=== PATIENT | male | born 1955 | race Caucasian/White ===

== ENCOUNTER 2020-01-08 20:16 | Emergency (ER) | payer MEDICARE, SELFPAY ==
[2020-01-08 20:19] VITALS: BP 122/61; PULSE 74; RESP 14; TEMP 36.4; O2SAT 98; BMI 22.4
--- NOTE | 2020-01-08 20:29 | XR_ITS ---
WS: [id number] RIGHT FOOT: 3 VIEW(S) TECHNIQUE: PA, oblique and lateral. HISTORY: necrosis COMPARISON: None available. Soft tissue and bone abnormality centered near the fifth metatarsal head. There is air in the soft ti ssues over the plantar surface of the foot. On the lateral projection air extends from the anterior c alcaneal process to the level of the metatarsal heads. On the AP projection foci of air between the f ourth and fifth metatarsals and surrounding the fifth metatarsal head and proximal fifth toe. Small a mount of air along the dorsal surface of the foot. Osseous destruction involving the medial fifth metatarsal head measures 10 x 8 mm. There is also inco mplete visualization of the cortex of the proximal phalanx fifth toe. No definite additional bone amor truction. There is some mild lucency throughout nearly the entire fourth and fifth metatarsals. Could be from prior osteomyelitis or edema. XR/XR foot RT min 3V* [id number] IMPRESSION: 1. Bone destruction consistent with osteomyelitis involving the medial fifth m etatarsal head with extension across the metatarsophalangeal joint to the proxi mal phalanx. 2. Extensive foci of air along the plantar surface of the foot. Smaller amount of air along the dorsal surface of the foot at the level of the mid metatarsal s.
--- NOTE | 2020-01-08 20:32 | W.ED.NEUROSD ---
HPI - Neuro Symptoms/Deficit General: Chief Complaint: Neuro Symptoms/Deficit Stated Complaint: POSSIBLE STROKE Time Seen by Provider: 01/08/20 20:27 Source: patient and EMS Mode of arrival: EMS Limitations: no limitations History of Present Illness: HPI Narrative: 64-year-old male who states that he was having some slurred speech and did have hypoglycemia. Patient was given glucose and his symptoms have completely resolved. Patient states he was not too concerned about that but noticed today as well that his toes were turning blue he is having a lot of pain in his foot. He states he had peripheral vascular disease in the past but it got much worse today. He denies any fevers. Denies any worsening improving factors. Patient's initial blood glucose was in the 40s. They gave him D50 states he feels completely normal and was ambulatory at the scene and had no focal deficits. Associated symptoms: Deny chest pain, headache(s), nausea or vomiting Review of Systems Const: Denies: fever, chills, body aches or change in appetite Eyes: Denies: blurry vision or eye discomfort ENMT: Denies: throat pain or dental pain Card: Denies: chest pain Resp: Denies: shortness of breath GI: Denies: abdominal pain, nausea, vomiting or diarrhea : Denies: painful urination Musc: Denies: neck pain or back pain Skin/Breast: Reports: sores; Denies: rash Neuro: Denies: headache Psych: Denies: depression Marcial/Lymph: Denies: easy bruising All/Imm: Denies: hives PFSH ED PFSH: Social History Smoking and tobacco status: current every day smoker Physical Exam Const: COMMON NORMALS: no apparent distress, oriented x3 and healthy appearing HENMT: COMMON NORMALS: normocephalic and head/scalp atraumatic HEAD & SCALP: normocephalic and atraumatic Eye: COMMON NORMALS: PERRL and EOMs intact bilaterally PUPIL: Yes PERRL Neck/C-Spine: COMMON NORMALS: full ROM and supple Chest: COMMONS NORMALS: inspection of chest normal and palpation of chest normal Resp: COMMON NORMALS: normal respiratory effort, no retractions, no use of accessory muscles and clear to auscultation bilaterally AUSCULTATION: clear to auscultation bilaterally Cardio: COMMON NORMALS: regular rate, regular rhythm and no murmurs RATE: regular rate RHYTHM: regular rhythm GI: COMMON NORMALS: normal to inspection, nondistended, normoactive bowel sounds, soft to palpation, non-tender and no masses PALPATION: Yes soft Extremity: COMMON NORMALS: normal to inspection and full ROM NARRATIVE EXTREMITY EXAM: Necrosis to third fourth and fifth toes of the right foot patient's foot is cold and unable to get any pulses of his dorsalis pedis or posterior tib at this time. Neuro: COMMON NORMALS: oriented x3, moves all extremities and no focal motor deficits Psych: COMMON NORMALS: mental status grossly normal, thought process normal and cooperative THOUGHT PROCESS: normal thought process Skin: COMMON NORMALS: no rashes or lesions noted and no wounds GENERAL SKIN EXAM: no rashes or lesions noted Course Vital Signs: Vital signs: Vital Signs Temperature 97.5 F L 01/08/20 20:19 Pulse Rate 74 01/08/20 20:19 Respiratory Rate 14 01/08/20 20:19 Blood Pressure 122/61 01/08/20 20:19 Pulse Oximetry 98 01/08/20 20:19 MDM - Neuro Symptoms/Deficit MDM Narrative: Medical decision making narrative: Patient presents here with hypoglycemia initially improved with D50 by EMS. Patient here is been awake alert and able answer all my questions appropriately. Patient second glucose here was 39 so give another amp of D50 and D10 drip. Patient also has ischemic limb with necrotic toes up to his midfoot. I spoke to Dr. Burris of cardiovascular surgery was not transfer straight to the OR but he wanted to transfer the ER first due to his hyperglycemia. I spoke to Dr. Perdomo at the ER and will transfer there. Patient started on heparin here and IV antibiotics. Will transfer due to higher level of care as regional have cardiovascular surgery at this time. Lab Data: Labs: Lab Results 01/08/20 01/08/20 01/08/20 Range/Units 20:33 20:33 20:33 WBC 31.8 H* (4.0-10.0) 10^3/ uL RBC 3.83 L (4.1-5.3) 10^6/u L Hgb 11.3 L (11.7-16.6) g/dL Hct 35.1 L (42.0-52.0) % MCV 91.6 (80-94) fL MCH 29.5 (28.0-34.0) pg MCHC 32.2 (30.0-36.0) g/dL RDW 13.4 (12.1-15.1) % Plt Count 451 H (130-400) 10^3/c mm MPV 10.0 (7.4-10.4) fL Neut % (Auto) 85.9 % Lymph % (Auto) 4.3 % [place] % (Auto) 8.2 % Eos % (Auto) 0.1 % Baso % (Auto) 0.3 % Neut # (Auto) 27.3 H (1.8-7.7) 10^3/u L Lymph # (Auto) 1.4 (0.8-4.8) 10^3/u L [place] # (Auto) 2.6 H (0.2-0.9) 10^3/u L Eos # (Auto) 0.0 (0.0-0.8) 10^3/u L Baso # (Auto) 0.1 (0.0-0.1) 10^3/u L Nucleated RBC % (a uto) 0 % Nucleated RBCs # 0.0 /100WBC PT 15.30 H (10.5-13.3) SECO NDS INR 1.17 (0.8-1.2) Sodium 137 (136-145) mmol/L Potassium 3.6 (3.5-5.1) mmol/L Chloride 96 L (98-107) mmol/L Carbon Dioxide 23 (22-29) mmol/L Anion Gap 21.6 H (5-19) BUN 54 H (8-23) mg/dL Creatinine 1.8 H (0.7-1.2) mg/dL GFR Calculation 37.9 L (90-130) mL/min Glucose 39 L* (65-115) mg/dL Calculated Osmolal ity 279 L (285-295) mOsm/k g Calcium 9.8 (8.5-10.5) mg/dL Total Bilirubin 0.4 (0.15-1.2) mg/dL AST 59 H (0-40) U/L ALT 52 H (0-41) U/L Alkaline Phosphata se 108 (40-130) IU/L Total Protein 8.0 (6.6-8.7) g/dL Albumin 3.7 (3.5-5.2) g/dL Globulin 4.3 (1.3-4.6) g/dL Critical Care Time Critical Care Time: Critical Care Time: Yes Total Critical Care Time: 35 Attestation: This case had a high probability of a clinically significant, sudden, or life threatening deterioration of this patient's condition which required my full and direct attention, intervention and personal management. Discharge Plan Discharge Patient Disposition: Xfer Other Clinical Impression: Ischemic leg, Hypoglycemia Condition: Stable Referrals: Kunal Mcdowell MD [Primary Care Provider] - Coding Level of Care Code ED Senior Oracle Database Developer for Chg Fwd Exam Comprehensive
--- NOTE | 2020-01-08 20:42 | CTR_ITS ---
PROCEDURE INFORMATION: Exam: CT Head Without Contrast Exam date and time: 01/08/2020 8:49 PM Age: 64 years old Clinical indication: Altered mental status/memory loss and other: Low bs; Additional info: AMS TECHNIQUE: Imaging protocol: Computed tomography of the head without contrast. Total DLP: 844.34 mGy-cm Radiation optimization: All CT scans at this facility use at least one of these dose optimization techniques: automated exposure control; mA and/or kV adjustment per patient size (includes targeted exams where dose is matched to clinical indication); or iterative reconstruction. COMPARISON: No relevant prior studies available. FINDINGS: Brain: There is mild cortical atrophy. There are mild low-density changes in the white matter regions in keeping nonspecific chronic ischemic change. There is no intracranial mass, hemorrhage or edema. Ventricles: Normal. No ventriculomegaly. Bones/joints: Unremarkable. No acute fracture. Sinuses: Visualized sinuses are unremarkable. No fluid levels. Mastoid air cells: Visualized mastoid air cells are well aerated. Soft tissues: Unremarkable. CT/CT head wo con* [id number] IMPRESSION: No acute finding Radiation Dose CTDIVOL = (mGy): DLP = 844.34 (mGy-cm)
[2020-01-08 20:44] LABS: Basophils # 0.1 10^3/uL (0.0-0.1); Basophils % 0.3 %; Eosinophils % 0.1 %; Hematocrit 35.1 % (42.0-52.0); Hemoglobin 11.3 g/dL (11.7-16.6); Lymphocytes # 1.4 10^3/uL (0.8-4.8); Lymphocytes % 4.3 %; Mean Corpuscular HGB Conc 32.2 g/dL (30.0-36.0); Mean Corpuscular Hemoglobin 29.5 pg (28.0-34.0); Mean Corpuscular Volume 91.6 fL (80-94); Monocytes # 2.6 10^3/uL (0.2-0.9); Monocytes % 8.2 %; Neutrophils # 27.3 10^3/uL (1.8-7.7); Neutrophils % 85.9 %; Nucleated Red Blood Cells % 0 %; Platelet Count 451 10^3/cmm (130-400); Red Blood Count 3.83 10^6/uL (4.1-5.3); Red Cell Distribution Width 13.4 % (12.1-15.1)
[2020-01-08] MEDS: heparin 5,000 unit/mL INJ 1 mL 4000 UNIT IVP (20:46)
[2020-01-08 20:48] LABS: White Blood Count 31.8 10^3/uL (4.0-10.0)
--- NOTE | 2020-01-08 20:48 | PC.NURSE ---
WBC [id number]
[2020-01-08 20:49] LABS: INR 1.17 (0.8-1.2)
[2020-01-08 20:53] LABS: Alanine Aminotransferase 52 U/L (0-41); Albumin Level 3.7 g/dL (3.5-5.2); Alkaline Phosphatase 108 IU/L (40-130); Anion Gap 21.6 (5-19); Aspartate Amino Transferase 59 U/L (0-40); Blood Urea Nitrogen 54 mg/dL (8-23); Calcium 9.8 mg/dL (8.5-10.5); Carbon Dioxide 23 mmol/L (22-29); Chloride 96 mmol/L (98-107); Globulin 4.3 g/dL (1.3-4.6); Glomerular Filtration Rate 37.9 mL/min (90-130); Osmolality Calculated 279 mOsm/kg (285-295); Potassium 3.6 mmol/L (3.5-5.1); Sodium 137 mmol/L (136-145); Total Bilirubin 0.4 mg/dL (0.15-1.2)
[2020-01-08] MEDS: heparin drip 25,000 UNIT/500 ML PREMIX 21 UNIT IV (20:56)
[2020-01-08 20:58] LABS: Glucose 39 mg/dL (65-115)
[2020-01-08] MEDS: dextrose 50% syringe 50 mL IVP (21:02)
[2020-01-08] MEDS: vancomycin 1,000 MG in sodium chloride 0.9% 250 ML 250 MG IV (21:24)
[2020-01-08] MEDS: LORazepam 2 mg/mL INJ 1 mL 1 MG IVP (21:25)
[2020-01-08 21:31] VITALS: BP 98/51; PULSE 78; RESP 18; O2SAT 97
== END 2020-01-08 21:49 | disposition other institution (70) ==
PROVIDERS: Emergency Provider Emergency Medicine; Family Provider Internal Medicine; PCP Internal Medicine
DX: I99.8 Other disorder of circulatory system (principal); E16.2 Hypoglycemia, unspecified; F17.210 Nicotine dependence, cigarettes, uncomplicated; M86.8X8 Other osteomyelitis, other site; R41.82 Altered mental status, unspecified
CPT/HCPCS: 12345; 36415; 70450; 73630; 80053; 83605; 85025; 85610; 96365; 96367; 96368; 96375; 99281; 99285; J1644; J2060; J3370; J7050

== ENCOUNTER 2020-02-03 04:01 | Emergency (ER) | payer MEDICARE, SELFPAY ==
[2020-02-03 04:03] VITALS: PULSE 83; RESP 18; TEMP 36.5; O2SAT 99; BMI 21.7
--- NOTE | 2020-02-03 04:17 | ED_ITS ---
HPI - Fall General: Chief Complaint: Fall Stated Complaint: ams/ low blood sugar Time Seen by Provider: 02/03/20 04:16 History of Present Illness: HPI Narrative: 64-year-old male diabetic. 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 He states the pain had made him nauseated, and he did not eat supper last night. He fell out of bed early this morning, and sustained skin avulsions to his right upper extremity. He denies any fever. He denies purulent drainage from his stump. On EMS arrival, his blood sugar was 37. complaint: fall Onset (ago): minute(s) Fall from: out of bed Fall witnessed: yes, by family Place fall occurred: home Loss of consciousness: None Prolonged down time: no Symptoms prior to fall: dizziness Context: tripped/slipped Location of injury - extremities: Right: forearm Severity: mild Associated symptoms-after fall: Reports confusion; Denies abdominal pain, chest pain, hematuria or neck pain Review of Systems Const: Denies: fever(s) or chills Eyes: Reports: blurry vision; Denies: change in vision ENMT: Denies: odynophagia or epistaxis Card: Denies: chest pain, palpitations, irregular heart rhythm or edema Resp: Denies: dyspnea, productive cough, non-productive cough or wheezing GI: Reports: nausea; Denies: abdominal pain or vomiting : Denies: difficulty urinating or hematuria Musc: Reports: back pain; Denies: neck pain Skin/Breast: Denies: rash, pruritus or erythema Neuro: Reports: confusion Psych: Denies: anxiety PFSH ED PFSH: Medical History (Updated 02/13/20 @ 13:02 by Junior Ricketts MD) Diastolic CHF, chronic Essential (primary) hypertension Hereditary and idiopathic neuropathy, unspecified Mixed hyperlipidemia Non-ST elevation (NSTEMI) myocardial infarction Occlusion and stenosis of left carotid artery Presence of prosthetic heart valve January 2020- Bioprosthetic valve in the aortic position appears to be well- seated, leaflet could not be well visualized. VTI across the aortic valve is 2.4 m/s Surgical History History of [facility] 12/2019- [facility] History of aortic valve replacement History of coronary artery bypass graft Hx of right BKA Family History Other CAD (coronary artery disease) CHF (congestive heart failure) Cancer Social History Smoking and tobacco status: current every day smoker Alcohol intake: never Physical Exam Const: GENERAL APPEARANCE: well developed ORIENTATION/CONSCIOUSNESS: Yes oriented to person, Yes oriented to place and Yes oriented to time HENMT: COMMON NORMALS: normocephalic, external ears normal and Normal external nose present HEAD & SCALP: normocephalic NOSE: Normal external nose present and No nasal discharge present EXTERNAL EAR: Yes external ears normal MOUTH: tongue normal Eye: COMMON NORMALS: Equal, round and reactive pupils present, EOMs intact bilaterally and conjunctivae normal EYELID: eyelids normal CONJUNCTIVA: Yes conjunctivae normal PUPIL: Yes Equal, round and reactive pupils present Neck/C-Spine: GENERAL: No tracheal deviation CERVICAL SPINE: No Cervical spine tenderness Chest: COMMONS NORMALS: normal inspection of the chest CHEST: No tenderness Resp: COMMON NORMALS: clear to auscultation bilaterally EFFORT & INSPECTION: No tachypneic, No respiratory distress, No retractions, No uses accessory muscles and No tracheal deviation AUSCULTATION: clear to auscultation bilaterally, no rhonchi, no wheezes and lung sounds not diminished Cardio: COMMON NORMALS: regular rate and regular rhythm RATE: regular rate RHYTHM: regular rhythm HEART SOUNDS: no murmurs PERIPHERAL PULSES: radial pulses present GI: INSPECTION: No abdominal distension AUSCULTATION: No Hyperactive bowel sounds present and No Hypoactive bowel sounds present PALPATION: No Guarding due to palpation present (GI) and No Rigid due to palpation PERCUSSION: no dullness to percussion and no tympanic to percussion Neuro: SENSORIUM/ORIENTATION: Yes oriented to person, Yes oriented to place and Yes oriented to time Psych: COMMON NORMALS: mental status grossly normal Skin: NARRATIVE SKIN EXAM: Medium size skin avulsion to his right forearm. His right below the knee stump has some dried blood. There is no purulent drainage. Course Vital Signs: Vital signs: Vital Signs Temperature 97.7 F 02/03/20 04:03 Pulse Rate 67 02/03/20 10:14 Respiratory Rate 17 02/03/20 10:14 Blood Pressure 146/56 02/03/20 10:14 Pulse Oximetry 96 02/03/20 10:14 MDM - Fall MDM Narrative: Medical decision making narrative: 64-year-old man who fell out of bed at home. His blood sugar was 37 on arrival. His serum was drawn in the field, and actually read 14. He is on oral hypoglycemics, glimepiride. He did not eat supper last night. He does not have any other signs of infection or sepsis. He is given an amp of D50 here, as after the D10 he was given in the field, his sugar fell back to 41. He is on D10 now currently. When his sugar stays up appropriately he will be allowed discharge. He was given a tetanus for the skin avulsions. They are bandaged and Tegaderm. Lab Data: Labs: Lab Results 02/03/20 02/03/20 02/03/20 Range/Units 04:13 04:13 04:55 WBC 14.3 H (4.0-10.0) 10^3/ uL RBC 3.93 L (4.1-5.3) 10^6/u L Hgb 11.7 (11.7-16.6) g/dL Hct 38.1 L (42.0-52.0) % MCV 96.9 H (80-94) fL MCH 29.8 (28.0-34.0) pg MCHC 30.7 (30.0-36.0) g/dL RDW 16.4 H (12.1-15.1) % Plt Count 490 H (130-400) 10^3/c mm MPV 9.8 (7.4-10.4) fL Neut % (Auto) 67.5 % Lymph % (Auto) 19.7 % [place] % (Auto) 9.6 % Eos % (Auto) 2.3 % Baso % (Auto) 0.6 % Neut # (Auto) 9.7 H (1.8-7.7) 10^3/u L Lymph # (Auto) 2.8 (0.8-4.8) 10^3/u L [place] # (Auto) 1.4 H (0.2-0.9) 10^3/u L Eos # (Auto) 0.3 (0.0-0.8) 10^3/u L Baso # (Auto) 0.1 (0.0-0.1) 10^3/u L Nucleated RBC % (a uto) 0 % Nucleated RBCs # 0.0 /100WBC Sodium 148 H (136-145) mmol/L Potassium 4.1 (3.5-5.1) mmol/L Chloride 103 (98-107) mmol/L Carbon Dioxide 30 H (22-29) mmol/L Anion Gap 19.1 H (5-19) BUN 14 (8-23) mg/dL Creatinine 1.3 H (0.7-1.2) mg/dL GFR Calculation 55.2 L (90-130) mL/min Glucose 14 L* (65-115) mg/dL POC Glucose 41 (70-110) mg/dL Calculated Osmolal ity 298 H (285-295) mOsm/k g Calcium 9.8 (8.5-10.5) mg/dL Total Bilirubin 0.3 (0.15-1.2) mg/dL AST 33 (0-40) U/L ALT 26 (0-41) U/L Alkaline Phosphata se 116 (40-130) IU/L Total Protein 7.9 (6.6-8.7) g/dL Albumin 4.1 (3.5-5.2) g/dL Globulin 3.8 (1.3-4.6) g/dL 02/03/20 02/03/20 02/03/20 Range/Units 06:15 07:03 08:34 WBC (4.0-10.0) 10^3/ uL RBC (4.1-5.3) 10^6/u L Hgb (11.7-16.6) g/dL Hct (42.0-52.0) % MCV (80-94) fL MCH (28.0-34.0) pg MCHC (30.0-36.0) g/dL RDW (12.1-15.1) % Plt Count (130-400) 10^3/c mm MPV (7.4-10.4) fL Neut % (Auto) % Lymph % (Auto) % [place] % (Auto) % Eos % (Auto) % Baso % (Auto) % Neut # (Auto) (1.8-7.7) 10^3/u L Lymph # (Auto) (0.8-4.8) 10^3/u L [place] # (Auto) (0.2-0.9) 10^3/u L Eos # (Auto) (0.0-0.8) 10^3/u L Baso # (Auto) (0.0-0.1) 10^3/u L Nucleated RBC % (a uto) % Nucleated RBCs # /100WBC Sodium (136-145) mmol/L Potassium (3.5-5.1) mmol/L Chloride (98-107) mmol/L Carbon Dioxide (22-29) mmol/L Anion Gap (5-19) BUN (8-23) mg/dL Creatinine (0.7-1.2) mg/dL GFR Calculation (90-130) mL/min Glucose (65-115) mg/dL POC Glucose 78 84 88 (70-110) mg/dL Calculated Osmolal ity (285-295) mOsm/k g Calcium (8.5-10.5) mg/dL Total Bilirubin (0.15-1.2) mg/dL AST (0-40) U/L ALT (0-41) U/L Alkaline Phosphata se (40-130) IU/L Total Protein (6.6-8.7) g/dL Albumin (3.5-5.2) g/dL Globulin (1.3-4.6) g/dL 02/03/20 02/03/20 Range/Units 09:20 10:01 WBC (4.0-10.0) 10^3/ uL RBC (4.1-5.3) 10^6/u L Hgb (11.7-16.6) g/dL Hct (42.0-52.0) % MCV (80-94) fL MCH (28.0-34.0) pg MCHC (30.0-36.0) g/dL RDW (12.1-15.1) % Plt Count (130-400) 10^3/c mm MPV (7.4-10.4) fL Neut % (Auto) % Lymph % (Auto) % [place] % (Auto) % Eos % (Auto) % Baso % (Auto) % Neut # (Auto) (1.8-7.7) 10^3/u L Lymph # (Auto) (0.8-4.8) 10^3/u L [place] # (Auto) (0.2-0.9) 10^3/u L Eos # (Auto) (0.0-0.8) 10^3/u L Baso # (Auto) (0.0-0.1) 10^3/u L Nucleated RBC % (a uto) % Nucleated RBCs # /100WBC Sodium (136-145) mmol/L Potassium (3.5-5.1) mmol/L Chloride (98-107) mmol/L Carbon Dioxide (22-29) mmol/L Anion Gap (5-19) BUN (8-23) mg/dL Creatinine (0.7-1.2) mg/dL GFR Calculation (90-130) mL/min Glucose (65-115) mg/dL POC Glucose 80 104 (70-110) mg/dL Calculated Osmolal ity (285-295) mOsm/k g Calcium (8.5-10.5) mg/dL Total Bilirubin (0.15-1.2) mg/dL AST (0-40) U/L ALT (0-41) U/L Alkaline Phosphata se (40-130) IU/L Total Protein (6.6-8.7) g/dL Albumin (3.5-5.2) g/dL Globulin (1.3-4.6) g/dL Discharge Plan Discharge Patient Disposition: Home, Self-Care Clinical Impression: Hypoglycemia, Avulsion of skin Condition: Stable Prescriptions: No Action gabapentin 300 mg capsule 300 mg PO BID RF: 0 lisinopril 2.5 mg tablet 10 mg PO DAILY RF: 0 carvedilol 6.25 mg tablet 6.25 mg PO BID Qty: 60 RF: 5 amlodipine 10 mg tablet 10 mg PO DAILY RF: 0 metformin 1,000 mg tablet 1,000 mg PO BID RF: 0 Urinozinc Prostate Formula 100 mg Tablet 100 mg PO DAILY RF: 0 Januvia 100 mg Tablet 100 mg PO DAILY Qty: 30 RF: 0 tramadol 50 mg Tablet 50 mg PO Q6H PRN (Reason: Pain) RF: 0 sulfamethoxazole-trimethoprim 800-160 mg Tablet 1 tab PO BID 13 Days Qty: 26 RF: 0 amoxicillin-pot clavulanate 875-125 mg Tablet 1 tab PO BID 13 Days Qty: 26 RF: 0 atorvastatin 80 mg tablet 80 mg PO DAILY 30 Days Qty: 30 RF: 0 aspirin [Adult Low Dose Aspirin] 81 mg tablet,delayed release (DR/EC) 81 mg PO DAILY 30 Days Qty: 30 RF: 0 Discharge Orders: Discharge Order (Routine); Ordered 02/03/20 Ordered By: Leandro Mon Referrals: Kunal Mcdowell MD [Primary Care Provider] - 1-3 days Discharge Diet: Advance as tolerated Discharge Activity: Increase activity as tolerated Patient Instructions: Diabetic Hypoglycemia (ED), Skin Avulsion (ED) Activity Restrictions/Additional Instructions: Check your sugar often today, every couple of hours. Try to prevent hypoglycemia. Return for worsening mental status, inability to keep your sugar up, other concerning symptoms. Discharge Date/Time: 02/03/20 10:15 Coding Level of Care Code ED Tobacco Baler for Lalithag Fwd Exam Comprehensive
[2020-02-03 04:29] LABS: Basophils # 0.1 10^3/uL (0.0-0.1); Basophils % 0.6 %; Eosinophils # 0.3 10^3/uL (0.0-0.8); Eosinophils % 2.3 %; Hematocrit 38.1 % (42.0-52.0); Hemoglobin 11.7 g/dL (11.7-16.6); Lymphocytes # 2.8 10^3/uL (0.8-4.8); Lymphocytes % 19.7 %; Mean Corpuscular HGB Conc 30.7 g/dL (30.0-36.0); Mean Corpuscular Hemoglobin 29.8 pg (28.0-34.0); Mean Corpuscular Volume 96.9 fL (80-94); Mean Platelet Volume 9.8 fL (7.4-10.4); Monocytes # 1.4 10^3/uL (0.2-0.9); Monocytes % 9.6 %; Neutrophils # 9.7 10^3/uL (1.8-7.7); Neutrophils % 67.5 %; Nucleated Red Blood Cells % 0 %; Platelet Count 490 10^3/cmm (130-400); Red Blood Count 3.93 10^6/uL (4.1-5.3); Red Cell Distribution Width 16.4 % (12.1-15.1); White Blood Count 14.3 10^3/uL (4.0-10.0)
[2020-02-03 04:38] LABS: Alanine Aminotransferase 26 U/L (0-41); Albumin Level 4.1 g/dL (3.5-5.2); Alkaline Phosphatase 116 IU/L (40-130); Anion Gap 19.1 (5-19); Blood Urea Nitrogen 14 mg/dL (8-23); Calcium 9.8 mg/dL (8.5-10.5); Carbon Dioxide 30 mmol/L (22-29); Chloride 103 mmol/L (98-107); Creatinine Clr Calc Pharmacy 59.7613; Globulin 3.8 g/dL (1.3-4.6); Glomerular Filtration Rate 55.2 mL/min (90-130); Potassium 4.1 mmol/L (3.5-5.1); Sodium 148 mmol/L (136-145); Total Bilirubin 0.3 mg/dL (0.15-1.2); Total Protein 7.9 g/dL (6.6-8.7)
[2020-02-03] MEDS: dextrose 10% 1,000 ML 75 ML IV (04:42)
[2020-02-03 04:49] LABS: Aspartate Amino Transferase 33 U/L (0-40); Glucose 14 mg/dL (65-115); Osmolality Calculated 298 mOsm/kg (285-295)
[2020-02-03] MEDS: dextrose 50% syringe 50 mL IVP (04:58)
[2020-02-03 05:00] LABS: Glucose Point of Care 41 mg/dL (70-110)
[2020-02-03] MEDS: tetanus-dipt-pertussis 0.5 mL SDV IM (05:07)
[2020-02-03] MEDS: morphine 4 mg/mL SDV 1 mL IVP (05:35)
[2020-02-03 06:18] LABS: Glucose Point of Care 78 mg/dL (70-110)
[2020-02-03 07:07] LABS: Glucose Point of Care 84 mg/dL (70-110)
[2020-02-03 07:22] VITALS: BP 119/58; PULSE 76; RESP 16; O2SAT 95
[2020-02-03 08:02] VITALS: BP 133/49; RESP 15; O2SAT 95
--- NOTE | 2020-02-03 08:26 | PC.NURSE ---
Breakfast tray delivered to pt. No other needs at this time.
[2020-02-03 08:46] LABS: Glucose Point of Care 88 mg/dL (70-110)
--- NOTE | 2020-02-03 08:59 | PC.NURSE ---
Pt didn't like the food. informed. Gave chocolate milk and pudding to pt. Milk drank 240ml, are about 10% of food. Nurse cleansed and dressed pt's wounds.
[2020-02-03 09:00] VITALS: BP 155/51; PULSE 73; RESP 16; O2SAT 95
[2020-02-03 09:24] LABS: Glucose Point of Care 80 mg/dL (70-110)
[2020-02-03 10:07] LABS: Glucose Point of Care 104 mg/dL (70-110)
[2020-02-03 10:14] VITALS: BP 146/56; PULSE 67; RESP 17; O2SAT 96
== END 2020-02-03 10:15 | disposition home or self-care (01) ==
PROVIDERS: Emergency Provider Emergency Medicine; PCP Internal Medicine
DX: E16.2 Hypoglycemia, unspecified (principal); S51.801A Unspecified open wound of right forearm, initial encounter; W06.XXXA Fall from bed, initial encounter; I50.32 Chronic diastolic (congestive) heart failure; I11.0 Hypertensive heart disease with heart failure; E78.5 Hyperlipidemia, unspecified; I25.2 Old myocardial infarction; Z89.439 Acquired absence of unspecified foot; Z95.1 Presence of aortocoronary bypass graft; Z89.511 Acquired absence of right leg below knee; F17.210 Nicotine dependence, cigarettes, uncomplicated; Z23 Encounter for immunization
CPT/HCPCS: 12345; 36416; 80053; 82962; 85025; 90471; 90715; 96361; 96374; 99283; J2270

== ENCOUNTER 2020-02-03 17:41 | Observation (INO) | payer MEDICARE, SELFPAY ==
[2020-02-03] VITALS (40 sets, daily range): BP systolic 129–189; BP diastolic 52–97; PULSE 64–91; RESP 13–27; TEMP 36.4; O2SAT 95–100; BMI 20.3
--- NOTE | 2020-02-03 18:06 | XR_ITS ---
WS: [id number] PORTABLE CHEST HISTORY: ams COMPARISON: 08/19/2015 Prior median sternotomy and aortic valve replacement. Benign calcified granuloma LEFT lower lobe. Otherwise lungs are clear. No pleural effusion or pneumot horax. Cardiac size: Normal. Mediastinum/Aorta: Mild atherosclerosis aorta. No osseous abnormality seen. XR/XR chest 1V portable [id number] IMPRESSION: Chronic emphysema and prior granulomatous disease. No pneumonia.
--- NOTE | 2020-02-03 18:08 | ECG_ITS ---
Measurements Intervals [place] Rate: 82 P: 52 [place]: 166 QRS: -13 QRSD: 103 T: 93 QT: 393 QTc: 461 SINUS RHYTHM WITH OCCASIONAL SUPRAVENTRICULAR PREMATURE COMPLEXES SEPTAL MYOCARDIAL INFARCTION , OF INDETERMINATE AGE [40+ ms Q WAVE IN V1/V2] Compared to ECG 08/19/2015 07:04:25 ST (T wave) deviation no longer present Myocardial infarct finding still present Electronically Signed On 02-04-2020 19:44:40 CDT by Ericka Odom M.D. [email or web address]
--- NOTE | 2020-02-03 18:08 | ED_ITS ---
HPI - Altered Mental Status General: Chief Complaint: Altered Mental Status Stated Complaint: AMS Time Seen by Provider: 02/03/20 18:04 Source: patient and EMS Mode of arrival: EMS Limitations: altered mental status History of Present Illness: HPI narrative: 64-year-old male who was seen earlier in the ER for hypoglycemia. Once patient had his glucose replaced his hypoglycemia improved. Per EMS patient has had confusion over the last hour or 2 and his glucose is now normal. Patient is alert to self confused otherwise. Patient has no focal deficits. He has had no fever. 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- [facility] History of aortic valve replacement History of coronary artery bypass graft Hx of right BKA Family History Other CAD (coronary artery disease) CHF (congestive heart failure) Cancer Social History Smoking and tobacco status: unknown if ever smoked Alcohol intake: never Physical Exam Const: COMMON NORMALS: no apparent distress, healthy appearing and alert; negative for oriented x3 EXAM LIMITATIONS: altered mental status ORIENTATION/CONSCIOUSNESS: Yes oriented to person; not oriented to place and not oriented to time HENMT: COMMON NORMALS: normocephalic and head/scalp atraumatic HEAD & SCALP: normocephalic and atraumatic Eye: COMMON NORMALS: PERRL and EOMs intact bilaterally PUPIL: Yes PERRL Neck/C-Spine: COMMON NORMALS: full ROM and supple Chest: COMMONS NORMALS: inspection of chest normal and palpation of chest normal Resp: COMMON NORMALS: normal respiratory effort, no retractions, no use of accessory muscles and clear to auscultation bilaterally AUSCULTATION: clear to auscultation bilaterally Cardio: COMMON NORMALS: regular rate, regular rhythm and no murmurs RATE: regular rate RHYTHM: regular rhythm GI: COMMON NORMALS: normal to inspection, nondistended, normoactive bowel sounds, soft to palpation, non-tender and no masses PALPATION: Yes soft Extremity: COMMON NORMALS: normal to inspection and full ROM Neuro: COMMON NORMALS: moves all extremities and no focal motor deficits; negative for oriented x3 SENSORIUM/ORIENTATION: Yes alert, Yes oriented to person, No oriented to place and No oriented to time Psych: COMMON NORMALS: mental status grossly normal, thought process normal and cooperative THOUGHT PROCESS: normal thought process Skin: COMMON NORMALS: no rashes or lesions noted and no wounds GENERAL SKIN EXAM: no rashes or lesions noted Course Vital Signs: Vital signs: Vital Signs Temperature 97.5 F L 02/03/20 17:48 Pulse Rate 77 02/03/20 23:30 Respiratory Rate 21 H 02/03/20 23:30 Blood Pressure 134/52 02/03/20 23:30 Pulse Oximetry 96 02/03/20 23:30 MDM - Altered Mental Status MDM Narrative: Medical decision making narrative: 2032 informed patient that we do not have any ICU beds as he needs regular glucose checks he needs to be admitted ICU. Informed him when he does transfer him to [facility]. Patient refuses transfer and states that he would rather sign out AMA. Informed him that he could become hypoglycemic again and even cause . He understands this. We will keep him in the ER to make sure that he is more stable and discussed with him again in a few hours. 2344 patient's blood sugar has stabilized I feel he is stable for the floor at this point. Will admit for observation as he is on glimepiride which is long half-life. I spoke to Dr. Chatman who is admitting. Lab Data: Labs: Lab Results 02/03/20 02/03/20 02/03/20 Range/Units 19:25 19:46 19:46 WBC 13.1 H (4.0-10.0) 10^3/ uL RBC 3.85 L (4.1-5.3) 10^6/u L Hgb 11.3 L (11.7-16.6) g/dL Hct 37.4 L (42.0-52.0) % MCV 97.1 H (80-94) fL MCH 29.4 (28.0-34.0) pg MCHC 30.2 (30.0-36.0) g/dL RDW 16.2 H (12.1-15.1) % Plt Count 442 H (130-400) 10^3/c mm MPV 9.1 (7.4-10.4) fL Neut % (Auto) 69.2 % Lymph % (Auto) 16.9 % [place] % (Auto) 11.4 % Eos % (Auto) 1.4 % Baso % (Auto) 0.7 % Neut # (Auto) 9.1 H (1.8-7.7) 10^3/u L Lymph # (Auto) 2.2 (0.8-4.8) 10^3/u L [place] # (Auto) 1.5 H (0.2-0.9) 10^3/u L Eos # (Auto) 0.2 (0.0-0.8) 10^3/u L Baso # (Auto) 0.1 (0.0-0.1) 10^3/u L Nucleated RBC % (a uto) 0 % Nucleated RBCs # 0.0 /100WBC PT 13.40 H (10.5-13.3) SECO NDS INR 0.99 (0.8-1.2) Sodium (136-145) mmol/L Potassium (3.5-5.1) mmol/L Chloride (98-107) mmol/L Carbon Dioxide (22-29) mmol/L Anion Gap (5-19) BUN (8-23) mg/dL Creatinine (0.7-1.2) mg/dL GFR Calculation (90-130) mL/min Glucose (65-115) mg/dL POC Glucose 32 (70-110) mg/dL Calculated Osmolal ity (285-295) mOsm/k g Calcium (8.5-10.5) mg/dL Total Bilirubin (0.15-1.2) mg/dL AST (0-40) U/L ALT (0-41) U/L Alkaline Phosphata se (40-130) IU/L Troponin T Baselin e (0-15) ng/mL Troponin T 120 Min seminole (0-15) ng/mL Delta Troponin T (0-10) ABS# Total Protein (6.6-8.7) g/dL Albumin (3.5-5.2) g/dL Globulin (1.3-4.6) g/dL TSH (0.27-4.20) uIU/ mL Urine Color (Yellow) Urine Appearance (CLEAR) Urine pH (5-7) Ur Specific Gravit y (1.005-1.030) Urine Protein (Negative) Urine Glucose (UA) (Normal) Urine Ketones (Negative) Urine Blood (Negative) Urine Nitrate (Negative) Urine Bilirubin (NEGATIVE) Urine Urobilinogen (Negative) mg/dL Ur Leukocyte Oksana ase (Negative) Urine Opiates Scre en (Negative) ng/mL Ur Barbiturates Sc reen (Negative) ng/mL Ur Phencyclidine S crn (Negative) ng/mL Ur Amphetamines Sc reen (Negative) ng/mL U Benzodiazepines Scrn (Negative) ng/mL Urine Cocaine Scre en (Negative) ng/mL U Marijuana (THC) Screen (Negative) ng/mL Ethyl Alcohol (0-10) mg/dL 02/03/20 02/03/20 02/03/20 Range/Units 19:46 19:46 20:01 WBC (4.0-10.0) 10^3/ uL RBC (4.1-5.3) 10^6/u L Hgb (11.7-16.6) g/dL Hct (42.0-52.0) % MCV (80-94) fL MCH (28.0-34.0) pg MCHC (30.0-36.0) g/dL RDW (12.1-15.1) % Plt Count (130-400) 10^3/c mm MPV (7.4-10.4) fL Neut % (Auto) % Lymph % (Auto) % [place] % (Auto) % Eos % (Auto) % Baso % (Auto) % Neut # (Auto) (1.8-7.7) 10^3/u L Lymph # (Auto) (0.8-4.8) 10^3/u L [place] # (Auto) (0.2-0.9) 10^3/u L Eos # (Auto) (0.0-0.8) 10^3/u L Baso # (Auto) (0.0-0.1) 10^3/u L Nucleated RBC % (a uto) % Nucleated RBCs # /100WBC PT (10.5-13.3) SECO NDS INR (0.8-1.2) Sodium 139 (136-145) mmol/L Potassium 3.8 (3.5-5.1) mmol/L Chloride 100 (98-107) mmol/L Carbon Dioxide 26 (22-29) mmol/L Anion Gap 16.8 (5-19) BUN 10 (8-23) mg/dL Creatinine 0.8 (0.7-1.2) mg/dL GFR Calculation 96.7 (90-130) mL/min Glucose 29 L* (65-115) mg/dL POC Glucose 152 (70-110) mg/dL Calculated Osmolal ity 280 L (285-295) mOsm/k g Calcium 9.8 (8.5-10.5) mg/dL Total Bilirubin 0.3 (0.15-1.2) mg/dL AST 26 (0-40) U/L ALT 19 (0-41) U/L Alkaline Phosphata se 114 (40-130) IU/L Troponin T Baselin e 60 H (0-15) ng/mL Troponin T 120 Min seminole (0-15) ng/mL Delta Troponin T (0-10) ABS# Total Protein 7.5 (6.6-8.7) g/dL Albumin 4.1 (3.5-5.2) g/dL Globulin 3.4 (1.3-4.6) g/dL TSH 1.11 (0.27-4.20) uIU/ mL Urine Color (Yellow) Urine Appearance (CLEAR) Urine pH (5-7) Ur Specific Gravit y (1.005-1.030) Urine Protein (Negative) Urine Glucose (UA) (Normal) Urine Ketones (Negative) Urine Blood (Negative) Urine Nitrate (Negative) Urine Bilirubin (NEGATIVE) Urine Urobilinogen (Negative) mg/dL Ur Leukocyte Oksana ase (Negative) Urine Opiates Scre en (Negative) ng/mL Ur Barbiturates Sc reen (Negative) ng/mL Ur Phencyclidine S crn (Negative) ng/mL Ur Amphetamines Sc reen (Negative) ng/mL U Benzodiazepines Scrn (Negative) ng/mL Urine Cocaine Scre en (Negative) ng/mL U Marijuana (THC) Screen (Negative) ng/mL Ethyl Alcohol < 10 (0-10) mg/dL 02/03/20 02/03/20 02/03/20 Range/Units 20:20 20:20 20:45 WBC (4.0-10.0) 10^3/ uL RBC (4.1-5.3) 10^6/u L Hgb (11.7-16.6) g/dL Hct (42.0-52.0) % MCV (80-94) fL MCH (28.0-34.0) pg MCHC (30.0-36.0) g/dL RDW (12.1-15.1) % Plt Count (130-400) 10^3/c mm MPV (7.4-10.4) fL Neut % (Auto) % Lymph % (Auto) % [place] % (Auto) % Eos % (Auto) % Baso % (Auto) % Neut # (Auto) (1.8-7.7) 10^3/u L Lymph # (Auto) (0.8-4.8) 10^3/u L [place] # (Auto) (0.2-0.9) 10^3/u L Eos # (Auto) (0.0-0.8) 10^3/u L Baso # (Auto) (0.0-0.1) 10^3/u L Nucleated RBC % (a uto) % Nucleated RBCs # /100WBC PT (10.5-13.3) SECO NDS INR (0.8-1.2) Sodium (136-145) mmol/L Potassium (3.5-5.1) mmol/L Chloride (98-107) mmol/L Carbon Dioxide (22-29) mmol/L Anion Gap (5-19) BUN (8-23) mg/dL Creatinine (0.7-1.2) mg/dL GFR Calculation (90-130) mL/min Glucose (65-115) mg/dL POC Glucose 125 (70-110) mg/dL Calculated Osmolal ity (285-295) mOsm/k g Calcium (8.5-10.5) mg/dL Total Bilirubin (0.15-1.2) mg/dL AST (0-40) U/L ALT (0-41) U/L Alkaline Phosphata se (40-130) IU/L Troponin T Baselin e (0-15) ng/mL Troponin T 120 Min seminole (0-15) ng/mL Delta Troponin T (0-10) ABS# Total Protein (6.6-8.7) g/dL Albumin (3.5-5.2) g/dL Globulin (1.3-4.6) g/dL TSH (0.27-4.20) uIU/ mL Urine Color Yellow (Yellow) Urine Appearance Clear (CLEAR) Urine pH 6.5 (5-7) Ur Specific Gravit y 1.010 (1.005-1.030) Urine Protein Neg (Negative) Urine Glucose (UA) Norm (Normal) Urine Ketones Negative (Negative) Urine Blood Neg (Negative) Urine Nitrate Negative (Negative) Urine Bilirubin Neg (NEGATIVE) Urine Urobilinogen Norm (Negative) mg/dL Ur Leukocyte Oksana ase Negative (Negative) Urine Opiates Scre en Positive H (Negative) ng/mL Ur Barbiturates Sc reen Negative (Negative) ng/mL Ur Phencyclidine S crn Negative (Negative) ng/mL Ur Amphetamines Sc reen Negative (Negative) ng/mL U Benzodiazepines Scrn Negative (Negative) ng/mL Urine Cocaine Scre en Negative (Negative) ng/mL U Marijuana (THC) Screen Positive H (Negative) ng/mL Ethyl Alcohol (0-10) mg/dL 02/03/20 02/03/20 02/03/20 Range/Units 21:47 21:56 23:25 WBC (4.0-10.0) 10^3/ uL RBC (4.1-5.3) 10^6/u L Hgb (11.7-16.6) g/dL Hct (42.0-52.0) % MCV (80-94) fL MCH (28.0-34.0) pg MCHC (30.0-36.0) g/dL RDW (12.1-15.1) % Plt Count (130-400) 10^3/c mm MPV (7.4-10.4) fL Neut % (Auto) % Lymph % (Auto) % [place] % (Auto) % Eos % (Auto) % Baso % (Auto) % Neut # (Auto) (1.8-7.7) 10^3/u L Lymph # (Auto) (0.8-4.8) 10^3/u L [place] # (Auto) (0.2-0.9) 10^3/u L Eos # (Auto) (0.0-0.8) 10^3/u L Baso # (Auto) (0.0-0.1) 10^3/u L Nucleated RBC % (a uto) % Nucleated RBCs # /100WBC PT (10.5-13.3) SECO NDS INR (0.8-1.2) Sodium (136-145) mmol/L Potassium (3.5-5.1) mmol/L Chloride (98-107) mmol/L Carbon Dioxide (22-29) mmol/L Anion Gap (5-19) BUN (8-23) mg/dL Creatinine (0.7-1.2) mg/dL GFR Calculation (90-130) mL/min Glucose (65-115) mg/dL POC Glucose 155 188 (70-110) mg/dL Calculated Osmolal ity (285-295) mOsm/k g Calcium (8.5-10.5) mg/dL Total Bilirubin (0.15-1.2) mg/dL AST (0-40) U/L ALT (0-41) U/L Alkaline Phosphata se (40-130) IU/L Troponin T Baselin e (0-15) ng/mL Troponin T 120 Min seminole 52.82 H (0-15) ng/mL Delta Troponin T -7.18 L (0-10) ABS# Total Protein (6.6-8.7) g/dL Albumin (3.5-5.2) g/dL Globulin (1.3-4.6) g/dL TSH (0.27-4.20) uIU/ mL Urine Color (Yellow) Urine Appearance (CLEAR) Urine pH (5-7) Ur Specific Gravit y (1.005-1.030) Urine Protein (Negative) Urine Glucose (UA) (Normal) Urine Ketones (Negative) Urine Blood (Negative) Urine Nitrate (Negative) Urine Bilirubin (NEGATIVE) Urine Urobilinogen (Negative) mg/dL Ur Leukocyte Oksana ase (Negative) Urine Opiates Scre en (Negative) ng/mL Ur Barbiturates Sc reen (Negative) ng/mL Ur Phencyclidine S crn (Negative) ng/mL Ur Amphetamines Sc reen (Negative) ng/mL U Benzodiazepines Scrn (Negative) ng/mL Urine Cocaine Scre en (Negative) ng/mL U Marijuana (THC) Screen (Negative) ng/mL Ethyl Alcohol (0-10) mg/dL Imaging Data^: CXR: Attestation: I personally reviewed and interpreted this imaging study as follows: My impression: no acute abnormalities noted CT Head: Radiologist's impression: [facility] [address] [place] [address] CT Scan Report Signed Patient: Moises Galvez Unit #: [id number] : 1955 Age/Sex: 64 / M ADM Date: 02/03/20 Loc: ER Room/Bed: Attending Dr: Ordering Provider/Ordering MD: Cain Marcial MD Date of Service: 02/03/20 Procedure(s): CT head wo con* [id number] Accession Number(s): [id number] Report Number: [id number] PROCEDURE INFORMATION: Exam: CT Head Without Contrast Exam date and time: 02/03/2020 6:18 PM Age: 64 years old Clinical indication: Altered mental status/memory loss; Patient HX: AMS. Patient awake but unresponsive to questions. Best exam obtained. TECHNIQUE: Imaging protocol: Computed tomography of the head without contrast. Radiation optimization: All CT scans at this facility use at least one of these dose optimization techniques: automated exposure control; mA and/or kV adjustment per patient size (includes targeted exams where dose is matched to clinical indication); or iterative reconstruction. COMPARISON: CT head wo con* [id number] 01/08/2020 9:03 PM RADIATION DOSE METRICS: Total DLP: 1366.56 mGy-cm FINDINGS: Brain: No visible evidence of active or acute intracranial pathologic process. No visible intracranial hemorrhage. Ventricles: Normal. No ventriculomegaly. Bones/joints: Unremarkable. No acute fracture. Sinuses: Visualized sinuses are unremarkable. No fluid levels. Mastoid air cells: Visualized mastoid air cells are well aerated. Soft tissues: Unremarkable. Other findings: Motion artifact. CT/CT head wo con* [id number] IMPRESSION: Nonacute. EKG Data^: EKG 1: Attestation: I personally reviewed and interpreted this EKG as follows: EKG interpretation date: 02/03/20 EKG interpretation time: 19:54 Interpretation: afib hr [address] or t wave abnormalities qrs 104 [id number] Critical Care Time Critical Care Time: Critical Care Time: Yes Total Critical Care Time: 36 Attestation: This case had a high probability of a clinically significant, sudden, or life threatening deterioration of this patient's condition which required my full and direct attention, intervention and personal management. Discharge Plan Discharge Patient Disposition: Admitted As Inpatient Clinical Impression: Hypoglycemia Condition: Stable Coding Level of Care Code ED Powder Blender for Chg Fwd Exam Comprehensive
--- NOTE | 2020-02-03 18:51 | PC.NURSE ---
Patient returned from CT via stretcher
--- NOTE | 2020-02-03 19:26 | PC.NURSE ---
BLOOD SUGAR BEDSIDE 32 CHECKED BY NURSE, HCP INFORMED
[2020-02-03 19:29] LABS: Glucose Point of Care 32 mg/dL (70-110)
[2020-02-03] MEDS: dextrose 50% syringe 50 mL IVP (19:43)
--- NOTE | 2020-02-03 19:51 | PC.NURSE ---
PATIENT WAS SEEN IN THE ED ON 02/02 FOR LOW BLOOD GLUCOSE. PATIENT RETURNED TO ED FOR AMS. PATIENT IS UNABLE TO TELL NURSE WHERE HE IS . PATIENT IS ORIENTED TO HIS NAME AND BIRTHDAY. PATIENT IS CONFUSED ABOUT WHY HIS IS IN THE HOSPITAL.
--- NOTE | 2020-02-03 20:02 | PC.NURSE ---
BG 152 BEDSIDE
--- NOTE | 2020-02-03 20:03 | PC.NURSE ---
REPORT RECEIVED FROM IVONNE, FLOORPERSON, AND CARE TRANSFERRED TO [facility]
--- NOTE | 2020-02-03 20:08 | ECG_ITS ---
Measurements Intervals [place] Rate: 87 P: GA: 0 QRS: 0 QRSD: 104 T: 113 QT: 387 QTc: [address] & T-WAVE ABNORMALITY Compared to ECG 08/19/2015 07:04:25 T-wave abnormality now present Sinus rhythm no longer present Myocardial infarct finding no longer present ST (T wave) deviation no longer present Electronically Signed On 02-04-2020 19:46:58 CDT by Ericka Odom M.D. [id number] f
[2020-02-03 20:13] LABS: Basophils # 0.1 10^3/uL (0.0-0.1); Basophils % 0.7 %; Eosinophils # 0.2 10^3/uL (0.0-0.8); Eosinophils % 1.4 %; Hematocrit 37.4 % (42.0-52.0); Hemoglobin 11.3 g/dL (11.7-16.6); Lymphocytes # 2.2 10^3/uL (0.8-4.8); Lymphocytes % 16.9 %; Mean Corpuscular HGB Conc 30.2 g/dL (30.0-36.0); Mean Corpuscular Hemoglobin 29.4 pg (28.0-34.0); Mean Corpuscular Volume 97.1 fL (80-94); Mean Platelet Volume 9.1 fL (7.4-10.4); Monocytes # 1.5 10^3/uL (0.2-0.9); Monocytes % 11.4 %; Neutrophils # 9.1 10^3/uL (1.8-7.7); Neutrophils % 69.2 %; Nucleated Red Blood Cells % 0 %; Platelet Count 442 10^3/cmm (130-400); Red Blood Count 3.85 10^6/uL (4.1-5.3); Red Cell Distribution Width 16.2 % (12.1-15.1); White Blood Count 13.1 10^3/uL (4.0-10.0)
[2020-02-03 20:24] LABS: Glucose Point of Care 152 mg/dL (70-110)
[2020-02-03 20:28] LABS: Add Urine Microscopic? NO
[2020-02-03] MEDS: dextrose 10% 1,000 ML 100 ML IV (20:34)
[2020-02-03 20:36] LABS: Troponin(5th) Baseline 60 ng/mL (0-15)
--- NOTE | 2020-02-03 20:36 | PC.NURSE ---
PATIENT OFFERED FOOD BY NURSE PER HCP VERBAL REQUEST BUT PATIENT REFUSED ALL FOOD/DRINK AT THIS TIME.
--- NOTE | 2020-02-03 20:45 | PC.NURSE ---
BG 125 AT BEDSIDE
[2020-02-03 20:46] LABS: Alanine Aminotransferase 19 U/L (0-41); Albumin Level 4.1 g/dL (3.5-5.2); Alkaline Phosphatase 114 IU/L (40-130); Anion Gap 16.8 (5-19); Aspartate Amino Transferase 26 U/L (0-40); Blood Urea Nitrogen 10 mg/dL (8-23); Calcium 9.8 mg/dL (8.5-10.5); Carbon Dioxide 26 mmol/L (22-29); Chloride 100 mmol/L (98-107); Globulin 3.4 g/dL (1.3-4.6); Glomerular Filtration Rate 96.7 mL/min (90-130); Osmolality Calculated 280 mOsm/kg (285-295); Potassium 3.8 mmol/L (3.5-5.1); Sodium 139 mmol/L (136-145); Thyroid Stimulating Hormone 1.11 uIU/mL (0.27-4.20); Total Bilirubin 0.3 mg/dL (0.15-1.2); Total Protein 7.5 g/dL (6.6-8.7)
[2020-02-03 20:49] LABS: INR 0.99 (0.8-1.2)
[2020-02-03 20:51] LABS: Glucose Point of Care 125 mg/dL (70-110)
[2020-02-03 20:57] LABS: Alcohol Level < 10 mg/dL (0-10); Glucose 29 mg/dL (65-115)
[2020-02-03 20:58] LABS: Urine Color Yellow (Yellow)
[2020-02-03 20:59] LABS: Bilirubin Urine Neg (NEGATIVE); Blood Urine Neg (Negative); Glucose Urine UA Norm (Normal); Ketones Urine Negative (Negative); Leukocyte Esterase Urine Negative (Negative); Nitrate Urine Negative (Negative); Protein Urine Neg (Negative); Urine Appearance Clear (CLEAR); Urobilinogen Urine Norm (Negative); pH Urine 6.5 (5-7)
[2020-02-03 21:04] LABS: Amphetamines Screen Urine Negative (Negative); Barbiturates Screen Urine Negative (Negative); Benzodiazepines Screen Urine Negative (Negative); Cocaine Screen Urine Negative (Negative); Opiate Screen Urine Positive (Negative); PCP Screen Urine Negative (Negative); THC Screen Urine Positive (Negative)
--- NOTE | 2020-02-03 21:57 | PC.NURSE ---
BG 155 at 2154
[2020-02-03 22:00] LABS: Glucose Point of Care 155 mg/dL (70-110)
[2020-02-03 22:38] LABS: Troponin 5 2HR 52.82 ng/mL (0-15)
[2020-02-03 22:50] LABS: Troponin 5 2HR Delta -7.18 ABS# (0-10)
--- NOTE | 2020-02-03 23:23 | PC.NURSE ---
TRIED TO CALL REPORT ON PATIENT BUT RECEIVING NURSE NOT AVAILABLE, NURSE FROM FLOOR WILL CALL ED NURSE BACK.
--- NOTE | 2020-02-03 23:26 | PC.NURSE ---
BLOOD GLUCOSE BEDSIDE 188
[2020-02-03 23:28] LABS: Glucose Point of Care 188 mg/dL (70-110)
[2020-02-04] VITALS (19 sets, daily range): BP systolic 109–179; BP diastolic 50–82; PULSE 68–92; RESP 11–28; TEMP 36.4–37; O2SAT 94–99
[2020-02-04 01:06] LABS: Glucose Point of Care 193 mg/dL (70-110)
--- NOTE | 2020-02-04 01:07 | P.HP_ITS ---
Providers/Chief Complaint Primary Care Provider: Kunal Mcdowell MD Chief Complaint: AMS History of Present Illness Moises Galvez is a 64 year old male with past medical history of diabetes and peripheral neuropathy who underwent right lower extremity BKA couple of weeks ago who presented to emergency room confused. The patient was found to have severe hypoglycemia. Was given bolus of D50 and started on D10 infusion. Blood sugar levels normalized. Mental status improved. However he is still mildly confused. No acute distress. He is oriented. However he cannot remember his home medications yet. He states that after the surgery his diabetes medication was changed. Current medication list includes glimepiride. It is unclear whether this is an old or new medication. He does not know why his diabetes medication was changed recently. He denies any hypoglycemic episodes in the past. He states that he still eats normal regular diet. He denies any vomiting or decreased intake for any other reasons. No seizures or loss of consciousness. He also denies any chest pain, palpitations, shortness of breath, fevers or chills. The pain is well controlled in the right lower extremity. He denies any bleeding or excessive discharge. He denies dysuria. Review of Systems General: Reports: 10 or more systems reviewed and unremarkable except in HPI and below Medications/Allergies Home Medications Medication Instructions Recorded Confirmed Last Taken Type carvedilol 6.25 mg tablet 6.25 mg PO BID #60 tab 10/17/19 02/03/20 02/02/20 Rx gabapentin 300 mg capsule 300 mg PO BID 01/22/20 02/03/20 02/02/20 History glimepiride 4 mg tablet 4 mg PO QAM 01/22/20 02/03/20 02/02/20 History lisinopril 2.5 mg tablet 10 mg PO DAILY 01/22/20 02/03/20 02/02/20 History tramadol 50 mg PO Q6H PRN 02/03/20 02/03/20 Unknown History Allergies Allergy/AdvReac Type Severity Reaction Status Date / Time codeine Allergy ADR-Nausea Verified 01/22/20 11:12 PFSH Acute PFSH: Medical History Essential (primary) hypertension Ischemic cardiomyopathy Mixed hyperlipidemia Non-ST elevation (NSTEMI) myocardial infarction Presence of prosthetic heart valve Surgical History History of [facility] 12/2019- [facility] History of aortic valve replacement History of coronary artery bypass graft Hx of right BKA Family History Other CAD (coronary artery disease) CHF (congestive heart failure) Cancer Social History Smoking and tobacco status: unknown if ever smoked Alcohol intake: never Vitals/I&O/Wt Last Vital Signs Temp 97.5 F L 02/03/20 17:48 Pulse 87 02/04/20 01:00 Resp 23 H 02/04/20 01:00 BP 124/62 02/04/20 01:00 Pulse Ox 96 02/04/20 01:00 Weight last 48 hrs Weight 58.967 kg Physical Exam Narrative: EXAM NARRATIVE: The patient is awake and alert. He is oriented but slightly confused. Responses are adequate. Skin is warm and dry. Dry mucous membranes. Eyes PERRLA, extraocular muscles intact. Normal speech. Neck supple. No JVD Lungs clear to auscultation bilaterally. No respiratory distress Heart S1, S2, irregular Abdomen soft, nontender, bowel sounds are present Extremities trace pedal edema on the left side. Right BKA with wound covered with dry dressing. No peripheral cyanosis. No focal deficits Urinary Catheter Management^: Cohn: Cath Placed During This Visit: yes Reason for Continuing Indwelling Catheter: Other Urinary Catheter Date of Insertion: 02/03/20 Urinary Catheter Time of Insertion: 20:15 Data : 02/03/20 19:46 02/03/20 19:46 Other Labs: Laboratory Results WBC 13.1 10^3/uL (4.0-10.0) H 02/03/20 19:46 RBC 3.85 10^6/uL (4.1-5.3) L 02/03/20 19:46 Hgb 11.3 g/dL (11.7-16.6) L 02/03/20 19:46 Hct 37.4 % (42.0-52.0) L 02/03/20 19:46 MCV 97.1 fL (80-94) H 02/03/20 19:46 MCH 29.4 pg (28.0-34.0) 02/03/20 19:46 MCHC 30.2 g/dL (30.0-36.0) 02/03/20 19:46 RDW 16.2 % (12.1-15.1) H 02/03/20 19:46 Plt Count 442 10^3/cmm (130-400) H 02/03/20 19:46 MPV 9.1 fL (7.4-10.4) 02/03/20 19:46 Neut % (Auto) 69.2 % 02/03/20 19:46 Lymph % (Auto) 16.9 % 02/03/20 19:46 [place] % (Auto) 11.4 % 02/03/20 19:46 Eos % (Auto) 1.4 % 02/03/20 19:46 Baso % (Auto) 0.7 % 02/03/20 19:46 Neut # (Auto) 9.1 10^3/uL (1.8-7.7) H 02/03/20 19:46 Lymph # (Auto) 2.2 10^3/uL (0.8-4.8) 02/03/20 19:46 [place] # (Auto) 1.5 10^3/uL (0.2-0.9) H 02/03/20 19:46 Eos # (Auto) 0.2 10^3/uL (0.0-0.8) 02/03/20 19:46 Baso # (Auto) 0.1 10^3/uL (0.0-0.1) 02/03/20 19:46 Nucleated RBC % (auto) 0 % 02/03/20 19:46 Nucleated RBCs # 0.0 /100WBC 02/03/20 19:46 PT 13.40 SECONDS (10.5-13.3) H 02/03/20 19:46 INR 0.99 (0.8-1.2) 02/03/20 19:46 Sodium 139 mmol/L (136-145) 02/03/20 19:46 Potassium 3.8 mmol/L (3.5-5.1) 02/03/20 19:46 Chloride 100 mmol/L (98-107) 02/03/20 19:46 Carbon Dioxide 26 mmol/L (22-29) 02/03/20 19:46 Anion Gap 16.8 (5-19) 02/03/20 19:46 BUN 10 mg/dL (8-23) 02/03/20 19:46 Creatinine 0.8 mg/dL (0.7-1.2) 02/03/20 19:46 GFR Calculation 96.7 mL/min (90-130) 02/03/20 19:46 Glucose 29 mg/dL (65-115) L* 02/03/20 19:46 POC Glucose 193 mg/dL (70-110) 02/04/20 01:01 Calculated Osmolality 280 mOsm/kg (285-295) L 02/03/20 19:46 Calcium 9.8 mg/dL (8.5-10.5) 02/03/20 19:46 Total Bilirubin 0.3 mg/dL (0.15-1.2) 02/03/20 19:46 AST 26 U/L (0-40) 02/03/20 19:46 ALT 19 U/L (0-41) 02/03/20 19:46 Alkaline Phosphatase 114 IU/L (40-130) 02/03/20 19:46 Troponin T Baseline 60 ng/mL (0-15) H 02/03/20 19:46 Troponin T 120 Minute 52.82 ng/mL (0-15) H 02/03/20 21:47 Delta Troponin T -7.18 ABS# (0-10) L 02/03/20 21:47 Total Protein 7.5 g/dL (6.6-8.7) 02/03/20 19:46 Albumin 4.1 g/dL (3.5-5.2) 02/03/20 19:46 Globulin 3.4 g/dL (1.3-4.6) 02/03/20 19:46 TSH 1.11 uIU/mL (0.27-4.20) 02/03/20 19:46 Urine Color Yellow (Yellow) 02/03/20 20:20 Urine Appearance Clear (CLEAR) 02/03/20 20:20 Urine pH 6.5 (5-7) 02/03/20 20:20 Ur Specific [place] 1.010 (1.005-1.030) 02/03/20 20:20 Urine Protein Neg (Negative) 05/11/20 20:20 Urine Glucose (UA) Norm (Normal) 02/03/20 20:20 Urine Ketones Negative (Negative) 02/03/20 20:20 Urine Blood Neg (Negative) 02/03/20 20:20 Urine Nitrate Negative (Negative) 02/03/20 20:20 Urine Bilirubin Neg (NEGATIVE) 02/03/20 20:20 Urine Urobilinogen Norm mg/dL (Negative) 02/03/20 20:20 Ur Leukocyte Esterase Negative (Negative) 02/03/20 20:20 Urine Opiates Screen Positive ng/mL (Negative) H 02/03/20 20:20 Ur Barbiturates Screen Negative ng/mL (Negative) 02/03/20 20:20 Ur Phencyclidine Scrn Negative ng/mL (Negative) 02/03/20 20:20 Ur Amphetamines Screen Negative ng/mL (Negative) 02/03/20 20:20 U Benzodiazepines Scrn Negative ng/mL (Negative) 02/03/20 20:20 Urine Cocaine Screen Negative ng/mL (Negative) 02/03/20 20:20 U Marijuana (THC) Screen Positive ng/mL (Negative) H 02/03/20 20:20 Ethyl Alcohol < 10 mg/dL (0-10) 02/03/20 19:[address] 02/03/20 18:06 IMPRESSION: Nonacute. Radiation Dose CTDIVOL = (mGy): DLP = 1366.56 (mGy-cm) Chest x-ray without evidence of acute cardiopulmonary abnormalities. Please review official radiology report when it is available. EKG. The first 1 showed normal sinus without acute ischemic changes. Second 1 is atrial fibrillation. A&P Additional A&P Information 64-year-old gentleman with past medical history of diabetes, peripheral neuropathy, hypertension who underwent right lower extremity BKA couple of weeks ago in [place]. At that time some adjustments were done to his diabetes medications. Today he presents with altered mental status suspected to be secondary to severe hypoglycemia. Acute metabolic encephalopathy secondary to acute hypoglycemia probably secondary to glimepiride. We will continue IV fluids containing sugar. We will put him on regular diet. We will continue monitoring blood sugar levels every 2 hours. Will use additional boluses of D50 if needed. We will check his A1c level. His primary care physician is Dr. Mcdowell. Please contact him in the morning to obtain accurate medication list and may be some details regarding blood sugar management. Atrial fibrillation. The patient is not aware about prior history of irregular heartbeats. He does have history of coronary artery disease and ischemic cardiomyopathy. No cardiac complaints today. We will continue rate control with beta-en. Will consider anticoagulation in the morning after reviewing medical records. Checking TSH. Status post right lower extremity BKA. He has mild leukocytosis. However there is no significant discharge or excessive redness in the area. We will request wound care consult. Anemia. Probably secondary to chronic disease. Closely monitor. Hypertension. Currently well controlled. Continue home medications including lisinopril and labetalol. DVT prophylaxis. Lovenox. The plan of care was discussed with the patient. He verbalized understanding and agreement. Attestations Medical Necessity Statement*: Observation Coding Level of Care Code Acute Cut Off Saw Operator Pipe Blanks for Bill Recinos
[2020-02-04 01:53] LABS: Glucose Point of Care 198 mg/dL (70-110)
[2020-02-04] MEDS: dextrose 5%-sod chloride 0.9% 1,000 ML 50 ML IV (01:56)
[2020-02-04] MEDS: enoxaparin 40 mg/0.4 mL Syringe SUBCUT (01:58)
[2020-02-04] MEDS: TRAMadol 50 mg Tablet PO (03:04)
[2020-02-04] MEDS: morphine 4 mg/mL SDV 1 mL 2 MG IVP (04:47)
[2020-02-04] MEDS: hyDRALAzine 20 mg/mL INJ 1 mL 10 MG IVP (04:47)
[2020-02-04 05:07] LABS: Magnesium 2.1 mg/dL (1.7-2.3)
[2020-02-04 05:08] LABS: Troponin 5 6HR 49.16 ng/mL (0-15)
[2020-02-04 05:11] LABS: Glucose Point of Care 144 mg/dL (70-110)
[2020-02-04 05:17] LABS: Thyroid Stimulating Hormone 0.88 uIU/mL (0.27-4.20)
[2020-02-04 06:32] LABS: Glucose Point of Care 139 mg/dL (70-110)
--- NOTE | 2020-02-04 07:33 | PC.NURSE ---
Morphine Patient was given 2mg Morphine IVP. Patient was not available in the pyxis to remove meds so the pharmacist brought the morphine up. The vial of morphine had 4 mg. RN that gave med wasted 2mg with two nurse witnesses including the charge nurse.
[2020-02-04 08:39] LABS: Estmated Average Glucose 151; Hemoglobin A1C 6.9 % (4.0-6.0)
[2020-02-04 09:07] LABS: Glucose Point of Care 179 mg/dL (70-110)
[2020-02-04] MEDS: lisinopril 10 mg Tablet PO (09:37)
[2020-02-04] MEDS: gabapentin 300 mg Capsule PO ×2 (09:37→17:33)
[2020-02-04] MEDS: carvedilol 6.25 mg Tablet PO ×2 (09:37→17:33)
--- NOTE | 2020-02-04 10:30 | USCV_ITS ---
Lenny Moises Age: 64 Gender: M : 1955 Exam Date: 02/04/2020 15:42 Ordering Phys: Kemal Langford MD Technologist: Rigoberto [place] Exam Location: [facility] – [place] Indication: NEW AFIB BP: 143 / 78 HR: 67 Rhythm: Sinus Technical Quality: Adequate MEASUREMENTS (Male / Female) Normal Values 2D ECHO LV Diastolic Diameter PLAX 4.4 cm 4.2 - 5.9 / 3.9 - 5.3 cm LV Systolic Diameter PLAX 2.3 cm IVS Diastolic Thickness 1.3 cm 0.6 - 1.0 / 0.6 - 0.9 cm IVS Systolic Thickness 1.7 cm LVPW Diastolic Thickness 1.4 cm 0.6 - 1.0 / 0.6 - 0.9 cm LVPW Systolic Thickness 1.3 cm LVOT Diameter 2.2 cm LV Ejection Fraction 2D Teich 79.0 % LV Ejection Fraction MOD 2C 54.5 % LV Ejection Fraction 2C AL 54.9 % LA Diameter 3.7 cm LA Width 4.0 cm LA Height 4.3 cm RA Width 3.9 cm RA Height 4.2 cm M-MODE LV Diastolic Diameter MM 4.6 cm 4.2 - 5.9 / 3.9 - 5.3 cm LV Systolic Diameter MM 3.1 cm LV Ejection Fraction MM Teich 60.5 % IVS Diastolic Thickness MM 1.1 cm 0.6 - 1.0 / 0.6 - 0.9 cm IVS Systolic Thickness MM 1.5 cm LVPW Diastolic Thickness MM 1.4 cm 0.6 - 1.0 / 0.6 - 0.9 cm LVPW Systolic Thickness MM 1.8 cm RV Diastolic Diameter MM 1.8 cm Aortic Annulus Diameter 2.3 cm LA Ao Ratio MM 1.6 MV E Point Septal Separation 1.7 cm DOPPLER AV Peak Velocity 285.0 cm/s LVOT Peak Velocity 92.0 cm/s AV Area Cont Eq vti 1.2 cm squared AV Area Cont Eq pk 1.2 cm squared MV Area PHT 5.0 cm squared Mitral E to A Ratio 1.0 MV E' Velocity 10.0 cm/s Mitral E to MV E' Ratio 8.7 Mitral E to LV E' Lateral Ratio 7.8 Mitral E to LV E' Septal Ratio 9.8 TR Peak Velocity 199.0 cm/s TR Peak Gradient 15.8 mmHg TV Peak E Velocity 107.0 cm/s Right Atrial Pressure 3.0 mmHg Pulmonary Artery Systolic Pressu 18.8 mmHg FINDINGS Left Ventricle Normal left ventricular cavity size. Normal left ventricular systolic function. No regional wall motion abnormalities. Left ventricular ejection fraction is estimated at 55 %. Grade II/IV diastolic dysfunction, moderately elevated filling pressures. Right Ventricle The right ventricle is normal in size and function. Right Atrium The right atrium is normal in size. Left Atrium The left atrium is normal in size. Mitral Valve Structurally normal mitral valve without significant stenosis or prolapse. There is no mitral regurgitation. Aortic Valve Bioprosthetic valve in the aortic position appears to be well- seated, leaflet could not be well visualized. VTI across the aortic valve is 2.4 m/s Tricuspid Valve Structurally normal tricuspid valve without significant stenosis or regurgitation. Pulmonary artery systolic pressure is normal. Pulmonic Valve Structurally normal pulmonic valve without significant stenosis. There is no pulmonic regurgitation. Pericardium Normal pericardium without effusion. Aorta Normal ascending aorta dimension. CONCLUSIONS 1-Normal left ventricular cavity size. Normal left ventricular systolic function. No regional wall motion abnormalities. Left ventricular ejection fraction is estimated at 55 %. Grade II/IV diastolic dysfunction, moderately elevated filling pressures. 2-Bioprosthetic valve in the aortic position appears to be well- seated, leaflet could not be well visualized. VTI across the aortic valve is 2.4 m/s 3-There is no pericardial effusion. 4-When compared to the prior echocardiogram dated 09/07/2017 there is slight increase in velocity across the aortic valve from 1.9 to 2.4 m/s now. Bioprosthetic valve continues to be working fine and sitting in the normal position. Ericka Odom MD (Electronically Signed) Final Date: 07 Feb 2020 19:17 S
[2020-02-04 10:44] LABS: Glucose Point of Care 186 mg/dL (70-110)
--- NOTE | 2020-02-04 11:21 | PC.CHAP ---
Pastoral Care Encounter/Spiritual Assessment Type of Contact [] Declined open hearth door liner visit [] Patient/Family/Request visit [] Outpatient visit [] Follow-up visit [] Physician referral [] Code/Alert [] Routine visit [] Staff referral [] Actively dying [] Patient sleeping [] Family support [] [] Out of room [] Palliative care [] [] Receiving care in room [] Pre-surgical visit [] Trauma [] Long length of stay [] ICU visit [X] Other: Asleep Relational/Emotional Strength [] Patient feels connected with others/family/visitors/staff [] Distress [] Loneliness/isolation [] Abandonment Spirituality of Patient [] Person of Radha [] Attends Amish of their Radha [] Believes in Prayer [] Reads Bible or Pentecostalism materials [] There are Spiritual issues to be addressed Bilingual Administrative Assistant Interventions [] Prayer [] Active listening [] Non-anxious presence [] Spiritual/emotional support [] Crisis/trauma care [] Spiritual counseling [] Bereavement support [] Provided bereavement packet [] Provided Bible/devotional materials [] Provided toy/stuffed animal, coloring book to patient or family member [] Provided Communion [] Anointing/[place] [] Salvation [] Completed spiritual assessment [] Other: Impact on Illness or Injury [] Angry [] Fearful [] Anxious [] Often cries [] Exhaustion [] Unable to work [] Unable to attend christian [] Unable to walk/stand [] Unable to read [] Unable to drive [] Unable to eat/drink [] Unable to sleep [] Unable to be with family [] Patient intubated [] Other: Summary Asleep, needs a fellow up Time spent with patient 5 mins
[2020-02-04 12:59] LABS: Glucose Point of Care 246 mg/dL (70-110)
--- NOTE | 2020-02-04 13:35 | P.PN_ITS ---
Subjective Subjective: Interval history: This morning patient states that he feels better, his blood sugars are greater than 100, he does remember the last time he took glimepiride Patient states that he is to follow-up with [facility], orthopedics, for his left BKA site Patient denies a history of A. fib, denies chest pain, denies palpitations Vitals/I&O/Wt Last Vital Signs Temp 98.0 F 02/04/20 11:02 Pulse 83 02/04/20 11:02 Resp 18 02/04/20 11:02 BP 125/77 02/04/20 11:02 Pulse Ox 96 02/04/20 11:02 02/03/20 02/04/20 02/04/20 22:59 06:59 14:59 Intake Total 360 / 360 Balance 360 / 360 Weight last 48 hrs Weight 58.967 kg Physical Exam Const: COMMON NORMALS: no apparent distress and oriented x3 HENMT: COMMON NORMALS: normocephalic HEAD & SCALP: normocephalic Neck/C-Spine: COMMON NORMALS: no JVD Resp: COMMON NORMALS: normal respiratory effort, no retractions, no use of accessory muscles and clear to auscultation bilaterally AUSCULTATION: clear to auscultation bilaterally Cardio: COMMON NORMALS: no JVD, regular rate, regular rhythm, S1 normal heart sound and S2 normal heart sound RATE: regular rate RHYTHM: regular rhythm HEART SOUNDS: S1 normal and S2 normal GI: COMMON NORMALS: normal to inspection, nondistended, normoactive bowel sounds, soft to palpation, non-tender, no hepatosplenomegaly, no masses and no bruits PALPATION: Yes soft and Yes no hepatosplenomegaly Extremity: OTHER: Right BKA stump site has slight breakdown, hematoma Neuro: COMMON NORMALS: oriented x3 Psych: COMMON NORMALS: mental status grossly normal Urinary Catheter Management^: Cohn: Cath Placed During This Visit: yes Reason for Continuing Indwelling Catheter: Acute Urinary Retention or Obstruction Urinary Catheter Date of Insertion: 02/03/20 Urinary Catheter Time of Insertion: 20:15 Data : 02/03/20 19:46 02/03/20 19:46 A&P Assessment and plan (1) Type 2 diabetes mellitus: -hgba1c was 6.9 -dischrge on metformin -stop glimepride Status: Acute (2) Arrhythmia: -EKG shows sinus sinus arrhythmia, there is mention of atrial fibril lation, but I cannot see atrial fibrillation on EKG, telemetry monitoring does not show EKG -We will order echocardiogram -Discharged on event monitor Status: Acute (3) Hypoglycemia: -resolved Status: Acute (4) Right BKA infection: -Patient has some skin breakdown, and hematoma right BKA site, will place patient on Bactrim and Augmentin, follow with physician at [facility] Status: Acute Attestations Medical Necessity Statement*: Requires continued hospitalization for hyperglycemia, arrhythmia, right BKA stump breakdown cellulitis Coding Level of Care Code Acute Customer Expert for [facility] Fwd Diagnoses Type 2 diabetes mellitus E11.9 Arrhythmia I49.9 Hypoglycemia E16.2 Right BKA infection T87.43
[2020-02-04 14:49] LABS: Glucose Point of Care 275 mg/dL (70-110)
[2020-02-04 16:29] LABS: Glucose Point of Care 243 mg/dL (70-110)
[2020-02-04] MEDS: amoxicillin-clav 875-125 mg Tablet 1 TAB PO (17:32)
[2020-02-04] MEDS: sulfamethoxazole-trimeth DS 160-800 mg Tablet 1 TAB PO (17:33)
[2020-02-04 19:09] LABS: Glucose Point of Care 230 mg/dL (70-110)
[2020-02-04 21:12] LABS: Glucose Point of Care 188 mg/dL (70-110)
[2020-02-05] VITALS: BP 129/58; PULSE 68; RESP 16; TEMP 37.1; O2SAT 91
[2020-02-05 00:59] LABS: Glucose Point of Care 125 mg/dL (70-110)
[2020-02-05 01:06] LABS: Glucose Point of Care 160 mg/dL (70-110)
[2020-02-05 04:00] VITALS: BP 138/67; PULSE 70; RESP 16; TEMP 37.1; O2SAT 93
[2020-02-05] MEDS: enoxaparin 40 mg/0.4 mL Syringe SUBCUT (05:37)
[2020-02-05 05:48] LABS: Basophils # 0.1 10^3/uL (0.0-0.1); Basophils % 0.8 %; Eosinophils # 0.3 10^3/uL (0.0-0.8); Eosinophils % 2.7 %; Hematocrit 35.8 % (42.0-52.0); Hemoglobin 10.8 g/dL (11.7-16.6); Lymphocytes # 2.7 10^3/uL (0.8-4.8); Lymphocytes % 26.3 %; Mean Corpuscular HGB Conc 30.2 g/dL (30.0-36.0); Mean Corpuscular Hemoglobin 29.5 pg (28.0-34.0); Mean Corpuscular Volume 97.8 fL (80-94); Mean Platelet Volume 9.2 fL (7.4-10.4); Monocytes # 1.2 10^3/uL (0.2-0.9); Neutrophils % 57.8 %; Nucleated Red Blood Cells % 0 %; Platelet Count 387 10^3/cmm (130-400); Red Blood Count 3.66 10^6/uL (4.1-5.3); White Blood Count 10.3 10^3/uL (4.0-10.0)
[2020-02-05 06:39] LABS: Alanine Aminotransferase 17 U/L (0-41); Albumin Level 3.4 g/dL (3.5-5.2); Alkaline Phosphatase 111 IU/L (40-130); Anion Gap 14.8 (5-19); Aspartate Amino Transferase 19 U/L (0-40); Blood Urea Nitrogen 12 mg/dL (8-23); Calcium 9.8 mg/dL (8.5-10.5); Carbon Dioxide 22 mmol/L (22-29); Chloride 105 mmol/L (98-107); Globulin 3.8 g/dL (1.3-4.6); Glomerular Filtration Rate 84.4 mL/min (90-130); Glucose 172 mg/dL (65-115); Magnesium 2.3 mg/dL (1.7-2.3); Osmolality Calculated 286 mOsm/kg (285-295); Phosphorus 3.1 mg/dL (2.5-4.5); Potassium 3.8 mmol/L (3.5-5.1); Sodium 138 mmol/L (136-145); Total Bilirubin 0.4 mg/dL (0.15-1.2); Total Protein 7.2 g/dL (6.6-8.7)
[2020-02-05 06:51] LABS: Glucose Point of Care 199 mg/dL (70-110)
[2020-02-05 07:49] VITALS: BP 147/70; PULSE 76; RESP 18; TEMP 36.9; O2SAT 95
[2020-02-05 08:02] LABS: Glucose Point of Care 195 mg/dL (70-110)
[2020-02-05 09:04] LABS: Glucose Point of Care 250 mg/dL (70-110)
[2020-02-05] MEDS: sulfamethoxazole-trimeth DS 160-800 mg Tablet 1 TAB PO (09:07)
[2020-02-05] MEDS: amoxicillin-clav 875-125 mg Tablet 1 TAB PO (09:07)
[2020-02-05] MEDS: lisinopril 10 mg Tablet PO (09:07)
[2020-02-05] MEDS: gabapentin 300 mg Capsule PO (09:08)
[2020-02-05] MEDS: carvedilol 6.25 mg Tablet PO (09:08)
--- NOTE | 2020-02-05 10:05 | PC.CHAP ---
Pastoral Care Encounter/Spiritual Assessment Type of Contact [] Declined paving supervisor visit [] Patient/Family/Request visit [] Outpatient visit [] Follow-up visit [] Physician referral [] Code/Alert [x] Routine visit [] Staff referral [] Actively dying [x] Patient sleeping [] Family support [] [] Out of room [] Palliative care [] [] Receiving care in room [] Pre-surgical visit [] Trauma [] Long length of stay [] ICU visit [] Other: Relational/Emotional Strength [] Patient feels connected with others/family/visitors/staff [] Distress [] Loneliness/isolation [] Abandonment Spirituality of Patient [x] Person of Radha [] Attends Roman Catholic of their Radha [] Believes in Prayer [] Reads Bible or Shinto materials [] There are Spiritual issues to be addressed Box Maker Interventions [x] Prayer [] Active listening [] Non-anxious presence [] Spiritual/emotional support [] Crisis/trauma care [] Spiritual counseling [] Bereavement support [] Provided bereavement packet [] Provided Bible/devotional materials [] Provided toy/stuffed animal, coloring book to patient or family member [] Provided Communion [] Anointing/Panther [] Salvation [x] Completed spiritual assessment [] Other: Impact on Illness or Injury [] Angry [] Fearful [] Anxious [] Often cries [] Exhaustion [] Unable to work [] Unable to attend latter day [] Unable to walk/stand [] Unable to read [] Unable to drive [] Unable to eat/drink [] Unable to sleep [] Unable to be with family [] Patient intubated [] Other: Summary Time spent with patient
--- NOTE | 2020-02-05 10:46 | P.DS_ITS ---
Discharge Providers Date of Admission: 02/03/20 23:40 Date of Discharge: February 05, 2020 Attending Provider at Admission: Messi Delcid Attending Provider at Discharge: Kemal Langford MD Primary Care Provider: Kunal Mcdowell MD Diagnoses at Discharge Discharge Diagnosis (1) Type 2 diabetes mellitus: Status: Acute (2) Arrhythmia: Status: Acute (3) Hypoglycemia: Status: Acute (4) Right BKA infection: Status: Acute Reason for Visit Reason for Visit: Reason For Visit: AMS Hospital Course Discharge Summary: This is a 64-year-old male with a past medical history of CAD, [id number] type 2 diabetes mellitus, history of recent BKA, hypertension, hyperlipidemia who presents to the emergency room for evaluation of hypoglycemia. This is patient's second ER visit for hypoglycemia, second to glimepiride, hospitalist team was called for admission given recurrent ER visit. Patient's glimepiride was stopped, patient is unsure when the last time he took it, he is unsure who prescribed it but feels that it was prescribed in [place], patient was started on D5 fluids, his blood sugars improved. During his hospitalization, patient's blood sugars were between 150 to low 200s, hemoglobin A1c was 6.9. On discharge patient was discharged on metformin thousand twice daily, with repeat blood work in 1 week, patient was advised to check blood sugars 3 times daily, record them in a blood sugar log, if blood sugar greater than 500 call primary care if blood sugar less than 60 drink or juice and come back to the emergency room. Patient is to follow-up with Dr. Mcdowell as outpatient. For patient's right BKA site, there was slight area of stump breakdown, and drainage, and a slight hematoma at that site. Patient was advised of daily dressings, states that he has home health care to help with his dressing changes already through his orthopedic physician in [place]. Patient was discharged on 13 remaining days of antibiotics for cellulitis, with a close follow-up with his orthopedic physician in [place]. During his hospitalization, there was concerns for atrial fibrillation, however I reviewed his telemetry strips, reviewed his EKGs, I could not discern any atrial fibrillation events patient's heart rates were 80s to 100, normal sinus rhythm throughout his hospital admission e. Patient remained asymptomatic, no chest pain, no palpitations, no strokelike symptoms. Patient was discharged on a 30-day event monitor. Patient's echocardiogram on discharge is pending. Physical Exam Const: COMMON NORMALS: no acute distress and patient oriented x3 HENMT: COMMON NORMALS: normocephalic HEAD & SCALP: normocephalic Neck/C-Spine: COMMON NORMALS: no JVD Resp: COMMON NORMALS: normal respiratory effort, No retractions, No use of accessory muscles and clear to auscultation bilaterally AUSCULTATION: clear to auscultation bilaterally Cardio: COMMON NORMALS: no JVD, regular rate, regular rhythm, S1 normal heart sound present and S2 normal heart sound present RATE: regular rate RHYTHM: regular rhythm HEART SOUNDS: S1 normal heart sound present and S2 normal heart sound present GI: COMMON NORMALS: Normal to inspection, nondistended, normoactive bowel sounds present, Soft to palpation, non-tender, No hepatosplenomegaly present, no masses and no bruits PALPATION: Yes Soft to palpation and Yes No hepatosplenomegaly present Neuro: COMMON NORMALS: patient oriented x3 Psych: COMMON NORMALS: mental status grossly normal Urinary Catheter Management^: Cohn: Cath Placed During This Visit: yes, but has since been removed by the nurse Reason for Continuing Indwelling Catheter: Acute Urinary Retention or Obstruction Urinary Catheter Date of Insertion: 02/03/20 Urinary Catheter Time of Insertion: 20:15 Date Urinary Catheter Removed: 02/04/20 Time Urinary Catheter Discontinued: 09:00 Discharge Data Data Completed and Pending: Completed Studies During Hospitalization Category Date Time Status CT head wo con* 7 0450 Urgent Cat Scan 02/03/20 18:06 Completed XR chest 1V [place] [id number] Urgent Exams 02/03/20 18:06 Completed Pending at discharge Category Date Time Status Complete Blood Co unt w/Auto AM LABS Lab 02/06/20 04:00 Ordered Complete Blood Co unt w/Auto AM LABS Lab 02/07/20 04:00 Ordered Comprehensive Met abolic Panel AM LA BS Lab 02/06/20 04:00 Ordered Comprehensive Met abolic Panel AM LA BS Lab 02/07/20 04:00 Ordered Magnesium AM LABS Lab 02/06/20 04:00 Ordered Magnesium AM LABS Lab 02/07/20 04:00 Ordered Phosphorus AM LAB S Lab 02/06/20 04:00 Ordered Phosphorus AM LAB S Lab 02/07/20 04:00 Ordered CV echo complete* [id number] Routine Ultrasound 02/04/20 10:30 Taken Labs from last 24 hours 02/05/20 02/05/20 02/05/20 08:50 06:33 05:16 WBC RBC Hgb Hct MCV MCH MCHC RDW Plt Count MPV Neut % (Auto) Lymph % (Auto) [place] % (Auto) Eos % (Auto) Baso % (Auto) Neut # (Auto) Lymph # (Auto) [place] # (Auto) Eos # (Auto) Baso # (Auto) Nucleated RBC % (a uto) Nucleated RBCs # Sodium Potassium Chloride Carbon Dioxide Anion Gap BUN Creatinine GFR Calculation Glucose POC Glucose 250 199 195 Calculated Osmolal ity Calcium Phosphorus Magnesium Total Bilirubin AST ALT Alkaline Phosphata se Total Protein Albumin Globulin 02/05/20 02/05/20 02/05/20 05:00 05:00 01:00 WBC 10.3 H RBC 3.66 L Hgb 10.8 L Hct 35.8 L MCV 97.8 H MCH 29.5 MCHC 30.2 RDW 16.0 H Plt Count 387 MPV 9.2 Neut % (Auto) 57.8 Lymph % (Auto) 26.3 [place] % (Auto) 12.0 Eos % (Auto) 2.7 Baso % (Auto) 0.8 Neut # (Auto) 6.0 Lymph # (Auto) 2.7 [place] # (Auto) 1.2 H Eos # (Auto) 0.3 Baso # (Auto) 0.1 Nucleated RBC % (a uto) 0 Nucleated RBCs # 0.0 Sodium 138 Potassium 3.8 Chloride 105 Carbon Dioxide 22 Anion Gap 14.8 BUN 12 Creatinine 0.9 GFR Calculation 84.4 L Glucose 172 H POC Glucose 160 Calculated Osmolal ity 286 Calcium 9.8 Phosphorus 3.1 Magnesium 2.3 Total Bilirubin 0.4 AST 19 ALT 17 Alkaline Phosphata se 111 Total Protein 7.2 Albumin 3.4 L Globulin 3.8 02/04/20 02/04/20 02/04/20 23:50 21:05 19:08 WBC RBC Hgb Hct MCV MCH MCHC RDW Plt Count MPV Neut % (Auto) Lymph % (Auto) [place] % (Auto) Eos % (Auto) Baso % (Auto) Neut # (Auto) Lymph # (Auto) [place] # (Auto) Eos # (Auto) Baso # (Auto) Nucleated RBC % (a uto) Nucleated RBCs # Sodium Potassium Chloride Carbon Dioxide Anion Gap BUN Creatinine GFR Calculation Glucose POC Glucose 125 188 230 Calculated Osmolal ity Calcium Phosphorus Magnesium Total Bilirubin AST ALT Alkaline Phosphata se Total Protein Albumin Globulin 02/04/20 02/04/20 02/04/20 16:26 14:46 12:55 WBC RBC Hgb Hct MCV MCH MCHC RDW Plt Count MPV Neut % (Auto) Lymph % (Auto) [place] % (Auto) Eos % (Auto) Baso % (Auto) Neut # (Auto) Lymph # (Auto) [place] # (Auto) Eos # (Auto) Baso # (Auto) Nucleated RBC % (a uto) Nucleated RBCs # Sodium Potassium Chloride Carbon Dioxide Anion Gap BUN Creatinine GFR Calculation Glucose POC Glucose 243 275 246 Calculated Osmolal ity Calcium Phosphorus Magnesium Total Bilirubin AST ALT Alkaline Phosphata se Total Protein Albumin Globulin Vitals: Last Vital Signs Temp 98.4 F 02/05/20 07:49 Pulse 76 02/05/20 07:49 Resp 18 02/05/20 07:49 BP 147/70 02/05/20 07:49 Pulse Ox 95 02/05/20 07:49 Discharge Plan Discharge Patient Disposition: Home, Self-Care Condition: Stable Prescriptions: New sulfamethoxazole-trimethoprim 800-160 mg Tablet 1 tab PO BID 13 Days Qty: 26 RF: 0 amoxicillin-pot clavulanate 875-125 mg Tablet 1 tab PO BID 13 Days Qty: 26 RF: 0 metformin 1,000 mg tablet 1,000 mg PO BID 30 Days Qty: 60 RF: 0 atorvastatin 80 mg tablet 80 mg PO DAILY 30 Days Qty: 30 RF: 0 Adult Low Dose Aspirin 81 mg tablet,delayed release (DR/EC) 81 mg PO DAILY 30 Days Qty: 30 RF: 0 Continued gabapentin 300 mg capsule 300 mg PO BID RF: 0 lisinopril 2.5 mg tablet 10 mg PO DAILY RF: 0 carvedilol 6.25 mg tablet 6.25 mg PO BID Qty: 60 RF: 5 tramadol 50 mg Tablet 50 mg PO Q6H PRN (Reason: Pain) RF: 0 Discontinued glimepiride 4 mg tablet 4 mg PO QAM RF: 0 Discharge Orders: Discharge Order (Routine); Ordered 02/05/20 Ordered By: Kemal Langford Other Ambulatory Orders: [place] 30 day event monitor (Routine) Timeframe: 1 Day Facility: [facility] - Location: Cardiac Diagnostic Laboratory Ordered By: Kemal Langford Referrals: [facility] Home [facility] ([facility]) [Outside] Kunal Mcdowell MD [Primary Care Provider] - 02/10/20 1:15 pm Discharge Diet: Cardiac Discharge Activity: As per PT/OT instructions Patient Instructions: Type 2 Diabetes, Sulfamethoxazole/Trimethoprim (By mouth), Aspirin (By mouth), Amoxicillin/Clavulanate Potassium (By mouth), Metformin (By mouth), Atorvastatin (By mouth) Activity Restrictions/Additional Instructions: -Please follow-up with orthopedic physician in [place] next week -Please follow-up with Dr. Mcdowell next week -Please check blood sugars 3 times daily, if blood sugar greater than 500 call primary care, if blood sugar less than 60 drink or juice call primary care -I have discharged on metformin thousand milligrams twice daily -Please bring blood sugar logs to primary care physician's office next week -For right lower extremity stump cellulitis, take antibiotics prescribed, daily dressing changes, if any changes please call orthopedic physician in [place] to be seen sooner -Your echocardiogram is pending on discharge, please follow-up with primary care provider for results -I will discharge you on a Holter monitor for 30 days for atrial fibrillation Discharge Attestations Time Spent in Discharge Care*: less than 30 min Quality Metrics Clinical Quality Measures During this hospital stay, did patient experience: None Coding Level of Care Code Acute Topper Press Operator Automatic for Lalithag Fwd Diagnoses Type 2 diabetes mellitus E11.9 Arrhythmia I49.9 Hypoglycemia E16.2 Right BKA infection T87.43
[2020-02-05 10:53] VITALS: BP 147/70; PULSE 76; RESP 18; TEMP 36.9; O2SAT 95
[2020-02-05 11:01] LABS: Glucose Point of Care 187 mg/dL (70-110)
== END 2020-02-05 11:38 | disposition home or self-care (01) ==
LOC: ER 22:01 → MEDSURG 02-04 01:41
PROVIDERS: Admitting Provider Internal Medicine; Emergency Provider Emergency Medicine; PCP Internal Medicine; Visit Provider Family Medicine
DX: E11.42 Type 2 diabetes mellitus with diabetic polyneuropathy (principal); I48.91 Unspecified atrial fibrillation; I49.9 Cardiac arrhythmia, unspecified; E11.649 Type 2 diabetes mellitus with hypoglycemia without coma; T87.43 Infection of amputation stump, right lower extremity; I25.10 Atherosclerotic heart disease of native coronary artery without angina pectoris; I10 Essential (primary) hypertension; Z89.511 Acquired absence of right leg below knee; E78.2 Mixed hyperlipidemia; I25.2 Old myocardial infarction; Z82.49 Family history of ischemic heart disease and other diseases of the circulatory system; E16.2 Hypoglycemia, unspecified; S51.801A Unspecified open wound of right forearm, initial encounter; W06.XXXA Fall from bed, initial encounter; I50.32 Chronic diastolic (congestive) heart failure; I11.0 Hypertensive heart disease with heart failure; E78.5 Hyperlipidemia, unspecified; Z89.439 Acquired absence of unspecified foot; Z95.1 Presence of aortocoronary bypass graft; F17.210 Nicotine dependence, cigarettes, uncomplicated; Z23 Encounter for immunization
CPT/HCPCS: 12345; 36415; 36416; 51702; 70450; 71045; 80053; 80306; 80307; 81003; 82962; 83036; 83735; 84100; 84443; 84484; 85025; 85610; 90471; 90715; 93005; 93306; 96361; 96372; 96374; 96375; 99283; 99284; 99291; A6446; G0378; J0360; J1650; J1815; J2270

== ENCOUNTER 2020-02-12 19:52 | Inpatient (IN) | payer MEDICARE, SELFPAY ==
[2020-02-12] VITALS (9 sets, daily range): BP systolic 92–178; BP diastolic 44–86; PULSE 74–90; RESP 16–26; TEMP 36.7–36.8; O2SAT 95–98; BMI 21.7
--- NOTE | 2020-02-12 19:59 | ECG_ITS ---
Measurements Intervals [place] Rate: 82 P: 45 TX: 164 QRS: 12 QRSD: 98 T: 113 QT: 381 QTc: [address] & T-WAVE ABNORMALITY Compared to ECG 02/03/2020 23:03:33 T-wave abnormality now present Myocardial infarct finding no longer present Electronically Signed On 02-14-2020 18:18:21 CDT by Nanda Sanchez M.D. [email or web address]
--- NOTE | 2020-02-12 20:00 | W.ED.AMS ---
HPI - Altered Mental Status General: Chief Complaint: General Medical Stated Complaint: AMS Time Seen by Provider: 02/12/20 19:53 Source: patient Mode of arrival: EMS Limitations: no limitations History of Present Illness: HPI narrative: Next he 4-year-old male who was found to be altered when EMS arrived patient was clammy and blood sugar was in the 20s. I saw patient 2 weeks ago for hypoglycemia from glimepiride and had to be admitted. Patient was supposed to be off his glimepiride but he states he has been taking it. Patient now blood sugar is 70s after D10 and is able answer my questions. He has no complaints at this time. complaint: altered mental status Associated symptoms: Deny depression Review of Systems Const: Denies: fever(s), chills, body aches or change in appetite Eyes: Denies: blurry vision or eye discomfort ENMT: Denies: throat pain or dental pain Card: Denies: chest pain Resp: Denies: dyspnea GI: Denies: abdominal pain, nausea, vomiting or diarrhea : Denies: dysuria Musc: Denies: neck pain or back pain Skin/Breast: Denies: rash Neuro: Reports: confusion Psych: Denies: depression Marcial/Lymph: Denies: easy bruising All/Imm: Denies: urticaria PFSH ED PFSH: Medical History Essential (primary) hypertension Ischemic cardiomyopathy Mixed hyperlipidemia Non-ST elevation (NSTEMI) myocardial infarction Presence of prosthetic heart valve Surgical History [facility] History of aortic valve replacement History of coronary artery bypass graft Hx of right BKA Family History Other CAD (coronary artery disease) CHF (congestive heart failure) Cancer Social History Smoking and tobacco status: current every day smoker Alcohol intake: never Physical Exam Const: COMMON NORMALS: no acute distress, patient oriented x3 and healthy appearing HENMT: COMMON NORMALS: normocephalic and atraumatic HEAD & SCALP: normocephalic and atraumatic Eye: COMMON NORMALS: Equal, round and reactive pupils present and EOMs intact bilaterally PUPIL: Yes Equal, round and reactive pupils present Neck/C-Spine: COMMON NORMALS: full ROM and supple Chest: COMMONS NORMALS: normal inspection of the chest and normal palpation of entire chest wall Resp: COMMON NORMALS: normal respiratory effort, No retractions, No use of accessory muscles and clear to auscultation bilaterally AUSCULTATION: clear to auscultation bilaterally Cardio: COMMON NORMALS: regular rate, regular rhythm and No murmurs present (Cardio) RATE: regular rate RHYTHM: regular rhythm GI: COMMON NORMALS: Normal to inspection, nondistended, normoactive bowel sounds present, Soft to palpation, non-tender and no masses PALPATION: Yes Soft to palpation Extremity: COMMON NORMALS: normal to inspection and full ROM Neuro: COMMON NORMALS: patient oriented x3, moves all extremities and no focal motor deficits Psych: COMMON NORMALS: mental status grossly normal, Normal thought process present and cooperative THOUGHT PROCESS: Normal thought process present Skin: COMMON NORMALS: no rashes or lesions noted and no wounds GENERAL SKIN EXAM: no rashes or lesions noted Course Vital Signs: Vital signs: Vital Signs Temperature 98.2 F 02/12/20 19:54 Pulse Rate 77 02/12/20 20:37 Respiratory Rate 20 H 02/12/20 20:37 Blood Pressure 92/44 02/12/20 20:37 Pulse Oximetry 95 02/12/20 20:37 MDM - Altered Mental Status MDM Narrative: Medical decision making narrative: Patient presents here with hypoglycemia likely from glimepiride. He did admit that he started taking his medicine again even though from last note here he is not supposed to. I believe he is gotten confused and to start taking the meds that he had. Patient is requiring D10 drip I spoke to hospitalist will admit to the ICU. Lab Data: Labs: Lab Results 02/12/20 02/12/20 Range/Units 20:10 20:10 WBC 14.4 H (4.0-10.0) 10^3/ uL RBC 3.68 L (4.1-5.3) 10^6/u L Hgb 10.8 L (11.7-16.6) g/dL Hct 34.7 L (42.0-52.0) % MCV 94.3 H (80-94) fL MCH 29.3 (28.0-34.0) pg MCHC 31.1 (30.0-36.0) g/dL RDW 15.0 (12.1-15.1) % Plt Count 403 H (130-400) 10^3/c mm MPV 8.9 (7.4-10.4) fL Neut % (Auto) 80.2 % Lymph % (Auto) 11.9 % [place] % (Auto) 5.4 % Eos % (Auto) 1.3 % Baso % (Auto) 0.8 % Neut # (Auto) 11.5 H (1.8-7.7) 10^3/u L Lymph # (Auto) 1.7 (0.8-4.8) 10^3/u L [place] # (Auto) 0.8 (0.2-0.9) 10^3/u L Eos # (Auto) 0.2 (0.0-0.8) 10^3/u L Baso # (Auto) 0.1 (0.0-0.1) 10^3/u L Nucleated RBC % (a uto) 0 % Nucleated RBCs # 0.0 /100WBC Sodium 140 (136-145) mmol/L Potassium 4.9 (3.5-5.1) mmol/L Chloride 101 (98-107) mmol/L Carbon Dioxide 24 (22-29) mmol/L Anion Gap 19.9 H (5-19) BUN 32 H (8-23) mg/dL Creatinine 1.4 H (0.7-1.2) mg/dL GFR Calculation 50.7 L (90-130) mL/min Glucose 22 L* (65-115) mg/dL Calculated Osmolal ity 283 L (285-295) mOsm/k g Calcium 9.2 (8.5-10.5) mg/dL Total Bilirubin 0.2 (0.15-1.2) mg/dL AST 26 (0-40) U/L ALT 28 (0-41) U/L Alkaline Phosphata se 87 (40-130) IU/L Total Protein 6.8 (6.6-8.7) g/dL Albumin 4.0 (3.5-5.2) g/dL Globulin 2.8 (1.3-4.6) g/dL EKG Data^: EKG 1: Attestation: I personally reviewed and interpreted this EKG as follows: EKG interpretation date: 02/12/20 EKG interpretation time: 20:18 Interpretation: nsr hr [address] or t wave abnormalities qrs 98 qtc 419 Critical Care Time Critical Care Time: Critical Care Time: Yes Total Critical Care Time: 36 Attestation: This case had a high probability of a clinically significant, sudden, or life threatening deterioration of this patient's condition which required my full and direct attention, intervention and personal management. Discharge Plan Discharge Patient Disposition: Admitted As Inpatient Clinical Impression: Hypoglycemia Condition: Stable Referrals: Kunal Mcdowell MD [Primary Care Provider] - Coding Level of Care Code ED Freelance Writer for Chg Fwd Exam Comprehensive
[2020-02-12 20:18] LABS: Basophils # 0.1 10^3/uL (0.0-0.1); Basophils % 0.8 %; Eosinophils # 0.2 10^3/uL (0.0-0.8); Eosinophils % 1.3 %; Hematocrit 34.7 % (42.0-52.0); Hemoglobin 10.8 g/dL (11.7-16.6); Lymphocytes # 1.7 10^3/uL (0.8-4.8); Lymphocytes % 11.9 %; Mean Corpuscular HGB Conc 31.1 g/dL (30.0-36.0); Mean Corpuscular Hemoglobin 29.3 pg (28.0-34.0); Mean Corpuscular Volume 94.3 fL (80-94); Mean Platelet Volume 8.9 fL (7.4-10.4); Monocytes # 0.8 10^3/uL (0.2-0.9); Monocytes % 5.4 %; Neutrophils # 11.5 10^3/uL (1.8-7.7); Neutrophils % 80.2 %; Nucleated Red Blood Cells % 0 %; Platelet Count 403 10^3/cmm (130-400); Red Blood Count 3.68 10^6/uL (4.1-5.3); White Blood Count 14.4 10^3/uL (4.0-10.0)
[2020-02-12] MEDS: dextrose 50% syringe 50 mL IVP ×2 (20:22→21:58)
[2020-02-12 20:33] LABS: Alanine Aminotransferase 28 U/L (0-41); Alkaline Phosphatase 87 IU/L (40-130); Anion Gap 19.9 (5-19); Aspartate Amino Transferase 26 U/L (0-40); Blood Urea Nitrogen 32 mg/dL (8-23); Calcium 9.2 mg/dL (8.5-10.5); Carbon Dioxide 24 mmol/L (22-29); Chloride 101 mmol/L (98-107); Globulin 2.8 g/dL (1.3-4.6); Glomerular Filtration Rate 50.7 mL/min (90-130); Potassium 4.9 mmol/L (3.5-5.1); Sodium 140 mmol/L (136-145); Total Bilirubin 0.2 mg/dL (0.15-1.2); Total Protein 6.8 g/dL (6.6-8.7)
[2020-02-12 20:35] LABS: Glucose 22 mg/dL (65-115); Osmolality Calculated 283 mOsm/kg (285-295)
[2020-02-12] MEDS: morphine 4 mg/mL SDV 1 mL IVP (20:43)
[2020-02-12] MEDS: dextrose 10% 1,000 ML 75 ML IV (20:46)
[2020-02-12 21:22] LABS: Glucose Point of Care 35 mg/dL (70-110)
[2020-02-12 21:22] LABS: Glucose Point of Care 170 mg/dL (70-110)
[2020-02-12 21:22] LABS: Glucose Point of Care 78 mg/dL (70-110)
--- NOTE | 2020-02-12 21:54 | PM.HP ---
Providers/Chief Complaint Admitting Physician: Mary Spears MD Primary Care Provider: Kunal Mcdowell MD Chief Complaint: HYPOGLYCEMIA History of Present Illness Moises Galvez is a 64 year old male with a past medical history of CAD, [id number] type 2 diabetes mellitus, history of recent BKA, hypertension, hyperlipidemia, who presents to the emergency room for evaluation of hypoglycemia. He was recently admitted 02/03-02/04 for the same reason. Overall this appears to be his 3rd episode of hypoglycemia in one month requiring hospital stay. Additionally he has reported low blood sugar numbers on outpatient visits as well. He was previously on glimepreide and Metformin, both of which were supposed to have stopped after the last admission. He denies any insulin use. Unsure if he is still continuing to take glimeperide and metformin. TSH from 02/04/20 WNL at 0.88. Hba1c on 02/02 at 6.9. Recent history also notable for acute limb ischemia on 01/07 which initially brought him to ER along with hypoglycemia, he was transferred to [place] and has subsequently undergone BKA. He may have had C.diff at the time as f/up outpatient notes indicate him being on Po vancomycin. Glimeperide on visit from 01/21 appears to have been 4mg ONCE daily, however current records indicate a BID dosing on his home meds. Patient is unsure if Glimeperide and Metformin are new medications as his medications were changed after his stay at [facility]. Review of Systems General: Reports: 10 or more systems reviewed and unremarkable except in HPI and below Const: Denies: fever(s), chills or body aches Eyes: Denies: change in vision, blurry vision or photophobia ENMT: Reports: hoarseness; Denies: throat pain, enlarged tonsils, odynophagia or nasal congestion Card: Denies: chest pain, palpitations, irregular heart rhythm, edema, swelling of feet/ankles, lightheadedness, pre-syncope, dyspnea on exertion or orthopnea Resp: Denies: dyspnea, productive cough, non-productive cough, wheezing, stridor, pain on inspiration, change in phlegm color, hemoptysis or chest congestion GI: Denies: abdominal pain, nausea, vomiting, hematemesis, coffee ground emesis, dysphagia, heartburn, diarrhea, constipation, GI cramping, change in stool character, hematochezia or melena : Denies: flank pain, dysuria, urinary frequency, urinary urgency, urinary hesitancy or hematuria Musc: Denies: neck pain, back pain, extremity pain, joint swelling, joint warmth or deformity Neuro: Denies: headache(s), numbness in extremities, weakness in extremities, sensory changes, difficulty walking, frequent falls, dizziness, vertigo, behavioral changes, Slurred speech present or seizure-like activity Psych: Denies: anxiety, depression, suicidal ideation or homicidal ideation Endo: Denies: polyuria, polydipsia, tired all the time, cold intolerance or hot flashes Marcial/Lymph: Denies: easy bruising or easy bleeding Medications/Allergies Home Medications Medication Instructions Recorded Confirmed Last Taken Type carvedilol 6.25 mg tablet 6.25 mg PO BID #60 tab 10/17/19 02/12/20 02/12/20 Rx gabapentin 300 mg capsule 300 mg PO BID 01/22/20 02/12/20 02/12/20 History lisinopril 2.5 mg tablet 10 mg PO DAILY 01/22/20 02/12/20 02/12/20 History tramadol 50 mg PO Q6H PRN 02/03/20 02/12/20 02/12/20 History amoxicillin-pot clavulanate 1 tab PO BID 13 Days #26 tab 02/05/20 02/12/20 02/12/20 Rx aspirin [Adult Low Dose Aspirin] 81 mg PO DAILY 30 Days #30 tab 02/05/20 02/12/20 02/12/20 Rx atorvastatin 80 mg PO DAILY 30 Days #30 tab 02/05/20 02/12/20 Unknown Rx sulfamethoxazole-trimethoprim 1 tab PO BID 13 Days #26 tab 02/05/20 02/12/20 Unknown Rx amlodipine 10 mg PO DAILY 02/12/20 02/12/20 02/12/20 History glimepiride 4 mg PO BID 02/12/20 02/12/20 02/12/20 History metformin 1,000 mg PO BID 02/12/20 02/12/20 02/12/20 History lm-ll-culkdf #[id number] 100 mg PO DAILY 02/12/20 02/12/20 02/12/20 History [Urinozinc Prostate Formula] Allergies Allergy/AdvReac Type Severity Reaction Status Date / Time codeine Allergy ADR-Nausea Verified 02/10/20 13:11 PFSH Acute PFSH: Medical History Essential (primary) hypertension Ischemic cardiomyopathy Mixed hyperlipidemia Non-ST elevation (NSTEMI) myocardial infarction Presence of prosthetic heart valve Surgical History [facility] History of aortic valve replacement History of coronary artery bypass graft Hx of right BKA Family History Other CAD (coronary artery disease) CHF (congestive heart failure) Cancer Social History Smoking and tobacco status: current every day smoker Alcohol intake: never Vitals/I&O/Wt Last Vital Signs Temp 98.2 F 02/12/20 19:54 Pulse 74 02/12/20 21:31 Resp 20 H 02/12/20 21:31 BP 120/59 02/12/20 21:31 Pulse Ox 96 02/12/20 21:31 Weight last 48 hrs Weight 72.575 kg Physical Exam Narrative: EXAM NARRATIVE: GEN: Awake, alert and oriented, no acute distress CVS: S1S2 N RS: CTA B/L Abd: Soft, nt/nd , bs+ OCEAN IMPORT REPRESENTATIVE: no focal neuro deficits EXT: R BKA stump with polina in place, mild erythema along staple line and area of skin breakdown in the middle, which patient states happened after a fall. No gross signs of cellulitis or infection. Data : 02/12/20 20:10 02/12/20 20:10 A&P Additional A&P Information Admit to ICU in voew of persisting hypoglycemia: 1. Recurrent episodes of hypoglycemia ongoing since at least one month in the setting of unclear changes to DM medications recently after surgery in mid December for BKA. Patient unsure of dosing. home health apparently helps with medications per him. For now, continue D10 infusion to maintain blood sugar levels s/p receiving orange juice, 2 amp of D50 and 1mg glucagon Start regular diet, no carbohydrate restrictions for now Does not appear to be septic, no clinical signs, therefore unlikly that this is contributing I do not have a strong suspicion for factitious hypoglyecmia based on sequence of events, however given that very littl eis available in terms of history or accuracy of medications, will test for serum proinsulin and C peptide levels. less suspicious for insulinoma, however if above levels elevated, may need further evaluation. Also check random cortisol, though low suspicion for adrenal insufficiency given normal electrolytes and vital signs.No recent h/o steroid use. Recent TSH WNL Last A1c 6.9 compatible with well controlled DM. Stop glimeperide and metformin 2. Paroxysmal A Fib, not on anticoagulation, holding off on discussion now as he is at high risk of falls from recurrent hypoglycemia 3. bioprosthetic AV valve 4. HTN: continue amlodipine. Hold lisinopril given COLE 5. Recent cellulitis on previous admission: to complete 15 day course of bactrim and augmentin on 02/16 DVT prophylaxis. Lovenox. Full code Attestations Medical Necessity Statement*: Anticipate greater than 2 midnight admission for management of recurrent refractory hypoglycemia Coding Level of Care Code Acute Top Lift Compressor for Bill Recinos
[2020-02-12] MEDS: HYDROcodone-acetaminophen 5-325 mg Tablet 1 TAB PO (22:33)
[2020-02-12] MEDS: enoxaparin 40 mg/0.4 mL Syringe SUBCUT (22:34)
[2020-02-13] VITALS (24 sets, daily range): BP systolic 86–144; BP diastolic 44–77; PULSE 68–87; RESP 15–31; TEMP 37.1; O2SAT 91–98
--- NOTE | 2020-02-13 00:31 | PC.NURSE ---
2330 blood sugar of 80 0000 blood sugar of 76- gave 2 containers of peanut butter and some crackers. Will continue to monitor.
[2020-02-13] MEDS: HYDROcodone-acetaminophen 5-325 mg Tablet 1 TAB PO (01:35)
--- NOTE | 2020-02-13 01:36 | PC.NURSE ---
0100 blood sugar is 60. Dr. Spears notified and she stated she was coming to see him. 0110 Dr. Separs at bedside and ordered 1mg of Glucagon once and asked the patient to drink some milk. Evaluated and removed dressing on stump. Ordered antibiotic ointment to be applied to suture line and around the erythema present on the stump. This nurse applied ointment and redressed stump with tefla and wrapped in Kerlex. Patient complaining of pain post dressing change and Dr. Spears ordered one time dose of Hydrocodone-APAP 5/325 to be given. q1 hour Accu-checks ordered. Dr. Spears wants nursing staff to encourage patient to eat high-carb foods as frequent as tolerated.
[2020-02-13 02:25] LABS: Glucose Point of Care 80 mg/dL (70-110)
[2020-02-13 02:25] LABS: Glucose Point of Care 165 mg/dL (70-110)
[2020-02-13 02:25] LABS: Glucose Point of Care 60 mg/dL (70-110)
[2020-02-13 02:25] LABS: Glucose Point of Care 76 mg/dL (70-110)
[2020-02-13 02:25] LABS: Glucose Point of Care 50 mg/dL (70-110)
[2020-02-13 02:25] LABS: Glucose Point of Care 43 mg/dL (70-110)
[2020-02-13 03:13] LABS: Glucose Point of Care 49 mg/dL (70-110)
--- NOTE | 2020-02-13 03:21 | PC.NURSE ---
0230 Blood sugar is 50- gave patient applesauce 0300 Blood sugar is 49- Dr. Spears notified and she ordered 1 amp of D50 to be given.
[2020-02-13] MEDS: dextrose 50% syringe 50 mL IVP (03:35)
[2020-02-13 04:35] LABS: Basophils # 0.1 10^3/uL (0.0-0.1); Basophils % 0.8 %; Eosinophils # 0.2 10^3/uL (0.0-0.8); Eosinophils % 1.3 %; Hemoglobin 9.8 g/dL (11.7-16.6); Lymphocytes # 2.9 10^3/uL (0.8-4.8); Lymphocytes % 16.5 %; Mean Corpuscular HGB Conc 31.6 g/dL (30.0-36.0); Mean Corpuscular Hemoglobin 29.4 pg (28.0-34.0); Mean Corpuscular Volume 93.1 fL (80-94); Mean Platelet Volume 9.4 fL (7.4-10.4); Monocytes # 1.2 10^3/uL (0.2-0.9); Monocytes % 6.7 %; Neutrophils % 74.2 %; Nucleated Red Blood Cells % 0 %; Platelet Count 394 10^3/cmm (130-400); Red Blood Count 3.33 10^6/uL (4.1-5.3); White Blood Count 17.5 10^3/uL (4.0-10.0)
[2020-02-13 04:54] LABS: Alanine Aminotransferase 25 U/L (0-41); Albumin Level 3.5 g/dL (3.5-5.2); Alkaline Phosphatase 82 IU/L (40-130); Anion Gap 14.6 (5-19); Aspartate Amino Transferase 25 U/L (0-40); Blood Urea Nitrogen 34 mg/dL (8-23); Calcium 9.3 mg/dL (8.5-10.5); Carbon Dioxide 25 mmol/L (22-29); Chloride 98 mmol/L (98-107); Creatinine Clr Calc Pharmacy 64.7414; Globulin 3.1 g/dL (1.3-4.6); Glomerular Filtration Rate 60.6 mL/min (90-130); Glucose 91 mg/dL (65-115); Osmolality Calculated 273 mOsm/kg (285-295); Potassium 4.6 mmol/L (3.5-5.1); Sodium 133 mmol/L (136-145); Total Bilirubin 0.2 mg/dL (0.15-1.2); Total Protein 6.6 g/dL (6.6-8.7)
[2020-02-13 05:05] LABS: Cortisol Random 8.19 mcg/dL (2.47-19.5)
[2020-02-13 06:25] LABS: Glucose Point of Care 59 mg/dL (70-110)
[2020-02-13 06:25] LABS: Glucose Point of Care 51 mg/dL (70-110)
[2020-02-13 06:25] LABS: Glucose Point of Care 86 mg/dL (70-110)
[2020-02-13 06:25] LABS: Glucose Point of Care 52 mg/dL (70-110)
--- NOTE | 2020-02-13 06:30 | PC.NURSE ---
0530 Blood sugar is 59- encouraged patient to drink some juice and eat some son crackers 0600 Blood sugar is 52- Dr. Spears notified and she ordered another 1 mg of Glucagon IVP.
[2020-02-13 07:20] LABS: Glucose Point of Care 71 mg/dL (70-110)
[2020-02-13 08:23] LABS: Procalcitonin 0.16 ng/mL (0-0.5)
[2020-02-13 08:59] LABS: Glucose Point of Care 48 mg/dL (70-110)
[2020-02-13] MEDS: dextrose 50% syringe 50 mL 25 ML IVP (09:02)
[2020-02-13] MEDS: dextrose 5 % 500 ML 100 ML IV (09:03)
[2020-02-13 09:39] LABS: Glucose Point of Care 263 mg/dL (70-110)
--- NOTE | 2020-02-13 10:04 | P.PN_ITS ---
Subjective Subjective: Interval history: Admitted overnight. H&P and labs noted. On examination patient lying comfortably in bed. He states he is taking his medications and manage his medications on his own but is not really sure what oral hypoglycemics is being on. He states he takes a dosage which is written on the bottles which have not really been changed since his multiple admissions. Blood sugar noted. Currently on D10 at 75 cc/h. Labs and vitals noted. Vitals/I&O/Wt Last Vital Signs Temp 98.1 F 02/12/20 22:00 Pulse 79 02/13/20 06:00 Resp 27 H 02/13/20 06:00 BP 101/60 02/13/20 06:00 Pulse Ox 94 02/13/20 06:00 02/12/20 02/13/20 02/13/20 22:59 06:59 14:59 Intake Total 540 / 540 220 / 220 Output Total 450 / 450 600 / 600 Balance 90 / 90 -380 / -380 Weight last 48 hrs Weight 72.575 kg Physical Exam Narrative: EXAM NARRATIVE: General: No acute distress, AO x3 HEENT: PERRLA, pupils bilaterally equal and reactive Chest: Normal vesicular breath sounds, no added sounds, equal good air entry bilaterally CVS: S1-S2 regular, soft ejection systolic at the aortic area 2/6, no ta chycardia, no gallops, no rubs Abdomen: Soft, nontender, no organomegaly, bowel sounds present Neuro: No focal deficits, no facial deformity, AO x3, power 5/5 in all limbs Data : 02/13/20 03:50 02/13/20 03:50 Micro: Microbiology 02/13/20 08:43 Blood Culture - Preliminary Blood SPECIMEN COLLECTED 02/13/20 08:38 Blood Culture - Preliminary Blood SPECIMEN COLLECTED A&P Assessment and plan (1) Hypoglycemia: Status: Acute (2) Hypoglycemia secondary to sulfonylurea: Status: Acute (3) Type 2 diabetes mellitus: Status: Acute (4) Diastolic CHF, chronic: Status: Acute (5) Presence of prosthetic heart valve: Status: Acute (6) PVD (peripheral vascular disease): Status: Acute (7) COLE (acute kidney injury): Status: Acute (8) Mixed hyperlipidemia: Status: Acute (9) Essential (primary) hypertension: Status: Acute Additional A&P Information Type 2 diabetes mellitus/recurrent hypoglycemias: Most likely because of oral glimepiride being taken at home. Patient was suggested not to take the medication on the last discharge but it seems patient has been taking it as it was written on the bottle. Half-life of glimepiride is 5 to 9 hours. So perfect would stay in anywhere from 40 to 54 hours. Patient is 24 hours post last glimepiride dose. Continue monitor blood sugars hourly for now. Switch to D5 at 75 cc/h. If blood sugars remain stable for next 2 to 3 hours we will change it to every 2 hourly checks. Suspicion for factitious hypoglycemia is low but cannot rule out given multiple admissions. Proinsulin levels and C-peptide levels sent earlier today in the morning. Insulin levels and C-peptide levels are a send out and will take multiple days to come back. Given multiple admissions because of similar presentation cannot rule out insulinoma at present. Even though chances of sulfonylurea induced hypoglycemia is very high will check CT abdomen pelvis with oral and IV contrast. TSH checked on last admission was normal, random cortisol levels normal. HbA1c 6.9 checked on last admission a week ago. Suspicion of sepsis is low as a cause of hypoglycemia as patient's white count is normal and patient does not have any fever. But given history of bioprosthetic valve and recent BKA cannot rule out. We will check procalcitonin, blood cultures. Will hold off on any antibiotics for now as patient does not have any fevers and is hemodynamically stable. Paroxysmal A Fib: Rate controlled. Continue with home dose of Coreg. Pradaxa on hold for now given recurrent hypoglycemias in event if patient falls. Patient is aware it puts him at a higher risk of thromboembolic strokes at present. Bioprosthetic aortic valve: Working appropriately as per the last echocardiogram. Continue aspirin 81 mg daily. CAD: No active chest pain. Continue aspirin and statin. Echo done January 2020 shows an EF of 55% with grade 2 diastolic dysfunction, no regional wall motion abnormality, normal working bioprosthetic valve. Hypertension: Continue home dose of amlodipine. Lisinopril on hold given COLE. COLE: Resolving Baseline creatinine seems to be normal. Creatinine today 1.2. Medical reconciliation done for nephrotoxic drugs. Continue monitor BMP daily. Recent BKA: Continue home dose of Bactrim and Augmentin for now. Overall course of 15 days. DVT prophylaxis. Lovenox. Full code High carb diet. Attestations Medical Necessity Statement*: Recurrent persistent hypoglycemia Time Spent in Patient Care: Greater than 35 minutes (>than 50% of time spent in counselling and/or direct pt care on unit) . Coding Level of Care Code Acute Manager Of Loss Prevention Operations for Chg Fwd Diagnoses Hypoglycemia E16.2 Hypoglycemia secondary to sulfonylurea T38.3X1A; E16.0 Type 2 diabetes mellitus E11.9 Diastolic CHF, chronic I50.32 Presence of prosthetic heart valve Z95.2 PVD (peripheral vascular disease) I73.9 COLE (acute kidney injury) N17.9 Mixed hyperlipidemia E78.2 Essential (primary) hypertension I10
[2020-02-13] MEDS: gabapentin 300 mg Capsule PO ×2 (10:18→18:29)
[2020-02-13] MEDS: aspirin 81 mg EC Tablet PO (10:18)
[2020-02-13] MEDS: amoxicillin-clav 875-125 mg Tablet 1 TAB PO ×2 (10:19→18:29)
[2020-02-13] MEDS: atorvastatin 40 mg Tablet 80 MG DOBHOFF (10:19)
[2020-02-13] MEDS: amlodipine 10 mg Tablet PO (10:20)
[2020-02-13] MEDS: dextrose 10% 1,000 ML 75 ML IV (10:20)
[2020-02-13] MEDS: carvedilol 6.25 mg Tablet PO ×2 (10:20→18:29)
[2020-02-13] MEDS: lisinopril 10 mg Tablet PO (10:20)
[2020-02-13] MEDS: sulfamethoxazole-trimeth DS 160-800 mg Tablet 1 TAB PO ×2 (10:20→18:29)
[2020-02-13 11:32] LABS: Glucose Point of Care 72 mg/dL (70-110)
[2020-02-13 11:32] LABS: Glucose Point of Care 140 mg/dL (70-110)
[2020-02-13 11:32] LABS: Glucose Point of Care 186 mg/dL (70-110)
[2020-02-13] MEDS: dextrose 5% 1,000 ML 75 ML IV (11:35)
[2020-02-13 12:23] LABS: Glucose Point of Care 88 mg/dL (70-110)
--- NOTE | 2020-02-13 13:00 | CT_ITS ---
WS: [id number] CT ABDOMEN PELVIS TECHNIQUE: Contrast-enhanced CT of the abdomen and pelvis with coronal and sagittal reformatted image s. CLINICAL INFORMATION: r/o insulinoma COMPARISON: None. DLP: 571.[address] scans at [facility] use at least one of these dose optimization techniques: automat ed exposure control; mA and/or kV adjustment per patient size (includes targeted exams where dose is matched to clinical indication); or iterative reconstruction. FINDINGS: Mild diffuse infiltration of the liver. Normal gallbladder. Normal portal vein and splenic vein. Norm al spleen. Gastric fundal diverticulum unchanged from October 15, 2018 measuring 2.5 x 3.3 CM. Lung b ases are well aerated. Adrenal glands are normal. Normal renal parenchymal enhancement. Small bilater al renal cysts. Small splenule. Aortic calcification. Splenic artery calcification. Pancolonic constipation. Rectosigmoid constipation. Diverticulosis. No evidence of acute diverticulit is. Mild fatty atrophy of the pancreas. No evidence of pancreatic mass. Mild spondylitic changes lumb ar spine. Disc osteophyte complex at L2-3 with mild central canal stenosis. CT/CT abdomen pelvis w con* [id number] IMPRESSION: 1. No evidence of pancreatic mass or lesion. No intrahepatic biliary ductal di latation. 2. No hydronephrosis in either kidney. Small bilateral renal cysts. 3. Moderate pancolonic constipation 4. Dorsal gastric fundal diverticulum measuring 2.5 x 3.3 cm is unchanged.
[2020-02-13] MEDS: iohexol 300 mg/mL 50 mL Btl PO (13:33)
[2020-02-13 14:04] LABS: Glucose Point of Care 114 mg/dL (70-110)
--- NOTE | 2020-02-13 14:23 | PC.NURSE ---
Called [facility] to let them know that the pt finished his drink at 1410
[2020-02-13 15:21] LABS: Glucose Point of Care 119 mg/dL (70-110)
[2020-02-13] MEDS: iohexol 300 mg/mL 100 mL Btl IV (15:44)
[2020-02-13 17:14] LABS: Glucose Point of Care 107 mg/dL (70-110)
[2020-02-13 18:56] LABS: Glucose Point of Care 186 mg/dL (70-110)
[2020-02-13] MEDS: nicotine 21 mg Patch 1 PATCH TRANSDERMA (19:14)
[2020-02-13] MEDS: enoxaparin 40 mg/0.4 mL Syringe SUBCUT (21:28)
[2020-02-13 21:33] LABS: Glucose Point of Care 189 mg/dL (70-110)
[2020-02-13 23:07] LABS: Glucose Point of Care 205 mg/dL (70-110)
[2020-02-14] VITALS (9 sets, daily range): BP systolic 111–143; BP diastolic 56–71; PULSE 73–88; RESP 18–28; TEMP 36.2–36.9; O2SAT 93–98
[2020-02-14 01:13] LABS: Glucose Point of Care 211 mg/dL (70-110)
[2020-02-14] MEDS: dextrose 5% 1,000 ML 75 ML IV (01:51)
[2020-02-14 03:15] LABS: Glucose Point of Care 294 mg/dL (70-110)
[2020-02-14 04:46] LABS: Basophils # 0.2 10^3/uL (0.0-0.1); Basophils % 1.3 %; Eosinophils # 0.4 10^3/uL (0.0-0.8); Hematocrit 32.7 % (42.0-52.0); Hemoglobin 10.2 g/dL (11.7-16.6); Lymphocytes # 2.6 10^3/uL (0.8-4.8); Lymphocytes % 19.5 %; Mean Corpuscular HGB Conc 31.2 g/dL (30.0-36.0); Mean Corpuscular Volume 92.9 fL (80-94); Mean Platelet Volume 9.2 fL (7.4-10.4); Monocytes % 7.4 %; Neutrophils # 9.2 10^3/uL (1.8-7.7); Neutrophils % 68.4 %; Nucleated Red Blood Cells % 0 %; Platelet Count 393 10^3/cmm (130-400); Red Blood Count 3.52 10^6/uL (4.1-5.3); Red Cell Distribution Width 15.1 % (12.1-15.1); White Blood Count 13.4 10^3/uL (4.0-10.0)
[2020-02-14 05:00] LABS: Glucose Point of Care 270 mg/dL (70-110)
[2020-02-14 05:05] LABS: Alanine Aminotransferase 39 U/L (0-41); Albumin Level 3.6 g/dL (3.5-5.2); Alkaline Phosphatase 84 IU/L (40-130); Aspartate Amino Transferase 32 U/L (0-40); Blood Urea Nitrogen 23 mg/dL (8-23); Calcium 9.7 mg/dL (8.5-10.5); Carbon Dioxide 21 mmol/L (22-29); Chloride 100 mmol/L (98-107); Creatinine Clr Calc Pharmacy 64.7414; Globulin 3.5 g/dL (1.3-4.6); Glomerular Filtration Rate 60.6 mL/min (90-130); Glucose 290 mg/dL (65-115); Osmolality Calculated 285 mOsm/kg (285-295); Sodium 134 mmol/L (136-145); Total Bilirubin 0.2 mg/dL (0.15-1.2); Total Protein 7.1 g/dL (6.6-8.7)
[2020-02-14 05:12] LABS: Procalcitonin 0.24 ng/mL (0-0.5)
--- NOTE | 2020-02-14 06:26 | PC.NURSE ---
0300 Blood sugar is 294- stopping D5W per Dr. Ricketts's order. 0500 Blood sugar is 270- continuing to hold D5W
[2020-02-14 06:42] LABS: Glucose Point of Care 239 mg/dL (70-110)
[2020-02-14] MEDS: lisinopril 10 mg Tablet PO (08:06)
[2020-02-14] MEDS: amlodipine 10 mg Tablet PO (08:07)
[2020-02-14] MEDS: gabapentin 300 mg Capsule PO (08:07)
[2020-02-14] MEDS: carvedilol 6.25 mg Tablet PO (08:07)
[2020-02-14] MEDS: aspirin 81 mg EC Tablet PO (08:07)
[2020-02-14] MEDS: amoxicillin-clav 875-125 mg Tablet 1 TAB PO (08:07)
[2020-02-14] MEDS: sulfamethoxazole-trimeth DS 160-800 mg Tablet 1 TAB PO (08:07)
[2020-02-14] MEDS: atorvastatin 40 mg Tablet 80 MG PO (08:08)
[2020-02-14] MEDS: nicotine 21 mg Patch 1 PATCH TRANSDERMA (08:08)
--- NOTE | 2020-02-14 08:23 | PC.NURSE ---
Pt right stump has black escar and redness around stump. He states that his told him that he fell while his sugar was low and he does not remember the event.
[2020-02-14 10:54] LABS: Glucose Point of Care 405 mg/dL (70-110)
[2020-02-14] MEDS: sitagliptin 100 mg Tablet PO (10:57)
--- NOTE | 2020-02-14 11:07 | P.DS_ITS ---
Discharge Providers Date of Admission: 02/12/20 20:38 Date of Discharge: February 14, 2020 Attending Provider at Admission: Mary Spears MD Attending Provider at Discharge: Junior Ricketts MD Primary Care Provider: Kunal Mcdowell MD Diagnoses at Discharge Discharge Diagnosis (1) Hypoglycemia: Status: Acute (2) Hypoglycemia secondary to sulfonylurea: Status: Acute (3) Type 2 diabetes mellitus: Status: Acute (4) Diastolic CHF, chronic: Status: Acute (5) Presence of prosthetic heart valve: Status: Acute Problem details: January 2020- Bioprosthetic valve in the aortic position appears to be well- seated, leaflet could not be well visualized. VTI across the aortic valve is 2.4 m/s (6) PVD (peripheral vascular disease): Status: Acute (7) COLE (acute kidney injury): Status: Acute (8) Mixed hyperlipidemia: Status: Acute (9) Essential (primary) hypertension: Status: Acute Reason for Visit Reason for Visit: Reason For Visit: HYPOGLYCEMIA Hospital Course Discharge Summary: Moises Galvez is a 64 year old male with a past medical history of CAD, [id number] type 2 diabetes mellitus, history of recent BKA, hypertension, hyperlipidemia, who presents to the emergency room for evaluation of hypoglycemia. He was recently admitted 02/03-02/04 for the same reason. Overall this appears to be his 3rd episode of hypoglycemia in one month requiring hospital stay. Additionally he has reported low blood sugar numbers on outpatient visits as well. He was previously on glimepreide and Metformin, both of which were supposed to have stopped after the last admission. He denies any insulin use. Unsure if he is still continuing to take glimeperide and metformin. TSH from 02/04/20 WNL at 0.88. Hba1c on 02/02 at 6.9. Recent history also notable for acute limb ischemia on 01/07 which initially brought him to ER along with hypoglycemia, he was transferred to [place] and has subsequently undergone BKA. He may have had C.diff at the time as f/up outpatient notes indicate him being on Po vancomycin. Glimeperide on visit from 01/21 appears to have been 4mg ONCE daily, however current records indicate a BID dosing on his home meds. Patient is unsure if Glimeperide and Metformin are new medications as his medications were changed after his stay at [facility]. Patient was asked what oral hypoglycemics he was taking at home. He states he is not really sure of the name of the medication but he fixes his own medication. He states he goes by the direction written on the bottle. Given this it is possible that patient has not had a new refill since her last discharge and had continued a glimepiride twice daily. Patient was admitted to the hospital in the ICU for frequent blood sugar monitoring while started on D5. After 48 hours of treatment his blood sugar started becoming better. Because of recurrent admission for hypoglycemia patient was also checked for proinsulin levels, C-peptide levels for which results are awaited. Insulinoma was ruled out with a negative CTA abdomen pelvis. Patient's random cortisol levels were within normal limits. For possible sepsis being the reason blood cultures were sent and has remained negative till now. This is a concern as patient has had a recent BKA and has a history of bioprosthetic aortic valve. Patient is been discharged in hemodynamically stable condition with advice to stop glimepiride altogether as his A1c was 6.6 and start on Januvia as it does not have any potential of causing hypoglycemia. So patient's OHA at home would be metformin thousand milligrams twice daily and Januvia 100 mg daily. Patient has also been advised to maintain a blood sugar diary in which he supposed to take his blood sugar fasting numbers on Monday, Monday, Monday and random blood sugar which would be pre-lunch or pre-dinner on Monday and Monday. He is advised to follow-up with his primary care physician in 1 week and to take his blood sugar diary with him at that time for further adjustment of OHA if needed. Physical Exam Narrative: EXAM NARRATIVE: General: No acute distress, AO x3 HEENT: PERRLA, pupils bilaterally equal and reactive Chest: Normal vesicular breath sounds, no added sounds, equal good air entry bilaterally CVS: S1-S2 regular, soft ejection systolic at the aortic area 2/6, no tachycardia, no gallops, no rubs Abdomen: Soft, nontender, no organomegaly, bowel sounds present Neuro: No focal deficits, no facial deformity, AO x3, power 5/5 in all limbs Discharge Data Data Completed and Pending: Completed Studies During Hospitalization Category Date Time Status CT abdomen pelvis w con* [id number] [facility] Cat Scan 02/13/20 13:00 Completed Pending at discharge Category Date Time Status Blood Culture Sta t Lab 02/13/20 08:43 Results C-Peptide Stat Lab 02/13/20 03:50 Received Complete Blood Co unt w/Auto AM LABS Lab 02/15/20 04:00 Ordered Comprehensive Met abolic Panel AM LA BS Lab 02/15/20 04:00 Ordered Miscellaneous Carmela t Routine Lab 02/12/20 22:09 Received Labs from last 24 hours 02/14/20 02/14/20 02/14/20 10:52 06:39 04:56 WBC RBC Hgb Hct MCV MCH MCHC RDW Plt Count MPV Neut % (Auto) Lymph % (Auto) Anderson % (Auto) Eos % (Auto) Baso % (Auto) Neut # (Auto) Lymph # (Auto) Anderson # (Auto) Eos # (Auto) Baso # (Auto) Nucleated RBC % (a uto) Nucleated RBCs # Sodium Potassium Chloride Carbon Dioxide Anion Gap BUN Creatinine GFR Calculation Glucose POC Glucose 405 239 270 Calculated Osmolal ity Calcium Total Bilirubin AST ALT Alkaline Phosphata se Total Protein Albumin Globulin Procalcitonin 02/14/20 02/14/20 02/14/20 04:10 04:10 04:10 WBC 13.4 H RBC 3.52 L Hgb 10.2 L Hct 32.7 L MCV 92.9 MCH 29.0 MCHC 31.2 RDW 15.1 Plt Count 393 MPV 9.2 Neut % (Auto) 68.4 Lymph % (Auto) 19.5 Anderson % (Auto) 7.4 Eos % (Auto) 3.0 Baso % (Auto) 1.3 Neut # (Auto) 9.2 H Lymph # (Auto) 2.6 Anderson # (Auto) 1.0 H Eos # (Auto) 0.4 Baso # (Auto) 0.2 H Nucleated RBC % (a uto) 0 Nucleated RBCs # 0.0 Sodium 134 L Potassium 5.0 Chloride 100 Carbon Dioxide 21 L Anion Gap 18.0 BUN 23 Creatinine 1.2 GFR Calculation 60.6 L Glucose 290 H POC Glucose Calculated Osmolal ity 285 Calcium 9.7 Total Bilirubin 0.2 AST 32 ALT 39 Alkaline Phosphata se 84 Total Protein 7.1 Albumin 3.6 Globulin 3.5 Procalcitonin 0.24 02/14/20 02/14/20 02/13/20 03:12 01:04 23:02 WBC RBC Hgb Hct MCV MCH MCHC RDW Plt Count MPV Neut % (Auto) Lymph % (Auto) Anderson % (Auto) Eos % (Auto) Baso % (Auto) Neut # (Auto) Lymph # (Auto) Anderson # (Auto) Eos # (Auto) Baso # (Auto) Nucleated RBC % (a uto) Nucleated RBCs # Sodium Potassium Chloride Carbon Dioxide Anion Gap BUN Creatinine GFR Calculation Glucose POC Glucose 294 211 205 Calculated Osmolal ity Calcium Total Bilirubin AST ALT Alkaline Phosphata se Total Protein Albumin Globulin Procalcitonin 02/13/20 02/13/20 02/13/20 21:27 18:53 16:59 WBC RBC Hgb Hct MCV MCH MCHC RDW Plt Count MPV Neut % (Auto) Lymph % (Auto) Anderson % (Auto) Eos % (Auto) Baso % (Auto) Neut # (Auto) Lymph # (Auto) Anderson # (Auto) Eos # (Auto) Baso # (Auto) Nucleated RBC % (a uto) Nucleated RBCs # Sodium Potassium Chloride Carbon Dioxide Anion Gap BUN Creatinine GFR Calculation Glucose POC Glucose 189 186 107 Calculated Osmolal ity Calcium Total Bilirubin AST ALT Alkaline Phosphata se Total Protein Albumin Globulin Procalcitonin 02/13/20 02/13/20 02/13/20 15:18 14:01 12:20 WBC RBC Hgb Hct MCV MCH MCHC RDW Plt Count MPV Neut % (Auto) Lymph % (Auto) Anderson % (Auto) Eos % (Auto) Baso % (Auto) Neut # (Auto) Lymph # (Auto) Anderson # (Auto) Eos # (Auto) Baso # (Auto) Nucleated RBC % (a uto) Nucleated RBCs # Sodium Potassium Chloride Carbon Dioxide Anion Gap BUN Creatinine GFR Calculation Glucose POC Glucose 119 114 88 Calculated Osmolal ity Calcium Total Bilirubin AST ALT Alkaline Phosphata se Total Protein Albumin Globulin Procalcitonin 02/13/20 02/13/20 02/13/20 11:27 11:24 10:13 WBC RBC Hgb Hct MCV MCH MCHC RDW Plt Count MPV Neut % (Auto) Lymph % (Auto) Anderson % (Auto) Eos % (Auto) Baso % (Auto) Neut # (Auto) Lymph # (Auto) Anderson # (Auto) Eos # (Auto) Baso # (Auto) Nucleated RBC % (a uto) Nucleated RBCs # Sodium Potassium Chloride Carbon Dioxide Anion Gap BUN Creatinine GFR Calculation Glucose POC Glucose 140 72 186 Calculated Osmolal ity Calcium Total Bilirubin AST ALT Alkaline Phosphata se Total Protein Albumin Globulin Procalcitonin Vitals: Last Vital Signs Temp 98.4 F 02/14/20 11:00 Pulse 83 02/14/20 11:00 Resp 20 H 02/14/20 11:00 BP 143/67 02/14/20 11:00 Pulse Ox 96 02/14/20 11:00 Discharge Plan Discharge Patient Disposition: Home, Self-Care Condition: Stable Prescriptions: New Januvia 100 mg Tablet 100 mg PO DAILY Qty: 30 RF: 0 Continued gabapentin 300 mg capsule 300 mg PO BID RF: 0 lisinopril 2.5 mg tablet 10 mg PO DAILY RF: 0 carvedilol 6.25 mg tablet 6.25 mg PO BID Qty: 60 RF: 5 amlodipine 10 mg tablet 10 mg PO DAILY RF: 0 metformin 1,000 mg tablet 1,000 mg PO BID RF: 0 Urinozinc Prostate Formula 100 mg Tablet 100 mg PO DAILY RF: 0 tramadol 50 mg Tablet 50 mg PO Q6H PRN (Reason: Pain) RF: 0 sulfamethoxazole-trimethoprim 800-160 mg Tablet 1 tab PO BID 13 Days Qty: 26 RF: 0 amoxicillin-pot clavulanate 875-125 mg Tablet 1 tab PO BID 13 Days Qty: 26 RF: 0 atorvastatin 80 mg tablet 80 mg PO DAILY 30 Days Qty: 30 RF: 0 aspirin [Adult Low Dose Aspirin] 81 mg tablet,delayed release (DR/EC) 81 mg PO DAILY 30 Days Qty: 30 RF: 0 Discontinued glimepiride 4 mg tablet 4 mg PO BID RF: 0 Discharge Orders: Discharge Order (Routine); Ordered 02/14/20 Ordered By: Junior Ricketts Referrals: Kunal Mcdowell MD [Primary Care Provider] - 2 weeks Discharge Diet: Cardiac and Diabetic Discharge Activity: Resume usual activity Activity Restrictions/Additional Instructions: Please throw away the bottles of glimepiride at home. Glimepiride has been stopped obviously.Instead of glimepiride Januvia has been added. Please check fasting blood sugar on Monday, Monday, Monday and check random blood sugar which could be either prelunch or predinner on Monday. Please maintain a blood sugar diary for you to take with yourself when you go and visit her primary care physician in 2 weeks. Target blood sugar fasting numbers are less than 130 and target blood sugar levels for prelunch/predinner are less than 150. Whenever you have hypoglycemia that is your blood sugar less than [address] either half a glass of juice or half a glass of milk. Check your blood sugars 45 minutes after consuming the milk. If your blood sugars remain less than 70 even after consuming milk twice called EMS. Blood cultures have been taken. If they return positive I will call you with the result. Discharge Date/Time: 02/14/20 12:39 Discharge Attestations Time Spent in Discharge Care*: greater than 30 min Specific Discharge Activities: Specific discharge activities: educating patient, discussing with pcp/other providers, discussing with nurse case management/social workers/dc planners, documenting/other paperwork and evaluating patient/reviewing data Status at Discharge: Cognitive status at discharge: cognitively intact , Behavioral status at discharge: cooperative , Functional status at discharge: uses cane/walker Overall status at discharge: patient is back to baseline Quality Metrics Clinical Quality Measures During this hospital stay, did patient experience: None Coding Level of Care Code Acute Television Analyzer for Chg Fwd Diagnoses Hypoglycemia E16.2 Hypoglycemia secondary to sulfonylurea T38.3X1A; E16.0 Type 2 diabetes mellitus E11.9 Diastolic CHF, chronic I50.32 Presence of prosthetic heart valve Z95.2 PVD (peripheral vascular disease) I73.9 COLE (acute kidney injury) N17.9 Mixed hyperlipidemia E78.2 Essential (primary) hypertension I10
[2020-02-14 13:01] LABS: C-Peptide 13.51 ng/mL (0.80-3.85)
--- NOTE | 2020-02-15 11:43 | PC.NURSE ---
Script was not at [facility] pharmacy in [place]. Junuvia 100mg #30 NR. Called into [facility].
== END 2020-02-14 12:39 | disposition home or self-care (01) | DRG 638 ==
LOC: ER 20:56 → ICU 20:57
PROVIDERS: Emergency Medicine; Admitting Provider Student in an Organized Health Care Education/Training Program; PCP Internal Medicine; Visit Provider Student in an Organized Health Care Education/Training Program
DX: E11.649 Type 2 diabetes mellitus with hypoglycemia without coma (principal); I50.32 Chronic diastolic (congestive) heart failure; Z95.2 Presence of prosthetic heart valve; N17.9 Acute kidney failure, unspecified; E78.2 Mixed hyperlipidemia; I11.0 Hypertensive heart disease with heart failure; I25.10 Atherosclerotic heart disease of native coronary artery without angina pectoris; T38.3X6A Underdosing of insulin and oral hypoglycemic [antidiabetic] drugs, initial encounter; Z91.128 Patient's intentional underdosing of medication regimen for other reason; Y92.009 Unspecified place in unspecified non-institutional (private) residence as the place of occurrence of the external cause; Z79.82 Long term (current) use of aspirin; Z79.84 Long term (current) use of oral hypoglycemic drugs; I25.2 Old myocardial infarction; I25.5 Ischemic cardiomyopathy; Z89.511 Acquired absence of right leg below knee; F17.210 Nicotine dependence, cigarettes, uncomplicated; I48.0 Paroxysmal atrial fibrillation
CPT/HCPCS: 12345; 36415; 36416; 74177; 80053; 82533; 82962; 84145; 84206; 84681; 85025; 87040; 93005; 96372; 96375; 99282; J1610; J1650; J2270; Q9967

== ENCOUNTER 2020-03-07 17:09 | Emergency (ER) | payer MEDICARE, SELFPAY ==
[2020-03-07 17:18] VITALS: BP 161/78; PULSE 74; RESP 18; TEMP 36.7; O2SAT 98; BMI 20.9
--- NOTE | 2020-03-07 17:42 | W.ED.WOUNDLC ---
HPI - Wound/Laceration General: Chief Complaint: Wound/Laceration Stated Complaint: r leg wound Time Seen by Provider: 03/07/20 17:21 Source: patient Mode of arrival: ambulatory Limitations: no limitations History of Present Illness: HPI narrative: Patient comes in for evaluation of surgical wound. Patient had surgery on his right below the knee amputation for correction of previous BKA. Patient had change dressing the day but noted some bleeding and he was concerned. He had talked to his surgical team and they recommended he be evaluated in the ER. Patient appears well. Patient denies no significant pain or fever. Review of Systems General: Reports: 10 or more systems reviewed and unremarkable except in HPI and below Skin/Breast: Reports: other (Wound bleeding.) [facility] ED PFS: Medical History (Updated 03/07/20 @ 17:45 by DONNY Gonzalez) Diastolic CHF, chronic Essential (primary) hypertension Hereditary and idiopathic neuropathy, unspecified Mixed hyperlipidemia Non-ST elevation (NSTEMI) myocardial infarction Occlusion and stenosis of left carotid artery Presence of prosthetic heart valve January 2020- Bioprosthetic valve in the aortic position appears to be well- seated, leaflet could not be well visualized. VTI across the aortic valve is 2.4 m/s Surgical History [facility] History of aortic valve replacement History of coronary artery bypass graft Hx of right BKA Family History Other CAD (coronary artery disease) CHF (congestive heart failure) Cancer Social History Smoking and tobacco status: current every day smoker Alcohol intake: never Physical Exam Const: COMMON NORMALS: no acute distress and patient oriented x3 GENERAL APPEARANCE: cooperative HENMT: COMMON NORMALS: normocephalic and Normal external nose present HEAD & SCALP: normal to inspection and normocephalic NOSE: Normal external nose present MOUTH: Normal oral and palatal mucosa present Eye: GENERAL EYE: appearance normal, both eyes and all related structures Neck/C-Spine: COMMON NORMALS: full ROM Lymph: LYMPHATIC: no lymphadenopathy noted Chest: COMMONS NORMALS: normal inspection of the chest Resp: COMMON NORMALS: normal respiratory effort EFFORT & INSPECTION: Yes able to speak in complete sentences Cardio: COMMON NORMALS: regular rate and regular rhythm RATE: regular rate RHYTHM: regular rhythm GI: COMMON NORMALS: non-tender Back/Pelvis: COMMON NORMALS: thoracic and lumbar spine normal to inspection Extremity: NARRATIVE EXTREMITY EXAM: Healing surgical wound to the right below the knee amputation area. Small amount of serosanguineous drainage along the incision line. No significant redness or purulent drainage. Neuro: COMMON NORMALS: patient oriented x3 and moves all extremities Psych: COMMON NORMALS: mental status grossly normal and cooperative Skin: COMMON NORMALS: no rashes or lesions noted GENERAL SKIN EXAM: no rashes or lesions noted Course Vital Signs: Vital signs: Vital Signs Temperature 98.0 F 03/07/20 17:18 Pulse Rate 74 03/07/20 17:18 Respiratory Rate 18 03/07/20 17:18 Blood Pressure 161/78 03/07/20 17:18 Pulse Oximetry 98 03/07/20 17:18 MDM - Wound/Laceration MDM Narrative: Medical decision making narrative: Patient comes in for dressing change secondary to her surgery with concerns for bleeding. Small amount of bleeding was noted to the area but no significant swelling or erythema was noted to the wound site. Differential diagnosis includes hematoma, seroma, wound infection. No significant hematoma or fluid collection was noted to the wound. No heat or warmth and no fever was noted. Suspect just some postsurgical wound drainage that should resolve with light pressure dressing. Wound was cleaned with sterile water and Telfa pad and gauze was applied for protection of wound. Patient was recommended to monitor for fever or worsening symptoms. Patient reports understanding and agreed to plan. Discharge Plan Discharge Patient Disposition: Home, Self-Care Clinical Impression: Below-knee amputation of right lower extremity Condition: Stable Prescriptions: No Action gabapentin 300 mg capsule 300 mg PO BID RF: 0 lisinopril 2.5 mg tablet 10 mg PO DAILY RF: 0 carvedilol 6.25 mg tablet 6.25 mg PO BID Qty: 60 RF: 5 amlodipine 10 mg tablet 10 mg PO DAILY RF: 0 metformin 1,000 mg tablet 1,000 mg PO BID RF: 0 Urinozinc Prostate Formula 100 mg Tablet 100 mg PO DAILY RF: 0 Januvia 100 mg Tablet 100 mg PO DAILY Qty: 30 RF: 0 tramadol 50 mg Tablet 50 mg PO Q6H PRN (Reason: Pain) RF: 0 Discharge Orders: Discharge Order (Routine); Ordered 03/07/20 Ordered By: Michael Olivera Referrals: Kunal Mcdowell MD [Primary Care Provider] - Discharge Diet: Usual diet Discharge Activity: Increase activity as tolerated Activity Restrictions/Additional Instructions: Home and rest. Keep wound clean and dry. Change dressing in 2 to 3 days as long as it stays clean and dry. If dressing becomes soiled replace dressing with clean dry gauze. Follow-up with primary care in 1 week. Follow-up with specialist as directed. Return to the ER for high fever or new concerns. Coding Level of Care Code ED Insurance Counsel for Lalithag Fwd Exam Comprehensive
[2020-03-07 18:01] VITALS: BP 118/74; PULSE 78; RESP 18; O2SAT 95
== END 2020-03-07 18:13 | disposition home or self-care (01) ==
PROVIDERS: Emergency Provider Nurse Practitioner Family; PCP Internal Medicine
DX: Z48.01 Encounter for change or removal of surgical wound dressing (principal); Z89.511 Acquired absence of right leg below knee; I11.0 Hypertensive heart disease with heart failure; I50.32 Chronic diastolic (congestive) heart failure; E78.2 Mixed hyperlipidemia; I25.2 Old myocardial infarction; Z95.1 Presence of aortocoronary bypass graft; F17.210 Nicotine dependence, cigarettes, uncomplicated
CPT/HCPCS: 12345; 99281; 99282

== ENCOUNTER → 2021-08-30 11:25 | Outpatient (BNVA) | payer OTHER, SELFPAY | PROVIDERS: PCP Internal Medicine; Visit Provider Internal Medicine Cardiovascular Disease | DX: I50.32 Chronic diastolic (congestive) heart failure (principal); I50.33 Acute on chronic diastolic (congestive) heart failure; E78.5 Hyperlipidemia, unspecified; E78.2 Mixed hyperlipidemia; R06.02 Shortness of breath | CPT/HCPCS: 80048; 80061; 83880 ==

== ENCOUNTER → 2021-09-14 09:21 | Outpatient (BNVA) | payer OTHER, SELFPAY | PROVIDERS: PCP Internal Medicine; Visit Provider Internal Medicine Cardiovascular Disease | DX: E11.65 Type 2 diabetes mellitus with hyperglycemia (principal); Z79.4 Long term (current) use of insulin; I49.9 Cardiac arrhythmia, unspecified; M79.605 Pain in left leg; I25.10 Atherosclerotic heart disease of native coronary artery without angina pectoris; I65.21 Occlusion and stenosis of right carotid artery; I50.32 Chronic diastolic (congestive) heart failure | CPT/HCPCS: 80048; 83880 ==

== ENCOUNTER → 2021-10-07 08:40 | Outpatient (BNVA) | payer OTHER, SELFPAY | PROVIDERS: PCP Internal Medicine; Visit Provider Internal Medicine Cardiovascular Disease | DX: E11.65 Type 2 diabetes mellitus with hyperglycemia (principal); E16.2 Hypoglycemia, unspecified; E78.2 Mixed hyperlipidemia; Z79.4 Long term (current) use of insulin; I25.10 Atherosclerotic heart disease of native coronary artery without angina pectoris; I50.32 Chronic diastolic (congestive) heart failure | CPT/HCPCS: 80048; 83880 ==

== ENCOUNTER 2021-11-25 08:05 | Outpatient (CLI) | payer MEDICARE, SELFPAY ==
--- NOTE | 2021-11-25 08:16 | USCV_ITS ---
Moises Galvez Age: 66 Gender: M : 1955 Exam Date: 11/25/2021 08:44 Ordering Phys: Sanjuanita Gibson MD ([email or web address]) Technologist: Fiona Rincon Exam Location[place] [facility] [place]ication: Known Vascular dx Risk Factors: Previous Vascular Surgery: Right Brachial BP: / Left Brachial BP: / Right Left Velocity (cm/s) Spectral Plaque Velocity (cm/s) Spectral Plaque Syst/Diast Broadening Syst/Diast Broadening 84.60/ 26.90 Prox CCA 56.20 / 20.80 Wayne 44.70/ 15.50 Hetro Mid CCA 34.30 / 17.10 Hetro 49.30/ 13.80 Distal CCA 40.30 / 13.60 Hetro 106.60/39.20 Hetro Prox ICA 231.60/ 61.60 Hetro 119.20/45.50 Mid ICA 249.90/ 77.90 Hetro 116.00/39.20 Distal ICA 162.70/ 166.20 Hetro ECA 102.60 2.67 ICA/CCA 7.29 Antegrade Vertebral Antegrade 58.80/ 20.90 cm/s 69.50/ 23.60 cm/s Bi Subclavian Tri 156.8 75.70 0 FINDINGS Moderate to heavy heterogeneous plaques at the proximal segment of the right external carotid artery. Moderate heterogeneous plaques at the bifurcation and proximal segment of the right internal carotid artery. Moderate to heavy heterogeneous plaques at the left bifurcation and proximal internal carotid artery. Moderate to heavy plaques are noted also in the distal ICA Mild diffuse plaques in the common carotid arteries bilaterally. Antegrade flow in the vertebral arteries bilaterally CONCLUSIONS 1. Moderate to heavy heterogeneous plaques at the left bifurcation and proximal internal carotid artery with velocity elevation and ratios, consistent with a greater than 70% stenosis. 2. Moderate heterogeneous plaques at the bifurcation and proximal segment of the right internal carotid artery with velocity elevation suggesting 50 to 69% stenosis. 3. Elevated velocity in the right external carotid artery with a moderate to heavy heterogeneous plaques at the proximal segment, suggesting hemodynamically significant stenosis. 4. Mild diffuse plaques in the common carotid arteries bilaterally Compared to the study from 10/15/2018, there is some worsening of stenosis on both sides Consider CTA, to better evaluate the distal ICA on the left side Dr Sanjuanita Gibson MD [facility] (Electronically Signed) Final Date: 26 November 2021 08:44 S
--- NOTE | 2021-11-25 08:16 | USCV_ITS ---
Moises Galvez Age: 66 Gender: M : 1955 Exam Date: 11/25/2021 09:01 Ordering Phys: Sanjuanita Gibson MD ([email or web address]) Technologist: Fiona Rincon Exam Location: [facility] – [place] Indication: PVD Risk Factors: PVD Previous Vascular Surgery: RT LEG AMPUTEE. STENTS IN LT LEG RIGHT LEFT BP: 110.0 / BP: 120.0/ 0 0 Waveform Velocity (cm/s) Velocity (cm/s) Waveform Iliac Prox 123.2 Monophasic Iliac Mid Monophasic 92.4 Iliac Distal 109.4 Monophasic SCAFFOLD ERECTOR 91.3 Monophasic SFA Prox 32.7 Monophasic SFA Mid 34.8 Monophasic SFA Dist 40.4 Monophasic POP Monophasic 42.9 AMMUNITION SPECIALIST 24.1 Monophasic GERARDO 0.4 FINDINGS No Flow seen Lt DPA C GERARDO 0.4 on the left side CONCLUSIONS 1. Abnormal resting GERARDO on the left side, consistent with a severe peripheral arterial disease. 2. Possible total occlusion of the dorsalis pedis artery on the left side. Compared to the study from 09/07/2017, the GERARDO has decreased from 0.6 to 0.4, on the left side. Dr Sanjuanita Gibson MD [facility] (Electronically Signed) Final Date: 26 November 2021 10:21 S
== END 2021-11-25 08:06 | disposition home or self-care (01) ==
LOC: RAD 08:06
PROVIDERS: PCP Internal Medicine; Visit Provider Internal Medicine Cardiovascular Disease
DX: R09.89 Other specified symptoms and signs involving the circulatory and respiratory systems (principal); I77.9 Disorder of arteries and arterioles, unspecified; I65.23 Occlusion and stenosis of bilateral carotid arteries; I73.9 Peripheral vascular disease, unspecified
CPT/HCPCS: 93880; 93926

== ENCOUNTER → 2021-11-30 13:49 | Outpatient (BNVA) | payer MEDICARE, SELFPAY | PROVIDERS: PCP Internal Medicine; Visit Provider Internal Medicine | DX: I73.9 Peripheral vascular disease, unspecified (principal); M79.606 Pain in leg, unspecified; F17.210 Nicotine dependence, cigarettes, uncomplicated | CPT/HCPCS: 99214; 99215 ==

== ENCOUNTER → 2021-12-08 09:34 | Outpatient (BNVA) | payer MEDICARE, SELFPAY | PROVIDERS: PCP Internal Medicine; Visit Provider Internal Medicine Cardiovascular Disease | DX: R09.89 Other specified symptoms and signs involving the circulatory and respiratory systems (principal); I73.9 Peripheral vascular disease, unspecified; R06.02 Shortness of breath; I11.0 Hypertensive heart disease with heart failure; I50.33 Acute on chronic diastolic (congestive) heart failure | CPT/HCPCS: 80048; 83880; 99214 ==

== ENCOUNTER 2021-12-13 13:19 | Outpatient (CLI) | payer MEDICARE, SELFPAY ==
[2021-12-13 14:20] LABS: Anion Gap 21.6 (5-19); Blood Urea Nitrogen 53 mg/dL (8-23); Calcium 9.5 mg/dL (8.5-10.5); Carbon Dioxide 17 mmol/L (22-29); Chloride 104 mmol/L (98-107); Glomerular Filtration Rate 43.2 mL/min (90-130); Glucose 108 mg/dL (65-115); NT Pro B Type Natriuretic Pept 793 pg/mL (0-125); Osmolality Calculated 299 mOsm/kg (285-295); Potassium 5.6 mmol/L (3.5-5.1); Sodium 137 mmol/L (136-145)
== END 2021-12-13 13:20 | disposition home or self-care (01) ==
LOC: LAB 13:23
PROVIDERS: PCP Internal Medicine; Visit Provider Internal Medicine Cardiovascular Disease
DX: N17.9 Acute kidney failure, unspecified (principal); I25.10 Atherosclerotic heart disease of native coronary artery without angina pectoris
CPT/HCPCS: 80048; 83880

== ENCOUNTER 2021-12-20 10:03 | Outpatient (CLI) | payer MEDICARE, SELFPAY ==
[2021-12-20 10:54] LABS: Basophils # 0.1 10^3/uL (0.0-0.1); Eosinophils # 0.3 10^3/uL (0.0-0.8); Eosinophils % 2.5 %; Hematocrit 35.1 % (42.0-52.0); Hemoglobin 11.2 g/dL (11.7-16.6); Lymphocytes # 2.4 10^3/uL (0.8-4.8); Lymphocytes % 21.6 %; Mean Corpuscular HGB Conc 31.9 g/dL (30.0-36.0); Mean Corpuscular Hemoglobin 31.2 pg (28.0-34.0); Mean Corpuscular Volume 97.8 fl (80-94); Mean Platelet Volume 9.9 fL (7.4-10.4); Monocytes # 0.7 10^3/uL (0.2-0.9); Monocytes % 6.6 %; Neutrophils % 67.9 %; Nucleated Red Blood Cells % 0 %; Platelet Count 329 10^3/cmm (130-400); Red Blood Count 3.59 10^6/uL (4.1-5.3); White Blood Count 11.2 10^3/uL (4.0-10.0)
[2021-12-20 11:05] LABS: INR 0.93 (0.83-1.21); Prothrombin Time (Patient) 12.8 Seconds (12.0-15.1)
[2021-12-20 11:23] LABS: Anion Gap 18.4 (5-19); Blood Urea Nitrogen 33 mg/dL (8-23); Calcium 9.4 mg/dL (8.5-10.5); Carbon Dioxide 18 mmol/L (22-29); Chloride 109 mmol/L (98-107); Glomerular Filtration Rate 60.2 mL/min (90-130); Glucose 147 mg/dL (65-115); Osmolality Calculated 302 mOsm/kg (285-295); Potassium 4.4 mmol/L (3.5-5.1); Sodium 141 mmol/L (136-145)
[2021-12-20 12:47] LABS: Adenovirus Not Detected (NOT DETECT); Chlamydia Pneumoniae Not Detected (NOT DETECT); Coronavirus 229E,HKU1,NL63,OC4 Not Detected (NOT DETECT); Human Metapneumovirus Not Detected (NOT DETECT); Human Rhinovirus/Enterovirus Not Detected (NOT DETECT); Influenza A Not Detected (NOT DETECT); Influenza A H1 Not Detected (NOT DETECT); Influenza A H1-2009 Not Detected (NOT DETECT); Influenza A H3 Not Detected (NOT DETECT); Influenza B Not Detected (NOT DETECT); Mycoplasma Pneumoniae Not Detected (NOT DETECT); Parainfluenza Virus Type 1 Not Detected (NOT DETECT); Parainfluenza Virus Type 2 Not Detected (NOT DETECT); Parainfluenza Virus Type 3 Not Detected (NOT DETECT); Parainfluenza Virus Type 4 Not Detected (NOT DETECT); Respiratory Syncytial Virus A Not Detected (NOT DETECT); Respiratory Syncytial Virus B Not Detected (NOT DETECT); SARS-COV-2 Not Detected (NOT DETECT)
== END 2021-12-20 10:04 | disposition home or self-care (01) ==
PROVIDERS: PCP Internal Medicine; Visit Provider Internal Medicine
DX: Z01.812 Encounter for preprocedural laboratory examination (principal); E16.2 Hypoglycemia, unspecified; I50.32 Chronic diastolic (congestive) heart failure
CPT/HCPCS: 80048; 85025; 85610; 87635

== ENCOUNTER 2021-12-23 05:57 | Outpatient (CLI) | payer MEDICARE, SELFPAY ==
[2021-12-23] VITALS (42 sets, daily range): BP systolic 133–171; BP diastolic 57–110; PULSE 50–79; RESP 9–25; TEMP 36.7; O2SAT 92–98; BMI 18.7
--- NOTE | 2021-12-23 06:16 | XACV_ITS ---
Ht: 183 cm Wt: 63 kg BSA: 1.77 m2 Any Known Allergies: Codeine Gender: Male : 1955 Exam Type: Invasive Peripheral Vascular Procedure(s): Procedure Description: Peripheral Cath Diagnostic Procedure Procedure Description: Peripheral vascular Intervention Procedure Description: PV Balloon Procedure Description: PV Atherectomy Exam Priority: Routine Abdominal Diagnostic Findings Ditstal aorta: no significant stenosis. Lower Extremity Diagnostic Findings Left lower extremity: Left common iliac artery: Patent prior stent. Left external iliac artery: Patent. Left common femoral artery : Patent. Left profunda:Patent. Left SFA: Has serial critical stenosis in the proximal SFA. Multiple 90%stenosis. Mid SFA has severe 80 % stenosis. Popliteal artery: Patent. TP segment: Patent. Right AT and peroneal arteries: Occluded. Right PT patent but has significant proximal disease. INDICATION: Severe lifestyle limiting claudication. Lower Extremity Interventional Findings Procedure detail: We obtained access in right common femoral artery. Using a UF catheter, we obtained left abdominal aortic angiogram and lower extremity angiogram. We then used 0.014 run-through guidewire to cross the proximal SFA stenosis. We initially dilated it with a 4.0 x 100 mm balloon. This was followed by orbital arthrectomy of SFA. With then switched wire to Glidewire and performed balloon angioplasty using 5.0 x 200 mm balloon. At this time and distal edge dissection of proximal posterior tibial artery was noted. We wired it using runthrough wire and ballooned it with a 2.0 balloon. Dissection segment did not have flow. Given strong collaterals that were supplying mid to distal popliteal artery we decided to treated medically at this time. Conclusions Critical proximal to mid SFA stenosis s/p successful revascularization with orbital arthrectomy and balloon angioplasty. There is severe left lower extremity disease. Left Proximal Superficial Femoral Artery was treated with two Balloon. Left Proximal Superficial Femoral Artery was treated with two Balloon. Left Mid-longitudinal Tibioperoneal Trunk was treated with Balloon. Left Mid-longitudinal Tibioperoneal Trunk was treated with Balloon. Recommendations Transfer to CSU. Continue aspirin and Plavix. Outpatient follow up in 2 weeks. Hemodynamic Data Phase:Rest AO : 126.0 / 51.0 ( 76.0 ) @ 11:16:00 AM 103.0 / 51.0 ( 71.0 ) @ 11:30:00 AM Access Site Site: Right Femoral artery Sheath Size: 6 Fr Hemost... Method: Suture Hemost... Success: Successful Procedure Details Findings Procedure Consent Obtained. Pre-Procedure Time Out. Identified patient by full name and date of as verbalized by the patient/guarantor. Does the consent match the physician's order: Yes. Accurate & Complete Informed Consent: Yes. Inpatient/Outpatient History & Physical on Chart: Yes. If H&P is completed, is and addenduem needed: Yes; If yes, is the addendum complete: Yes. Visualize and Verify Site with Patient/Guarantor: N/A. Relevant Radiology Images available: Yes. The risks, benefits, and alternatives of sedation and/or procedure were discussed by physician. The patient agrees to continue. Procedure started. Current diagnosis: PVD. PERRLA. Strong, equal hand wastewater supervisor bilaterally. Lungs clear x 5 lobes. IV Site on Arrival: 20 gauge in the right anticubital. IV Fluids: 0.9% NaCl at KVO. 400 mL infused prior to clinical laboratory medical director. Pre Procedural Pulses: bilateral dorsalis pedis was Doppled. Pre Procedural Pulses: bilateral posterior tibial was Doppled. Oxygen started at 2liters/min via nasal canula. bilateral groins was prepped with chloroprep then draped in the usual sterile fashion. Physician notified. Baseline sample Acquired. HR: 81 BPM. Patient's family unavailable. Equipment: 6F - Femoral. Cardiac Cath Pack. ACIST Manifold Kit Model BT 2000. Heparinized Saline (2 units/mL), 1000 mL bag. Kit, Micropuncture. Physician arrived. Physician scrubbed in. Immediate Pre-Procedure Time Out. Correct Patient: Yes; Correct Procedure: Yes; Correct Site: Yes; Correct Patient Position: Yes; Correct Supplies: Yes; Dried Flammable Prep: Yes; Blood Products Available: N/A. Lidocaine 1% infiltrated to the right groin. Arterial access obtained with micropuncture set. Glidewire in. Glidewire out. Hand injection performed through the sheath. Hand injection performed through the sheath. Seeker support catheter in over the glidewire through the sheath. Seeker out. A 5 Fr UF catheter in over the glidewire. Glidewire out. Pigtail postioned above the bifurcation of the iliacs. Aortagram performed @ 10 mL/sec for a total of 30 mL. Glidewire in. UF catheter out. Sheath upsized to a 6 Fr. Seeker support catheter in over the glidewire through the sheath. Glidewire out. Hand injection performed through the seeker. 300cm 0.014 Runthrough guidewire in through the seeker. Side port of sheath attached to Normal Saline flush at KVO to maintain patency. Seeker out. Inflation number : 1 A AB ARMADA 35 OTW [id number] was prepped and advanced across the Proximal Superficial Femoral, Left , then inflated to 8 RADHA for 1:00 seconds. Inflation number: 2 The AB ARMADA 35 OTW [id number] was reinflated across the Proximal Superficial Femoral, Left, to 8 RADHA for 1:01 seconds. Balloon out. Left superficial femoral selected and arteriogram with runoff performed @ 10 mL/sec for a total of 10 mL. Seeker in. Runthrough wire out. Viper wire in. Seeker out. Diamondback atherectomy device in over the viper guidewire. Atherectomy of the left SFA performed. Diamondback atherectomy device out over the viper guidewire. Seeker in. Viper wire out. Glidewire in. Glidewire out. Hand injection performed through the seeker. Seeker out. Inflation number : 3 A AB [place] 35 FOREIGN TRADE TEACHER Catheter [id number] was prepped and advanced across the Proximal Superficial Femoral, Left , then inflated to 8 RADHA for 1:33 seconds. Balloon out. Left superficial femoral selected and arteriogram with runoff performed @ 10 mL/sec for a total of 30 mL. Seeker in. Glidewire out. Hand injection performed through the seeker. Runthrough wire in. Seeker out. Inflation number : 1 A AB ARMADA 14 OTW [id number] was prepped and advanced across the Tibial Peroneal Trunk, Left , then inflated to 8 RADHA for 0:51 seconds. Inflation number: 2 The AB ARMADA 14 OTW [id number] was reinflated across the Tibial Peroneal Trunk, Left, to 8 RADHA for 0:48 seconds. Inflation number: 3 The AB ARMADA 14 OTW [id number] was reinflated across the Tibial Peroneal Trunk, Left, to 8 RADHA for 0:44 seconds. Balloon out. Seeker in. Runthrough wire out. Hand injection performed through the seeker. Glidewire in. Seeker out. Sheath upsized to a [address] Bojorquez scrubbbed out. Sheath(s) sutured into position with 2-0 silk and sterile 4x4's and Op-site applied over the site. No oozing or signs and symptoms of hematoma noted. Arterial sheath flushed and connected to tranducer and pressure bag with heparinized saline. Post Procedure: Pulses reassessed and unchanged. PERRLA. Strong, equal hand wastewater supervisor bilaterally. No VTE prophylaxis required. Medication's Wasted: Lidocaine 1% = 18 mL. Medication's Wasted: Nitro = 49.7 mg. Total IV fluids: 200 mL. A Suture was successful obtaining hemostatsis at the Right Femoral artery insertion site. Post-op diagnosis: Severe proximal SFA disease s/p orbital atherectomy and ballooning. Complications: none. Estimated blood loss: 5mL-10mL. Responsiveness - Normal response to verbal stimuli; alert and oriented, PERRLA. Airway - Unaffected, no intervention required; spontaneous ventilation. Circulation: W/N/L, pulses unchanged. Nausea/Vomiting: No. Procedure completed. Patient transferred by bed to CPRU. Vital chart was stopped. Procedure Medications Start: 10:01 AM Stop: 10:01 AM Medication: Versed Amount: 1 mg Route: I.V. Start: 10:01 AM Stop: 10:01 AM Medication: Fentanyl Amount: 50 mcg Route: I.V. Start: 10:38 AM Stop: 10:38 AM Medication: Heparin Amount: 3000 units Route: I.V. Start: 10:55 AM Stop: 10:55 AM Medication: Nitrogylcerin Amount: 300 mcg Route: I.A. Start: 11:02 AM Stop: 11:02 AM Medication: Heparin Amount: 2000 units Route: I.V. Start: 11:04 AM Stop: 11:04 AM Medication: Versed Amount: 1 mg Route: I.V. Start: 11:04 AM Stop: 11:04 AM Medication: Versed Amount: 1 mg Route: I.V. Start: 11:20 AM Stop: 11:20 AM Medication: Plavix Amount: 300 mg Route: P.O. I, the attending physician, have reviewed and verified all procedure medications. Yes, all medications given per verbal order History/Risk Factors Hypertension: Yes Dyslipidemia: Yes Peripheral Arterial Disease (PAD): No Obesity: No Renal Disease: No Prior Interventions PCI: No CABG: No Valve Surgery: No Report Signatures Finalized by Patrice Bojorquez MD on 01/06/2022 05:42 PM
[2021-12-23] MEDS: diphenhydrAMINE 50 mg Capsule PO (07:30)
--- NOTE | 2021-12-23 09:54 | W.PM.OPSUD ---
Surgery/Procedure H&P Update DATE OF PROCEDURE: December 23, 2021 DATE H&P PERFORMED: 11/30/21 H&P UPDATE INFORMATION: I have reviewed H&P completed within last 30 days, I have examined patient prior to procedure and No changes to prior documentation PREOP DIAGNOSIS: Severe lifestyle limiting claudication PRIMARY INDICATION FOR PROCEDURE: Severe lifestyle limiting claudication PLANNED PROCEDURE: Operation Date: 12/23/21 10:00 Proposed Procedures p Peripheral Diagnostic(Bilateral) - Patrice Bojorquez M.D Possible percutaneous intervention PATIENT REASSESSED PRIOR TO SEDATION, WITH NO CHANGE NOTED: Yes PHYSICAL EXAM: alert, oriented x 3, clear to auscultation bilaterally and regular rate & rhythm AIRWAY EVAL/ANESTHESIA PLAN: ASA III, Monitored Anesthesia, Local Anesthesia, Risks, benefits & alternatives of sedation and/or procedure discussed and Patient agrees to continue as planned
--- NOTE | 2021-12-23 11:39 | PC.NURSE ---
recovery pt received from matlab developer post peripheral. right groin access connected to pressure bag. dry and intact. no bleeding or hematoma noted. dp pulse noted on left leg. pt placed on vitals machine and will be monitored per protocol. pt complains of no pain. to be admitted to the floor as soon as a bed is available.
[2021-12-23] MEDS: morphine 4 mg/mL SDV 1 mL 2 MG IVP ×2 (13:25→19:53)
[2021-12-23 14:54] LABS: Glucose Point of Care 155 mg/dL (70-110)
[2021-12-23 15:52] LABS: Partial Thromboplastin Time 73.6 SECONDS (23.9-36.7)
--- NOTE | 2021-12-23 16:40 | PC.NURSE ---
PTT drawn at 1355 resulted at [address] Bojorquez instructions to go ahead with sheath pull Sheath removed with no hematoma formations or adverse reactions Able to Doppler pulse to Left foot Dr. Bojorquez at bedside after sheath removal with instructions to continue fluids at 50ml/hr until 1999
[2021-12-23] MEDS: sodium chloride 0.9% 1,000 ML 50 ML IV (16:51)
--- NOTE | 2021-12-23 19:36 | PC.NURSE ---
patient reporting pain in left shine able to Doppler pulses to left foot notified Dr Bojorquez instructions received to give morphine 2 mg IVP x 1
[2021-12-24] VITALS: BP 132/64; PULSE 65; RESP 18; TEMP 37.3
[2021-12-24 05:17] LABS: Basophils # 0.1 10^3/uL (0.0-0.1); Basophils % 0.9 %; Eosinophils # 0.3 10^3/uL (0.0-0.8); Eosinophils % 2.2 %; Hematocrit 32.7 % (42.0-52.0); Hemoglobin 10.3 g/dL (11.7-16.6); Lymphocytes # 2.1 10^3/uL (0.8-4.8); Lymphocytes % 16.4 %; Mean Corpuscular HGB Conc 31.5 g/dL (30.0-36.0); Mean Corpuscular Hemoglobin 30.9 pg (28.0-34.0); Mean Corpuscular Volume 98.2 fl (80-94); Monocytes % 7.5 %; Neutrophils # 9.45 10^3/uL (1.8-7.7); Neutrophils % 72.6 %; Nucleated Red Blood Cells % 0 %; Platelet Count 258 10^3/cmm (130-400); Red Blood Count 3.33 10^6/uL (4.1-5.3); Red Cell Distribution Width 13.1 % (12.1-15.1)
[2021-12-24 05:28] VITALS: PULSE 65
[2021-12-24 05:30] VITALS: BP 156/69; PULSE 73; RESP 20; TEMP 37.1
[2021-12-24 05:38] LABS: Anion Gap 14.2 (5-19); Blood Urea Nitrogen 16 mg/dL (8-23); Calcium 9.1 mg/dL (8.5-10.5); Carbon Dioxide 21 mmol/L (22-29); Chloride 108 mmol/L (98-107); Glomerular Filtration Rate 83.9 mL/min (90-130); Glucose 124 mg/dL (65-115); Osmolality Calculated 291 mOsm/kg (285-295); Potassium 4.2 mmol/L (3.5-5.1); Sodium 139 mmol/L (136-145)
[2021-12-24 07:17] VITALS: BP 163/71; PULSE 69; RESP 16; TEMP 36.8; O2SAT 96
[2021-12-24] MEDS: atorvastatin 40 mg Tablet 80 MG PO (08:09)
[2021-12-24] MEDS: aspirin 81 mg EC Tablet PO (08:09)
[2021-12-24] MEDS: lisinopril 20 mg Tablet PO (08:10)
[2021-12-24] MEDS: clopidogrel 75 mg Tablet PO (08:10)
[2021-12-24] MEDS: gabapentin 300 mg Capsule PO (08:10)
--- NOTE | 2021-12-24 08:16 | PM.SDS ---
Short Stay Summary Providers Date of Admit/Discharge: 12/23/21 Attending Provider: Patrice Bojorquez M.D Primary Care Provider: Kunal Mcdowell MD Chief Complaint: 35279 i73.9Peripheral vascular disease, unspecifie HPI History of Present Illness 66-year-old man with past medical history of peripheral artery disease, status post right BKA, coronary artery disease, CKD and diabetes has been referred by Dr. Gibson for evaluation of PAD.? Patient had left SFA stenosis in the past.? Recent ABIs were quite abnormal with a value of 0.4 on the left side. Patient has lifestyle limiting claudication.Plan is to perform peripheral angiogram with possible percutaneous intervention Review of Systems Const: Reports: fatigue; Denies: fever(s), chills or night sweats Eyes: Reports: blurry vision ENMT: Reports: epistaxis; Denies: nasal congestion or post nasal drip Card: Denies: chest pain, palpitations, irregular heart rhythm, edema, swelling of feet/ankles, lightheadedness, syncope, pre-syncope or dyspnea on exertion Resp: Reports: productive cough; Denies: dyspnea GI: Denies: nausea, vomiting or heartburn : Denies: difficulty urinating Musc: Reports: extremity pain; Denies: neck pain, back pain or joint pain Skin/Breast: Denies: rash or pruritus Neuro: Denies: headache(s) or dizziness Psych: Denies: anxiety, depression, suicidal ideation or homicidal ideation Marcial/Lymph: Reports: easy bruising and easy bleeding Home Meds/Allergies Home Medications and Allergies Home Medications Medication Instructions Recorded Confirmed Type aspirin 81 mg tablet,delayed 81 mg PO DAILY 11/30/21 12/23/21 History release vit D-mvhmlyth-wqr palmetto 160 1 cap PO DAILY 12/08/21 12/23/21 History mg-pygeum africanum 12.5 mg capsule (Urinozinc Prostate Complex Classic) Allergies Allergy/AdvReac Type Severity Reaction Status Date / Time codeine AdvReac Unknown ADR-Nausea Verified 12/08/21 07:42 PFSH Acute PFSH: Medical History Atherosclerotic heart disease of [place] coronary artery without angina pectoris Diastolic CHF, chronic Essential (primary) hypertension Hereditary and idiopathic neuropathy, unspecified Mixed hyperlipidemia Non-ST elevation (NSTEMI) myocardial infarction Occlusion and stenosis of left carotid artery Presence of prosthetic heart valve January 2020- Bioprosthetic valve in the aortic position appears to be well- seated, leaflet could not be well visualized. VTI across the aortic valve is 2.4 m/s Smoking Surgical History [facility] History of aortic valve replacement History of coronary artery bypass graft Hx of right BKA Family History Father CAD (coronary artery disease), Onset Age: 60 Mother Cancer Denies family history of Diabetes Clotting disorder Dementia Chronic kidney disease (CKD) Suicide Anesthesia complication Bleeding disorder Lung disease Stroke Social History Smoking and tobacco status: current every day smoker cigarettes Packs smoked per day: 1 Years cigarettes smoked: 54 Alcohol intake: never History of recent travel: No Vitals/I&O/Wt Last Vital Signs Temp 98.2 F 12/24/21 07:17 Pulse 69 12/24/21 07:17 Resp 16 12/24/21 07:17 BP 163/71 12/24/21 07:17 Pulse Ox 96 12/24/21 07:17 12/23/21 12/24/21 12/24/21 22:59 06:59 14:59 Intake Total 240 / 240 120 / 120 Output Total 700 / 900 Balance 240 / 40 -700 / -660 120 / 120 Weight last 48 hrs Weight 138 lb Physical Exam Narrative: General: No acute distress, AO x3 HEENT: PERRLA, pupils bilaterally equal and reactive Chest: Normal vesicular breath sounds, no added sounds, equal good air entry bilaterally CVS: S1-S2 regular, soft ejection systolic at the aortic area 2/6, no tachycardia, no gallops, no rubs Abdomen: Soft, nontender, no organomegaly, bowel sounds present Neuro: No focal deficits, no facial deformity, AO x3, power 5/5 in all limbs Extremities: right leg has amputation. Diminished pulses on left Hospital Course Admission Diagnoses Severe lifestyle limiting claudication Hospital Course 66-year-old man with past medical history of peripheral artery disease, status post right BKA, coronary artery disease, CKD and diabetes has been referred by Dr. Gibson for evaluation of PAD.? Patient had left SFA stenosis in the past.? Recent ABIs were quite abnormal with a value of 0.4 on the left side. Patient has lifestyle limiting claudication. Patient's peripheral angiogram showed critical stenosis of proximal left SFA and single-vessel runoff with significant disease below the knee. He underwent successful revascularization with orbital arthrectomy and balloon angioplasty. Below the knee patient had single run off with patent but disease PT vessel. There was wire dissection of the PT vessel but it was patent distally with good collaterals. Patient stayed overnight in the hospital and stay was uneventful. Patient discharged home today in a stable condition SSS Data Data Completed and Pending: Pending at discharge Category Date Time Status EDGE GLUER request for service Routin e Exams 12/23/21 06:16 Taken Discharge Plan Discharge Patient Disposition: Home Prescriptions: Continued omeprazole 40 mg capsule,delayed release(DR/EC) 40 mg PO DAILY Qty: 90 3RF Urinozinc Prostate Complx Clsc 160-12.5 mg capsule 1 cap PO DAILY 0RF aspirin 81 mg tablet,delayed release (DR/EC) 81 mg PO DAILY 0RF lisinopril 20 mg tablet 20 mg PO DAILY Qty: 90 3RF Januvia 100 mg tablet 100 mg PO DAILY Qty: 30 5RF Rx Instructions: 340B clopidogrel 75 mg tablet 75 mg PO DAILY Qty: 90 0RF Rx Instructions: Must be seen for further refills gabapentin 300 mg capsule 300 mg PO BID Qty: 60 5RF Held metformin 1,000 mg tablet 1,000 mg PO BID Qty: 180 1RF Hold Instructions: Resume on 12/26/21. No Action atorvastatin 80 mg tablet 80 mg PO DAILY Qty: 100 3RF Discharge Orders: Discharge Order (Routine); Ordered 12/24/21 Ordered By: Patrice Bojorquez Referrals: Sanjuanita Gibson MD [Physician] - 02/03/22 1:45 pm (You have a Cardiology followup with Dr. Gibson on February 03 at 1:45p) Vickie Anderson FNP [Nurse Practitioner] - 01/03/22 10:45 am (You have a post procedure followup with DONNY Patel on December 27 at 10:45a ) Diet: Diabetic Activity: Increase activity as tolerated Patient Instructions: Peripheral Vascular Stent Placement (DC), Peripheral Vascular Angioplasty (DC), Opioid Safety Activity Restrictions/Additional Instructions: Please do not lift more than 5 pounds of weight for the next 5 days Discharge Date/Time: 12/24/21 09:31 Attestations Medical Necessity Statement*: Care not expected to cross 2 midnights. Time Spent in Patient Care*: less than 30 min Status at Discharge: Cognitive status at discharge: cognitively intact, Behavioral status at discharge: cooperative, Quality Metrics Clinical Quality Measures: [ No reported AMI, CVA or VTE this stay] Coding Level of Care Code Acute Grooving Lathe Tender for Bill Recinos
== END 2021-12-24 09:31 | disposition home or self-care (01) ==
LOC: CCL 06:01 → CSU 14:59
PROVIDERS: PCP Internal Medicine; Visit Provider Internal Medicine
DX: I73.9 Peripheral vascular disease, unspecified (principal); Z96.651 Presence of right artificial knee joint; I25.10 Atherosclerotic heart disease of native coronary artery without angina pectoris; E11.22 Type 2 diabetes mellitus with diabetic chronic kidney disease; I13.0 Hypertensive heart and chronic kidney disease with heart failure and stage 1 through stage 4 chronic kidney disease, or unspecified chronic kidney disease; N18.9 Chronic kidney disease, unspecified; I50.32 Chronic diastolic (congestive) heart failure; E78.2 Mixed hyperlipidemia; I25.2 Old myocardial infarction; F17.210 Nicotine dependence, cigarettes, uncomplicated; Z95.1 Presence of aortocoronary bypass graft; Z79.82 Long term (current) use of aspirin; Z79.84 Long term (current) use of oral hypoglycemic drugs
CPT/HCPCS: 36415; 36416; 37225; 37228; 75625; 75710; 80048; 82962; 85025; 85730; C1724; C1725; C1769; C1887; C1894; G0378; J1644; J2250; J2270; J3010; J3490; J7030; Q9967

== ENCOUNTER → 2022-01-11 09:20 | Outpatient (BNVA) | payer MEDICARE, SELFPAY | PROVIDERS: PCP Internal Medicine; Visit Provider Nurse Practitioner Family | DX: Z09 Encounter for follow-up examination after completed treatment for conditions other than malignant neoplasm (principal); I73.9 Peripheral vascular disease, unspecified; F17.210 Nicotine dependence, cigarettes, uncomplicated; Z79.82 Long term (current) use of aspirin | CPT/HCPCS: 80048; 99213; 99214 ==

== ENCOUNTER 2022-01-13 13:30 | Outpatient (CLI) | payer MEDICARE, SELFPAY ==
[2022-01-13 14:58] LABS: Anion Gap 19.8 (5-19); Blood Urea Nitrogen 24 mg/dL (8-23); Calcium 9.3 mg/dL (8.5-10.5); Carbon Dioxide 19 mmol/L (22-29); Chloride 106 mmol/L (98-107); Glomerular Filtration Rate 54.9 mL/min (90-130); Glucose 146 mg/dL (65-115); Osmolality Calculated 297 mOsm/kg (285-295); Potassium 4.8 mmol/L (3.5-5.1); Sodium 140 mmol/L (136-145)
== END 2022-01-13 13:31 | disposition home or self-care (01) ==
PROVIDERS: PCP Internal Medicine; Visit Provider Internal Medicine Cardiovascular Disease
DX: N17.9 Acute kidney failure, unspecified (principal)
CPT/HCPCS: 80048

== ENCOUNTER → 2022-03-16 11:11 | Outpatient (BNVA) | payer MEDICARE, SELFPAY | PROVIDERS: PCP Internal Medicine; Visit Provider Internal Medicine Cardiovascular Disease | DX: I25.10 Atherosclerotic heart disease of native coronary artery without angina pectoris (principal); I73.9 Peripheral vascular disease, unspecified; Z09 Encounter for follow-up examination after completed treatment for conditions other than malignant neoplasm; I65.21 Occlusion and stenosis of right carotid artery; Z95.2 Presence of prosthetic heart valve; E11.65 Type 2 diabetes mellitus with hyperglycemia; Z79.4 Long term (current) use of insulin; E78.2 Mixed hyperlipidemia; F17.210 Nicotine dependence, cigarettes, uncomplicated; I11.0 Hypertensive heart disease with heart failure; I50.33 Acute on chronic diastolic (congestive) heart failure | CPT/HCPCS: 36415; 80048; 83880; 99214 ==

== ENCOUNTER 2022-07-01 10:11 | Outpatient (CLI) | payer MEDICARE, SELFPAY ==
--- NOTE | 2022-07-01 10:00 | CT_ITS ---
WS: [id number] CTA HEAD AND NECK TECHNIQUE: Contrast enhanced CTA of the head and neck with coronal and sagittal reformatted images an d maximum intensity projection (MIP) images. NASCET criteria utilized. CLINICAL INFORMATION: Carotid artery stenosis COMPARISON: None. DLP: 538.[address] scans at [facility] use at least one of these dose optimization techniques: automated e xposure control; mA and/or kV adjustment per patient size (includes targeted exams where dose is matc hed to clinical indication); or iterative reconstruction. FINDINGS: No evidence of intracranial hemorrhage or mass effect. Ventricular system and basal cistern s are patent. Mild small vessel changes. Moderate parenchymal volume loss. Cavernous carotid calcific ation. Mastoid air cells well aerated. Paranasal sinuses are well aerated. RIGHT: RIGHT common carotid artery is patent. Calcified atheromatous plaque RIGHT carotid bulb extend ing into the ICA. RIGHT ICA stenosis measures 21%. RIGHT ICA is patent to the skull base. LEFT: LEFT common carotid artery is patent. Moderate calcified plaque LEFT carotid bulb extending int o the ICA. LEFT ICA stenosis measures 43%. LEFT ICA is patent to the skull base. INTRACRANIAL CTA: Normal parapharyngeal fat. Normal posterior nasopharynx. Sebaceous cyst LEFT dorsal neck soft tissues . Codominant and patent vertebral arteries bilaterally. Both vertebral arteries are patent to the basil ar junction. Normal vascularity to the CUSTODIAN MANAGER territory bilaterally. Both ICAs are patent to the skull base. Cavernous carotid calcification. Moderate approximately 50% R IGHT supraclinoid ICA stenosis which remains patent. LEFT cavernous carotid calcification. Hypoplastic LEFT A1 segment. Normal vascularity to the XAVIER and MCA territories bilaterally. No flow-limiting stenosis or aneurysm. Normal visualized dural venous sinuses. CABG with sternotomy. 50% stenosis RIGHT proximal subclavian artery. Moderate stenosis LEFT vertebral artery origin calcification. Mild calcification RIGHT verteb ral artery origin with mild stenosis. Focal calcification LEFT common carotid artery origin with mode rate stenosis. Straightening of the upper cervical spine. Moderate spondylitic changes cervical spine with disc oste ophyte complexes at C5-C6 and C6-C7. Moderate central canal stenosis at these levels. Slight anteroli sthesis C2 on C3. Slight retrolisthesis C3 on C4. Sternotomy and bypass grafting. CT/CT angio headneck* [id number] IMPRESSION: 1. LEFT proximal ICA stenosis measures 43% not significantly changed compared to previous. 2. RIGHT proximal ICA stenosis measures measures approximately 21% unchanged f rom previous. 3. Moderate calcified atheromatous disease both carotid bulbs with irregular u lceration. 4. Codominant patent vertebral arteries bilaterally. 5. Dense calcification both cavernous carotid arteries which remain patent. 50 % stenosis RIGHT supraclinoid ICA which remains patent. This is stable to sligh tly progressed compared to previous 6. Hypoplastic LEFT A1 segment. 7. No intracranial flow limiting stenosis. 8. Approximately 50% RIGHT proximal subclavian stenosis. 9. Moderate stenosis LEFT common carotid artery unchanged compared to previous .
[2022-07-01] MEDS: iohexol 350 mg/mL 100 mL Btl IV (11:37)
[2022-07-01 12:15] LABS: Blood Urea Nitrogen 20 mg/dL (8-23); Glomerular Filtration Rate 66.4 mL/min (90-130)
== END 2022-07-01 10:12 | disposition home or self-care (01) ==
PROVIDERS: PCP Internal Medicine; Visit Provider Internal Medicine Cardiovascular Disease
DX: I65.21 Occlusion and stenosis of right carotid artery (principal); I25.10 Atherosclerotic heart disease of native coronary artery without angina pectoris; I70.8 Atherosclerosis of other arteries
CPT/HCPCS: 70496; 70498; 82565; 84520

== ENCOUNTER 2022-08-31 18:38 | Inpatient (IN) | payer MEDICARE, SELFPAY ==
[2022-08-31] VITALS (40 sets, daily range): BP systolic 88–132; BP diastolic 47–80; PULSE 76–104; RESP 12–30; TEMP 36.4–36.6; O2SAT 88–100; BMI 16.9
--- NOTE | 2022-08-31 18:45 | ECG_ITS ---
[facility] Test Date: 2022-08-31 Pat Name: Moises Galvez Department: Room: Gender: Male Manager Home Improvement: : 1955 Requested By: Cain Marcial Order Number: [id number] Molly MD: Patrice Bojorquez M.D. 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 [id number]
--- NOTE | 2022-08-31 18:45 | XRR_ITS ---
PROCEDURE INFORMATION: Exam: XR Chest Exam date and time: 08/31/2022 7:02 PM Age: 67 years old Clinical indication: Shortness of breath; Prior surgery; Surgery date: 6+ months; Surgery type: Open heart; Additional info: Cp TECHNIQUE: Imaging protocol: Radiologic exam of the chest. Views: 1 view. COMPARISON: CR XR chest 1V portable [id number] 02/03/2020 6:28 PM FINDINGS: Lungs: There are calcified granulomas in the left lung. No acute infiltrate is identified. Pleural spaces: Unremarkable. No pleural effusion. No pneumothorax. Heart/Mediastinum: Prosthetic aortic valve is noted. Bones/joints: Sternotomy wires and mediastinal surgical clips are present, consistent with previous coronary arterial bypass grafting. XR/XR chest 1V portable [id number] IMPRESSION: No acute infiltrate. No significant change from 02/03/2020.
[2022-08-31 19:02] LABS: Basophils # 0.1 10^3/uL (0.0-0.1); Basophils % 0.6 %; Eosinophils % 0.2 %; Hematocrit 21.1 % (42.0-52.0); Lymphocytes # 1.6 10^3/uL (0.8-4.8); Lymphocytes % 15.2 %; Mean Corpuscular HGB Conc 26.5 g/dL (30.0-36.0); Mean Corpuscular Hemoglobin 18.7 pg (28.0-34.0); Mean Corpuscular Volume 70.6 fl (80-94); Mean Platelet Volume 10.8 fL (7.4-10.4); Monocytes # 0.7 10^3/uL (0.2-0.9); Monocytes % 6.7 %; Neutrophils # 7.85 10^3/uL (1.8-7.7); Neutrophils % 76.7 %; Nucleated Red Blood Cells % 0.2 %; Platelet Count 401 10^3/cmm (130-400); Red Blood Count 2.99 10^6/uL (4.1-5.3); Red Cell Distribution Width 19.8 % (12.1-15.1); White Blood Count 10.2 10^3/uL (4.0-10.0)
--- NOTE | 2022-08-31 19:04 | ED_ITS ---
HPI - Chest Pain General: Chief Complaint: Chest Pain Stated Complaint: SOB Time Seen by Provider: 08/31/22 18:45 Source: patient Mode of arrival: EMS Limitations: no limitations History of Present Illness: See nursing assessment. Patient with complaints of shortness of breath for approximately 1 month. States he has had intermittent chest pain with an episode earlier today. Denies any chest pain n ow. He states he has had occasional cough productive of clear sputum. Denies any fever. States he has been noncompliant with some of his medications including Plavix and aspirin. He has not had Plavix or aspirin today. He states he was not given any medications by EMS. Her blood sugar prior to arrival was 331 by EMS. Possible history includes type 2 diabetes mellitus, diastolic dysfunction CHF, coronary disease, peripheral artery disease, essential hypertension, hyperlipidemia. Past surgical history includes right below the knee amputation due to peripheral vascular disease, coronary bypass graft x4 vessels about 7 years ago. Patient states he has an artificial bovine heart valve placed at the same time as his CABG. Patient states he does smoke cigarettes. He states he has chronic peripheral edema in his left lower extremity. Associated symptoms: Reports dyspnea; Deny abdominal pain, fever(s), nausea, palpitations or vomiting Review of Systems Const: Reports: fatigue; Denies: fever(s) or chills Eyes: Denies: change in vision ENMT: Denies: throat pain Card: Reports: chest pain and edema; Denies: palpitations, irregular heart rhythm or lightheadedness Resp: Reports: dyspnea and productive cough (Clear sputum); Denies: wheezing or hemoptysis GI: Denies: abdominal pain, nausea or vomiting : Denies: flank pain Musc: Denies: neck pain or back pain Skin/Breast: Denies: rash or pruritus Neuro: Denies: headache(s) or numbness in extremities Psych: Denies: anxiety Marcial/Lymph: Denies: enlarged lymph nodes PFSH ED PFSH: Medical History Atherosclerotic heart disease of [place] coronary artery without angina pectoris Diastolic CHF, chronic Essential (primary) hypertension Hereditary and idiopathic neuropathy, unspecified Mixed hyperlipidemia Non-ST elevation (NSTEMI) myocardial infarction Occlusion and stenosis of left carotid artery Presence of prosthetic heart valve January 2020- Bioprosthetic valve in the aortic position appears to be well- seated, leaflet could not be well visualized. VTI across the aortic valve is 2.4 m/s Smoking Surgical History [facility] History of aortic valve replacement History of coronary artery bypass graft Hx of right BKA Family History Father CAD (coronary artery disease), Onset Age: 60 Mother Cancer Denies family history of Diabetes Clotting disorder Dementia Chronic kidney disease (CKD) Suicide Anesthesia complication Bleeding disorder Lung disease Stroke Social History Smoking and tobacco status: current every day smoker cigarettes Packs smoked per day: 1 Years cigarettes smoked: 54 Alcohol intake: never History of recent travel: No Supplemental [facility] Information: Patient states he has a bovine prosthetic heart valve. Physical Exam Const: COMMON NORMALS: no acute distress, patient oriented x3, no limitations and well nourished GENERAL APPEARANCE: cooperative HENMT: COMMON NORMALS: normocephalic and atraumatic HEAD & SCALP: normocephalic and atraumatic FACE & SINUS: normal facial exam Eye: COMMON NORMALS: EOMs intact bilaterally Neck/C-Spine: COMMON NORMALS: full ROM, no lymphadenopathy, supple and no meningeal signs GENERAL: Yes normal visual inspection Lymph: LYMPHATIC: no lymphadenopathy noted Chest: COMMONS NORMALS: normal inspection of the chest and normal palpation of entire chest wall CHEST: No Ecchymosis present and No rash OTHER: Evidence of previous remote sternotomy Resp: COMMON NORMALS: normal respiratory effort, No retractions and clear to auscultation bilaterally EFFORT & INSPECTION: No respiratory distress AUSCULTATION: clear to auscultation bilaterally Cardio: COMMON NORMALS: regular rate, regular rhythm and Peripheral pulses 2+ throughout JUGULAR VENOUS DISTENTION: no JVD RATE: regular rate RHYTHM: regular rhythm PERIPHERAL PULSES: Peripheral pulses 2+ throughout OTHER: No murmur. GI: COMMON NORMALS: Normal to inspection, nondistended, normoactive bowel sounds present and non-tender : COMMON NORMALS: Yes no CVA tenderness BLADDER/KIDNEY EXAM: Yes no CVA tenderness Back/Pelvis: COMMON NORMALS: no CVA tenderness Extremity: COMMON NORMALS: full ROM OTHER: Patient has below the knee amputation on the right. Patient has 2+ pitting chadwick ma to the left lower extremity. Peripheral pulses are otherwise normal. Neuro: COMMON NORMALS: patient oriented x3, CN's II-XII intact bilaterally, no focal motor deficits and no sensory deficits noted MENINGEAL SIGNS: Yes no meningeal signs Psych: COMMON NORMALS: mental status grossly normal and Normal thought process present THOUGHT PROCESS: Normal thought process present Skin: COMMON NORMALS: no rashes or lesions noted and no wounds GENERAL SKIN EXAM: no rashes or lesions noted Course Vital Signs: Vital signs: Vital Signs Temperature 97.8 F 08/31/22 18:49 Pulse Rate 83 08/31/22 21:45 Respiratory Rate 20 H 08/31/22 21:45 Blood Pressure 103/60 08/31/22 21:45 Pulse Oximetry 100 08/31/22 21:45 Oxygen Delivery Me thod 08/31/22 18:49 MDM - Chest Pain Medical Decision Making Patient with intermittent chest pain which may be unstable angina. Shortness of breath may be due to CHF. We will also obtain influenza and COVID swabs. Stool was guaiac negative. Stool brown in color. Troponins elevated consistent with non-STEMI. Will consult lithograph printer and hospitalist. 1951: Discussed with Dr. Bojorquez lithograph printer. He will see the patient in the morning. 1955: Discussed with hospitalist Dr. Muñoz. Will admit to stepdown unit. He will write orders. Lab Data 08/31/22 18:17 08/31/22 18:17 Radiology Impressions Chest X-Ray 08/31/22 18:45 IMPRESSION: No acute infiltrate. No significant change from 02/03/2020. Laboratory Results WBC 10.2 10^3/uL (4.0-10.0) H 08/31/22 18:17 RBC 2.99 10^6/uL (4.1-5.3) L 08/31/22 18:17 Hgb 5.6 g/dL (11.7-16.6) L* 08/31/22 18:17 Hct 21.1 % (42.0-52.0) L 08/31/22 18:17 MCV 70.6 fl (80-94) L 08/31/22 18:17 MCH 18.7 pg (28.0-34.0) L 08/31/22 18:17 MCHC 26.5 g/dL (30.0-36.0) L 08/31/22 18:17 RDW 19.8 % (12.1-15.1) H 08/31/22 18:17 Plt Count 401 10^3/cmm (130-400) H 08/31/22 18:17 MPV 10.8 fL (7.4-10.4) H 08/31/22 18:17 Neut % (Auto) 76.7 % 08/31/22 18:17 Lymph % (Auto) 15.2 % 08/31/22 18:17 [place] % (Auto) 6.7 % 08/31/22 18:17 Eos % (Auto) 0.2 % 08/31/22 18:17 Baso % (Auto) 0.6 % 08/31/22 18:17 Neut # (Auto) 7.85 10^3/uL (1.8-7.7) H 08/31/22 18:17 Lymph # (Auto) 1.6 10^3/uL (0.8-4.8) 08/31/22 18:17 [place] # (Auto) 0.7 10^3/uL (0.2-0.9) 08/31/22 18:17 Eos # (Auto) 0.0 10^3/uL (0.0-0.8) 08/31/22 18:17 Baso # (Auto) 0.1 10^3/uL (0.0-0.1) 08/31/22 18:17 Nucleated RBC % (auto) 0.2 % 08/31/22 18:17 Nucleated RBCs # 0.0 /100WBC 08/31/22 18:17 Sodium 138 mmol/L (136-145) 08/31/22 18:17 Potassium 4.4 mmol/L (3.5-5.1) 08/31/22 18:17 Chloride 105 mmol/L (98-107) 08/31/22 18:17 Carbon Dioxide 19 mmol/L (22-29) L 08/31/22 18:17 Anion Gap 18.4 (5-19) 08/31/22 18:17 BUN 25 mg/dL (8-23) H 08/31/22 18:17 Creatinine 1.0 mg/dL (0.7-1.2) 08/31/22 18:17 GFR Calculation 74.1 mL/min (90-130) L 08/31/22 18:17 Glucose 191 mg/dL (65-115) H 08/31/22 18:17 Calculated Osmolality 296 mOsm/kg (285-295) H 08/31/22 18:17 Calcium 8.8 mg/dL (8.5-10.5) 08/31/22 18:17 Total Bilirubin 0.3 mg/dL (0.15-1.2) 08/31/22 18:17 AST 15 U/L (0-40) 08/31/22 18:17 ALT 13 U/L (0-41) 08/31/22 18:17 Alkaline Phosphatase 117 U/L (40-130) 08/31/22 18:17 Troponin T Baseline 181 ng/L (0-15) H* 08/31/22 18:17 NT-Pro-B Natriuret Pep 43261 pg/mL (0-125) H 08/31/22 18:17 Total Protein 7.0 g/dL (6.6-8.7) 08/31/22 18:17 Albumin 3.2 g/dL (3.5-5.2) L 08/31/22 18:17 Globulin 3.8 g/dL (1.3-4.6) 08/31/22 18:17 Influenza Type A Ag negative (Negative) 08/31/22 19:17 Influenza Type B Ag negative (Negative) 08/31/22 19:17 SARS-CoV-2 Ag (Rapid) negative (Negative) 08/31/22 19:17 Blood Type O Positive 08/31/22 19:43 Rho(D) Type Positive 08/31/22 19:43 Antibody Screen Negative 08/31/22 19:43 Crossmatch See Detail 08/31/22 19:43 Imaging Data CXR: My impression: Cardiomegaly. No pulmonary edema. Radiologist's impression: Ordering Provider/Ordering MD: Cain Marcial MD Date of Service: 08/31/22 Procedure(s): XR chest 1V portable [id number] Accession Number(s): [id number] Report Number: [id number] PROCEDURE INFORMATION: Exam: XR Chest Exam date and time: 08/31/2022 7:02 PM Age: 67 years old Clinical indication: Shortness of breath; Prior surgery; Surgery date: 6+ months; Surgery type: Open heart; Additional info: Cp TECHNIQUE: Imaging protocol: Radiologic exam of the chest. Views: 1 view. COMPARISON: CR XR chest 1V portable [id number] 02/03/2020 6:28 PM FINDINGS: Lungs: There are calcified granulomas in the left lung. No acute infiltrate is identified. Pleural spaces: Unremarkable. No pleural effusion. No pneumothorax. Heart/Mediastinum: Prosthetic aortic valve is noted. Bones/joints: Sternotomy wires and mediastinal surgical clips are present, consistent with previous coronary arterial bypass grafting. XR/XR chest 1V portable [id number] IMPRESSION: No acute infiltrate. No significant change from 02/03/2020. ? Dictated By: Moises Medina Signed By: Moises Medina Signed Date/Time: 08/31/221915 DD/ 01 EKG Data EKG 1: I personally reviewed and interpreted this EKG as follows: EKG interpretation date: 08/31/22 EKG interpretation time: 18:58 Interpretation: EKG shows normal sinus rhythm with occasional PACs. Heart rate 82. Normal a xis. Nonspecific ST-T changes. LVH. Normal P waves, normal T waves. Normal QT interval. V3 abnormality appear to be due to tremor. EKG 2: I personally reviewed and interpreted this EKG as follows: EKG interpretation date: 08/31/22 EKG interpretation time: 19:00 Prior EKG tracings: available for review Interpretation: EKG shows normal sinus rhythm with occasional PAC. Normal OK interval, normal QT interval, normal axis nonspecific ST-T changes. Essentially no change from previous EKG. V3 abnormality has improved.. EKG 3: I personally reviewed and interpreted this EKG as follows: EKG interpretation date: 08/31/22 EKG interpretation time: 21:00 Prior EKG tracings: available for review Interpretation: Normal sinus rhythm with occasional PACs. Heart rate 83. Nonspecific ST-T changes. Unchanged from previous EKG. Normal axis. Normal OK interval, normal QT interval. Normal P waves normal T waves. Normal QRS. Critical Care Time Critical Care Time: Critical Care Time: Yes Total Critical Care Time: 45 Attestation: Severe anemia, blood transfusion. Discharge Plan Discharge Patient Disposition: Admitted As Inpatient Admit Provider: Ericka Muñoz Clinical Impression: Non-ST elevated myocardial infarction (non-STEMI), Coronary artery arteriosclerosis Chest pain Qualifiers: Chest pain type: unspecified Qualified Code(s): R07.9 - Chest pain, unspecified Profound anemia Qualifiers: Anemia type: unspecified type Qualified Code(s): D64.9 - Anemia, unspecified Condition: Stable Coding Level of Care Code ED Laboratory Engineer for Chg Fwd History Comprehensive Exam Comprehensive
[2022-08-31] MEDS: clopidogrel 75 mg Tablet PO (19:14)
[2022-08-31] MEDS: aspirin 325 mg Tablet 81 MG PO (19:14)
[2022-08-31 19:19] LABS: Hemoglobin 5.6 g/dL (11.7-16.6)
[2022-08-31 19:27] LABS: Troponin(5th) Baseline 181 ng/L (0-15)
[2022-08-31 19:32] LABS: Alanine Aminotransferase 13 U/L (0-41); Albumin Level 3.2 g/dL (3.5-5.2); Alkaline Phosphatase 117 U/L (40-130); Anion Gap 18.4 (5-19); Aspartate Amino Transferase 15 U/L (0-40); Blood Urea Nitrogen 25 mg/dL (8-23); Calcium 8.8 mg/dL (8.5-10.5); Carbon Dioxide 19 mmol/L (22-29); Chloride 105 mmol/L (98-107); Creatinine Clr Calc Pharmacy 55.9115; Globulin 3.8 g/dL (1.3-4.6); Glomerular Filtration Rate 74.1 mL/min (90-130); Glucose 191 mg/dL (65-115); NT Pro B Type Natriuretic Pept 27472 pg/mL (0-125); Osmolality Calculated 296 mOsm/kg (285-295); Potassium 4.4 mmol/L (3.5-5.1); Sodium 138 mmol/L (136-145); Total Bilirubin 0.3 mg/dL (0.15-1.2)
[2022-08-31 19:39] LABS: Influenza A by IFA negative (Negative); Influenza B by IFA negative (Negative); SARS Covid-2 Antigen negative (Negative)
--- NOTE | 2022-08-31 19:57 | P.HP_ITS ---
Providers/Chief Complaint Primary Care Provider: Kunal Mcdowell MD Chief Complaint: SOB History of Present Illness Moises Galvez is a 67 year old male with history of peripheral vascular disease, peripheral angiogram with PCI, CABG roughly 6 years ago at [facility], on dual antiplatelet therapy, peripheral vascular disease, diabetes, right diabetic foot ulcer status post amputation uses prosthesis, aortic valve replacement, hypertension, presented with worsening of shortness of breath. Patient is stating that for last 1 month he has been noticing urinary discomfort, nocturia, cola colored urine, and last 2 weeks he became extremely short of breath he has not noticed orthopnea PND but notices exertional dyspnea and chest pain on exertion as well. He is describing his chest pain as squeezing/tightness, does not radiate it last for about 15 to 20 minutes not associate with nausea, vomiting or febrile events. Patient is stating that his last colonoscopy was few years ago which was unremarkable history of ulcers, cancer or profound anemia in the past per In the ER he has been diagnosed with profound anemia hemoglobin 5.6 requested unit PRBC He has been diagnosed with NSTEMI he received dual antiplatelet therapy Not a candidate of anticoagulating agent FOBT negative MAP 65 mmHg Awake and alert I have requested CT abdomen pelvis for his complaint of hematuria No active chest pain Doing well on room air Cardiology has been consulted by the ER physician Review of Systems Const: Reports: chills, body aches and fatigue Eyes: Denies: change in vision ENMT: Denies: throat pain Card: Reports: chest pain and dyspnea on exertion Resp: Reports: dyspnea GI: Reports: abdominal pain : Reports: urinary dribbling, nocturia and hematuria; Denies: flank pain Musc: Denies: neck pain Skin/Breast: Denies: rash Neuro: Denies: headache(s) Psych: Denies: anxiety Endo: Denies: polyuria Marcial/Lymph: Denies: easy bruising All/Imm: Denies: urticaria Medications/Allergies Home Medications Medication Instructions Recorded Confirmed Last Taken Type lisinopril 20 mg tablet 20 mg PO DAILY #90 tabs 08/30/21 05/11/22 12/23/21 05:00 Rx aspirin 81 mg tablet,delayed 81 mg PO DAILY 11/30/21 05/11/22 12/23/21 05:00 History release vit R-wdatxlqe-eyb palmetto 160 1 cap PO DAILY 12/08/21 05/11/22 12/23/21 05:00 History mg-pygeum africanum 12.5 mg capsule (Urinozinc Prostate Complex Classic) clopidogrel 75 mg tablet 75 mg PO DAILY #90 tabs 02/04/22 05/11/22 Unknown Rx furosemide 20 mg tablet (Lasix) 20 mg PO DAILY #90 tabs 03/16/22 05/11/22 Unknown Rx potassium chloride 8 mEq 8 meq PO DAILY #90 tabs 03/16/22 05/11/22 Unknown Rx tablet,extended release atorvastatin 80 mg tablet 80 mg PO DAILY #100 tabs 04/18/22 05/11/22 Unknown Rx gabapentin 300 mg capsule 300 mg PO BID #60 caps 05/16/22 Unknown Rx sitagliptin 100 mg tablet (Januvia) 100 mg PO DAILY #30 tabs 05/16/22 Unknown Rx omeprazole 40 mg capsule,delayed 40 mg PO DAILY #90 caps 05/26/22 Unknown Rx release metformin 1,000 mg tablet 1,000 mg PO BID #180 tabs 06/27/22 Unknown Rx Allergies Allergy/AdvReac Type Severity Reaction Status Date / Time codeine AdvReac Unknown ADR-Nausea Verified 08/31/22 18:53 PFSH Acute PFSH: Medical History Atherosclerotic heart disease of [place] coronary artery without angina pectoris Diastolic CHF, chronic Essential (primary) hypertension Hereditary and idiopathic neuropathy, unspecified Mixed hyperlipidemia Non-ST elevation (NSTEMI) myocardial infarction Occlusion and stenosis of left carotid artery Presence of prosthetic heart valve January 2020- Bioprosthetic valve in the aortic position appears to be well- seated, leaflet could not be well visualized. VTI across the aortic valve is 2.4 m/s Smoking Surgical History History of amputation of foot 12/2019- [facility] History of aortic valve replacement History of coronary artery bypass graft Hx of right BKA Family History Father CAD (coronary artery disease), Onset Age: 60 Mother Cancer Denies family history of Diabetes Clotting disorder Dementia Chronic kidney disease (CKD) Suicide Anesthesia complication Bleeding disorder Lung disease Stroke Social History Smoking and tobacco status: current every day smoker cigarettes Packs smoked per day: 1 Years cigarettes smoked: 54 Alcohol intake: never History of recent travel: No Vitals/I&O/Wt Last Vital Signs Temp 97.8 F 08/31/22 18:49 Pulse 85 08/31/22 19:15 Resp 12 08/31/22 19:15 BP 120/72 08/31/22 19:15 Pulse Ox 100 08/31/22 19:15 O2 Del Method 08/31/22 18:49 Weight last 48 hrs Weight 56.699 kg Physical Exam Narrative: Patient looks extremely pale Cooperative and pleasant elderly male currently sitting comfortably in his bed Currently on room air Awake and alert No active chest pain S1, S2 Abdomen soft No signs of genital edema Lower extremity 2+ pitting edema Below-knee amputation No audible stridor or wheezing at the bedside Nonfocal neuro exam Pleasant and cooperative Data 08/31/22 18:17 08/31/22 18:17 A&P Assessment and plan (1) Chest pain: Qualifiers: Chest pain type: unspecified Qualified Code(s): R07.9 - Chest pain, unspecified (2) Non-ST elevated myocardial infarction (non-STEMI): (3) Profound anemia: Qualifiers: Anemia type: unspecified type Qualified Code(s): D64.9 - Anemia, unspecified (4) Edema, peripheral: (5) Carotid stenosis: Qualifiers: Laterality: right Qualified Code(s): I65.21 - Occlusion and stenosis of right carotid artery (6) S/P AVR: (7) Diastolic CHF, chronic: Plan 67-year-old male with history of CABG, peripheral vascular disease, diabetes active smoker Acute on chronic severe microcytic anemia No active signs of bleeding Patient is endorsing cola colored urine which she noticed at home Requested UA Requested 2 units PRBC, requested iron panel and B12 Symptomatic anemia NSTEMI History of CABG Continue aspirin and Plavix Not a candidate of anticoagulating agent No active signs of chest pain Significant troponin leak H Hemodynamically stable Cardiology is consulted Hematuria/cola colored urine I have requested CT abdomen pelvis with contrast Will request urine protein, electrolytes No acute exacerbation of chronic kidney disease Diabetes, active smoker, BPH Consistent carb diet: Might need nicotine patch, add tamsulosin Acute diastolic CHF exacerbation 2+ pitting edema of legs We will give him Lasix after blood transfusion Full code Consistent carb diet/n.p.o. after midnight DVT prophylaxis: SCDs currently on dual antiplatelet therapy Attestations Medical Necessity Statement*: More than 2 midnights anticipated Time Spent in Patient Care: 40 Coding Level of Care Code Acute Clock Repair Technician for Lalithag Fwd Diagnoses Chest pain R07.9 Chest pain type: unspecified Non-ST elevated myocardial infarction (non-STEMI) I21.4 Profound anemia D64.9 Anemia type: unspecified type Edema, peripheral R60.9 Carotid stenosis I65.21 Laterality: right S/P AVR Z95.2 Diastolic CHF, chronic I50.32
--- NOTE | 2022-08-31 20:45 | ECG_ITS ---
Test Date: 2022-08-31 Pat Name: Moises Galvez Department: Room: Gender: Male Stuffed Casing Tier: : 1955 Requested By: Cain Marcial Order Number: [id number] Molly MD: Patrice Bojorquez M.D. Measurements Intervals [place] Rate: 84 P: -47 NH: 100 QRS: -15 QRSD: 114 T: 123 QT: 398 QTc: 473 Interpretive Statements ATRIAL FIBRILLATION SEPTAL MYOCARDIAL INFARCTION , OF INDETERMINATE AGE [40+ ms Q WAVE IN V1/V2] Compared to ECG 08/31/2022 18:55:12 Myocardial infarct finding still present Electronically Signed On 09-01-2022 10:16:57 PRESS ASSISTANT AND FEEDER by Patrice Bojorquez M.D. [email or web address] [id number]
--- NOTE | 2022-08-31 20:48 | CTR_ITS ---
PROCEDURE INFORMATION: Exam: CT Abdomen And Pelvis With Contrast Exam date and time: 08/31/2022 10:06 PM Age: 67 years old Clinical indication: Other: Dysuria. Anemia. Prior surgery; Surgery type: Cabg. Aortic valve. Patient HX: C/O dysuria. Anemia; Additional info: Dark urine; Anemia of unknown origin; R/O tumor, results to Dr. Muñoz TECHNIQUE: Imaging protocol: Computed tomography of the abdomen and pelvis with contrast. Radiation optimization: All CT scans at this facility use at least one of these dose optimization techniques: automated exposure control; mA and/or kV adjustment per patient size (includes targeted exams where dose is matched to clinical indication); or iterative reconstruction. Contrast material: OMNI 350; Contrast volume: 100 ml; Contrast route: INTRAVENOUS (IV); COMPARISON: CT abdomen pelvis w con* [id number] 02/13/2020 3:28 PM RADIATION DOSE METRICS: Total DLP (mGy-cm): 334.35 FINDINGS: Lungs: There is linear density and ground-glass opacity in the periphery of the left lower lobe most likely related to atelectasis, however infectious not entirely excluded. Please correlate with the clinical findings. Pleural spaces: There are small bilateral pleural effusions new compared with 02/13/2020. Liver: There is no focal abnormality within the liver. Gallbladder and bile ducts: The gallbladder is normal. Pancreas: The pancreas is normal. Spleen: Spleen has somewhat irregular contours laterally not changed compared with 02/13/2020. Enhancement of the spleen is heterogeneous common due to the phase of contrast enhancement at the time of scanning. There is suggestion of a hypodense collection along the lateral aspect of the spleen which could represent some perisplenic or subcapsular fluid. If clinically indicated follow-up imaging suggested with late portal venous phase scanning to achieve proper enhancement of the spleen. Adrenal glands: The adrenal glands are normal. Kidneys and ureters: There is no evidence of hydronephrosis. There is no evidence of renal or ureteral calcifications. There are vascular calcifications associated with both kidneys. 8 mm benign-appearing cyst upper pole right kidney. The left kidney is normal. Stomach and bowel: There is severe abnormal thickening of the mid sigmoid colon but without adjacent inflammation. Findings could represent diverticulitis or nonspecific colitis. Tumor not entirely excluded. Further evaluation recommended. There is no evidence of intestinal obstruction. There is a large diverticulum from the posterior aspect of the gastric fundus not significantly changed. Appendix: Not identified Intraperitoneal space: There is no evidence of free intraperitoneal fluid. Vasculature: The aorta demonstrates moderate atherosclerotic calcification. There are bilateral aortoiliac stents extending into the external iliac artery is on both sides. There is also a more distal right external iliac stent. These appear to be patent. Lymph nodes: There is no evidence of lymphadenopathy. Urinary bladder: Unremarkable as visualized. Reproductive: Unremarkable as visualized. Bones/joints: Degenerative changes in the lumbar spine stable from previous.. Soft tissues: Unremarkable. CT/CT abdomen pelvis w con* [id number] IMPRESSION: 1. Abnormal thickening of the sigmoid colon which may represent some nonspecific colitis. Further evaluation suggested. 2. Small pleural effusions. 3. Atherosclerotic vascular disease not significantly changed in comparison with 02/13/2020. 4. Question of small perisplenic versus subcapsular fluid of the spleen. COMMENTS: Consistent with the [place] [employer]'s Incidental Findings Committee white paper (J Am Josiane Radiol 2018): Any incidental renal lesion less than 1 cm or classified as too small to characterize, or any incidental cystic renal lesion characterized as simple-appearing, is likely benign. No follow-up imaging is recommended for these lesions per consensus recommendations based on imaging criteria.
[2022-08-31 21:04] LABS: Troponin 5 2HR Delta -6.1 ABS# (0-10)
[2022-08-31 21:05] LABS: Troponin 5 2HR 174.9 ng/L (0-15)
[2022-08-31 21:43] LABS: Ferritin 27 ng/mL (30-400); Iron 9 ug/dL (59-158); Percent Saturation 3.2 % (20-50); Total Iron Binding Capacity 278 mcg/dl; Unsaturated Iron Binding 269 ug/dL (112-347)
--- NOTE | 2022-08-31 22:07 | USCV_ITS ---
Lenny Moises Age: 67 Gender: M : 1955 Exam Date: 08/31/2022 23:01 Ordering Phys: Ericka Muñoz MD Technologist: SUSHMA [place] [facility] [place]: NSTEMI, chest pain today; hx CABG and bovine AVR 2014; hx PAD s/p RT BKA, smoker, SOB BP: 103 / 60 HR: 91 Rhythm: Atrial fibrillation Technical Quality: Adequate MEASUREMENTS (Male / Female) Normal Values 2D ECHO LV Diastolic Diameter PLAX 5.8 cm 4.2 - 5.9 / 3.9 - 5.3 cm LV Systolic Diameter PLAX 5.3 cm IVS Diastolic Thickness 1.2 cm 0.6 - 1.0 / 0.6 - 0.9 cm IVS Systolic Thickness 1.5 cm LVPW Diastolic Thickness 0.7 cm 0.6 - 1.0 / 0.6 - 0.9 cm LVPW Systolic Thickness 0.8 cm LVOT Diameter 2.0 cm LV Ejection Fraction 2D Teich 20.8 % LV Ejection Fraction MOD 2C 19.7 % LV Ejection Fraction 2C AL 23.0 % LA Diameter 4.5 cm LA Width 5.1 cm LA Height 5.5 cm RA Width 4.5 cm RA Height 5.1 cm Aorta at Sinotubular Diameter 2.9 cm IVC Diameter 1.9 cm M-MODE Aortic Annulus Diameter 4.0 cm LA Ao Ratio MM 1.1 MV E Point Septal Separation 1.7 cm DOPPLER AV Peak Velocity 191.0 cm/s LVOT Peak Velocity 69.0 cm/s AV Area Cont Eq vti 1.1 cm squared AV Area Cont Eq pk 1.1 cm squared MV Peak Velocity 142.0 cm/s MV Area PHT 4.3 cm squared MV E' Velocity 76.5 cm/s Mitral E to MV E' Ratio 20.7 Mitral E to LV E' Lateral Ratio 18.6 Mitral E to LV E' Septal Ratio 23.4 TR Peak Velocity 245.3 cm/s TR Peak Gradient 24.1 mmHg TV Peak E Velocity 39.0 cm/s Right Atrial Pressure 10.0 mmHg Pulmonary Artery Systolic Pressu 34.1 mmHg PV Peak Velocity 92.0 cm/s RV Acceleration Time 0.1 s RV Ejection Time 0.3 s RV AcT/ET 0.3 FINDINGS Left Ventricle Left ventricle is normal in size. LV systolic function is mildly reduced with EF of 40-45%. Mild global hypokinesis is seen. Diastolic function cannot be assessed because of atrial fibrillation. Right Ventricle RV is moderately hypokinetic Right Atrium Normal in size Left Atrium Dilated Mitral Valve Structurally normal mitral valve. Mild to moderate mitral regurgitation. Aortic Valve Bioprosthetic aortic valve is seen. Limited visualization. No significant stenosis or regurgitation. DVI is normal and is 0.37 Tricuspid Valve Mild tricuspid regurgitation. RVSP is 30-35mmHg Pulmonic Valve Trace pulmonic regurgitation Pericardium Normal Aorta Normal in size IVC Appears to be normal CONCLUSIONS LV systolic function is mildly reduced with EF of 40 to 45%. Mild global hypokinesis is seen. Diastolic function cannot be assessed because of atrial fibrillation RV is moderately hypokinetic Left atrial dilation Mild to moderate mitral regurgitation Bioprosthetic aortic valve is seen. DVI is normal Mild tricuspid regurgitation Trace pulmonic regurgitation Compared to prior echocardiogram from 02/12/2020, LV systolic function has decreased and is 40-45% now Patrice Bojorquez MD (Electronically Signed) Final Date: 01 September 2022 09:33 S
--- NOTE | 2022-08-31 22:08 | PC.NURSE ---
Spoke with Dr Muñoz and received telephone order to give Lasix 40mg IVP between units of blood. RBVO
[2022-08-31] MEDS: iohexol 350 mg/mL 500 mL Btl (per mL) IV (22:11)
[2022-08-31] MEDS: FUROsemide 10 mg/mL SDV 4mL 40 MG IVP (22:42)
[2022-09-01] VITALS (14 sets, daily range): BP systolic 94–140; BP diastolic 64–86; PULSE 19–99; RESP 18–29; TEMP 36.6–36.9; O2SAT 92–100
--- NOTE | 2022-09-01 00:07 | PC.NURSE ---
Patient reports not being able to sleep for several days due to not feeling well. Informed Dr Muñoz and received telephone order for Restoril 15mg PO x1 now. RBVO
[2022-09-01] MEDS: temazepam 15 mg Capsule PO (00:27)
[2022-09-01 00:44] LABS: Specific Gravity, Urine 1.015 (1.005-1.030); Urine Appearance Cloudy (CLEAR); Urine Color Yellow (Yellow); pH Urine 5 (5-7)
[2022-09-01 00:45] LABS: Add Urine Culture? Yes; Bacteria Urine 4+ /hpf; Bilirubin Urine Neg (Negative); Blood Urine 3+ (Negative); Glucose Urine UA Norm (Normal); Ketones Urine 1+ (Negative); Leukocyte Esterase Urine 2+ (Negative); Nitrate Urine Negative (Negative); Protein Urine 2+ (Negative); RBC Urine TOO NUMEROUS TO CNT /hpf (0-2); Squamous Epithelial Cell Urine 0-4 /hpf (0-5); Urobilinogen Urine Norm (Negative); WBC Urine TOO NUMEROUS TO CNT /hpf (0-5)
--- NOTE | 2022-09-01 00:45 | ECG_ITS ---
[facility] Test Date: 2022-09-01 Pat Name: Moises Galvez Department: Room: 111 Gender: Male Court Deputy: : 1955 Requested By: Cain Marcial Order Number: [id number] Molly MD: Patrice Bojorquez M.D. Measurements Intervals [place] Rate: 87 P: 30 NV: 163 QRS: -10 QRSD: 97 T: 126 QT: 387 QTc: 467 Interpretive Statements SINUS RHYTHM WITH OCCASIONAL SUPRAVENTRICULAR PREMATURE COMPLEXES SEPTAL MYOCARDIAL INFARCTION , OF INDETERMINATE AGE [40+ ms Q WAVE IN V1/V2] Compared to ECG 08/31/2022 20:56:44 No significant changes Electronically Signed On 09-01-2022 10:15:57 NEWS CONTENT SPECIALIST by Patrice Bojorquez M.D. [email or web address] rehabilitation centerSmarter Remarketerregency hospital clevel[facility] east.[employer]/store/[id number]
[2022-09-01 01:24] LABS: Thyroid Stimulating Hormone 2.55 uIU/mL (0.27-4.20); Vitamin B12 1175 pg/mL (232-1245)
[2022-09-01 03:20] LABS: Basophils # 0.1 10^3/uL (0.0-0.1); Basophils % 0.7 %; Eosinophils % 0.3 %; Lymphocytes % 20.2 %; Mean Platelet Volume 10.1 fL (7.4-10.4); Monocytes # 0.9 10^3/uL (0.2-0.9); Monocytes % 8.7 %; Neutrophils # 6.77 10^3/uL (1.8-7.7); Neutrophils % 69.7 %; Nucleated Red Blood Cells % 0.3 %; Platelet Count 322 10^3/cmm (130-400); Red Blood Count 3.54 10^6/uL (4.1-5.3); Red Cell Distribution Width 23.8 % (12.1-15.1); White Blood Count 9.7 10^3/uL (4.0-10.0)
[2022-09-01 03:25] LABS: Hematocrit 26.4 % (42.0-52.0); Hemoglobin 7.8 g/dL (11.7-16.6); Mean Corpuscular Volume 74.6 fl (80-94)
[2022-09-01 03:26] LABS: Mean Corpuscular HGB Conc 29.5 g/dL (30.0-36.0)
[2022-09-01 03:43] LABS: Anion Gap 14.1 (5-19); Blood Urea Nitrogen 27 mg/dL (8-23); Calcium 8.6 mg/dL (8.5-10.5); Carbon Dioxide 24 mmol/L (22-29); Chloride 103 mmol/L (98-107); Creatinine Clr Calc Pharmacy 55.9115; Glomerular Filtration Rate 74.1 mL/min (90-130); Glucose 160 mg/dL (65-115); Osmolality Calculated 293 mOsm/kg (285-295); Potassium 4.1 mmol/L (3.5-5.1); Sodium 137 mmol/L (136-145)
[2022-09-01 04:02] LABS: Troponin 5 6HR 178.9 ng/L (0-15); Troponin 5 6HR Delta -2.1 ng/L (0-12)
[2022-09-01 06:35] LABS: Glucose Point of Care 154 mg/dL (70-110)
[2022-09-01] MEDS: iron sucrose 200 MG in sodium chloride 0.9% (100 ml) 100 ML 220 MG IV (08:24)
[2022-09-01] MEDS: atorvastatin 40 mg Tablet 80 MG PO (08:25)
[2022-09-01] MEDS: clopidogrel 75 mg Tablet PO (08:25)
[2022-09-01] MEDS: aspirin 81 mg EC Tablet PO (08:25)
[2022-09-01] MEDS: pantoprazole 40 mg SDV IVP ×2 (08:25→17:34)
[2022-09-01] MEDS: cefTRIAXone 1,000 MG in sodium chloride 0.9% (plus) 50 ML 100 MG IV (08:27)
--- NOTE | 2022-09-01 08:50 | PC.PHAR ---
pt states he takes care of his own medications-pt states lately hes been missing taking doses states he has been sick-pt states he is unsure if he takes lasix 20mg daily written on 03/16/22 and kcl er 8meq daily written on 03/16/22-anil from [facility] states rxs on hold for lasix and kcl-pt states he tries to take his plavix daily but states sometimes he misses doses states he may take every other day-
--- NOTE | 2022-09-01 09:39 | PM.PN ---
Subjective Subjective: Patient reports that shortness of breath has improved. Denies chest pain, fevers, chills, or nausea. Reports his bowel movements have been brown and not black. Medications: Reviewed: Yes Vitals/I&O/Wt Last Vital Signs Temp 98.5 F 09/01/22 07:46 Pulse 84 09/01/22 07:46 Resp 23 H 09/01/22 07:46 BP 112/71 09/01/22 07:46 Pulse Ox 95 09/01/22 07:46 O2 Del Method 09/01/22 07:46 08/31/22 09/01/22 09/01/22 22:59 06:59 14:59 Intake Total 350 / 350 620 / 970 0 / 0 Output Total 1150 / 1150 Balance 350 / 350 -530 / -180 0 / 0 Weight last 48 hrs Weight 56.699 kg Physical Exam Narrative: General: Patient is awake and alert. Head: Normocephalic. Atraumatic. EOM intact. Pale mucous membranes Neck: No JVD. Cardiovascular: RRR. No gallops. No murmurs. Mild peripheral edema. Lungs: Clear to auscultation, no use of accessory muscles, no crackles or wheezes. Skin: No jaundice. No rashes. Abdomen: Normal bowel sounds, abdomen soft and nontender. Genito Urinary: Genital exam not performed since complaints not related. Rectal: Rectal exam not performed since no symptoms indicated blood loss. Extremities: BKA. Musculoskeletal: 5/5 strength, normal range of motion, no swollen or erythematous joints. Neurological: Moves all 4 extremities. No myoclonus. Data 09/01/22 03:07 09/01/22 03:07 A&P Assessment and plan (1) Non-ST elevated myocardial infarction (non-STEMI): History of coronary artery disease Continue aspirin Continue Plavix Continue statin TTE Cardiology consulted Telemetry NPO until cardiology evaluates (2) Profound anemia: Iron deficiency Source unclear, suspect GI Start IV iron Trend hemoglobin Qualifiers: Anemia type: unspecified type Qualified Code(s): D64.9 - Anemia, unspecified (3) UTI (urinary tract infection): With hematuria Start ceftriaxone (4) Tobacco abuse: Would benefit from cessation (5) BPH (benign prostatic hyperplasia): Not on therapy (6) Type 2 diabetes mellitus: Metformin on hold SSI Qualifiers: Diabetes mellitus fpc insulin use: with fpc use Diabetes mellitus complication status: with hyperglycemia Qualified Code(s): E11.65 - Type 2 diabetes mellitus with hyperglycemia; Z79.4 - truck terminal manager (current) use of insulin (7) Mixed hyperlipidemia: Continue statin (8) Essential (primary) hypertension: Monitor BP closely Plan DVT ppx: SCD Code status: Full Code Attestations Medical Necessity Statement*: Patient requires ongoing hospitalization for treatment of NSTEMI, profound anemia, telemetry, and cardiology evaluation. Coding Level of Care Code Acute Door And Arrival Attendant for g Fwd Diagnoses Non-ST elevated myocardial infarction (non-STEMI) I21.4 Profound anemia D64.9 Anemia type: unspecified type UTI (urinary tract infection) N39.0 Tobacco abuse Z72.0 BPH (benign prostatic hyperplasia) N40.0 Type 2 diabetes mellitus E11.65; Z79.4 Diabetes mellitus fpc insulin use: with termite exterminator helper use Diabetes mellitus complication status: with hyperglycemia Mixed hyperlipidemia E78.2 Essential (primary) hypertension I10
--- NOTE | 2022-09-01 09:50 | P.CONIM_ITS ---
Providers/Reason For Consult Consulting Physician/Specialty*: Patrice Bojorquez MD/Cardiology Reason for Consult*: Troponin elevation/chest pain Requesting Physician: Dr Marin Attending Physician: Silver Benitez MD Primary Care Provider: Kunal Mcdowell MD History of Present Illness History of Present Illness Moises Galvez is a 67 year old male with past medical history of CAD s/p CABG about 6 years ago, PAD, diabetes, right BKA, aortic valve replaced, hypertension who presented to the hospital with worsening shortness of breath. Also has been having on and off chest discomfort episodes. He has been having these episodes for the last 1 months approximately. According to patient he has noticed dark- colored urine recently. His hemoglobin was found to be very low and was 5.6 on admission. He has received transfusions. His initial troponin was 181 that did not trend up significantly. Echocardiogram was performed that showed mildly reduced LV systolic function with EF of 40 to 45%. This is a reduction from bef ore.EKG not showing ischemic changes. he did have NSVT episodes this AM. Review of Systems Const: Reports: chills, body aches and fatigue Eyes: Denies: change in vision ENMT: Denies: throat pain Card: Reports: chest pain and dyspnea on exertion Resp: Reports: dyspnea GI: Reports: abdominal pain : Reports: urinary dribbling, nocturia and hematuria; Denies: flank pain Musc: Denies: neck pain Skin/Breast: Denies: rash Neuro: Denies: headache(s) Psych: Denies: anxiety Endo: Denies: polyuria Marcial/Lymph: Denies: easy bruising All/Imm: Denies: urticaria Medications/Allergies Home Medications Medication Instructions Recorded Confirmed Last Taken Type lisinopril 20 mg tablet 20 mg PO DAILY #90 tabs 08/30/21 09/01/22 12/23/21 05:00 Rx aspirin 81 mg tablet,delayed 81 mg PO DAILY 11/30/21 09/01/22 12/23/21 05:00 History release vit W-rrlaaitf-hip palmetto 160 1 cap PO DAILY 12/08/21 09/01/22 12/23/21 05:00 History mg-pygeum africanum 12.5 mg capsule (Urinozinc Prostate Complex Classic) clopidogrel 75 mg tablet 75 mg PO DAILY #90 tabs 02/04/22 09/01/22 Unknown Rx furosemide 20 mg tablet (Lasix) 20 mg PO DAILY #90 tabs 03/16/22 09/01/22 Unknown Rx potassium chloride 8 mEq 8 meq PO DAILY #90 tabs 03/16/22 09/01/22 Unknown Rx tablet,extended release atorvastatin 80 mg tablet 80 mg PO DAILY #100 tabs 04/18/22 09/01/22 Unknown Rx gabapentin 300 mg capsule 300 mg PO BID #60 caps 05/16/22 09/01/22 Unknown Rx sitagliptin 100 mg tablet (Januvia) 100 mg PO DAILY #30 tabs 05/16/22 09/01/22 Unknown Rx omeprazole 40 mg capsule,delayed 40 mg PO DAILY #90 caps 05/26/22 09/01/22 Unknown Rx release metformin 1,000 mg tablet 1,000 mg PO BID #180 tabs 06/27/22 09/01/22 Unknown Rx Allergies Allergy/AdvReac Type Severity Reaction Status Date / Time codeine AdvReac Unknown ADR-Nausea Verified 09/01/22 08:41 Current Medications Generic Name Dose Route Start Last Admin Trade Name Freq PRN Reason Stop Dose Admin Aspirin 81 mg 09/01/22 09:00 09/01/22 08:25 Aspirin 81 Mg Ec Tablet PO 81 mg DAILY PORTIA Administration Atorvastatin Calcium 80 mg 09/01/22 09:00 09/01/22 08:25 Atorvastatin 40 Mg Tablet PO 80 mg DAILY PORTIA Administration Clopidogrel Bisulfate 75 mg 09/01/22 09:00 09/01/22 08:25 Clopidogrel 75 Mg Tablet PO 75 mg DAILY PORTIA Administration Ceftriaxone Sodium 1,000 mg/ 50 mls @ 100 mls/hr 09/01/22 09:00 09/01/22 08:27 Sodium Chloride IV 100 mls/hr DAILY PORTIA Administration Protocol Pantoprazole Sodium 40 mg 09/01/22 09:00 09/01/22 08:25 Pantoprazole 40 Mg Sdv IVP 40 mg BID PORTIA Administration PFSH Acute PFSH: Medical History Atherosclerotic heart disease of [place] coronary artery without angina pectoris Diastolic CHF, chronic Essential (primary) hypertension Hereditary and idiopathic neuropathy, unspecified Mixed hyperlipidemia Non-ST elevation (NSTEMI) myocardial infarction Occlusion and stenosis of left carotid artery Presence of prosthetic heart valve January 2020- Bioprosthetic valve in the aortic position appears to be well- seated, leaflet could not be well visualized. VTI across the aortic valve is 2.4 m/s Smoking Surgical History History of amputation of foot 12/2019- [facility] History of aortic valve replacement History of coronary artery bypass graft Hx of right BKA Family History Father CAD (coronary artery disease), Onset Age: 60 Mother Cancer Denies family history of Diabetes Clotting disorder Dementia Chronic kidney disease (CKD) Suicide Anesthesia complication Bleeding disorder Lung disease Stroke Social History Smoking and tobacco status: current every day smoker cigarettes Packs smoked per day: 1 Years cigarettes smoked: 54 Alcohol intake: never History of recent travel: No Vitals/I&O/Wt Last Vital Signs Temp 98.5 F 09/01/22 07:46 Pulse 84 09/01/22 07:46 Resp 23 H 09/01/22 07:46 BP 112/71 09/01/22 07:46 Pulse Ox 95 09/01/22 07:46 O2 Del Method 09/01/22 07:46 08/31/22 09/01/22 09/01/22 22:59 06:59 14:59 Intake Total 350 / 350 620 / 970 0 / 0 Output Total 1150 / 1150 Balance 350 / 350 -530 / -180 0 / 0 Weight last 48 hrs Weight 125 lb Physical Exam Narrative: GENERAL: Patient is alert, awake and oriented x3. [] NECK: No jugular vein distension. [] HEENT: No cyanosis. No icterus. No pallor. [] HEART: Regular S1 and S2. No murmur, rub or gallop. [] LUNGS: Clear to auscultate bilaterally. [] ABDOMEN: Soft, nontender and nondistended. Positive bowel sounds. No guarding, rebound or tenderness. [] CENTRAL NERVOUS SYSTEM: Grossly nonfocal. [] EXTREMITIES: Lower extremities with 1+ edema bilaterally. Pulses palpable in the lower extremities, both dorsalis pedis and posterior tibial. 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 However troponins have not trended up significantly. This is likely secondary to demand ischemia in setting of severe anemia. Patient will need workup for anemia and bleeding source before ischemic workup is pursued. Transfuse blood as needed Continue aspirin and plavix. Hold anticoagulation. Monitor H and H. ECHO shows mildly reduced LV systolic function which is new compared to 2020. Thank you for involving us with care of this patient. We will continue to follow. Please call with questions. Consult Attestations Medical Necessity Statement: Care expected to cross 2 midnights. Coding Level of Care Code Acute Compensation And Hris Analyst for [facility] Fwd Diagnoses Chest pain R07.9 Chest pain type: unspecified Profound anemia D64.9 Anemia type: unspecified type S/P AVR Z95.2 PVD (peripheral vascular disease) I73.9 Type 2 diabetes mellitus E11.65; Z79.4 Diabetes mellitus residential insulin use: with exterminator use Diabetes mellitus complication status: with hyperglycemia Essential (primary) hypertension I10 Troponin level elevated R77.8
--- NOTE | 2022-09-01 10:12 | PC.CHAP ---
Pastoral Care Encounter/Spiritual Assessment Type of Contact [] Declined district manager postal service visit [] Patient/Family/Request visit [] Outpatient visit [] Follow-up visit [] Physician referral [] Code/Alert [x] Routine visit [] Staff referral [] Actively dying [] Patient sleeping [] Family support [] [] Out of room [] Palliative care [] [x] Receiving care in room [] Pre-surgical visit [] Trauma [x] Long length of stay [] ICU visit [] Other: Relational/Emotional Strength [x] Patient feels connected with others/family/visitors/staff [] Distress [] Loneliness/isolation [] Abandonment Spirituality of Patient [x] Person of Radha [] Attends Religious of their Radha [x] Believes in Prayer [] Reads Bible or Congregational materials [] There are Spiritual issues to be addressed Dispensing Optician Apprentice Interventions [x] Prayer [x] Active listening [x] Non-anxious presence [x] Spiritual/emotional support [] Crisis/trauma care [x] Spiritual counseling [] Bereavement support [] Provided bereavement packet [] Provided Bible/devotional materials [] Provided toy/stuffed animal, coloring book to patient or family member [] Provided Communion [] Anointing/[place] [] Salvation [x] Completed spiritual assessment [] Other: Impact on Illness or Injury [] Angry [] Fearful [x] Anxious [] Often cries [] Exhaustion [x] Unable to work [] Unable to attend episcopal [] Unable to walk/stand [] Unable to read [] Unable to drive [] Unable to eat/drink [] Unable to sleep [] Unable to be with family [] Patient intubated [] Other: Summary SOB heart negative response in some pain waiting on doctors response will be able to go home at some point Time spent with patient 10 mins
[2022-09-01 11:23] LABS: Glucose Point of Care 136 mg/dL (70-110)
--- NOTE | 2022-09-01 16:44 | PC.NURSE ---
pt's appears to have severe memory loss through events encountered today...got lost 3 times in hospital and forgot where their truck was parked several times today.she left hospital in truck this afternoon and was gone for some time.pt confided that spouse has Alzheimer's dementia,should not be driving,has their dog with her that she is very concerned about,and that they have no one to care and watch for while he is in hospital.key account manager and warehouse worker made aware of situation.security advised warehouse worker to call [facility]'s department for wellness check on .they did..she was at house by herself.she did manage to show back up at hospital...locked her keys in the truck with the lights on.security obtained keys.pt 's and dog will now stay with pt.dr con clark.
[2022-09-01 16:56] LABS: Glucose Point of Care 279 mg/dL (70-110)
[2022-09-01] MEDS: insulin lispro 100 unit/1 mL SUBCUT (17:33)
[2022-09-01] MEDS: sodium chloride 0.9% 100 mL Bag 50 ML IV (18:40)
[2022-09-01 20:28] LABS: Glucose Point of Care 127 mg/dL (70-110)
[2022-09-01] MEDS: zolpidem 5 mg Tablet 2.5 MG PO (22:30)
[2022-09-02] VITALS (54 sets, daily range): BP systolic 120–135; BP diastolic 79–88; PULSE 89–130; RESP 0–32; TEMP 36.7–37; O2SAT 81–100
[2022-09-02 05:40] LABS: Basophils # 0.1 10^3/uL (0.0-0.1); Basophils % 0.6 %; Eosinophils # 0.1 10^3/uL (0.0-0.8); Eosinophils % 0.9 %; Hemoglobin 7.9 g/dL (11.7-16.6); Lymphocytes # 1.1 10^3/uL (0.8-4.8); Lymphocytes % 10.5 %; Mean Corpuscular HGB Conc 29.3 g/dL (30.0-36.0); Mean Corpuscular Hemoglobin 21.9 pg (28.0-34.0); Mean Platelet Volume 10.3 fL (7.4-10.4); Monocytes # 0.8 10^3/uL (0.2-0.9); Monocytes % 8.2 %; Neutrophils # 8.05 10^3/uL (1.8-7.7); Nucleated Red Blood Cells % 0.4 %; Platelet Count 315 10^3/cmm (130-400); White Blood Count 10.2 10^3/uL (4.0-10.0)
[2022-09-02 05:57] LABS: Albumin Level 2.9 g/dL (3.5-5.2); Anion Gap 12.9 (5-19); Blood Urea Nitrogen 22 mg/dL (8-23); Calcium 8.5 mg/dL (8.5-10.5); Carbon Dioxide 23 mmol/L (22-29); Chloride 106 mmol/L (98-107); Creatinine Clr Calc Pharmacy 62.1239; Glomerular Filtration Rate 83.7 mL/min (90-130); Glucose 191 mg/dL (65-115); Magnesium 1.7 mg/dL (1.7-2.3); Phosphorus 2.3 mg/dL (2.5-4.5); Potassium 3.9 mmol/L (3.5-5.1); Sodium 138 mmol/L (136-145)
[2022-09-02 06:35] LABS: Glucose Point of Care 250 mg/dL (70-110)
[2022-09-02] MEDS: atorvastatin 40 mg Tablet 80 MG PO (08:14)
[2022-09-02] MEDS: clopidogrel 75 mg Tablet PO (08:14)
[2022-09-02] MEDS: insulin lispro 100 unit/1 mL SUBCUT (08:15)
[2022-09-02] MEDS: aspirin 81 mg EC Tablet PO (08:15)
[2022-09-02] MEDS: cefTRIAXone 1,000 MG in sodium chloride 0.9% (plus) 50 ML 100 MG IV (08:15)
--- NOTE | 2022-09-02 09:30 | P.DS_ITS ---
Discharge Providers Date of Admission: 08/31/22 20:00 Date of Discharge: September 02, 2022 Attending Provider at Admission: Ericka Muñoz MD Attending Provider at Discharge: Silver Benitez MD Consults: Cardiology Primary Care Provider: Kunal Mcdowell MD Diagnoses at Discharge Discharge Diagnosis (1) Chest pain: Status: Acute Qualifiers: Chest pain type: unspecified Qualified Code(s): R07.9 - Chest pain, unspecified (2) Profound anemia: Status: Acute Qualifiers: Anemia type: unspecified type Qualified Code(s): D64.9 - Anemia, unspecified (3) S/P AVR: Status: Acute (4) PVD (peripheral vascular disease): Status: Acute (5) Type 2 diabetes mellitus: Status: Acute Qualifiers: Diabetes mellitus detention insulin use: with middle or intermediate school principal use Diabetes mellitus complication status: with hyperglycemia Qualified Code(s): E11.65 - Type 2 diabetes mellitus with hyperglycemia; Z79.4 - custodial (current) use of insulin (6) Essential (primary) hypertension: Status: Acute (7) Troponin level elevated: Status: Acute Reason for Visit Reason for Visit: SOB Hospital Course Hospital Course Moises Galvez is a 67-year-old male with past medical history significant for peripheral vascular disease, coronary artery disease status post CABG on dual antiplatelet therapy, diabetes mellitus, right BKA, aortic valve replacement, hypertension, and hyperlipidemia who presented with shortness of breath, found to have acute on chronic anemia. FOBT was negative. He denied any GI blood loss. Denied melena. He was transfused 2 packed red blood cells with resolution of symptoms. Hemoglobin remained stable. He is referred to general surgery for endoscopy evaluation discharge. He was found to have acute myocardial injury/type II NSTEMI from demand. He remained chest pain-free. Cardiology consult was consulted and follow. He did not require further ischemic work-up. He was found to have hematuria and a urinary tract infection. He was treated with ceftriaxone, rotated to cefdinir at discharge. He was referred to urology for evaluation of the hematuria. Patient was educated on return precautions. He is to follow-up with his primary care provider in 1 to 2 weeks. Physical Exam Narrative: General: Patient is awake and alert. Head:? Normocephalic. Atraumatic. EOM intact. Pale mucous membranes Neck: No JVD. Cardiovascular: RRR. No gallops. No murmurs. Mild peripheral edema. Lungs: Clear to auscultation, no use of accessory muscles, no crackles or wheezes. Skin: No jaundice. No rashes. Abdomen: Normal bowel sounds, abdomen soft and nontender. Genito Urinary: Genital exam not performed since complaints not related. Rectal: Rectal exam not performed since no symptoms indicated blood loss. Extremities: Right BKA. Musculoskeletal: 5/5 strength, normal range of motion, no swollen or erythematous joints. Neurological: Moves all 4 extremities. No myoclonus. Discharge Data Studies Completed and Pending Completed Studies During Hospitalization Category Date Time Status CT abdomen pelvis w con* [id number] Urgent Cat Scan 08/31/22 20:48 Completed XR chest 1V portable [id number] Stat Exams 08/31/22 18:45 Completed CV. echo complete* [id number] Routine Ultrasound 08/31/22 22:07 Completed Pending at discharge Category Date Time Status Urine Culture Stat Lab 08/31/22 23:00 Received Radiology Impressions Chest X-Ray 08/31/22 18:45 IMPRESSION: No acute infiltrate. No significant change from 02/03/2020. Abdomen/Pelvis CT 08/31/22 20:48 IMPRESSION: 1. Abnormal thickening of the sigmoid colon which may represent some nonspecific colitis. Further evaluation suggested. 2. Small pleural effusions. 3. Atherosclerotic vascular disease not significantly changed in comparison with 02/13/2020. 4. Question of small perisplenic versus subcapsular fluid of the spleen. COMMENTS: Consistent with the [employer]'s Incidental Findings Committee white paper (J Am Josiane Radiol 2018): Any incidental renal lesion less than 1 cm or classified as too small to characterize, or any incidental cystic renal lesion characterized as simple-appearing, is likely benign. No follow-up imaging is recommended for these lesions per consensus recommendations based on imaging criteria. Laboratory Results WBC 10.2 10^3/uL (4.0-10.0) H 09/02/22 05:28 RBC 3.60 10^6/uL (4.1-5.3) L 09/02/22 05:28 Hgb 7.9 g/dL (11.7-16.6) L 09/02/22 05:28 Hct 27.0 % (42.0-52.0) L 09/02/22 05:28 MCV 75.0 fl (80-94) L 09/02/22 05:28 MCH 21.9 pg (28.0-34.0) L 09/02/22 05:28 MCHC 29.3 g/dL (30.0-36.0) L 09/02/22 05:28 RDW 23.0 % (12.1-15.1) H 09/02/22 05:28 Plt Count 315 10^3/cmm (130-400) 09/02/22 05:28 MPV 10.3 fL (7.4-10.4) 09/02/22 05:28 Neut % (Auto) 79.0 % 09/02/22 05:28 Lymph % (Auto) 10.5 % 09/02/22 05:28 [place] % (Auto) 8.2 % 09/02/22 05:28 Eos % (Auto) 0.9 % 09/02/22 05:28 Baso % (Auto) 0.6 % 09/02/22 05:28 Neut # (Auto) 8.05 10^3/uL (1.8-7.7) H 09/02/22 05:28 Lymph # (Auto) 1.1 10^3/uL (0.8-4.8) 09/02/22 05:28 [place] # (Auto) 0.8 10^3/uL (0.2-0.9) 09/02/22 05:28 Eos # (Auto) 0.1 10^3/uL (0.0-0.8) 09/02/22 05:28 Baso # (Auto) 0.1 10^3/uL (0.0-0.1) 09/02/22 05:28 Nucleated RBC % (auto) 0.4 % 09/02/22 05:28 Nucleated RBCs # 0.0 /100WBC 09/02/22 05:28 Sodium 138 mmol/L (136-145) 09/02/22 05:28 Potassium 3.9 mmol/L (3.5-5.1) 09/02/22 05:28 Chloride 106 mmol/L (98-107) 09/02/22 05:28 Carbon Dioxide 23 mmol/L (22-29) 09/02/22 05:28 Anion Gap 12.9 (5-19) 09/02/22 05:28 BUN 22 mg/dL (8-23) 09/02/22 05:28 Creatinine 0.9 mg/dL (0.7-1.2) 09/02/22 05:28 GFR Calculation 83.7 mL/min (90-130) L 09/02/22 05:28 Glucose 191 mg/dL (65-115) H 09/02/22 05:28 POC Glucose 250 mg/dL (70-110) H 09/02/22 06:16 Calculated Osmolality 293 mOsm/kg (285-295) 09/01/22 03:07 Calcium 8.5 mg/dL (8.5-10.5) 09/02/22 05:28 Phosphorus 2.3 mg/dL (2.5-4.5) L 09/02/22 05:28 Magnesium 1.7 mg/dL (1.7-2.3) 09/02/22 05:28 Iron 9 ug/dL (59-158) L 08/31/22 20:15 TIBC 278 mcg/dl 08/31/22 20:15 % Saturation 3.2 % (20-50) L 08/31/22 20:15 Unsat Iron Binding 269 ug/dL (112-347) 08/31/22 20:15 Ferritin 27 ng/mL (30-400) L 08/31/22 20:15 Total Bilirubin 0.3 mg/dL (0.15-1.2) 08/31/22 18:17 AST 15 U/L (0-40) 08/31/22 18:17 ALT 13 U/L (0-41) 08/31/22 18:17 Alkaline Phosphatase 117 U/L (40-130) 08/31/22 18:17 Troponin T Baseline 181 ng/L (0-15) H* 08/31/22 18:17 Troponin T 120 Minute 174.9 ng/L (0-15) H 08/31/22 20:15 Delta Troponin T -6.1 ABS# (0-10) L 08/31/22 20:15 Troponin T Hi Sens 6Hr 178.9 ng/L (0-15) H 09/01/22 03:07 Troponin T Hi Sens 6Hr Delta -2.1 ng/L (0-12) L 09/01/22 03:07 NT-Pro-B Natriuret Pep 39244 pg/mL (0-125) H 08/31/22 18:17 Total Protein 7.0 g/dL (6.6-8.7) 08/31/22 18:17 Albumin 2.9 g/dL (3.5-5.2) L 09/02/22 05:28 Globulin 3.8 g/dL (1.3-4.6) 08/31/22 18:17 Vitamin B12 1175 pg/mL (232-1245) 08/31/22 20:15 TSH 2.55 uIU/mL (0.27-4.20) 08/31/22 20:15 Urine Color Yellow (Yellow) 08/31/22 23:00 Urine Appearance Cloudy (CLEAR) A 08/31/22 23:00 Urine pH 5 (5-7) 08/31/22 23:00 Ur Specific [place] 1.015 (1.005-1.030) 08/31/22 23:00 Urine Protein 2+ (Negative) H 08/31/22 23:00 Urine Glucose (UA) Norm (Normal) 08/31/22 23:00 Urine Ketones 1+ (Negative) H 08/31/22 23:00 Urine Blood 3+ (Negative) H 08/31/22 23:00 Urine Nitrate Negative (Negative) 08/31/22 23:00 Urine Bilirubin Neg (Negative) 08/31/22 23:00 Urine Urobilinogen Norm mg/dL (Negative) 08/31/22 23:00 Ur Leukocyte Esterase 2+ (Negative) H 08/31/22 23:00 Urine RBC Too numerous to cnt /hpf (0-2) H 08/31/22 23:00 Urine WBC Too numerous to cnt /hpf (0-5) H 08/31/22 23:00 Ur Squamous Epith Cells 0-4 /hpf (0-5) H 08/31/22 23:00 Amorphous Sediment Not Reportable 08/31/22 23:00 Urine Bacteria 4+ /hpf (NONE) H 08/31/22 23:00 Influenza Type A Ag negative (Negative) 08/31/22 19:17 Influenza Type B Ag negative (Negative) 08/31/22 19:17 SARS-CoV-2 Ag (Rapid) negative (Negative) 08/31/22 19:17 Blood Type O Positive 08/31/22 19:43 Rho(D) Type Positive 08/31/22 19:43 Antibody Screen Negative 08/31/22 19:43 Crossmatch See Detail 08/31/22 19:43 Procedures Performed None Vitals Last Vital Signs Temp 98.3 F 09/02/22 08:30 Pulse 98 09/02/22 08:30 Resp 27 H 09/02/22 08:30 BP 123/79 09/02/22 08:30 Pulse Ox 89 L 09/02/22 08:30 O2 Del Method 09/02/22 04:00 Discharge Plan Discharge Patient Disposition: Home Condition: Stable Prescriptions: New ferrous sulfate [Feosol] 325 mg (65 mg iron) tablet 325 mg PO DAILY Qty: 30 0RF cefdinir 300 mg capsule 300 mg PO BID 5 Days Qty: 10 0RF Continued Urinozinc Prostate Complx Clsc 160-12.5 mg capsule 1 cap PO DAILY aspirin 81 mg tablet,delayed release (DR/EC) 81 mg PO DAILY lisinopril 20 mg tablet 20 mg PO DAILY Qty: 90 3RF clopidogrel 75 mg tablet 75 mg PO DAILY Qty: 90 3RF potassium chloride 8 mEq tablet extended release 8 meq PO DAILY Qty: 90 1RF furosemide [Lasix] 20 mg tablet 20 mg PO DAILY Qty: 90 1RF atorvastatin 80 mg tablet 80 mg PO DAILY Qty: 100 3RF gabapentin 300 mg capsule 300 mg PO BID Qty: 60 5RF Januvia 100 mg tablet 100 mg PO DAILY Qty: 30 5RF Rx Instructions: 340B metformin 1,000 mg tablet 1,000 mg PO BID Qty: 180 1RF Hold Instructions: Resume on 12/26/21. Changed omeprazole 40 mg capsule,delayed release(DR/EC) 40 mg PO BIDWM 30 Days Qty: 60 3RF Discharge Orders: Discharge Order (Routine); Ordered 09/02/22 Ordered By: Silver Benitez Other Ambulatory Orders: DME: Wheelchair (Order) Location: None Selected Ordered By: Silver Benitez Referrals: [facility] [Provider Group] - 4-7 days (Anemia, evaluate for endoscopy) [facility] [Provider Group] - 4-7 days (Hematuria) Kunal Mcdowell MD [Primary Care Provider] - 4-7 days Discharge Diet: Advance as tolerated and Cardiac Discharge Activity: Resume usual activity and Increase activity as tolerated Patient Instructions: Opioid Safety Activity Restrictions/Additional Instructions: Advance activity as tolerated Plan of Treatment: 1. Take medications as prescribed 2. Monitor color and consistency of bowel movements 3. Follow-up with primary care provider 4. Referral to general surgery for endoscopy evaluation 5. Referral to urology for hematuria evaluation Discharge Attestations Time Spent in Discharge Care*: greater than 30 min Status at Discharge: Cognitive status at discharge: cognitively intact , Behavioral status at discharge: cooperative , Quality Metrics Clinical Quality Measures [ No reported AMI, CVA or VTE this stay] Coding Level of Care Code Acute g FW DC note Diagnoses Chest pain R07.9 Chest pain type: unspecified Profound anemia D64.9 Anemia type: unspecified type S/P AVR Z95.2 PVD (peripheral vascular disease) I73.9 Type 2 diabetes mellitus E11.65; Z79.4 Diabetes mellitus middle or intermediate school principal insulin use: with detention use Diabetes mellitus complication status: with hyperglycemia Essential (primary) hypertension I10 Troponin level elevated R77.8
--- NOTE | 2022-09-02 10:21 | PM.PN ---
Subjective Subjective: This patient apparently has not had any recurrence of chest discomfort since the blood transfusion. Third delta for the troponin T was unremarkable. The EKG relative any new changes. Hemoglobin seems to be steady around 7.9. According to the patient, he is feeling much better. No fever or chills. No cough. No other specific complaints. Medications: Medication Review Details: Current Medications Acetaminophen (Acetaminophen 500 Mg Tablet) 500 mg PO Q4H PRN PRN Reason: fever Albuterol/Ipratropium (Ipratropium-Albuterol 3 Ml Neb) 3 ml INHALATION Q6H PRN PRN Reason: SHORTNESS OF BREATH Aspirin (Aspirin 81 Mg Ec Tablet) 81 mg PO DAILY [facility] Last Admin: 09/02/22 08:15 Dose: 81 mg Atorvastatin Calcium (Atorvastatin 40 Mg Tablet) 80 mg PO DAILY [facility] Last Admin: 09/02/22 08:14 Dose: 80 mg Clopidogrel Bisulfate (Clopidogrel 75 Mg Tablet) 75 mg PO DAILY [facility] Last Admin: 09/02/22 08:14 Dose: 75 mg Dextrose (Dextrose 50% Syringe 50 Ml) 25 ml IVP ONCE PRN; Protocol PRN Reason: hypoglycemia protocol Dextrose (Dextrose 50% Syringe 50 Ml) 50 ml IVP PRN PRN; Protocol PRN Reason: hypoglycemia protocol Glucagon (Glucagon 1 Mg/Ml Inj 1 Ml) 1 mg IM ONCE PRN; Protocol PRN Reason: Adult Acute Hypoglycemia Prot. Ceftriaxone Sodium 1,000 mg/ (Sodium Chloride) 50 mls @ 100 mls/hr IV DAILY [facility]; Protocol Last Infusion: 09/02/22 08:50 Dose: Infused Dextrose (D5w) 500 mls @ 100 mls/hr IV ONCE PRN; Protocol PRN Reason: Adult Acute Hypoglycemia Prot Insulin Human Lispro (Insulin Lispro 100 Unit/1 Ml) 0 unit SUBCUT TIDWM [facility]; Protocol Last Admin: 09/02/22 08:15 Dose: 6 unit Ondansetron HCl (Ondansetron 2 Mg/Ml Sdv 2 Ml) 4 mg IVP Q6H PRN PRN Reason: NAUSEA AND VOMITING Pantoprazole Sodium (Pantoprazole 40 Mg Sdv) 40 mg IVP BID [facility] Last Admin: 09/01/22 17:34 Dose: 40 mg Vitals/I&O/Wt Last Vital Signs Temp 98.3 F 09/02/22 08:30 Pulse 96 09/02/22 09:38 Resp 27 H 09/02/22 08:30 BP 123/79 09/02/22 08:30 Pulse Ox 99 09/02/22 09:38 O2 Del Method 09/02/22 09:38 09/01/22 09/02/22 09/02/22 22:59 06:59 14:59 Intake Total 300 / 940 50 / 50 Output Total 500 / 1000 725 / 1725 Balance -500 / -360 -425 / -785 50 / 50 Weight last 48 hrs Weight 125 lb Physical Exam Narrative: GENERAL: The patient is alert and oriented times three. Not in any acute distress. HEENT: Mild pallor, no icterus or lymphadenopathy.Oral cavity: There are no mucous membrane lesions. NECK: Trachea appears to be central. No masses noted. No JVD or thyromegaly appreciated. RESPIRATORY: Chest is symmetrical. No intercostals muscle retraction or any accessory muscle activation. There is no chest wall tenderness. Breath sounds are heard bilaterally. No rales or rhonchi heard. No evidence of any consolidation. BREASTS: Deferred. HEART: The heart sounds are normal. No S3 or S4. Short ejection systolic murmur grade 3/6 in the aortic area. No diastolic murmurs.. No pericardial rub ABDOMEN: No vessel pulsations or distention. No tenderness. No organomegaly appreciated. Bowel sounds are normally heard. : Deferred. RECTAL: Deferred. LYMPHATIC: No lymphadenopathy noted in the neck. EXTREMITIES: No edema or cyanosis of the right lower extremity. MUSCULOSKELETAL: No acute joint deformities or swelling SKIN: There are no significant rashes or ecchymosis NEUROPSYCHIATRIC: The patient is alert and oriented x3. Appears to be in a good mood. No tremors or rigidity noted. Data 09/02/22 05:28 09/02/22 05:28 Micro: Microbiology 09/01/22 23:30 Occult Blood (FIT) - Final Stool Routine Collection EKG 1: My Interpretation: Sinus rhythm with aegis of possible old septal myocardial infarction. Nonspecific T changes in the anterolateral and high lateral leads. Compared to the previous EKG, there may not be significant change EKG computer-generated impression: Chest X-Ray 08/31/22 18:45 IMPRESSION: No acute infiltrate. No significant change from 02/03/2020. Abdomen/Pelvis CT 08/31/22 20:48 IMPRESSION: 1. Abnormal thickening of the sigmoid colon which may represent some nonspecific colitis. Further evaluation suggested. 2. Small pleural effusions. 3. Atherosclerotic vascular disease not significantly changed in comparison with 02/13/2020. 4. Question of small perisplenic versus subcapsular fluid of the spleen. COMMENTS: Consistent with the [employer]'s Incidental Findings Committee white paper (J Am Josiane Radiol 2018): Any incidental renal lesion less than 1 cm or classified as too small to characterize, or any incidental cystic renal lesion characterized as simple-appearing, is likely benign. No follow-up imaging is recommended for these lesions per consensus recommendations based on imaging criteria. A&P Assessment and plan (1) Troponin level elevated: Related to type II MO from the severe anemia. In view of the history of coronary disease and coronary bypass surgery, possibility of him having underlying coronary ischemia cannot be excluded. We may do a Myocardial perfusion imaging as an outpatient to evaluate this. Since the patient remaining stable at this point, he may not require any other specific intervention at this point (2) Atherosclerotic heart disease of [place] coronary artery with other forms of angina pectoris: As mentioned above. We will continue on the current medications. (3) Carotid stenosis: Since he has no specific symptoms, may continue on the current treatment measures. Qualifiers: Laterality: right Qualified Code(s): I65.21 - Occlusion and stenosis of right carotid artery (4) Presence of prosthetic heart valve: The patient has no specific symptoms, may continue on the current medications. 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 (7) Mixed hyperlipidemia: May continue the current medications. (8) PVD (peripheral vascular disease): Currently stable. Continue on the current measures. (9) Iron deficiency anemia: Further work-up and management as per the primary attending. Plan We will go ahead and schedule for a Myocardial perfusion imaging as an outpatient. 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
--- NOTE | 2022-09-02 12:39 | PC.NURSE ---
Discharge Note Patient discharged to home via w/c accompanied by spouse. Discharge instructions reviewed with patient and/or fundraising sale representative. Mobile pharmacy medications and/or prescriptions provided. Belongings/home medications returned.
== END 2022-09-02 12:40 | disposition home or self-care (01) | DRG 811 ==
LOC: ER 20:02 → CSU 20:18
PROVIDERS: Emergency Medicine; Admitting Provider Internal Medicine; Emergency Provider Family Medicine; PCP Internal Medicine; Visit Provider Internal Medicine
DX: D50.9 Iron deficiency anemia, unspecified (principal); I21.A1 Myocardial infarction type 2; I50.32 Chronic diastolic (congestive) heart failure; N39.0 Urinary tract infection, site not specified; E11.40 Type 2 diabetes mellitus with diabetic neuropathy, unspecified; E11.51 Type 2 diabetes mellitus with diabetic peripheral angiopathy without gangrene; E11.65 Type 2 diabetes mellitus with hyperglycemia; I11.0 Hypertensive heart disease with heart failure; I25.10 Atherosclerotic heart disease of native coronary artery without angina pectoris; Z95.1 Presence of aortocoronary bypass graft; Z89.511 Acquired absence of right leg below knee; Z95.2 Presence of prosthetic heart valve; E78.2 Mixed hyperlipidemia; R31.9 Hematuria, unspecified; Z79.82 Long term (current) use of aspirin; Z79.02 Long term (current) use of antithrombotics/antiplatelets; Z79.84 Long term (current) use of oral hypoglycemic drugs; F17.200 Nicotine dependence, unspecified, uncomplicated
CPT/HCPCS: 36415; 36416; 36430; 71045; 74177; 80048; 80053; 80069; 81001; 82274; 82607; 82728; 82962; 83540; 83550; 83735; 83880; 84443; 84484; 85025; 86850; 86900; 86920; 87077; 87086; 87186; 87426; 87804; 93005; 93306; 96372; 99285; C9113; J0696; J1756; J1815; J1940; P9016; Q9967

== ENCOUNTER → 2022-09-14 15:40 | Outpatient (BNVA) | payer MEDICARE, SELFPAY | PROVIDERS: Visit Provider Urology | DX: N39.0 Urinary tract infection, site not specified (principal); N32.1 Vesicointestinal fistula; R31.9 Hematuria, unspecified; Z75.8 Other problems related to medical facilities and other health care; N40.0 Benign prostatic hyperplasia without lower urinary tract symptoms | CPT/HCPCS: 51741; 51798; 52000; 81003; 87077; 87086; 87186; 99204 ==

== ENCOUNTER 2022-09-27 18:04 | Emergency (ER) | payer MEDICARE, SELFPAY ==
[2022-09-27 18:23] VITALS: BP 130/82; PULSE 95; RESP 16; TEMP 36.6; O2SAT 97
--- NOTE | 2022-09-27 19:45 | W.ED.ABDPA2 ---
HPI - Abdominal Pain General: Chief Complaint: Abdominal Pain Stated Complaint: Bladder Rubture\Cough\N\V Time Seen by Provider: 09/27/22 19:45 History of Present Illness: Mr. 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 He reports essentially feeling ill for the past few months but is worse over the past few days. Endorses foul dark urine as well as generalized lower abdominal discomfort and generalized malaise. Also has a cough which is mildly productive. Intensity symptoms moderate to severe. Course has worsened. No other specific changes in health, exacerbating, or alleviating factors identified. Pertinent past history: other Onset (ago): week(s) Pain Consistency: intermittent Location: Suprapubic Severity: moderate Migration to: no migration Exacerbating factors: eating and movement Relieving factors: nothing Associated Symptoms: Reports dysuria and nausea Review of Systems General: Reports: 10 or more systems reviewed and unremarkable except in HPI and below GI: Reports: nausea : Reports: dysuria PFSH ED PFSH: Medical History Atherosclerotic heart disease of [place] coronary artery without angina pectoris Colovesical fistula Diastolic CHF, chronic Essential (primary) hypertension Hereditary and idiopathic neuropathy, unspecified Mixed hyperlipidemia Non-ST elevated myocardial infarction (non-STEMI) Non-ST elevation (NSTEMI) myocardial infarction Occlusion and stenosis of left carotid artery Presence of prosthetic heart valve 08/31/2022 LV systolic function is mildly reduced with EF of 40 to 45%. Mild global hypokinesis is seen. Diastolic function cannot be assessed because of atrial fibrillation RV is moderately hypokinetic Left atrial dilation Mild to moderate mitral regurgitation Bioprosthetic aortic valve is seen. DVI is normal Mild tricuspid regurgitation Trace pulmonic regurgitation Compared to prior echocardiogram from 02/12/2020, LV systolic function has decreased and is 40-45% now Profound anemia Smoking Surgical History History [facility] 12/2019[facility] History of aortic valve replacement History of coronary artery bypass graft Hx of right BKA Family History Father CAD (coronary artery disease), Onset Age: 60 Mother , at age 54 Cancer breast Denies family history of Diabetes Clotting disorder Dementia Chronic kidney disease (CKD) Suicide Anesthesia complication Bleeding disorder Lung disease Stroke Social History Smoking and tobacco status: current every day smoker cigarettes Packs smoked per day: 1 Years cigarettes smoked: 54 Alcohol intake: never Marital status: Current occupational status: retired History of recent travel: No Physical Exam Const: COMMON NORMALS: alert GENERAL APPEARANCE: cooperative, well developed and ill appearing (Mildly) HENMT: COMMON NORMALS: normocephalic and atraumatic HEAD & SCALP: normocephalic and atraumatic THROAT: posterior oropharynx normal Eye: COMMON NORMALS: conjunctivae normal CONJUNCTIVA: Yes conjunctivae normal SCLERA: sclerae normal Neck/C-Spine: COMMON NORMALS: supple GENERAL: Yes trachea midline Resp: COMMON NORMALS: clear to auscultation bilaterally EFFORT & INSPECTION: Yes able to speak in complete sentences AUSCULTATION: clear to auscultation bilaterally Cardio: COMMON NORMALS: regular rate and regular rhythm RATE: regular rate RHYTHM: regular rhythm GI: COMMON NORMALS: Soft to palpation PALPATION: Yes Soft to palpation, Yes Tenderness to palpation present (GI), No Guarding due to palpation present (GI) and No Rigid due to palpation : COMMON NORMALS: Yes normal external exam, Yes Testes normal and Yes scrotum normal Extremity: NARRATIVE EXTREMITY EXAM: Prior BKA GENERAL: Yes normal exam except as noted and No edema Neuro: COMMON NORMALS: moves all extremities SENSORIUM/ORIENTATION: Yes alert and No Orientation impaired Psych: COMMON NORMALS: mental status grossly normal and Normal thought process present THOUGHT PROCESS: Normal thought process present Course Vital Signs: Vital signs: Vital Signs Temperature 97.9 F 09/27/22 18:23 Pulse Rate 85 09/28/22 00:33 Respiratory Rate 16 09/28/22 00:33 Blood Pressure 120/76 09/28/22 00:33 Pulse Oximetry 95 09/28/22 00:33 Oxygen Delivery Me thod 09/27/22 18:23 MDM - Abdominal Pain Medical Decision Making 67-year-old gentleman with complex history presenting with worsening of chronic symptoms as well as concern over changes in urinary function with a history of vesicocolonic fistula. Mildly ill on clinical exam however nontoxic. Labs notable for leukocytosis, normocytic anemia, mild thrombocytopenia. No significant metabolic derangement requiring intervention. Urinalysis concerning for infection. Chest x-ray with no lobar consolidation or pneumothorax. CT with diverticulitis and gastroenteritis. Incidental findings discussed with patient. Patient does not have thyroid upper quadrant tenderness to palpation and clinical history is not consistent with cholecystitis. Patient treated with antibiotics and prior urine cultures reviewed. Patient feels improved with analgesia. The most likely etiology of patient's symptoms is urinary tract infection and diverticulitis/gastroenteritis. The results of ED evaluation were discussed with the patient including possible disposition options. He prefers outpatient management which actually is reasonable. I discussed prescriptions and/or symptomatic cares (if applicable) including appropriate and responsible use, followup plan, and return precautions. The patient verbalized understanding and felt safe for discharge. Medical Records I reviewed the patient's medical records. Lab Data I reviewed the patient's lab results. 09/27/22 20:30 09/27/22 20:30 Labs/Radiology: Radiology Impressions Chest X-Ray 09/27/22 19:49 IMPRESSION: No acute findings. Abdomen/Pelvis CT 09/27/22 20:12 IMPRESSION: 1. Mid sigmoid colon localized wall thickening in the area of several diverticula suggestive of a diverticulitis, a localized colitis may also be a consideration depending on the clinical setting. 2. Prominent fluid in the stomach and small bowel with mucosal enhancement suggestive of a gastroenteritis. 3. Small bilateral left greater than right pleural effusions. 4. Emphysematous changes. 5. Bibasilar atelectasis versus infiltrate. 6. Gallbladder is somewhat prominent, ultrasound could further evaluate this as clinically indicated. 7. Right kidney cyst, negative for follow up advised. COMMENTS: Consistent with the [employer]'s Incidental Findings Committee white paper (J Am Josiane Radiol 2018): Any incidental renal lesion less than 1 cm or classified as too small to characterize, or any incidental cystic renal lesion characterized as simple-appearing, is likely benign. No follow-up imaging is recommended for these lesions per consensus recommendations based on imaging criteria. Laboratory Results WBC 11.5 10^3/uL (4.0-10.0) H 09/27/22 20:30 WBC Cancelled 09/27/22 20:30 Corrected WBC Cancelled 09/27/22 20:30 RBC 4.17 10^6/uL (4.1-5.3) 09/27/22 20:30 RBC Cancelled 09/27/22 20:30 Hgb 10.0 g/dL (11.7-16.6) L 09/27/22 20:30 Hgb Cancelled 09/27/22 20:30 Hct 35.1 % (42.0-52.0) L 09/27/22 20:30 Hct Cancelled 09/27/22 20:30 MCV 84.2 fl (80-94) 09/27/22 20:30 MCV Cancelled 09/27/22 20:30 MCH 24.0 pg (28.0-34.0) L 09/27/22 20:30 MCH Cancelled 09/27/22 20:30 MCHC 28.5 g/dL (30.0-36.0) L 09/27/22 20:30 MCHC Cancelled 09/27/22 20:30 RDW Cancelled 09/27/22 20:30 RDW Not Reportable 09/27/22 20:30 Plt Count 499 10^3/cmm (130-400) H 09/27/22 20:30 Plt Count Cancelled 09/27/22 20:30 MPV 9.3 fL (7.4-10.4) 09/27/22 20:30 MPV Cancelled 09/27/22 20:30 Gran % Cancelled 09/27/22 20:30 Neut % (Auto) 78.1 % 09/27/22 20:30 Neut % (Auto) Cancelled 09/27/22 20:30 Lymph % (Auto) 14.2 % 09/27/22 20:30 Lymph % (Auto) Cancelled 09/27/22 20:30 [place] % (Auto) 6.6 % 09/27/22 20:30 [place] % (Auto) Cancelled 09/27/22 20:30 Eos % (Auto) 0.1 % 09/27/22 20:30 Eos % (Auto) Cancelled 09/27/22 20:30 Baso % (Auto) 0.7 % 09/27/22 20:30 Baso % (Auto) Cancelled 09/27/22 20:30 Neut # (Auto) 8.94 10^3/uL (1.8-7.7) H 09/27/22 20:30 Neut # (Auto) Cancelled 09/27/22 20:30 Lymph # (Auto) 1.6 10^3/uL (0.8-4.8) 09/27/22 20:30 Lymph # (Auto) Cancelled 09/27/22 20:30 [place] # (Auto) 0.8 10^3/uL (0.2-0.9) 09/27/22 20:30 [place] # (Auto) Cancelled 09/27/22 20:30 Eos # (Auto) 0.0 10^3/uL (0.0-0.8) 09/27/22 20:30 Eos # (Auto) Cancelled 09/27/22 20:30 Baso # (Auto) 0.1 10^3/uL (0.0-0.1) 09/27/22 20:30 Baso # (Auto) Cancelled 09/27/22 20:30 Absolute Gran (auto) Cancelled 09/27/22 20:30 Nucleated RBC % (auto) 0 % 09/27/22 20:30 Nucleated RBC % (auto) Cancelled 09/27/22 20:30 Nucleated RBCs # 0.0 /100WBC 09/27/22 20:30 Nucleated RBCs # Cancelled 09/27/22 20:30 Dimorphic RBCs 2+ H 09/27/22 20:30 Hypochromasia 1+ H 09/27/22 20:30 Poikilocytosis 2+ H 09/27/22 20:30 Anisocytosis 3+ H 09/27/22 20:30 Microcytosis 1+ H 09/27/22 20:30 Target Cells 1+ H 09/27/22 20:30 Tear Drop Cells 1+ 09/27/22 20:30 Ovalocytes 1+ H 09/27/22 20:30 Kris Cells 1+ H 09/27/22 20:30 Sodium 141 mmol/L (136-145) 09/27/22 20:30 Potassium 4.4 mmol/L (3.5-5.1) 09/27/22 20:30 Chloride 104 mmol/L (98-107) 09/27/22 20:30 Carbon Dioxide 24 mmol/L (22-29) 09/27/22 20:30 Anion Gap 17.4 (5-19) 09/27/22 20:30 BUN 31 mg/dL (8-23) H 09/27/22 20:30 Creatinine 0.9 mg/dL (0.7-1.2) 09/27/22 20:30 GFR Calculation 83.7 mL/min (90-130) L 09/27/22 20:30 Glucose 167 mg/dL (65-115) H 09/27/22 20:30 Calculated Osmolality 302 mOsm/kg (285-295) H 09/27/22 20:30 Calcium 9.3 mg/dL (8.5-10.5) 09/27/22 20:30 Total Bilirubin 0.3 mg/dL (0.15-1.2) 09/27/22 20:30 AST 23 U/L (0-40) 09/27/22 20: ALT 16 U/L (0-41) 09/27/22 20: Alkaline Phosphatase 136 U/L (40-130) H 09/27/22 20:30 Total Protein 7.2 g/dL (6.6-8.7) 09/27/22 20: Albumin 3.4 g/dL (3.5-5.2) L 09/27/22 20:30 Globulin 3.8 g/dL (1.3-4.6) 09/27/22 20:30 Urine Color Brown (Yellow) 09/27/22 22:25 Urine Appearance Turbid (CLEAR) A 09/27/22 22:25 Urine pH 6 (5-7) 09/27/22 22:25 Ur Specific Leslie 1.015 (1.005-1.030) 09/27/22 22:25 Urine Protein 3+ (Negative) H 09/27/22 22:25 Urine Glucose (UA) Norm (Normal) 09/27/22 22:25 Urine Ketones 1+ (Negative) H 09/27/22 22:25 Urine Blood 3+ (Negative) H 09/27/22 22:25 Urine Nitrate Negative (Negative) 09/27/22 22: Urine Bilirubin Neg (Negative) 09/27/22 22:25 Urine Urobilinogen Norm mg/dL (Negative) 09/27/22 22:25 Ur Leukocyte Esterase 2+ (Negative) H 09/27/22 22:25 Urine RBC Too numerous to cnt /hpf (0-2) H 09/27/22 22:25 Urine WBC Too numerous to cnt /hpf (0-5) H 09/27/22 22:25 Ur Squamous Epith Cells None /hpf (0-5) 09/27/22 22:25 Amorphous Sediment Not Reportable 09/27/22 22:25 Urine Bacteria 4+ /hpf (NONE) H 09/27/22 22:25 Discharge Plan Discharge Patient Disposition: Home Clinical Impression: Diverticulitis, Gastroenteritis Condition: Stable Prescriptions: New ondansetron 4 mg tablet,disintegrating 4 mg PO Q8H PRN (Reason: nausea and vomiting) Qty: 15 0RF oxycodone 5 mg tablet 5 mg PO Q4H PRN (Reason: pain) Qty: 10 0RF ciprofloxacin HCl 500 mg tablet 500 mg PO Q12H Qty: 20 0RF No Action Urinozinc Prostate Complx Clsc 160-12.5 mg capsule 1 cap PO DAILY aspirin 81 mg tablet,delayed release (DR/EC) 81 mg PO DAILY lisinopril 20 mg tablet 20 mg PO DAILY Qty: 90 3RF pantoprazole [Protonix] 40 mg tablet,delayed release (DR/EC) 40 mg PO BID 14 Days Qty: 28 0RF amoxicillin 500 mg tablet 1,000 mg PO BID 14 Days Qty: 56 0RF clarithromycin 500 mg tablet 500 mg PO BID 14 Days Qty: 28 0RF clopidogrel 75 mg tablet 75 mg PO DAILY Qty: 90 3RF potassium chloride 8 mEq tablet extended release 8 meq PO DAILY Qty: 90 1RF furosemide [Lasix] 20 mg tablet 20 mg PO DAILY Qty: 90 1RF atorvastatin 80 mg tablet 80 mg PO DAILY Qty: 100 3RF gabapentin 300 mg capsule 300 mg PO BID Qty: 60 5RF Januvia 100 mg tablet 100 mg PO DAILY Qty: 30 5RF Rx Instructions: 340B metformin 1,000 mg tablet 1,000 mg PO BID Qty: 180 1RF Hold Instructions: Resume on 12/26/21. cefdinir 300 mg capsule See Rx Instructions .ROUTE .COMPLEX Qty: 30 0RF Dose Instruction: take 1 capsule BY MOUTH TWICE DAILY Rx Instructions: take 1 capsule BY MOUTH TWICE DAILY Feosol 325 mg (65 mg iron) tablet 325 mg PO DAILY Qty: 30 0RF omeprazole 40 mg capsule,delayed release(DR/EC) 40 mg PO BIDWM 30 Days Qty: 60 3RF Discharge Orders: Discharge ED (Routine); Ordered 09/27/22 Ordered By: Jones Sherman Discharge Diet: Advance as tolerated and Clear Liquid Discharge Activity: Increase activity as tolerated Activity Restrictions/Additional Instructions: Thank you for visiting the emergency department. You were seen and evaluated for abdominal symptoms. Most likely cause of your symptoms is diverticulitis which will be treated with antibiotics. Given clinical exam as well as imaging and laboratory findings I believe that it is reasonable to attempt treatment at home. Please follow-up with your primary care provider. Return to the emergency department for worsening symptoms or anything else that you are concerned about and feel needs emergency department evaluation. Coding Level of Care Code ED Ship Surveyor for Bill Recinos
--- NOTE | 2022-09-27 19:49 | XRR_ITS ---
PROCEDURE INFORMATION: Exam: XR Chest Exam date and time: 09/27/2022 8:15 PM Age: 67 years old Clinical indication: Cough; Additional info: Cough, SOB TECHNIQUE: Imaging protocol: Radiologic exam of the chest. Views: 1 view. COMPARISON: CR (CHEST, ) 08/31/2022 7:02 PM FINDINGS: Lungs: Unremarkable. No consolidation. Pleural spaces: Unremarkable. No pleural effusion. No pneumothorax. Heart/Mediastinum: Unremarkable. No cardiomegaly. Bones/joints: Sternotomy wires. XR/XR chest 1V portable [id number] IMPRESSION: No acute findings.
[2022-09-27 20:02] VITALS: RESP 16
[2022-09-27] MEDS: morphine 4 mg/mL SDV 1 mL IVP (20:02)
--- NOTE | 2022-09-27 20:12 | CTR_ITS ---
PROCEDURE INFORMATION: Exam: CT Abdomen And Pelvis With Contrast Exam date and time: 09/27/2022 9:30 PM Age: 67 years old Clinical indication: Pain; Other: Pelvic, scrotal; Additional info: Lower abd pain TECHNIQUE: Imaging protocol: Computed tomography of the abdomen and pelvis with contrast. Radiation optimization: All CT scans at this facility use at least one of these dose optimization techniques: automated exposure control; mA and/or kV adjustment per patient size (includes targeted exams where dose is matched to clinical indication); or iterative reconstruction. Contrast material: OMNIPAQUE 350; Contrast volume: 95 ml; Contrast route: INTRAVENOUS (IV); COMPARISON: CT abdomen pelvis w con* [id number] 08/31/2022 10:06 PM RADIATION DOSE METRICS: Total DLP (mGy-cm): 401.85 FINDINGS: Lungs: Emphysematous changes. Bibasilar atelectasis versus infiltrate. Pleural spaces: Small bilateral left greater than right pleural effusions. Liver: Normal. No mass. Gallbladder and bile ducts: Gallbladder is somewhat prominent, ultrasound could further evaluate this as clinically indicated. Pancreas: Normal. No ductal dilation. Spleen: Normal. No splenomegaly. Adrenal glands: Normal. No mass. Kidneys and ureters: Right kidney cyst, negative for follow up advised. Stomach and bowel: Mid sigmoid colon localized wall thickening in the area of several diverticula suggestive of a diverticulitis, a localized colitis may also be a consideration depending on the clinical setting. Prominent fluid in the stomach and small bowel with mucosal enhancement suggestive of a gastroenteritis. Appendix: No evidence of appendicitis. Intraperitoneal space: Unremarkable. No free air. No significant fluid collection. Vasculature: Bilateral common iliac artery stents. Lymph nodes: Unremarkable. No enlarged lymph nodes. Urinary bladder: Unremarkable as visualized. Reproductive: Unremarkable as visualized. Bones/joints: Unremarkable. No acute fracture. Soft tissues: Unremarkable. CT/CT abdomen pelvis w con* [id number] IMPRESSION: 1. Mid sigmoid colon localized wall thickening in the area of several diverticula suggestive of a diverticulitis, a localized colitis may also be a consideration depending on the clinical setting. 2. Prominent fluid in the stomach and small bowel with mucosal enhancement suggestive of a gastroenteritis. 3. Small bilateral left greater than right pleural effusions. 4. Emphysematous changes. 5. Bibasilar atelectasis versus infiltrate. 6. Gallbladder is somewhat prominent, ultrasound could further evaluate this as clinically indicated. 7. Right kidney cyst, negative for follow up advised. COMMENTS: Consistent with the [employer]'s Incidental Findings Committee white paper (J Am Josiane Radiol 2018): Any incidental renal lesion less than 1 cm or classified as too small to characterize, or any incidental cystic renal lesion characterized as simple-appearing, is likely benign. No follow-up imaging is recommended for these lesions per consensus recommendations based on imaging criteria.
[2022-09-27 20:50] LABS: Basophils # 0.1 10^3/uL (0.0-0.1); Basophils % 0.7 %; Eosinophils % 0.1 %; Hematocrit 35.1 % (42.0-52.0); Lymphocytes # 1.6 10^3/uL (0.8-4.8); Lymphocytes % 14.2 %; Mean Corpuscular HGB Conc 28.5 g/dL (30.0-36.0); Mean Corpuscular Volume 84.2 fl (80-94); Mean Platelet Volume 9.3 fL (7.4-10.4); Monocytes # 0.8 10^3/uL (0.2-0.9); Monocytes % 6.6 %; Neutrophils # 8.94 10^3/uL (1.8-7.7); Neutrophils % 78.1 %; Nucleated Red Blood Cells % 0 %; Platelet Count 499 10^3/cmm (130-400); Red Blood Count 4.17 10^6/uL (4.1-5.3); White Blood Count 11.5 10^3/uL (4.0-10.0)
[2022-09-27 21:03] LABS: Alanine Aminotransferase 16 U/L (0-41); Albumin Level 3.4 g/dL (3.5-5.2); Alkaline Phosphatase 136 U/L (40-130); Anion Gap 17.4 (5-19); Aspartate Amino Transferase 23 U/L (0-40); Blood Urea Nitrogen 31 mg/dL (8-23); Calcium 9.3 mg/dL (8.5-10.5); Carbon Dioxide 24 mmol/L (22-29); Chloride 104 mmol/L (98-107); Globulin 3.8 g/dL (1.3-4.6); Glomerular Filtration Rate 83.7 mL/min (90-130); Glucose 167 mg/dL (65-115); Osmolality Calculated 302 mOsm/kg (285-295); Potassium 4.4 mmol/L (3.5-5.1); Sodium 141 mmol/L (136-145); Total Bilirubin 0.3 mg/dL (0.15-1.2); Total Protein 7.2 g/dL (6.6-8.7)
[2022-09-27 21:50] LABS: Add RBC Morph Yes; RBC Morph Comp No
[2022-09-27] MEDS: ciprofloxacin 400 MG/200 ML PREMIX 200 MG IV (23:24)
[2022-09-27] MEDS: metroNIDAZOLE IV 500 MG/100 ML PREMIX 100 MG IV (23:24)
[2022-09-27 23:33] LABS: Bilirubin Urine Neg (Negative); Blood Urine 3+ (Negative); Glucose Urine UA Norm (Normal); Ketones Urine 1+ (Negative); Nitrate Urine Negative (Negative); Protein Urine 3+ (Negative); Specific Gravity, Urine 1.015 (1.005-1.030); Urine Appearance Turbid (CLEAR); Urine Color Brown (Yellow); pH Urine 6 (5-7)
[2022-09-27 23:34] LABS: Add Urine Microscopic? YES; Leukocyte Esterase Urine 2+ (Negative); Urobilinogen Urine Norm (Negative)
[2022-09-27 23:35] LABS: Add Urine Culture? No; Bacteria Urine 4+ /hpf; RBC Urine TOO NUMEROUS TO CNT /hpf (0-2); WBC Urine TOO NUMEROUS TO CNT /hpf (0-5)
[2022-09-28 00:33] VITALS: BP 120/76; PULSE 85; RESP 16; O2SAT 95
[2022-09-28 05:43] LABS: Dimorphic RBC 2+; Hypochromasia 1+
[2022-09-28 05:44] LABS: Anisocytosis 3+; Burr Cells 1+; Microcytosis 1+; Ovalocytes 1+; Poikilocytosis 2+; Target Cells 1+; Tear Drop Cells 1+
== END 2022-09-28 00:35 | disposition home or self-care (01) ==
PROVIDERS: Emergency Provider Emergency Medicine
DX: K57.92 Diverticulitis of intestine, part unspecified, without perforation or abscess without bleeding (principal); K52.9 Noninfective gastroenteritis and colitis, unspecified; Z79.82 Long term (current) use of aspirin; Z79.02 Long term (current) use of antithrombotics/antiplatelets; Z79.84 Long term (current) use of oral hypoglycemic drugs; F17.210 Nicotine dependence, cigarettes, uncomplicated; Z95.1 Presence of aortocoronary bypass graft; I11.0 Hypertensive heart disease with heart failure; I50.32 Chronic diastolic (congestive) heart failure; E78.2 Mixed hyperlipidemia; I25.2 Old myocardial infarction; Z89.511 Acquired absence of right leg below knee
CPT/HCPCS: 71045; 74177; 80053; 81001; 85025; 87040; 87077; 87086; 87186; 96365; 96367; 96375; 99285; J0744; J2270; J3490; Q9967

== ENCOUNTER 2022-10-09 04:15 | Inpatient (IN) | payer MEDICARE, SELFPAY ==
[2022-10-09] VITALS (21 sets, daily range): BP systolic 75–132; BP diastolic 52–87; PULSE 66–135; RESP 0–28; TEMP 35.9–36.7; O2SAT 92–99; BMI 16.2; BMI 17.2
--- NOTE | 2022-10-09 04:23 | XRR_ITS ---
PROCEDURE INFORMATION: Exam: XR Chest Exam date and time: 10/09/2022 4:38 AM Age: 67 years old Clinical indication: Other: Weakness TECHNIQUE: Imaging protocol: Radiologic exam of the chest. Views: 1 view. COMPARISON: CR (CHEST, ) 09/27/2022 8:15 PM FINDINGS: Lungs: No pulmonary consolidation. Emphysematous lung changes. Pleural spaces: Unremarkable. No pleural effusion. No pneumothorax. Heart/Mediastinum: Aortic valve replacement. Cardiomegaly. Bones/joints: Unremarkable. XR/XR chest 1V portable [id number] IMPRESSION: 1. Cardiomegaly. 2. No focal acute pulmonary disease identified.
--- NOTE | 2022-10-09 04:25 | ED_ITS ---
HPI - Weakness General: Chief complaint: Weakness Stated complaint: hyperglycemia Time Seen by Provider: 10/09/22 04:20 Source: patient and EMS Mode of arrival: EMS Limitations: no limitations History of Present Illness: 67-year-old male states that over the last month he has been having worsening generalized weakness patient called EMS this morning states that he is having hard time getting around due to his weakness he has not been taking his meds he does have a history of diabetes he is hyperglyc emic with EMS of a blood sugar of 509 he denies any fever or pain anywhere he states he just feels very weak. 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 Mild global hypokinesis is seen. Diastolic function cannot be assessed because of atrial fibrillation RV is moderately hypokinetic Left atrial dilation Mild to moderate mitral regurgitation Bioprosthetic aortic valve is seen. DVI is normal Mild tricuspid regurgitation Trace pulmonic regurgitation Compared to prior echocardiogram from 02/12/2020, LV systolic function has decreased and is 40-45% now Profound anemia Smoking Surgical History History [facility] 12/2019[facility] History of aortic valve replacement History of coronary artery bypass graft Hx of right BKA Family History Father CAD (coronary artery disease), Onset Age: 60 Mother , at age 54 Cancer breast Denies family history of Diabetes Clotting disorder Dementia Chronic kidney disease (CKD) Suicide Anesthesia complication Bleeding disorder Lung disease Stroke Social History Smoking and tobacco status: current every day smoker cigarettes Packs smoked per day: 1 Years cigarettes smoked: 54 Alcohol intake: never Marital status: Current occupational status: retired History of recent travel: No Physical Exam Const: COMMON NORMALS: patient oriented x3 GENERAL APPEARANCE: frail appearing HENMT: COMMON NORMALS: normocephalic and atraumatic HEAD & SCALP: normocephalic and atraumatic Eye: COMMON NORMALS: Equal, round and reactive pupils present and EOMs intact bilaterally PUPIL: Yes Equal, round and reactive pupils present Neck/C-Spine: COMMON NORMALS: full ROM and supple Chest: COMMONS NORMALS: normal inspection of the chest and normal palpation of entire chest wall Resp: COMMON NORMALS: normal respiratory effort, No retractions, No use of accessory muscles and clear to auscultation bilaterally AUSCULTATION: clear to auscultation bilaterally Cardio: COMMON NORMALS: regular rate, regular rhythm and No murmurs present (Cardio) RATE: regular rate RHYTHM: regular rhythm GI: COMMON NORMALS: Normal to inspection, nondistended, normoactive bowel sounds present, Soft to palpation, non-tender and no masses PALPATION: Yes Soft to palpation Extremity: COMMON NORMALS: normal to inspection and full ROM Neuro: COMMON NORMALS: patient oriented x3, moves all extremities and no focal motor deficits Psych: COMMON NORMALS: mental status grossly normal, Normal thought process present and cooperative THOUGHT PROCESS: Normal thought process present Skin: COMMON NORMALS: no rashes or lesions noted and no wounds GENERAL SKIN EXAM: no rashes or lesions noted Course Vital Signs: Vital signs: Vital Signs Temperature 98.0 F 10/09/22 07:36 Pulse Rate 87 10/09/22 11:08 Respiratory Rate 18 10/09/22 11:01 Blood Pressure 100/77 10/09/22 07:36 Pulse Oximetry 92 10/09/22 11:01 Oxygen Delivery Me thod 10/09/22 11:01 Oxygen Flow Rate 2 10/09/22 11:01 MDM - Weakness Medical Decision Making Patient presents with generalized weakness he was hyperglycemic his blood sugar has improved he is in atrial flutter with RVR patient started on Cardizem drip he also has elevated liver enzymes spoke to hospitalist will admit at this time. Lab Data 10/09/22 04:30 10/09/22 04:30 Radiology Impressions Chest X-Ray 10/09/22 04:23 IMPRESSION: 1. Cardiomegaly. 2. No focal acute pulmonary disease identified. Chest/Abdomen/Pelvis CT 10/09/22 06:36 IMPRESSION: 1. Cardiomegaly with moderate bilateral pleural effusions. There is loculated fissural fluid on the left. 2. Mediastinal and bilateral hilar lymphadenopathy. 3. Coronary artery disease. 4. At least mild centrilobular emphysema. 5. Dependent atelectasis at the lung bases. 6. Diffuse subcutaneous edema may reflect anasarca. IMPRESSION: 1. Subcapsular splenic collection that is the density of blood. This is suspicious for a subcapsular splenic hematoma. There are linear foci in the spleen suspicious for grade 1 splenic lacerations. No definite active extravasation is seen. 2. Colonic diverticulosis is noted. There is marked wall thickening of the distal descending and proximal/mid sigmoid colon. This could reflect marked colitis. Diverticulitis is considered less likely given long segment involvement; however, this is not excluded. Recommend colonoscopy upon resolution of acute symptoms to exclude underlying mass. 3. There is prominence of the wall of multiple small bowel loops which may reflect background enteritis. Correlate clinically. 4. Indeterminate right hepatic lesion. Recommend nonemergent MR abdomen hepatic protocol with and without contrast to better characterize. 5. Globular eccentric atheromatous plaque within the proximal abdominal aorta. No dissection is seen. 6. Probable severe narrowing of the proximal renal arteries. 7. Severe narrowing of the superior mesenteric artery 8. The right femoral artery is occluded. 9. A gastric diverticulum is noted. 10. Mild ascites. 11. Diffuse subcutaneous edema may reflect anasarca. COMMENTS: Consistent with the [employer]'s Incidental Findings Committee white paper (J Am Josiane Radiol 2018): Any incidental renal lesion less than 1 cm or classified as too small to characterize, or any incidental cystic renal lesion characterized as simple-appearing, is likely benign. No follow-up imaging is recommended for these lesions per consensus recommendations based on imaging criteria. ADDENDUM: 10/09/[address] 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 Laboratory Results WBC 12.5 10^3/uL (4.0-10.0) H 10/09/22 04:30 RBC 4.11 10^6/uL (4.1-5.3) 10/09/22 04:30 Hgb 9.8 g/dL (11.7-16.6) L 10/09/22 04:30 Hct 33.2 % (42.0-52.0) L 10/09/22 04:30 MCV 80.8 fl (80-94) 10/09/22 04:30 MCH 23.8 pg (28.0-34.0) L 10/09/22 04:30 MCHC 29.5 g/dL (30.0-36.0) L 10/09/22 04:30 RDW 27.5 % (12.1-15.1) H 10/09/22 04:30 Plt Count 307 10^3/cmm (130-400) 10/09/22 04:30 MPV 10.3 fL (7.4-10.4) 10/09/22 04:30 Neut % (Auto) 82.4 % 10/09/22 04:30 Lymph % (Auto) 8.2 % 10/09/22 04:30 Barry % (Auto) 8.6 % 10/09/22 04:30 Eos % (Auto) 0.2 % 10/09/22 04:30 Baso % (Auto) 0.2 % 10/09/22 04:30 Neut # (Auto) 10.32 10^3/uL (1.8-7.7) H 10/09/22 04:30 Lymph # (Auto) 1.0 10^3/uL (0.8-4.8) 10/09/22 04:30 Barry # (Auto) 1.1 10^3/uL (0.2-0.9) H 10/09/22 04:30 Eos # (Auto) 0.0 10^3/uL (0.0-0.8) 10/09/22 04:30 Baso # (Auto) 0.0 10^3/uL (0.0-0.1) 10/09/22 04:30 Nucleated RBC % (auto) 0 % 10/09/22 04:30 Nucleated RBCs # 0.0 /100WBC 10/09/22 04:30 Sodium 134 mmol/L (136-145) L 10/09/22 04:30 Potassium 3.9 mmol/L (3.5-5.1) 10/09/22 04:30 Chloride 98 mmol/L (98-107) 10/09/22 04:30 Carbon Dioxide 24 mmol/L (22-29) 10/09/22 04:30 Anion Gap 15.9 (5-19) 10/09/22 04:30 BUN 55 mg/dL (8-23) H 10/09/22 04:30 Creatinine 1.1 mg/dL (0.7-1.2) 10/09/22 04:30 GFR Calculation 66.4 mL/min (90-130) L 10/09/22 04:30 Glucose 337 mg/dL (65-115) H 10/09/22 04:30 POC Glucose 310 mg/dL (70-110) H 10/09/22 06:09 Calculated Osmolality 306 mOsm/kg (285-295) H 10/09/22 04:30 Calcium 7.9 mg/dL (8.5-10.5) L 10/09/22 04:30 Magnesium 2.5 mg/dL (1.7-2.3) H 10/09/22 04:30 Total Bilirubin 0.7 mg/dL (0.15-1.2) 10/09/22 04:30 AST 326 U/L (0-40) H 10/09/22 04:30 ALT 1096 U/L (0-41) H 10/09/22 04:30 Alkaline Phosphatase 225 U/L (40-130) H 10/09/22 04:30 Total Protein 6.7 g/dL (6.6-8.7) 10/09/22 04:30 Albumin 3.4 g/dL (3.5-5.2) L 10/09/22 04:30 Globulin 3.3 g/dL (1.3-4.6) 10/09/22 04:30 Lipase 34 U/L (13-60) 10/09/22 04:30 Urine Color Yellow (Yellow) 10/09/22 05:28 Urine Appearance Hazy (CLEAR) A 10/09/22 05:28 Urine pH 5 (5-7) 10/09/22 05:28 Ur Specific [place] 1.015 (1.005-1.030) 10/09/22 05:28 Urine Protein Neg (Negative) 10/09/22 05:28 Urine Glucose (UA) 4+ (Normal) H 10/09/22 05:28 Urine Ketones Negative (Negative) 10/09/22 05:28 Urine Blood 3+ (Negative) H 10/09/22 05:28 Urine Nitrate Negative (Negative) 10/09/22 05:28 Urine Bilirubin Neg (Negative) 10/09/22 05:28 Urine Urobilinogen Neg mg/dL (Negative) 10/09/22 05:28 Ur Leukocyte Esterase 2+ (Negative) H 10/09/22 05:28 Urine RBC 0-4 /hpf (0-2) H 10/09/22 05:28 Urine WBC Too numerous to cnt /hpf (0-5) H 10/09/22 05:28 Ur Squamous Epith Cells 0-4 /hpf (0-5) H 10/09/22 05:28 Amorphous Sediment Not Reportable 10/09/22 05:28 Urine Bacteria 4+ /hpf (NONE) H 10/09/22 05:28 Hepatitis A IgM Ab Non-reactive (Nonreactive) 10/09/22 04:30 Hep Bs Antigen Non-reactive (Nonreactive) 10/09/22 04:30 Hep Bs Antibody 3.5 (11.5-1000) L 10/09/22 04:30 Hep B Core Total Ab Non-reactive (Nonreactive) 10/09/22 04:30 Hepatitis C Antibody Non-reactive (Nonreactive) 10/09/22 04:30 Influenza Type A Ag negative (Negative) 10/09/22 05:02 Influenza Type B Ag negative (Negative) 10/09/22 05:02 SARS-CoV-2 Ag (Rapid) negative (Negative) 10/09/22 05:02 EKG Data EKG 1: I personally reviewed and interpreted this EKG as follows: EKG interpretation date: 10/09/22 EKG interpretation time: 05:35 Interpretation: atrial flutter hr [address] or t wave abnormalities qrs 110 qtc 396 Discharge Plan Discharge Patient Disposition: Admitted As Inpatient Admit Provider: Kemal Langford Clinical Impression: Atrial flutter with rapid ventricular response, Weakness, Elevated liver enzymes, Hyperglycemia Condition: Stable Coding Level of Care Code ED Marketing Underwriter for Chg Fwd Exam Comprehensive
[2022-10-09 04:34] LABS: Basophils % 0.2 %; Eosinophils % 0.2 %; Hematocrit 33.2 % (42.0-52.0); Hemoglobin 9.8 g/dL (11.7-16.6); Lymphocytes % 8.2 %; Mean Corpuscular HGB Conc 29.5 g/dL (30.0-36.0); Mean Corpuscular Hemoglobin 23.8 pg (28.0-34.0); Mean Corpuscular Volume 80.8 fl (80-94); Mean Platelet Volume 10.3 fL (7.4-10.4); Monocytes # 1.1 10^3/uL (0.2-0.9); Monocytes % 8.6 %; Neutrophils # 10.32 10^3/uL (1.8-7.7); Neutrophils % 82.4 %; Nucleated Red Blood Cells % 0 %; Platelet Count 307 10^3/cmm (130-400); Red Blood Count 4.11 10^6/uL (4.1-5.3); Red Cell Distribution Width 27.5 % (12.1-15.1); White Blood Count 12.5 10^3/uL (4.0-10.0)
[2022-10-09 04:59] LABS: Albumin Level 3.4 g/dL (3.5-5.2); Alkaline Phosphatase 225 U/L (40-130); Anion Gap 15.9 (5-19); Aspartate Amino Transferase 326 U/L (0-40); Blood Urea Nitrogen 55 mg/dL (8-23); Calcium 7.9 mg/dL (8.5-10.5); Carbon Dioxide 24 mmol/L (22-29); Chloride 98 mmol/L (98-107); Creatinine Clr Calc Pharmacy 48.7955; Globulin 3.3 g/dL (1.3-4.6); Glomerular Filtration Rate 66.4 mL/min (90-130); Glucose 337 mg/dL (65-115); Magnesium 2.5 mg/dL (1.7-2.3); Osmolality Calculated 306 mOsm/kg (285-295); Potassium 3.9 mmol/L (3.5-5.1); Sodium 134 mmol/L (136-145); Total Bilirubin 0.7 mg/dL (0.15-1.2); Total Protein 6.7 g/dL (6.6-8.7)
--- NOTE | 2022-10-09 05:04 | PC.NURSE ---
FSBS is 343. MD notified. Insulin not given. Fluid bolus continued.
[2022-10-09 05:05] LABS: Glucose Point of Care 343 mg/dL (70-110)
--- NOTE | 2022-10-09 05:05 | ECG_ITS ---
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 Measurements Intervals [place] Rate: 134 P: 0 TN: 0 QRS: -52 QRSD: 110 T: 184 QT: 317 QTc: 474 Interpretive Statements ATRIAL FLUTTER/TACHYCARDIA WITH RAPID VENTRICULAR RESPONSE LEFT AXIS DEVIATION [QRS AXIS < -30] SEPTAL MYOCARDIAL INFARCTION , OF INDETERMINATE AGE [40+ ms Q WAVE IN V1/V2] Compared to ECG 09/01/2022 01:31:21 Left-axis deviation now present Sinus rhythm no longer present Myocardial infarct finding still present Electronically Signed On 10-09-2022 10:08:34 CUT PRESS OPERATOR by Naeem Charles M.D. [id number]
[2022-10-09] MEDS: sodium chloride 0.9% 1,000 ML 999 ML IV (05:07)
[2022-10-09 05:10] LABS: Alanine Aminotransferase 1096 U/L (0-41)
[2022-10-09 05:32] LABS: Influenza A by IFA negative (Negative); Influenza B by IFA negative (Negative)
[2022-10-09 05:33] LABS: SARS Covid-2 Antigen negative (Negative)
[2022-10-09] MEDS: dilTIAZem 5 mg/mL SDV 5 mL 10 MG IVP (05:45)
[2022-10-09 05:53] LABS: Hepatitis A Antibody IgM Non-Reactive (Nonreactive); Hepatitis B Core AB, Total Non-Reactive (Nonreactive); Hepatitis B Surface AB 3.5 (11.5-1000); Hepatitis B Surface Antigen Non-Reactive (Nonreactive); Hepatitis C Virus Antibody Non-Reactive (Nonreactive)
[2022-10-09] MEDS: dilTIAZem 100 MG in sodium chloride 0.9% (add-van) 100 ML IV (05:57)
[2022-10-09 06:03] LABS: Add Urine Microscopic? YES; Bilirubin Urine Neg (Negative); Blood Urine 3+ (Negative); Glucose Urine UA 4+ (Normal); Ketones Urine Negative (Negative); Leukocyte Esterase Urine 2+ (Negative); Nitrate Urine Negative (Negative); Protein Urine Neg (Negative); Specific Gravity, Urine 1.015 (1.005-1.030); Urine Appearance Hazy (CLEAR); Urine Color Yellow (Yellow); Urobilinogen Urine Neg (Negative); pH Urine 5 (5-7)
[2022-10-09 06:08] LABS: Add Urine Culture? Yes; Bacteria Urine 4+ /hpf; RBC Urine 0-4 /hpf (0-2); Squamous Epithelial Cell Urine 0-4 /hpf (0-5); WBC Urine TOO NUMEROUS TO CNT /hpf (0-5)
[2022-10-09 06:10] LABS: Lipase 34 U/L (13-60)
--- NOTE | 2022-10-09 06:16 | PC.NURSE ---
FSBS 304. Dr. Langford at bedside. Reported blood sugar to him. No new orders.
[2022-10-09 06:19] LABS: Glucose Point of Care 310 mg/dL (70-110)
--- NOTE | 2022-10-09 06:25 | PM.HP ---
Providers/Chief Complaint Admitting Physician: Kemal Langford MD Chief Complaint: hyperglycemia History of Present Illness Moises Galvez is a 67 year old male with a medical history of peripheral vascular disease, right below-knee amputation for diabetic foot disease, history of CABG on dual antiplatelet therapy, noninsulin-dependent type 2 diabetes mellitus, aortic valve replacement, hyperlipidemia recent hospitalization for acute on chronic anemia, requiring 2 units PRBC, has not followed up with general surgery for EGD or colonoscopy. Who presents [facility] due to generalized weakness, fatigue, malaise, no bowel movement in 3 days, difficult to urinate, shortness of breath, poor appetite. Patient tells me that recently he was here in the emergency room he was diagnosed with diverticulitis, given antibiotics and sent home. He tells me that for the last 3 days he has not had any bowel movement, is difficult for him to urinate, he feels fatigue, malaise, he has not eaten anything in the last 3 days due to poor appetite., No nausea, no vomiting. Denies any bloody or black stools. He tells me that now he also feels short of breath, shortness of breath with exertion, no lightheadedness, dizziness Review of Systems Const: Reports: fatigue and change in sleep pattern; Denies: fever(s) or chills Eyes: Denies: change in vision Card: Denies: chest pain Resp: Reports: dyspnea GI: Denies: abdominal pain : Denies: flank pain or difficulty urinating Musc: Denies: back pain Skin/Breast: Denies: rash Neuro: Denies: headache(s) Medications/Allergies Home Medications Medication Instructions Recorded Confirmed Last Taken Type lisinopril 20 mg tablet 20 mg PO DAILY #90 tabs 08/30/21 09/14/22 12/23/21 05:00 Rx aspirin 81 mg tablet,delayed 81 mg PO DAILY 11/30/21 09/14/22 12/23/21 05:00 History release vit C-gktilird-htb palmetto 160 1 cap PO DAILY 12/08/21 09/14/22 12/23/21 05:00 History mg-pygeum africanum 12.5 mg capsule (Urinozinc Prostate Complex Classic) clopidogrel 75 mg tablet 75 mg PO DAILY #90 tabs 02/04/22 09/14/22 Unknown Rx furosemide 20 mg tablet (Lasix) 20 mg PO DAILY #90 tabs 03/16/22 09/14/22 Unknown Rx potassium chloride 8 mEq 8 meq PO DAILY #90 tabs 03/16/22 09/14/22 Unknown Rx tablet,extended release atorvastatin 80 mg tablet 80 mg PO DAILY #100 tabs 04/18/22 09/14/22 Unknown Rx gabapentin 300 mg capsule 300 mg PO BID #60 caps 05/16/22 09/14/22 Unknown Rx sitagliptin 100 mg tablet (Januvia) 100 mg PO DAILY #30 tabs 05/16/22 09/14/22 Unknown Rx metformin 1,000 mg tablet 1,000 mg PO BID #180 tabs 06/27/22 09/14/22 Unknown Rx ferrous sulfate 325 mg (65 mg 325 mg PO DAILY #30 tabs 09/02/22 09/14/22 Unknown Rx iron) tablet (Feosol) omeprazole 40 mg capsule,delayed 40 mg PO BIDWM 30 days #60 caps 09/02/22 09/14/22 Unknown Rx release ciprofloxacin HCl 500 mg tablet 500 mg PO Q12H #20 tabs 09/27/22 Unknown Rx ondansetron 4 mg disintegrating 4 mg PO Q8H PRN nausea and 09/27/22 Unknown Rx tablet vomiting #15 tabs oxycodone 5 mg tablet 5 mg PO Q4H PRN pain #10 tabs 09/27/22 Unknown Rx amoxicillin 500 mg tablet 1,000 mg PO BID 14 days #56 tabs 10/05/22 10/05/22 Unknown Rx clarithromycin 500 mg tablet 500 mg PO BID 14 days #28 tabs 10/05/22 10/05/22 Unknown Rx pantoprazole 40 mg tablet,delayed 40 mg PO BID 14 days #28 tabs 10/05/22 10/05/22 Unknown Rx release (Protonix) cefdinir 300 mg capsule See Rx Instructions .Route 10/06/22 Unknown Rx .COMPLEX #30 caps Allergies Allergy/AdvReac Type Severity Reaction Status Date / Time codeine AdvReac Unknown ADR-Nausea Verified 09/21/22 07:41 PFSH Acute PFSH: Medical History 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 Mild global hypokinesis is seen. Diastolic function cannot be assessed because of atrial fibrillation RV is moderately hypokinetic Left atrial dilation Mild to moderate mitral regurgitation Bioprosthetic aortic valve is seen. DVI is normal Mild tricuspid regurgitation Trace pulmonic regurgitation Compared to prior echocardiogram from 02/12/2020, LV systolic function has decreased and is 40-45% now Profound anemia Smoking Surgical History History of [facility] 12/2019[facility] History of aortic valve replacement History of coronary artery bypass graft Hx of right BKA Family History Father CAD (coronary artery disease), Onset Age: 60 Mother , at age 54 Cancer breast Denies family history of Diabetes Clotting disorder Dementia Chronic kidney disease (CKD) Suicide Anesthesia complication Bleeding disorder Lung disease Stroke Social History Smoking and tobacco status: current every day smoker cigarettes Packs smoked per day: 1 Years cigarettes smoked: 54 Alcohol intake: never Marital status: Current occupational status: retired History of recent travel: No Vitals/I&O/Wt Last Vital Signs Temp 97.6 F 10/09/22 04:26 Pulse 135 H 10/09/22 06:04 Resp 16 10/09/22 06:04 BP 121/84 10/09/22 06:04 Pulse Ox 96 10/09/22 06:04 O2 Del Method 10/09/22 06:04 10/08/22 10/08/22 10/09/22 14:59 22:59 06:59 Intake Total 1001.333 / 1001.333 Balance 1001.333 / 1001.333 Weight last 48 hrs Weight 54.431 kg Physical Exam Const: COMMON NORMALS: no acute distress and patient oriented x3 HENMT: COMMON NORMALS: normocephalic HEAD & SCALP: normocephalic Eye: COMMON NORMALS: Equal, round and reactive pupils present and EOMs intact bilaterally Neck/C-Spine: COMMON NORMALS: full ROM and no lymphadenopathy Resp: COMMON NORMALS: normal respiratory effort, No retractions, No use of accessory muscles and clear to auscultation bilaterally AUSCULTATION: clear to auscultation bilaterally Cardio: COMMON NORMALS: regular rate, regular rhythm, S1 normal heart sound present and S2 normal heart sound present RATE: tachycardic RHYTHM: abnormal rhythm HEART SOUNDS: S1 normal heart sound present and S2 normal heart sound present GI: COMMON NORMALS: Normal to inspection, nondistended, normoactive bowel sounds present and Soft to palpation OTHER: Tenderness in the left lower quadrant, left lower quadrant density : COMMON NORMALS: Yes no CVA tenderness Extremity: COMMON NORMALS: no pedal edema NARRATIVE EXTREMITY EXAM: Right below-knee amputation Neuro: COMMON NORMALS: patient oriented x3, CN's II-XII intact bilaterally, moves all extremities and no focal motor deficits Psych: COMMON NORMALS: mental status grossly normal Data 10/09/22 04:30 10/09/22 04:30 A&P Assessment and plan (1) Atrial flutter with rapid ventricular response: (2) Transaminitis: (3) Mixed hyperlipidemia: (4) Presence of prosthetic heart valve: (5) Type 2 diabetes mellitus: Qualifiers: Diabetes mellitus long-term insulin use: with long filler cigar roller machine use Diabetes mellitus complication status: with hyperglycemia Qualified Code(s): E11.65 - Type 2 diabetes mellitus with hyperglycemia; Z79.4 - tacker off (current) use of insulin (6) PVD (peripheral vascular disease): (7) Diastolic CHF, chronic: (8) CHF exacerbation: (9) Diverticulitis: (10) Recurrent urinary tract infection: (11) Colovesical fistula: (12) Weakness: (13) Elevated liver enzymes: (14) Hyperglycemia: Plan Atrial flutter -New onset -Continue Cardizem drip -Cardiac echo -Check TSh -Patient was recently admitted for anemia, required 2 units PRBC, I will hold off on anticoagulation for now, I have ordered iron studies, Hemoccult stool, then will need to decide if we should discharge him with anticoagulation -Full code -SCDs for DVT prophylaxis, anticoagulant relatively contraindicated given anemia Acute on chronic anemia -Iron studies, B12, Hemoccult stool Generalized weakness, fatigue, malaise, poor appetite -Etiology unclear -Possible UTI, await UA -He is recent was discharged with diverticulitis, possibly this plate is playing a role does have a lot of left lower quadrant tenderness, will order CT scan abdomen pelvis Shortness of breath -Likely secondary to fluid overload, atrial flutter -1 dose of Lasix -BMP, troponin series -Cardiac echo as above -We will order CT of the chest Patient has significant transaminitis -ALT greater than AST -Await hepatitis panel -CT scan abdomen pelvis -Denies drinking alcohol -Tylenol level Hyperglycemia -Low-dose sliding scale History of recurrent UTIs, get a UA Hypertension resume home medications Severe diabetic peripheral neuropathy continue gabapentin Attestations Medical Necessity Statement*: Patient requires hospitalization inpatient, greater than 2 midnights, due to generalized weakness, atrial fibrillation, transaminitis Coding Level of Care Code Acute Code for Chg Fwd Diagnoses Atrial flutter with rapid ventricular response I48.92 Transaminitis R74.01 Mixed hyperlipidemia E78.2 Presence of prosthetic heart valve Z95.2 Type 2 diabetes mellitus E11.65; Z79.4 Diabetes mellitus long filler cigar roller machine insulin use: with long-term use Diabetes mellitus complication status: with hyperglycemia PVD (peripheral vascular disease) I73.9 Diastolic CHF, chronic I50.32 CHF exacerbation I50.9 Diverticulitis K57.92 Recurrent urinary tract infection N39.0 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
--- NOTE | 2022-10-09 06:36 | CTR_ITS ---
PROCEDURE INFORMATION: Exam: CT Chest With Contrast; Diagnostic Exam date and time: 10/09/2022 6:59 AM Age: 67 years old Clinical indication: Shortness of breath. TECHNIQUE: Imaging protocol: Diagnostic computed tomography of the chest with contrast. Radiation optimization: All CT scans at this facility use at least one of these dose optimization techniques: automated exposure control; mA and/or kV adjustment per patient size (includes targeted exams where dose is matched to clinical indication); or iterative reconstruction. Contrast material: OMNI 350; Contrast volume: 100 ml; Contrast route: INTRAVENOUS (IV); COMPARISON: CR (CHEST, ) 10/09/2022 4:38 AM RADIATION DOSE METRICS: Total DLP (mGy-cm): 710.74 FINDINGS: Lungs: At least mild centrilobular emphysema. There is dependent atelectasis at the lung bases. No pulmonary mass. Pleural spaces: Moderate bilateral pleural effusions with loculated fissural fluid on the left. No pneumothorax. Heart: The heart is enlarged. No pericardial effusion. Coronary arteries: Coronary arterial calcifications are noted. Lymph nodes: A right hilar lymph node measures 1.4 x 2.6 cm. An AP window lymph node measures 1.0 x 1.4 cm. A left hilar lymph node measures 1.1 x 1.7 cm. Vasculature: No thoracic aortic aneurysm. No thoracic aortic dissection. No main or central pulmonary embolus. Diaphragm: No hiatal hernia. Bones/joints: Median sternotomy wires are noted. No acute fracture is seen. Soft tissues: There is diffuse subcutaneous edema. COMMENTS: In the absence of a history or active diagnosis of lung cancer, it is recommended that this patient with emphysema be evaluated for enrollment in a low dose CT lung cancer screening program. PROCEDURE INFORMATION: Exam: CT Abdomen And Pelvis With Contrast Exam date and time: 10/09/2022 6:59 AM Age: 67 years old Clinical indication: Shortness of breath. TECHNIQUE: Imaging protocol: Computed tomography of the abdomen and pelvis with contrast. Radiation optimization: All CT scans at this facility use at least one of these dose optimization techniques: automated exposure control; mA and/or kV adjustment per patient size (includes targeted exams where dose is matched to clinical indication); or iterative reconstruction. Contrast material: OMNI 350; Contrast volume: 100 ml; Contrast route: INTRAVENOUS (IV); COMPARISON: CT abdomen pelvis w con* [id number] 09/27/2022 9:30 PM RADIATION DOSE METRICS: Total DLP (mGy-cm): 710.74 FINDINGS: Tubes, catheters and devices: A Cohn catheter is in place. Liver: An indeterminate right hepatic lesion measures 1.0 x 1.3 cm. Gallbladder and bile ducts: The gallbladder is unremarkable. Pancreas: The pancreas is unremarkable. Spleen: A subcapsular splenic collection measures 7.4 x 3.5 x 2.8 cm. This is the density of blood. This is suspicious for a subcapsular splenic hematoma. There are linear foci in the spleen suspicious for grade 1 splenic lacerations. No definite active extravasation is seen. Adrenal glands: The adrenal glands are unremarkable. Kidneys and ureters: A simple right renal cyst measures 1 cm. No hydronephrosis. Stomach and bowel: A gastric diverticulum is noted. Colonic diverticulosis is noted. There is marked wall thickening of the distal descending and proximal/mid sigmoid colon. This could reflect marked colitis. Diverticulitis is considered less likely given long segment involvement; however, this is not excluded. Recommend colonoscopy upon resolution of acute symptoms to exclude underlying mass. There is prominence of the wall of multiple small bowel loops which may reflect background enteritis. Correlate clinically. Appendix: The appendix is unremarkable. Intraperitoneal space: No free intraperitoneal air is identified. No free intraperitoneal air. Mild ascites. Vasculature: There is probable severe narrowing of the proximal renal arteries. There is severe narrowing of the superior mesenteric artery (series 5, image 23). No abdominal aortic aneurysm. There is globular eccentric atheromatous plaque within the proximal abdominal aorta. No dissection is seen. Aortoiliac endografts are noted. The right femoral artery is occluded. Lymph nodes: No retroperitoneal lymphadenopathy. Urinary bladder: The bladder is largely decompressed. Reproductive: The prostate measures 3.5 x 4.9 cm. Bones/joints: Chronic fracture involving the right transverse process of L1. No acute fracture is seen. Soft tissues: Tiny fat containing umbilical hernia. Diffuse subcutaneous edema. CT/CT chest abd pel w con* IMPRESSION: 1. Cardiomegaly with moderate bilateral pleural effusions. There is loculated fissural fluid on the left. 2. Mediastinal and bilateral hilar lymphadenopathy. 3. Coronary artery disease. 4. At least mild centrilobular emphysema. 5. Dependent atelectasis at the lung bases. 6. Diffuse subcutaneous edema may reflect anasarca. IMPRESSION: 1. Subcapsular splenic collection that is the density of blood. This is suspicious for a subcapsular splenic hematoma. There are linear foci in the spleen suspicious for grade 1 splenic lacerations. No definite active extravasation is seen. 2. Colonic diverticulosis is noted. There is marked wall thickening of the distal descending and proximal/mid sigmoid colon. This could reflect marked colitis. Diverticulitis is considered less likely given long segment involvement; however, this is not excluded. Recommend colonoscopy upon resolution of acute symptoms to exclude underlying mass. 3. There is prominence of the wall of multiple small bowel loops which may reflect background enteritis. Correlate clinically. 4. Indeterminate right hepatic lesion. Recommend nonemergent MR abdomen hepatic protocol with and without contrast to better characterize. 5. Globular eccentric atheromatous plaque within the proximal abdominal aorta. No dissection is seen. 6. Probable severe narrowing of the proximal renal arteries. 7. Severe narrowing of the superior mesenteric artery 8. The right femoral artery is occluded. 9. A gastric diverticulum is noted. 10. Mild ascites. 11. Diffuse subcutaneous edema may reflect anasarca. COMMENTS: Consistent with the [employer]'s Incidental Findings Committee white paper (J Am Josiane Radiol 2018): Any incidental renal lesion less than 1 cm or classified as too small to characterize, or any incidental cystic renal lesion characterized as simple-appearing, is likely benign. No follow-up imaging is recommended for these lesions per consensus recommendations based on imaging criteria.
[2022-10-09] MEDS: iohexol 350 mg/mL 500 mL Btl (per mL) IV (07:11)
--- NOTE | 2022-10-09 07:26 | PC.NURSE ---
Dr. Langford at bedside. Verbal order for indwelling catheter.
--- NOTE | 2022-10-09 07:33 | ECG_ITS ---
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 Measurements Intervals [place] Rate: 100 P: 0 VT: 0 QRS: -40 QRSD: 115 T: 146 QT: 358 QTc: 464 Interpretive Statements ATRIAL FLUTTER/TACHYCARDIA WITH RAPID VENTRICULAR RESPONSE WITH ABERRANT CONDUCTION OR VENTRICULAR PREMATURE COMPLEXES LEFT AXIS DEVIATION [QRS AXIS < -30] LOW QRS VOLTAGE IN EXTREMITY LEADS [QRS DEFLECTION < 0.5 mV IN LIMB LEADS] SEPTAL MYOCARDIAL INFARCTION , PROBABLY OLD [40+ ms Q WAVE IN V1/V2] Compared to ECG 10/09/2022 05:35:47 Ventricular premature complex(es) now present Aberrant conduction of supraventricular beat(s) now present Low QRS voltage now present Myocardial infarct finding still present Electronically Signed On 10-09-2022 10:08:43 SECURITY AGENT by Naeem Charles M.D. [id number]
[2022-10-09 07:42] LABS: Glucose Point of Care 298 mg/dL (70-110)
--- NOTE | 2022-10-09 08:22 | ECG_ITS ---
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 Measurements Intervals [place] Rate: 102 P: 0 NE: 0 QRS: -54 QRSD: 124 T: 255 QT: 368 QTc: 481 Interpretive Statements ATRIAL FLUTTER/TACHYCARDIA WITH RAPID VENTRICULAR RESPONSE LEFT AXIS DEVIATION [QRS AXIS < -30] SEPTAL MYOCARDIAL INFARCTION , PROBABLY OLD [40+ ms Q WAVE IN V1/V2] MODERATE T-WAVE ABNORMALITY, CONSIDER INFERIOR ISCHEMIA [-0.1+ mV T-WAVE IN II/aVF] Compared to ECG 10/09/2022 07:33:38 T-wave abnormality now present Possible ischemia now present Ventricular premature complex(es) no longer present Aberrant conduction of supraventricular beat(s) no longer present Myocardial infarct finding still present Electronically Signed On 10-09-2022 10:10:49 CHEMICAL LABORATORY ASSISTANT by Naeem Charles M.D. [id number]
[2022-10-09] MEDS: pantoprazole 40 mg SDV IVP ×2 (08:35→20:40)
[2022-10-09] MEDS: FUROsemide 10 mg/mL SDV 4mL 40 MG IVP (08:35)
[2022-10-09] MEDS: insulin lispro 100 unit/1 mL SUBCUT ×3 (08:40→17:05)
[2022-10-09] MEDS: aspirin 81 mg EC Tablet PO (08:40)
[2022-10-09] MEDS: atorvastatin 40 mg Tablet 80 MG PO (08:41)
[2022-10-09] MEDS: gabapentin 300 mg Capsule PO ×2 (08:41→17:55)
[2022-10-09 09:27] LABS: Troponin(5th) Baseline 69 ng/L (0-15)
[2022-10-09 09:30] LABS: NT Pro B Type Natriuretic Pept 13142 pg/mL (0-125); Procalcitonin 0.23 ng/mL (0-0.5); Thyroid Stimulating Hormone 8.97 uIU/mL (0.27-4.20)
[2022-10-09 09:31] LABS: Lactic Sepsis W/Reflex 2.2 mmol/L (0.5-2.2)
[2022-10-09 09:32] LABS: Iron 9 ug/dL (59-158)
[2022-10-09 09:40] LABS: Estmated Average Glucose 174; Hemoglobin A1C 7.7 % (4.0-6.0)
[2022-10-09 09:41] LABS: C Reactive Protein 53.1 mg/L (0.0-4.9); Cholesterol 125 mg/dL (0-200); HDL Cholesterol 25 mg/dL (60-100); LDL Cholesterol Calculated 68 mg/dL (50-129); LDL HDL Ratio 2.72 RATIO (0.00-3.22); Triglycerides 160 mg/dL (0-150)
[2022-10-09 09:42] LABS: Acetaminophen < 5.0 ug/mL (10-30); Alcohol Level < 10 mg/dL (0-10); Salicylate < 0.3 mg/dL (3-10)
[2022-10-09 09:43] LABS: Iron 9 ug/dL (59-158)
[2022-10-09 09:46] LABS: Reflex Lactate Order REFLEX LACTIC ORDERD
[2022-10-09 09:56] LABS: Ferritin 68 ng/mL (30-400); Total Iron Binding Capacity 174 mcg/dl; Unsaturated Iron Binding 166 ug/dL (112-347)
[2022-10-09 09:57] LABS: Percent Saturation 5.1 % (20-50)
[2022-10-09 10:02] LABS: Vitamin B12 > 2000 pg/mL (232-1245)
[2022-10-09] MEDS: acetaminophen 325 mg Tablet 650 MG PO ×2 (10:22→16:37)
[2022-10-09] MEDS: albuterol 2.5 mg/3 mL Neb INHALATION (11:00)
[2022-10-09 11:19] LABS: Glucose Point of Care 299 mg/dL (70-110)
--- NOTE | 2022-10-09 11:20 | PC.OT ---
RN states patient is NPO and very fatigued . Requests to try assessment tomorrow.
[2022-10-09 11:31] LABS: Troponin 5 2HR 67.52 ng/L (0-15)
[2022-10-09 11:32] LABS: Lactic Acid level (Lactate) 1.5 mmol/L (0.5-2.2)
[2022-10-09 11:33] LABS: Troponin 5 2HR Delta -1.48 ABS# (0-10)
[2022-10-09 12:50] LABS: Hematocrit 29.4 % (42.0-52.0); Hemoglobin 8.6 g/dL (11.7-16.6)
--- NOTE | 2022-10-09 12:56 | ECG_ITS ---
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 Measurements Intervals [place] Rate: 90 P: 0 IA: 0 QRS: -3 QRSD: 121 T: 254 QT: 405 QTc: 496 Interpretive Statements ATRIAL FLUTTER/TACHYCARDIA SEPTAL MYOCARDIAL INFARCTION , OF INDETERMINATE AGE [40+ ms Q WAVE IN V1/V2] MODERATE T-WAVE ABNORMALITY, CONSIDER ANTEROLATERAL ISCHEMIA [-0.1+ mV T-WAVE IN V3-V6] MODERATE T-WAVE ABNORMALITY, CONSIDER INFERIOR ISCHEMIA [-0.1+ mV T-WAVE IN II/aVF] Compared to ECG 10/09/2022 09:01:46 Left-axis deviation no longer present Myocardial infarct finding still present T-wave abnormality still present Possible ischemia still present Electronically Signed On 10-09-2022 16:04:36 CURING OVEN ATTENDANT by Naeem Charles M.D. [id number]
--- NOTE | 2022-10-09 15:37 | PM.PN ---
Subjective Subjective: Reports feeling very weak at this time. He says that he is not able to walk or get out of bed. Says that he has been feeling poorly for the last few weeks, and last night he was unable to get around at all. Denies pain at this time. He was set up for several outpatient appointments after his last hospitalization and he did not attend due to feeling so poorly. Reports that he has been passing gas through his urine and believes that he has stool in his urine as well. Has a history of colovesicular fistula that was being addressed in his last hospital visit. Vitals/I&O/Wt Last Vital Signs Temp 98.0 F 10/09/22 07:36 Pulse 87 10/09/22 11:08 Resp 18 10/09/22 11:01 BP 100/77 10/09/22 07:36 Pulse Ox 92 10/09/22 11:01 O2 Del Method 10/09/22 11:01 O2 Flow Rate 2 10/09/22 11:01 10/09/22 10/09/22 10/09/22 06:59 14:59 22:59 Intake Total 1005.958 / 1005.958 93.125 / 93.125 Output Total 1000 / 1000 Balance 1005.958 / 1005.958 -906.875 / -906.875 Weight last 48 hrs Weight 127 lb Weight 120 lb Physical Exam Narrative: General: Cooperative patient in no apparent distress. He is mildly ill appearing and weak. HEENT: Normocephalic, Atraumatic. External ears normal. Nasal passages patent without drainage. MMM. Heart: Irregular rate and rhythm. Rate is currently controlled. Resp: Lungs with fine Rales throughout the lung bases bilaterally. There are rhonchi throughout the remainder of the lungs. No respiratory distress, no use of accessory muscles. Abd: Soft, mildly tender, non-distended. Normal bowel sounds. Extremities: Right BKA. No lower extremity edema. Skin: No rash or lesions on exposed areas. Urinary Catheter Management: Cohn: Cath Placed During This Visit: yes Urinary Catheter Date of Insertion: 10/09/22 Urinary Catheter Time of Insertion: 06:45 Data 10/09/22 12:13 10/09/22 04:30 Micro: Microbiology 10/09/22 08:00 Blood Culture - Preliminary Blood SPECIMEN COLLECTED 10/09/22 07:59 Blood Culture - Preliminary Blood SPECIMEN COLLECTED A&P Assessment and plan (1) Atrial flutter with rapid ventricular response: (2) Transaminitis: (3) Mixed hyperlipidemia: (4) Presence of prosthetic heart valve: (5) Type 2 diabetes mellitus: Qualifiers: Diabetes mellitus complication status: with hyperglycemia Diabetes mellitus chcf insulin use: with chcf use Qualified Code(s): E11.65 - Type 2 diabetes mellitus with hyperglycemia; 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 Continue close inpatient monitoring. Currently on cardiac stepdown unit. He is currently rate controlled. Cardizem drip was restarted due to his unstable heart rate. Plan to titrate off of this today given his frequent episodes of hypotension. Will start on metoprolol tartrate to help with rate control. We can escalate this therapy as needed. His BNP was over 13,000 on admission. He was started on Lasix in the ED. Have been unable to give further doses due to his hypotension. He did receive a 500 ml bolus as his pressures were into the 70s and daily since systolic. He did have a recent echo in August which showed his EF at 40 to 45%, and mild global hypokinesis with diastolic dysfunction. This may need to be repeated given his acute worsening. Hypotension may be related to multiple factors including his chronic anemia, acute heart failure, possibly infection, and medications. He did have a UA that was concerning for infection. His urine was sent for culture. Today we will start on Zosyn given his history of fistula, and CT appearance consistent with a colitis versus diverticulitis. Patient had CT scan of the chest, abdomen, pelvis. Radiologist contacted me to report several critical findings. Of note there were several grade 1 splenic lacerations with concern for subcapsular hematoma. General surgery was consulted today and they will evaluate the patient tomorrow and review his CT findings. CT also significant for widespread inflammation throughout the small and large bowel. Radiology report could not determine if malignancy was present, but is suggestive given his widespread inflammation. There were also findings consistent with a colitis versus a diverticulitis versus an enteritis. Zosyn was chosen to cover this. There was significant vascular disease found on CT. Severe stenosis of the SMA, as well as bilateral severe renal artery stenosis was noted. Radiology reported complete occlusion of the right femoral artery. This will need to be evaluated via vascular surgery once the patient is stable. Currently he is not a candidate for any intervention. I am unable to start DVT prophylaxis or anticoagulation for treatment of his femoral artery given his significant risk of bleeding and his splenic lacerations. I did discuss with the patient that he has an elevated risk of CVA due to his history of atrial fibrillation and now flutter, and the inability to anticoagulate. Patient did verbalize understanding. There was significant elevation in his LFTs. Hepatitis panel was negative. This is likely a result of congestive hepatopathy. Can consider further imaging to evaluate. His CT also showed a liver lesion. It was not further described, however DDx could include a cyst versus a metastatic lesion. CEA was ordered. -Iron studies, B12, Hemoccult stool orderd but not collected at this time. Case was discussed briefly with cardiology. They will plan to evaluate him tomorrow. We will repeat labs in the morning. Surgery had recommended every 6 hour H&H draws. He does not currently have a PCP. He would like to switch to see me in clinic at discharge. Continue SSI for TIIDM. Home meds for BP. Hold if pressures <90/60. Recheck labs in A.M. RAAT and O2 protocol. Consider adding levothyroxine. May check Thyroid panel. Urine,Blood Cx Pending. Diet: CC IVF: none DVT PPx: SCD's GI PPx: Protonix. Discharge: Recommend SS to evaluate for SNF vs. HH. Attestations Medical Necessity Statement*: Patient requires hospitalization inpatient, greater than 2 midnights, due to generalized weakness, atrial fibrillation, transaminitis Time Spent in Patient Care: Greater than 35 minutes (>than 50% of time spent in counselling and/or direct pt care on unit). 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
[2022-10-09] MEDS: sodium chloride 0.9% 500 ML 999 ML IV (15:40)
[2022-10-09] MEDS: piperacillin-tazobactam 3.375 GM in sodium chloride 0.9% (plus) 50 ML IV ×2 (15:58→23:35)
--- NOTE | 2022-10-09 16:20 | PC.NURSE ---
have been slowly titrating cardizem drip down as ordered.hr in 70-80's aflutter.has diuresed 1000 cc urine since 40 mg lasix given this morning.bp has become soft...dr gross notified.he ordered 500 cc ns bolus.given as ordered.bp has come up.piperacillin ordered and started
[2022-10-09 16:24] LABS: Glucose Point of Care 227 mg/dL (70-110)
[2022-10-09] MEDS: metoprolol tartrate 25 mg Tablet PO (16:37)
[2022-10-09 18:06] LABS: Hematocrit 29.5 % (42.0-52.0); Hemoglobin 8.6 g/dL (11.7-16.6)
[2022-10-09] MEDS: hyDROXYzine 25 mg Capsule PO (20:40)
[2022-10-09 20:58] LABS: Glucose Point of Care 222 mg/dL (70-110)
[2022-10-10] VITALS (53 sets, daily range): BP systolic 78–121; BP diastolic 46–84; PULSE 66–135; RESP 0–33; TEMP 36.3–37; O2SAT 77–100
[2022-10-10 01:30] LABS: Hematocrit 29.9 % (42.0-52.0); Hemoglobin 8.7 g/dL (11.7-16.6)
[2022-10-10 01:58] LABS: Carcinoembryonic Antigen 11.9 ng/mL (0.0-4.7)
[2022-10-10 05:45] LABS: Blood Urea Nitrogen 50 mg/dL (8-23); Calcium 7.9 mg/dL (8.5-10.5); Carbon Dioxide 17 mmol/L (22-29); Chloride 102 mmol/L (98-107); Glomerular Filtration Rate 66.4 mL/min (90-130); Glucose 172 mg/dL (65-115); Osmolality Calculated 291 mOsm/kg (285-295); Sodium 132 mmol/L (136-145)
[2022-10-10 05:48] LABS: Anion Gap 17.1 (5-19); Potassium 4.1 mmol/L (3.5-5.1)
[2022-10-10 06:25] LABS: Glucose Point of Care 224 mg/dL (70-110)
[2022-10-10 06:36] LABS: Basophils % 0.2 %; Eosinophils % 0.2 %; Hematocrit 30.1 % (42.0-52.0); Hemoglobin 8.6 g/dL (11.7-16.6); Mean Corpuscular HGB Conc 28.6 g/dL (30.0-36.0); Mean Corpuscular Hemoglobin 24.2 pg (28.0-34.0); Mean Corpuscular Volume 84.6 fl (80-94); Mean Platelet Volume 9.9 fL (7.4-10.4); Monocytes % 4.9 %; Neutrophils # 17.64 10^3/uL (1.8-7.7); Neutrophils % 89.1 %; Nucleated Red Blood Cells % 0 %; Platelet Count 187 10^3/cmm (130-400); Red Blood Count 3.56 10^6/uL (4.1-5.3); Red Cell Distribution Width 27.2 % (12.1-15.1); White Blood Count 19.8 10^3/uL (4.0-10.0)
[2022-10-10] MEDS: aspirin 81 mg EC Tablet PO (08:32)
[2022-10-10] MEDS: clopidogrel 75 mg Tablet PO (08:33)
[2022-10-10] MEDS: gabapentin 300 mg Capsule PO (08:33)
[2022-10-10] MEDS: metoprolol tartrate 25 mg Tablet PO (08:33)
[2022-10-10] MEDS: pantoprazole 40 mg SDV IVP ×2 (08:33→20:50)
[2022-10-10] MEDS: insulin lispro 100 unit/1 mL SUBCUT (08:34)
[2022-10-10] MEDS: piperacillin-tazobactam 3.375 GM in sodium chloride 0.9% (plus) 50 ML IV ×3 (08:35→17:20)
[2022-10-10] MEDS: albuterol 2.5 mg/3 mL Neb INHALATION (09:08)
--- NOTE | 2022-10-10 09:45 | PC.NURSE ---
notified surgeon talked to Dr bello regarding the results read by doctor in radiologist of the xray in abdomen. Received telephone order read back from to get a STAT CT of abdomen and pelvis with iv and oral contrast.
--- NOTE | 2022-10-10 09:52 | XR_ITS ---
WS: [id number] Acute abdomen series, portable, 10/10/2022 Clinical Data: Abdominal pain and colitis. r/o gross perforation Comparison: CT chest abdomen pelvis, 10/09/2022 Findings: In the chest there is bilateral basilar pulmonary opacification which may represent pneumon ia, atelectasis and/or effusion. The heart is enlarged. Midline sternotomy sutures are present. There is calcification of the aortic arch.. The heart is normal. The pulmonary vascularity is not increase d. On the upright image there is free air present. There is air in the stomach, small bowel and colon. T here is a large amount of fecal material throughout the colon. Bilateral iliac artery stents are pres ent. There are monitor leads on the chest wall and abdominal wall. XR/XR acute abdomen series [id number] Impression: 1. Intra-abdominal free air which was not present yesterday which may represent perforated intra-abdominal viscus. 2. Bilateral basilar pulmonary opacity. 3. Cardiomegaly. 4. Large amount of fecal material in the colon. 5. The nurse in the CSU was notified at 1040 hours.
--- NOTE | 2022-10-10 10:36 | PC.CHAP ---
Pastoral Care Encounter/Spiritual Assessment Type of Contact [] Declined industrial psychologist visit [] Patient/Family/Request visit [] Outpatient visit [] Follow-up visit [] Physician referral [] Code/Alert [x] Routine visit [] Staff referral [] Actively dying [] Patient sleeping [] Family support [] [] Out of room [] Palliative care [] [x] Receiving care in room [] Pre-surgical visit [] Trauma [] Long length of stay [] ICU visit [] Other: Relational/Emotional Strength [] Patient feels connected with others/family/visitors/staff [] Distress [] Loneliness/isolation [] Abandonment Spirituality of Patient [] Person of Radha [] Attends Yazidism of their Radha [] Believes in Prayer [] Reads Bible or Gnosticism materials [] There are Spiritual issues to be addressed Shingle Inspector Interventions [] Prayer [] Active listening [] Non-anxious presence [] Spiritual/emotional support [] Crisis/trauma care [] Spiritual counseling [] Bereavement support [] Provided bereavement packet [] Provided Bible/devotional materials [] Provided toy/stuffed animal, coloring book to patient or family member [] Provided Communion [] Anointing/[place] [] Salvation [] Completed spiritual assessment [] Other: Impact on Illness or Injury [] Angry [] Fearful [] Anxious [] Often cries [] Exhaustion [] Unable to work [] Unable to attend amish [] Unable to walk/stand [] Unable to read [] Unable to drive [] Unable to eat/drink [] Unable to sleep [] Unable to be with family [] Patient intubated [] Other: Summary Time spent with patient
--- NOTE | 2022-10-10 10:48 | CT_ITS ---
WS: [id number] CT ABDOMEN AND PELVIS WITH CONTRAST HISTORY: possible perforation TECHNIQUE: Imaging performed of the abdomen and pelvis with IV contrast. Single phase imaging of the abdomen. Coronal and sagittal reformats are submitted. All CT scans at [facility] use at [address] one of these dose optimization techniques: automated exposure control; mA and/or kV adjustment per patient size (includes targeted exams where dose is matched to clinical indication); or iterative re construction. IV CONTRAST: Omnipaque 350; 95 mL IV. Oral contrast: Yes. DLP: 541.65 mGy.cm COMPARISON: 10/09/2022 Lower thorax: Small bilateral pleural effusions as seen on the prior study with compressive atelectas is. Mild cardiomegaly. Prior CABG. No hiatal hernia. Liver/biliary system: Normal size liver. No bile duct dilatation. There are cystic foci of air near t he quincy hepatis. This is probably free intraperitoneal air or a tiny amount of air in the biliary sy stem. Gallbladder: Moderately distended gallbladder. Similar to the prior study. Mild wall enhancement. Pancreas: Normal size pancreas and pancreatic duct. No adjacent inflammation. Spleen: Normal size spleen with a lobulated contour. Fluid is noted adjacent to the spleen. Adrenal glands: Normal. Right kidney: No obstruction. Normal enhancement. Left kidney: No obstruction. Normal enhancement. Aorta: Atherosclerotic plaque. There is a more focal plaque along the RIGHT lateral aorta which is in creased in size since 09/27/2022 but similar to 10/09/2022. Bilateral calcifications in renal arteries. Aortic iliac grafts are reidentified. Endovascular graft cannot be evaluated on this exam which is no t a CT angiogram. Lymphadenopathy: None. Free fluid: There is a small amount of fluid throughout the abdomen extending along the paracolic gut ters into the pelvis. Extensive soft tissue anasarca and mesenteric edema. New moderate amount of free air throughout the abdomen and pelvis. GI tract: Stomach is well distended with oral contrast and air. No small bowel obstruction. There is extensive diverticular disease throughout the colon. There is marked soft tissue thickening and enhan cement involving the ascending colon and the sigmoid extending over a long length. Increased air with in the lumen of the distal colon. In several locations the air may extend through the sigmoid colon. The site of the perforation is not definitely confirmed but favor sigmoid colon. Abdominal wall: Soft tissue anasarca. Pelvis: Cohn catheter in a nondistended bladder. There is diffuse soft tissue anasarca. Bilateral hy droceles. Bones: Osteopenia. 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 No collapse. CT/CT abdomen pelvis w con* [id number] IMPRESSION: 1. Interval development of a moderate amount of free air throughout the perito arcenio cavity since 10/09/2022. 2. Markedly abnormal descending colon and sigmoid. There is marked wall thicke juan and edema with diverticular disease. Ischemic changes with perforation lik elyse in the sigmoid colon. Underlying mass is not excluded. 3. Diffuse mild ascites and soft tissue anasarca. 4. Small bilateral pleural effusions and compressive atelectasis. 5. Tiny focus of air near the quincy hepatis. May be free air within the quincy hepatis or very small amount of biliary air which can be seen with ischemic bow el disease. 6. Increasing thrombus abdominal aorta. Similar to 10/09/2022. Notified Stephen Retana DO at 10/10/2022 1:59 PM.
[2022-10-10 11:57] LABS: Glucose Point of Care 367 mg/dL (70-110)
[2022-10-10] MEDS: iohexol 350 mg/mL 500 mL Btl (per mL) PO (11:57)
[2022-10-10 12:29] LABS: Hematocrit 31.5 % (42.0-52.0); Hemoglobin 9.2 g/dL (11.7-16.6)
--- NOTE | 2022-10-10 13:21 | PC.NURSE ---
to ct scan via bed and addresser.
[2022-10-10] MEDS: iohexol 350 mg/mL 500 mL Btl (per mL) IV (13:22)
--- NOTE | 2022-10-10 14:09 | PC.OT ---
OT EVALUATION HELD PATIENT IS AT CT SCAN
--- NOTE | 2022-10-10 14:16 | P.MISC_ITS ---
Miscellaneous Note Note: Transfer recommended by surgery due to finding of intraperitoneal free air, concern for possible perforated viscus. No beds available at [facility] bed, but per discussion with surgery there they state he likely needs higher level of care than they are able to provide. [facility] without beds at any other facilities. Currently awaiting callback from [facility].
[2022-10-10] MEDS: sodium chloride 0.9% 1,000 ML 30 ML IV (17:11)
--- NOTE | 2022-10-10 17:23 | PC.NURSE ---
pt went to surgery and neighbor at bedside. Informed about the surgery and transfer to ICU-7.
--- NOTE | 2022-10-10 17:31 | ANES.PREANE2 ---
Pre-Anesthetic Assessment Height/Weight: Height 1.83 m Weight 57.606 kg Temp Pulse Resp BP Pulse Ox O2 Del Method O2 Flow Rate 98.6 F 119 H 17 110/75 95 3 10/10/22 17:08 10/10/22 17:08 10/10/22 17:08 10/10/22 17:08 10/10/22 17:08 10/10/22 17:08 10/10/22 14:42 Preop Diagnosis: Severe lifestyle limiting claudication Operation Date: 10/10/22 13:00 Proposed Procedures p Exploratory Laparotomy(Not Applicable) - Stephen Retana DO Operation Date: 10/10/22 16:30 Proposed Procedures p Exploratory Laparotomy(Not Applicable) - Stephen Retana DO Familial anesthetic complications: none Was Beta Raj taken within 24 hours: Yes Was Clonidine taken within 24 hours: N/A Social Tobacco and No alcohol Exam alert, oriented x 3 and clear to auscultation bilaterally a.fib/RVR Airway Submandibular: within normal limits Cervical ROM: within normal limits Mallampati: Class II Dentition: false Pulmonary Chronic Obstructive Pulmonary Disease CV/HEM Atrial Fibrillation, Anemia, Coronary Artery Disease (CABG), Congestive Heart Failure, Hypertension, Myocardial Infarction and Peripheral Vascular Disease GI Gastroesophageal Reflux Disease free air abdomen Metabolic Diabetes Mellitus Anesthetic Plan ASA status: 4E Anesthesia: General (Mod RSI) Other: a.line, transfusion as needed Medications/Allergies Home Medications Medication Instructions Recorded Confirmed Last Taken Type lisinopril 20 mg tablet 20 mg PO DAILY #90 tabs 08/30/21 10/09/22 12/23/21 05:00 Rx aspirin 81 mg tablet,delayed 81 mg PO DAILY 11/30/21 10/09/22 12/23/21 05:00 History release vit K-yrptrfwn-hcg palmetto 160 1 cap PO DAILY 12/08/21 10/09/22 12/23/21 05:00 History mg-pygeum africanum 12.5 mg capsule (Urinozinc Prostate Complex Classic) clopidogrel 75 mg tablet 75 mg PO DAILY #90 tabs 02/04/22 10/09/22 Unknown Rx atorvastatin 80 mg tablet 80 mg PO DAILY #100 tabs 04/18/22 10/09/22 Unknown Rx gabapentin 300 mg capsule 300 mg PO BID #60 caps 05/16/22 10/09/22 Unknown Rx sitagliptin 100 mg tablet (Januvia) 100 mg PO DAILY #30 tabs 05/16/22 10/09/22 Unknown Rx metformin 1,000 mg tablet 1,000 mg PO BID #180 tabs 06/27/22 10/09/22 Unknown Rx ferrous sulfate 325 mg (65 mg 325 mg PO DAILY #30 tabs 09/02/22 10/09/22 Unknown Rx iron) tablet (Feosol) omeprazole 40 mg capsule,delayed 40 mg PO BIDWM 30 days #60 caps 09/02/22 10/09/22 Unknown Rx release ondansetron 4 mg disintegrating 4 mg PO Q8H PRN nausea and 09/27/22 10/09/22 Unknown Rx tablet vomiting #15 tabs pantoprazole 40 mg tablet,delayed 40 mg PO BID 14 days #28 tabs 10/05/22 10/09/22 Unknown Rx release (Protonix) cefdinir 300 mg capsule See Rx Instructions .Route 10/06/22 10/09/22 Unknown Rx .COMPLEX #30 caps Allergies Allergy/AdvReac Type Severity Reaction Status Date / Time codeine AdvReac Unknown ADR-Nausea Verified 09/21/22 07:41 Current Medications Generic Name Dose Route Start Last Admin Trade Name Freq PRN Reason Stop Dose Admin Acetaminophen 650 mg 10/09/22 07:26 10/09/22 16:37 Acetaminophen 325 Mg Tablet PO 650 mg Q6H PRN Administration Mild/Mod Pain Or Temp >/= 101 Albuterol Sulfate 2.5 mg 10/09/22 10:37 10/10/22 09:08 Albuterol 2.5 Mg/3 Ml Neb INHALATION 2.5 mg Q6H.RESP PRN Administration SHORTNESS OF BREATH Aspirin 81 mg 10/09/22 09:00 10/10/22 08:32 Aspirin 81 Mg Ec Tablet PO 81 mg DAILY PORTIA Administration Atorvastatin Calcium 80 mg 10/09/22 09:00 10/09/22 08:41 Atorvastatin 40 Mg Tablet PO 80 mg DAILY PORTIA Administration Clopidogrel Bisulfate 75 mg 10/09/22 09:00 10/10/22 08:33 Clopidogrel 75 Mg Tablet PO 75 mg DAILY PORTIA Administration Gabapentin 300 mg 10/09/22 09:00 10/10/22 17:00 Gabapentin 300 Mg Capsule PO Not Given BID PORTIA Diltiazem HCl 100 mg/ Sodium 100 mls @ 0 mls/hr 10/09/22 05:45 10/09/22 14:30 Chloride IV 7.5 mg/hr .Q0M PORTIA 7.5 mls/hr Titration Protocol Per Protocol Piperacillin Sod/Tazobactam 50 mls @ 12.5 mls/hr 10/10/22 00:00 10/10/22 17:20 Sod 3.375 gm/ Sodium Chloride IV 12.5 mls/hr Q8H PORTIA Administration Protocol Sodium Chloride 1,000 mls @ 30 mls/hr 10/10/22 17:15 10/10/22 17:11 Sodium Chloride 0.9% IV 10/11/22 17:14 30 mls/hr .Q24H PORTIA Administration Insulin Human Lispro 0 unit 10/09/22 08:00 10/10/22 17:00 Insulin Lispro 100 Unit/1 Ml SUBCUT Not Given TIDWM PORTIA Protocol Lisinopril 20 mg 10/09/22 09:00 10/09/22 11:02 Lisinopril 20 Mg Tablet PO Not Given DAILY PORTIA Metoprolol Tartrate 25 mg 10/09/22 16:22 10/10/22 08:33 Metoprolol Tartrate 25 Mg Tablet PO 25 mg BID@0900,2100 PORTIA Administration Pantoprazole Sodium 40 mg 10/09/22 20:00 10/10/22 08:33 Pantoprazole 40 Mg Sdv IVP 40 mg Q12H PORTIA Administration PFSH Anesthesia Medical History Atherosclerotic heart disease of [place] coronary artery without angina pectoris Colovesical fistula Diastolic CHF, chronic Essential (primary) hypertension Hereditary and idiopathic neuropathy, unspecified Mixed hyperlipidemia Non-ST elevated myocardial infarction (non-STEMI) Non-ST elevation (NSTEMI) myocardial infarction Occlusion and stenosis of left carotid artery Presence of prosthetic heart valve 08/31/2022 LV systolic function is mildly reduced with EF of 40 to 45%. Mild global hypokinesis is seen. Diastolic function cannot be assessed because of atrial fibrillation RV is moderately hypokinetic Left atrial dilation Mild to moderate mitral regurgitation Bioprosthetic aortic valve is seen. DVI is normal Mild tricuspid regurgitation Trace pulmonic regurgitation Compared to prior echocardiogram from 02/12/2020, LV systolic function has decreased and is 40-45% now Profound anemia Smoking Surgical History History of amputation of foot 12/2019- [facility] History of aortic valve replacement History of coronary artery bypass graft Hx of right BKA Family History Father CAD (coronary artery disease), Onset Age: 60 Mother , at age 54 Cancer breast Denies family history of Diabetes Clotting disorder Dementia Chronic kidney disease (CKD) Suicide Anesthesia complication Bleeding disorder Lung disease Stroke Social History Smoking and tobacco status: current every day smoker cigarettes Packs smoked per day: 1 Years cigarettes smoked: 54 Alcohol intake: never Marital status: Current occupational status: retired History of recent travel: No Data Anesthesia 10/10/22 12:04 10/10/22 00:53 Short CBC 10/09/22 10/09/22 10/09/22 Range/Units 04:30 12:13 17:46 WBC 12.5 H (4.0-10.0) 10^3/uL Hgb 9.8 L 8.6 L 8.6 L (11.7-16.6) g/dL Hct 33.2 L 29.4 L 29.5 L (42.0-52.0) % MCV 80.8 (80-94) fl Plt Count 307 (130-400) 10^3/cmm Neut % (Auto) 82.4 % Neut # (Auto) 10.32 H (1.8-7.7) 10^3/uL 10/10/22 10/10/22 10/10/22 Range/Units 00:53 06:20 12:04 WBC 19.8 H (4.0-10.0) 10^3/uL Hgb 8.7 L 8.6 L 9.2 L (11.7-16.6) g/dL Hct 29.9 L 30.1 L 31.5 L (42.0-52.0) % MCV 84.6 (80-94) fl Plt Count 187 D (130-400) 10^3/cmm Neut % (Auto) 89.1 % Neut # (Auto) 17.64 H (1.8-7.7) 10^3/uL BMP 10/09/22 10/10/22 04:30 00:53 Sodium 134 L 132 L Potassium 3.9 4.1 Chloride 98 102 Carbon Dioxide 24 17 L BUN 55 H 50 H Creatinine 1.1 1.1 Glucose 337 H 172 H Calcium 7.9 L 7.9 L Cardiac Enzymes 10/09/22 10/09/22 10/09/22 Range/Units 07:59 07:59 10:51 Troponin T Baseline 69 H (0-15) ng/L Troponin T 120 Minute 67.52 H (0-15) ng/L Delta Troponin T -1.48 L (0-10) ABS# Troponin T Hi Sens 6Hr (0-15) ng/L Troponin T Hi Sens 6Hr Delta (0-12) ng/L NT-Pro-B Natriuret Pep 50108 H (0-125) pg/mL 10/09/22 Range/Units 14:09 Troponin T Baseline (0-15) ng/L Troponin T 120 Minute (0-15) ng/L Delta Troponin T (0-10) ABS# Troponin T Hi Sens 6Hr 71.80 H (0-15) ng/L Troponin T Hi Sens 6Hr Delta 2.80 (0-12) ng/L NT-Pro-B Natriuret Pep (0-125) pg/mL Liver Function 10/09/22 Range/Units 04:30 Total Bilirubin 0.7 (0.15-1.2) mg/dL AST 326 H (0-40) U/L ALT 1096 H (0-41) U/L Alkaline Phosphatase 225 H (40-130) U/L Albumin 3.4 L (3.5-5.2) g/dL Urine 10/09/22 Range/Units 05:28 Urine Color Yellow (Yellow) Urine Appearance Hazy A (CLEAR) Urine pH 5 (5-7) Ur Specific [place] 1.015 (1.005-1.030) Urine Protein Neg (Negative) Urine Glucose (UA) 4+ H (Normal) Urine Ketones Negative (Negative) Urine Nitrate Negative (Negative) Urine Bilirubin Neg (Negative) Ur Leukocyte Esterase 2+ H (Negative) Urine RBC 0-4 H (0-2) /hpf Urine WBC Too numerous to cnt H (0-5) /hpf Blood Bank 10/10/22 12:04 Blood Type O Positive Rho(D) Type Positive Antibody Screen Negative COVID Results 10/09/22 05:02 SARS-CoV-2 Ag (Rapid) negative Coags 10/09/22 10/09/22 07:59 07:59 PT 18.40 H INR 1.50 H C-Reactive Protein 53.1 H Microbiology 10/09/22 05:28 Urine Culture - Preliminary Urine,Clean Catch 10/09/22 07:59 Blood Culture - Preliminary Blood NEGATIVE TO DATE 10/09/22 08:00 Blood Culture - Preliminary Blood NEGATIVE TO DATE Cardiac Studies: Echocardiogram 08/31/22 Echocardiogram Ultrasound 02/04/20 Holter Monitor 03/03/20
--- NOTE | 2022-10-10 17:51 | P.CONIM_ITS ---
Providers/Reason For Consult Consulting Physician/Specialty*: Dr. Stephen Retana, DO/General surgery Reason for Consult*: Splenic lacerations Attending Physician: Lenny Mathias History of Present Illness History of Present Illness Moises Galvez is a 67 year old male, who is a known vasculopath with a history of right below-knee amputation, CABG, aortic valve replacement, anemia, diabetes, hyperlipidemia, who presented to the hospital with generalized weakness. He reported upon admission that he had not had a bowel movement in 3 days. Its not been 5 days since he has had a bowel movement. A CT of the abdomen pelvis per formed yesterday and it showed several grade 1 splenic lacerations. For this reason general surgery was consulted. CT also showed colitis of the descending and sigmoid colon. He was recently diagnosed with diverticulitis and colovesicular fistula. He was supposed to follow-up with colorectal surgery and Law, however he reports that he missed his appointment due to weakness. I saw him for the first time this morning and he had rebound on my abdominal exam. I ordered an acute abdomen series which revealed a large amount of free air. We have been unable to transfer the patient. He reports that he has diffuse and severe abdominal pain that does not radiate. Palpation makes the pain worse. Narcotics make the pain better. Review of Systems General: Reports: 10 or more systems reviewed and unremarkable except in HPI and below Medications/Allergies Home Medications Medication Instructions Recorded Confirmed Last Taken Type lisinopril 20 mg tablet 20 mg PO DAILY #90 tabs 08/30/21 10/09/22 12/23/21 05:00 Rx aspirin 81 mg tablet,delayed 81 mg PO DAILY 11/30/21 10/09/22 12/23/21 05:00 History release vit N-ploujwwe-jny palmetto 160 1 cap PO DAILY 12/08/21 10/09/22 12/23/21 05:00 History mg-pygeum africanum 12.5 mg capsule (Urinozinc Prostate Complex Classic) clopidogrel 75 mg tablet 75 mg PO DAILY #90 tabs 02/04/22 10/09/22 Unknown Rx atorvastatin 80 mg tablet 80 mg PO DAILY #100 tabs 04/18/22 10/09/22 Unknown Rx gabapentin 300 mg capsule 300 mg PO BID #60 caps 05/16/22 10/09/22 Unknown Rx sitagliptin 100 mg tablet (Januvia) 100 mg PO DAILY #30 tabs 05/16/22 10/09/22 Unknown Rx metformin 1,000 mg tablet 1,000 mg PO BID #180 tabs 06/27/22 10/09/22 Unknown Rx ferrous sulfate 325 mg (65 mg 325 mg PO DAILY #30 tabs 09/02/22 10/09/22 Unknown Rx iron) tablet (Feosol) omeprazole 40 mg capsule,delayed 40 mg PO BIDWM 30 days #60 caps 09/02/22 10/09/22 Unknown Rx release ondansetron 4 mg disintegrating 4 mg PO Q8H PRN nausea and 09/27/22 10/09/22 Unknown Rx tablet vomiting #15 tabs pantoprazole 40 mg tablet,delayed 40 mg PO BID 14 days #28 tabs 10/05/22 10/09/22 Unknown Rx release (Protonix) cefdinir 300 mg capsule See Rx Instructions .Route 10/06/22 10/09/22 Unknown Rx .COMPLEX #30 caps Allergies Allergy/AdvReac Type Severity Reaction Status Date / Time codeine AdvReac Unknown ADR-Nausea Verified 09/21/22 07:41 Current Medications Generic Name Dose Route Start Last Admin Trade Name Freq PRN Reason Stop Dose Admin Acetaminophen 650 mg 10/09/22 07:26 10/09/22 16:37 Acetaminophen 325 Mg Tablet PO 650 mg Q6H PRN Administration Mild/Mod Pain Or Temp >/= 101 Albuterol Sulfate 2.5 mg 10/09/22 10:37 10/10/22 09:08 Albuterol 2.5 Mg/3 Ml Neb INHALATION 2.5 mg Q6H.RESP PRN Administration SHORTNESS OF BREATH Aspirin 81 mg 10/09/22 09:00 10/10/22 08:32 Aspirin 81 Mg Ec Tablet PO 81 mg DAILY PORTIA Administration Atorvastatin Calcium 80 mg 10/09/22 09:00 10/09/22 08:41 Atorvastatin 40 Mg Tablet PO 80 mg DAILY PORTIA Administration Clopidogrel Bisulfate 75 mg 10/09/22 09:00 10/10/22 08:33 Clopidogrel 75 Mg Tablet PO 75 mg DAILY PORTIA Administration Gabapentin 300 mg 10/09/22 09:00 10/10/22 17:00 Gabapentin 300 Mg Capsule PO Not Given BID PORTIA Diltiazem HCl 100 mg/ Sodium 100 mls @ 0 mls/hr 10/09/22 05:45 10/09/22 14:30 Chloride IV 7.5 mg/hr .Q0M PORTIA 7.5 mls/hr Titration Protocol Per Protocol Piperacillin Sod/Tazobactam 50 mls @ 12.5 mls/hr 10/10/22 00:00 10/10/22 17:20 Sod 3.375 gm/ Sodium Chloride IV 12.5 mls/hr Q8H PORTIA Administration Protocol Sodium Chloride 1,000 mls @ 30 mls/hr 10/10/22 17:15 10/10/22 17:11 Sodium Chloride 0.9% IV 10/11/22 17:14 30 mls/hr .Q24H PORTIA Administration Insulin Human Lispro 0 unit 10/09/22 08:00 10/10/22 17:00 Insulin Lispro 100 Unit/1 Ml SUBCUT Not Given TIDWM PORTIA Protocol Lisinopril 20 mg 10/09/22 09:00 10/09/22 11:02 Lisinopril 20 Mg Tablet PO Not Given DAILY PORTIA Metoprolol Tartrate 25 mg 10/09/22 16:22 10/10/22 08:33 Metoprolol Tartrate 25 Mg Tablet PO 25 mg BID@0900,2100 PORTIA Administration Pantoprazole Sodium 40 mg 10/09/22 20:00 10/10/22 08:33 Pantoprazole 40 Mg Sdv IVP 40 mg Q12H PORTIA Administration PFSH Acute PFSH: Medical History 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 Diastolic CHF, chronic Essential (primary) hypertension Hereditary and idiopathic neuropathy, unspecified Mixed hyperlipidemia Non-ST elevated myocardial infarction (non-STEMI) Non-ST elevation (NSTEMI) myocardial infarction Occlusion and stenosis of left carotid artery Presence of prosthetic heart valve Profound anemia Smoking Surgical History History of [facility] 12/[facility] History of aortic valve replacement History of coronary artery bypass graft Hx of right BKA Family History Father CAD (coronary artery disease), Onset Age: 60 Mother , at age 54 Cancer breast Denies family history of Diabetes Clotting disorder Dementia Chronic kidney disease (CKD) Suicide Anesthesia complication Bleeding disorder Lung disease Stroke Social History Smoking and tobacco status: current every day smoker cigarettes Packs smoked per day: 1 Years cigarettes smoked: 54 Alcohol intake: never Marital status: Current occupational status: retired History of recent travel: No Vitals/I&O/Wt Last Vital Signs Temp 98.6 F 10/10/22 17:08 Pulse 119 H 10/10/22 17:08 Resp 17 10/10/22 17:08 BP 110/75 10/10/22 17:08 Pulse Ox 95 10/10/22 17:08 O2 Del Method 10/10/22 17:08 O2 Flow Rate 3 10/10/22 14:42 10/10/22 10/10/22 10/10/22 06:59 14:59 22:59 Intake Total 50 / 7891.930 4018 / 1170 5 / 1175 Output Total 100 / 1500 400 / 400 Balance -50 / -661.335 0491 / 1170 -395 / 775 Weight last 48 hrs Weight 127 lb Weight 120 lb Physical Exam Narrative: General : Patient is well developed , no acute distress, oriented x3 Head : Normal cephalic, a-traumatic. Ears : Pinnae and external canal are normal. Hearing is normal. Eyes : PERRLA, Sclera and injection are normal. No conjunctival discharge. Nose : Mucous membranes are without erythema. Throat : buccal mucosa is normal, gums are without significant recession or hypertrophy. Lungs : Equal chest rise bilaterally, no use of accessory muscles, trachea is midline. Cor : Tachycardic, rhythm normal. Abdomen : Soft, ND, diffusely tender to palpation, positive rebound Extremities : No edema, no cyanosis or clubbing, Upper extremities are normal bilaterally. Back : non-tender to palpation, no CVA tenderness. Neuro : CN II - XII intact, Upper and lower extremities have equal and full strength, R BKA Urinary Catheter Management: Cohn: Cath Placed During This Visit: yes Reason for Continuing Indwelling Catheter: Accurate Measurement of Urinary Output in Critically Ill Patients Urinary Catheter Date of Insertion: 10/09/22 Urinary Catheter Time of Insertion: 06:45 Data 10/10/22 12:04 10/10/22 00:53 Micro: Microbiology 10/09/22 05:28 Urine Culture - Preliminary Urine,Clean Catch 10/09/22 07:59 Blood Culture - Preliminary Blood NEGATIVE TO DATE 10/09/22 08:00 Blood Culture - Preliminary Blood NEGATIVE TO DATE A&P Assessment and plan (1) Splenic laceration: (2) Subcapsular hemorrhage of spleen: (3) PVD (peripheral vascular disease): (4) Bowel perforation: Plan To OR for exploratory laparotomy, possible bowel resection, possible ostomy The risks and benefits of the procedure, including but not limited to, bleeding, infection, scar, numbness, pain, damage to surrounding structures, ostomy malfunction including retraction and infection, were explained to the patient. He is understanding of the risks and wishes to proceed. Coding Level of Care Code Acute Code for [facility] Diagnoses Splenic laceration S36.039A Subcapsular hemorrhage of spleen D73.5 PVD (peripheral vascular disease) I73.9 Bowel perforation K63.1
--- NOTE | 2022-10-10 19:00 | PM.PN ---
Subjective Subjective: This morning he is feeling overall tired. Denies chest pain or pressure. No trouble breathing. Heart rate has shown improvement and this morning blood pressure is better. On surgery assessment he is found to have rebound abdominal tenderness. Vitals/I&O/Wt Last Vital Signs Temp 98.6 F 10/10/22 17:08 Pulse 119 H 10/10/22 17:08 Resp 17 10/10/22 17:08 BP 110/75 10/10/22 17:08 Pulse Ox 95 10/10/22 17:08 O2 Del Method 10/10/22 17:08 O2 Flow Rate 3 10/10/22 14:42 10/10/22 10/10/22 10/10/22 06:59 14:59 22:59 Intake Total 50 / 7365.054 7726 / 1170 5 / 1175 Output Total 100 / 1500 400 / 400 Balance -50 / -002.253 4386 / 1170 -395 / 775 Weight last 48 hrs Weight 57.606 kg Weight 54.431 kg Physical Exam Const: COMMON NORMALS: patient oriented x3 and alert GENERAL APPEARANCE: cooperative and frail appearing ORIENTATION/CONSCIOUSNESS: Yes awake HENMT: COMMON NORMALS: oropharynx normal Neck/C-Spine: COMMON NORMALS: no JVD Cardio: COMMON NORMALS: no JVD Neuro: COMMON NORMALS: patient oriented x3 and moves all extremities SENSORIUM/ORIENTATION: Yes alert Skin: COMMON NORMALS: no rashes or lesions noted GENERAL SKIN EXAM: no rashes or lesions noted Urinary Catheter Management: Cohn: Cath Placed During This Visit: yes Reason for Continuing Indwelling Catheter: Accurate Measurement of Urinary Output in Critically Ill Patients Urinary Catheter Date of Insertion: 10/09/22 Urinary Catheter Time of Insertion: 06:45 Data 10/10/22 12:04 10/10/22 00:53 Micro: Microbiology 10/09/22 05:28 Urine Culture - Preliminary Urine,Clean Catch 10/09/22 07:59 Blood Culture - Preliminary Blood NEGATIVE TO DATE 10/09/22 08:00 Blood Culture - Preliminary Blood NEGATIVE TO DATE A&P Assessment and plan (1) Bowel perforation: Free air identified on finding of rebound tenderness. Concern for perforated viscus. Attempted transfer but multiple facilities without beds or unable to accept. Placed on waiting list to [facility]. Unable to undergo surgery initially here due to another case being operated on. CT follow-up additionally with concern for bowel ischemia. Noted vasculopathy. Currently went to the OR for ex lap for acute abdomen. Will be returning to ICU. We will request chest pain coordinator to see him. Would likely maintain ETT in place tonight. Provide hemodynamic support as needed. Continue Zosyn. Suspicion for underlying colonic malignancy not yet diagnosed. Possibly with metastatic liver lesion. (2) Atrial flutter with rapid ventricular response: Weaned off Cardizem drip. Continue metoprolol. Not on anticoagulation due to splenic laceration/hematomas. (3) Transaminitis: Follow-up liver parameters. (4) Mixed hyperlipidemia: (5) Presence of prosthetic heart valve: (6) Type 2 diabetes mellitus: Qualifiers: Diabetes mellitus long-term insulin use: with long-term use Diabetes mellitus complication status: with hyperglycemia Qualified Code(s): E11.65 - Type 2 diabetes mellitus with hyperglycemia; Z79.4 - MCC (current) use of insulin (7) PVD (peripheral vascular disease): (8) Diastolic CHF, chronic: (9) CHF exacerbation: (10) Diverticulitis: (11) Recurrent urinary tract infection: (12) Colovesical fistula: (13) Weakness: (14) Elevated liver enzymes: (15) Hyperglycemia: Plan UTI: Continue Zosyn. Follow-up urine culture. With underlying colovesical fistula for which she was referred for follow-up with surgery by urology for planning of repair prior to ending up in the hospital. Continue SSI for TIIDM. Elevated TSH: Check T4, consider adding levothyroxine. May check Thyroid panel. Attestations Medical Necessity Statement*: Continue admission for assessment and management of acute abdomen, colitis, enteritis, suspected undiagnosed malignancy, A. fib with RVR, splenic laceration, UTI with colovesical fistula. Coding Level of Care Code Acute Code for [facility] Diagnoses Bowel perforation K63.1 Atrial flutter with rapid ventricular response I48.92 Transaminitis R74.01 Mixed hyperlipidemia E78.2 Presence of prosthetic heart valve Z95.2 Type 2 diabetes mellitus E11.65; Z79.4 Diabetes mellitus long term care pharmacist insulin use: with long term care pharmacist use Diabetes mellitus complication status: with hyperglycemia PVD (peripheral vascular disease) I73.9 Diastolic CHF, chronic I50.32 CHF exacerbation I50.9 Diverticulitis K57.92 Recurrent urinary tract infection N39.0 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
--- NOTE | 2022-10-10 19:52 | PM.OP ---
Operative Report Date of procedure: October 10, 2022 Pre-op diagnosis: Preop Diagnosis perforated viscus Post-op diagnosis: other (Colovesicular fistula, no perforation identified) Procedure done: Exploratory laparotomy Implants: 19 [place] Carlos drains x3 Specimens removed/disposition: None Surgeon: Dr. Stephen Retana DO Anesthesia: General Estimated blood loss (mL): 20 Complications: None apparent Findings: Colovesicular fistula identified but no area of perforation found. Brief History: This is a 67-year-old gentleman who is a known vasculopath that was found to have free intraperitoneal air on imaging today. Exploratory laparotomy, possible bowel resection, possible ostomy was indicated. The risks and benefits were explained and documented. Procedure: Patient was wheeled in the operative room placed on the OR table in the supine position abdomen was inspected prepped and draped in usual sterile fashion. General endotracheal intubation was achieved by the department anesthesia. A timeout was performed. All present were in agreement. A 10 blade scalpel was then used to make a midline laparotomy. Bovie cautery was then used to dissect down to the fascia. Renny's were used to grab the fascia on each side and Metzenbaum scissors were used to open the fascia. This was then carried superiorly and inferiorly using Bovie cautery. Hemostats were used to grasp the peritoneum x2. The peritoneum was opened with Metzenbaum scissors. This was then carried inferiorly and laterally. Immediately upon entering there was murky fluid throughout the abdomen, somewhat consistent with gastric contents. The abdomen was meticulously inspected and flushed with normal saline. There was stool throughout the descending and sigmoid colon. There was a significant fistulous connection between the sigmoid colon and bladder. No discrete mass could be palpated in the sigmoid colon however. I very carefully inspected all surfaces of the colon, small bowel and stomach. Entire small bowel was ran. The abdomen was filled with saline and air was placed through the NG tube, which was confirmed to be in good position. No air leak was identified. Air was then injected through the Cohn catheter into the bladder. No air leak was identified in this location. Air was then injected through the anus into the rectum and no air leak was noted. After full inspection, no area of perforation or matted bowel or further leak was identified. The decision was made at this point to place drains and close the abdomen. 19 [place] Carlos drains were placed through the left hemiabdomen and along the left paracolic gutter. On the right side, the superior 19 [place] Carlos drain went along the right pericolic gutter. The right inferior drain went into the pelvis. Drains were sewn in place with 3-0 nylon. The laparotomy incision was then closed with #1 PDS x2 in a running fashion. Skin was closed with polina. Patient tolerated the procedure well.
[2022-10-10] MEDS: morphine 4 mg/mL SDV 1 mL IVP (21:40)
[2022-10-10 22:02] LABS: Hematocrit 30.2 % (42.0-52.0); Hemoglobin 8.5 g/dL (11.7-16.6)
[2022-10-10] MEDS: HYDROmorphone 1 mg/mL INJ 1 mL IVP (23:01)
[2022-10-11] VITALS (56 sets, daily range): BP systolic 63–116; BP diastolic 44–85; PULSE 102–128; RESP 6–24; TEMP 35.3–36.8; O2SAT 77–100
[2022-10-11 01:08] LABS: Hematocrit 37.9 % (42.0-52.0); Hemoglobin 10.4 g/dL (11.7-16.6)
[2022-10-11] MEDS: HYDROmorphone 1 mg/mL INJ 1 mL IVP ×3 (02:31→18:36)
[2022-10-11 06:02] LABS: Basophils % 0.1 %; Hematocrit 34.4 % (42.0-52.0); Hemoglobin 9.9 g/dL (11.7-16.6); Lymphocytes # 0.8 10^3/uL (0.8-4.8); Lymphocytes % 3.3 %; Mean Corpuscular HGB Conc 28.8 g/dL (30.0-36.0); Mean Corpuscular Hemoglobin 24.4 pg (28.0-34.0); Mean Corpuscular Volume 84.9 fl (80-94); Mean Platelet Volume 10.8 fL (7.4-10.4); Monocytes # 0.6 10^3/uL (0.2-0.9); Monocytes % 2.6 %; Neutrophils # 21.08 10^3/uL (1.8-7.7); Neutrophils % 93.5 %; Nucleated Red Blood Cells % 0 %; Platelet Count 210 10^3/cmm (130-400); Red Blood Count 4.05 10^6/uL (4.1-5.3); Red Cell Distribution Width 26.6 % (12.1-15.1); White Blood Count 22.6 10^3/uL (4.0-10.0)
[2022-10-11 06:21] LABS: Alanine Aminotransferase 527 U/L (0-41); Albumin Level 2.8 g/dL (3.5-5.2); Alkaline Phosphatase 132 U/L (40-130); Aspartate Amino Transferase 176 U/L (0-40); Blood Urea Nitrogen 47 mg/dL (8-23); Calcium 8.5 mg/dL (8.5-10.5); Carbon Dioxide 20 mmol/L (22-29); Chloride 104 mmol/L (98-107); Globulin 3.1 g/dL (1.3-4.6); Glomerular Filtration Rate 66.4 mL/min (90-130); Glucose 261 mg/dL (65-115); Osmolality Calculated 303 mOsm/kg (285-295); Sodium 136 mmol/L (136-145); Total Bilirubin 0.8 mg/dL (0.15-1.2); Total Protein 5.9 g/dL (6.6-8.7)
[2022-10-11 06:23] LABS: Anion Gap 17.4 (5-19); Potassium 5.4 mmol/L (3.5-5.1)
--- NOTE | 2022-10-11 07:30 | ANE.PACU2 ---
Inpatient post-anesthesia follow up: Airway intact: Yes Vital signs: Temperature 97.9 F Pulse Rate 128 Respiratory Rate 15 Blood Pressure 107/68 Pulse Oximetry 91 Oxygen Delivery Me thod Room Air Oxygen Flow Rate 3 Fraction of Inspir ed Oxygen Hydration adequate: Yes Nausea and vomiting: No Pain level: 3 Mental status: Baseline
--- NOTE | 2022-10-11 08:00 | PC.NURSE ---
Rounded with Dr. Retana. Ok for patient to have ice chips, no PO meds today.
[2022-10-11 08:32] LABS: Glucose Point of Care 289 mg/dL (70-110)
[2022-10-11] MEDS: insulin lispro 100 unit/1 mL SUBCUT ×2 (08:55→12:32)
[2022-10-11] MEDS: piperacillin-tazobactam 3.375 GM in sodium chloride 0.9% (plus) 50 ML IV ×3 (08:55→23:18)
[2022-10-11] MEDS: pantoprazole 40 mg SDV IVP ×2 (08:55→19:36)
--- NOTE | 2022-10-11 10:02 | PC.NURSE ---
Rounded with Dr. Mathias. Reviewed medications and vital signs. Orders for IV Amio and [place] aspirin. No PO meds today.
[2022-10-11] MEDS: metoprolol tartrate 1 mg/1 mL SDV 5 mL 5 MG IVP (10:14)
[2022-10-11] MEDS: aspirin 300 mg Supp PR (10:14)
[2022-10-11 11:50] LABS: Hematocrit 31.7 % (42.0-52.0); Hemoglobin 9.1 g/dL (11.7-16.6)
--- NOTE | 2022-10-11 12:05 | P.CONIM_ITS ---
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 He presented to [facility] due to generalized weakness, fatigue, malaise, no bowel movement for 3 days, difficult to urinate, shortness of breath, poor appetite.? He was seen in ER on 09/27/2022 diagnosed with diverticu litis, given antibiotics and sent home.?s He was admitted for atrial flutter with rapid ventricular response-deemed to be new onset-started on Cardizem drip. He had an echocardiogram August 2022 w [facility] showed ejection fraction 40 to 45% with mild global hypokinesis. He was given diuresis due to generalized edema with systolic heart failure. Patient had CT chest abdomen pelvis performed yesterday 10/09/2021 showed cardiomegaly with moderate bilateral pleural effusions with some fluid in the f issure, mediastinal and bilateral hilar lymphadenopathy, CAD, mild centrilobular emphysema. Subcapsular splenic hematoma with grade 1 splenic lacerations, colonic diverticulosis and colovesicular fistula, no marked colitis, indeterminate right hepatic lesion, atheromatous leg in proximal abdominal aorta, probable severe narrowing of proximal renal arteries, severe narrowing of the superior mesenteric artery, occluded right femoral artery. He was supposed to follow-up with colorectal surgery in [facility] however he missed appointment. General surgery evaluated on 10/10/2021 for splenic lacerations and subcapsular splenic hematoma-examination revealed significant rebound tenderness-enhanced abdominal series was ordered which showed large amount of free air. Repeat CT abdomen pelvis on 10/10/2021 showed us intraperitoneal free air suggestive of perforated viscus. Initial plan was to transfer patient to higher facility with colorectal services in the context of having history of colovesical fistula as well as severe atherosclerotic disease and extensive colitis. However due to lack of beds-patient is taken emergently to exploratory laparotomy by general surgery. By the time I came to check the patient-patient was being wheeled to general surgery. I have reviewed the chart but did not get a chance to see and talk to the patient. Review of Systems General: Reports: 10 or more systems reviewed and unremarkable except in HPI and below Medications/Allergies Home Medications Medication Instructions Recorded Confirmed Last Taken Type lisinopril 20 mg tablet 20 mg PO DAILY #90 tabs 08/30/21 10/09/22 12/23/21 05:00 Rx aspirin 81 mg tablet,delayed 81 mg PO DAILY 11/30/21 10/09/22 12/23/21 05:00 History release vit V-uzagzusk-sft palmetto 160 1 cap PO DAILY 12/08/21 10/09/22 12/23/21 05:00 History mg-pygeum africanum 12.5 mg capsule (Urinozinc Prostate Complex Classic) clopidogrel 75 mg tablet 75 mg PO DAILY #90 tabs 02/04/22 10/09/22 Unknown Rx atorvastatin 80 mg tablet 80 mg PO DAILY #100 tabs 04/18/22 10/09/22 Unknown Rx gabapentin 300 mg capsule 300 mg PO BID #60 caps 05/16/22 10/09/22 Unknown Rx sitagliptin phosphate 100 mg 100 mg PO DAILY #30 tabs 05/16/22 10/09/22 Unknown Rx tablet (Januvia) metformin 1,000 mg tablet 1,000 mg PO BID #180 tabs 06/27/22 10/09/22 Unknown Rx ferrous sulfate 325 mg (65 mg 325 mg PO DAILY #30 tabs 09/02/22 10/09/22 Unknown Rx iron) tablet (Feosol) omeprazole 40 mg capsule,delayed 40 mg PO BIDWM 30 days #60 caps 09/02/22 10/09/22 Unknown Rx release ondansetron 4 mg disintegrating 4 mg PO Q8H PRN nausea and 09/27/22 10/09/22 Unknown Rx tablet vomiting #15 tabs pantoprazole 40 mg tablet,delayed 40 mg PO BID 14 days #28 tabs 10/05/22 10/09/22 Unknown Rx release (Protonix) cefdinir 300 mg capsule See Rx Instructions .Route 10/06/22 10/09/22 Unknown Rx .COMPLEX #30 caps Allergies Allergy/AdvReac Type Severity Reaction Status Date / Time codeine AdvReac Unknown ADR-Nausea Verified 09/21/22 07:41 Current Medications Generic Name Dose Route Start Last Admin Trade Name Freq PRN Reason Stop Dose Admin Acetaminophen 650 mg 10/09/22 07:26 10/09/22 16:37 Acetaminophen 325 Mg Tablet PO 650 mg Q6H PRN Administration Mild/Mod Pain Or Temp >/= 101 Albuterol Sulfate 2.5 mg 10/09/22 10:37 10/10/22 09:08 Albuterol 2.5 Mg/3 Ml Neb INHALATION 2.5 mg Q6H.RESP PRN Administration SHORTNESS OF BREATH Aspirin 300 mg 10/11/22 09:45 10/11/22 10:14 Aspirin 300 Mg Supp KS 300 mg DAILY PORTIA Administration Atorvastatin Calcium 80 mg 10/09/22 09:00 10/09/22 08:41 Atorvastatin 40 Mg Tablet PO 80 mg DAILY PORTIA Administration Clopidogrel Bisulfate 75 mg 10/09/22 09:00 10/11/22 09:31 Clopidogrel 75 Mg Tablet PO Not Given DAILY PORTIA Gabapentin 300 mg 10/09/22 09:00 10/11/22 09:31 Gabapentin 300 Mg Capsule PO Not Given BID PORTIA Hydromorphone HCl 1 mg 10/10/22 22:57 10/11/22 05:57 Hydromorphone 1 Mg/Ml Inj 1 Ml IVP 1 mg Q4H PRN Administration PAIN Diltiazem HCl 100 mg/ Sodium 100 mls @ 0 mls/hr 10/09/22 05:45 10/09/22 14:30 Chloride IV 7.5 mg/hr .Q0M PORTIA 7.5 mls/hr Titration Protocol Per Protocol Piperacillin Sod/Tazobactam 50 mls @ 12.5 mls/hr 10/10/22 00:00 10/11/22 08:55 Sod 3.375 gm/ Sodium Chloride IV 12.5 mls/hr Q8H PORTIA Administration Protocol Amiodarone HCl 900 mg/ 518 mls @ 0 mls/hr 10/11/22 09:15 10/11/22 09:09 Dextrose/ IV Miscellaneous IV 1 mg/min Supplies .Q0M PORTIA 34.53 mls/hr Administration Protocol Per Protocol Insulin Human Lispro 0 unit 10/09/22 08:00 10/11/22 08:55 Insulin Lispro 100 Unit/1 Ml SUBCUT 8 unit TIDWM PORTIA Administration Protocol Lisinopril 20 mg 10/09/22 09:00 10/09/22 11:02 Lisinopril 20 Mg Tablet PO Not Given DAILY PORTIA Metoprolol Tartrate 25 mg 10/09/22 16:22 10/11/22 09:31 Metoprolol Tartrate 25 Mg Tablet PO Not Given BID@0900,2100 PORTIA Metoprolol Tartrate 5 mg 10/11/22 09:54 10/11/22 10:14 Metoprolol Tartrate 1 Mg/1 Ml Sdv 5 Ml IVP 5 mg Q6H PRN Administration HEART RATE-HIGH Pantoprazole Sodium 40 mg 10/09/22 20:00 10/11/22 08:55 Pantoprazole 40 Mg Sdv IVP 40 mg Q12H PORTIA Administration PFSH Acute PFSH: Medical History Atherosclerotic heart disease of [place] coronary artery without angina pectoris Colovesical fistula Diastolic CHF, chronic Essential (primary) hypertension Hereditary and idiopathic neuropathy, unspecified Mixed hyperlipidemia Non-ST elevated myocardial infarction (non-STEMI) Non-ST elevation (NSTEMI) myocardial infarction Occlusion and stenosis of left carotid artery Presence of prosthetic heart valve Profound anemia Smoking Surgical History History of amputation of foot 12/2019- [facility] History of aortic valve replacement History of coronary artery bypass graft Hx of right BKA Family History Father CAD (coronary artery disease), Onset Age: 60 Mother , at age 54 Cancer breast Denies family history of Diabetes Clotting disorder Dementia Chronic kidney disease (CKD) Suicide Anesthesia complication Bleeding disorder Lung disease Stroke Social History Smoking and tobacco status: current every day smoker cigarettes Packs smoked per day: 1 Years cigarettes smoked: 54 Alcohol intake: never Marital status: Current occupational status: retired History of recent travel: No Vitals/I&O/Wt Last Vital Signs Temp 97.9 F 10/11/22 05:29 Pulse 128 H 10/11/22 10:53 Resp 23 H 10/11/22 10:53 BP 107/68 10/11/22 05:00 Pulse Ox 92 10/11/22 10:53 O2 Del Method 10/11/22 10:53 O2 Flow Rate 3 10/10/22 14:42 10/10/22 10/11/22 10/11/22 22:59 06:59 14:59 Intake Total 55 / 1225 Output Total 400 / 400 1055 / 1455 Balance -345 / 825 -1055 / -230 Physical Exam Narrative: Unable to do complete examination as patient is being wheeled off for emergency exploratory laparotomy Urinary Catheter Management: Cohn: Cath Placed During This Visit: yes Reason for Continuing Indwelling Catheter: Accurate Measurement of Urinary Output in Critically Ill Patients Urinary Catheter Date of Insertion: 10/09/22 Urinary Catheter Time of Insertion: 06:45 Data 10/11/22 11:31 10/11/22 05:34 Other Labs: Radiology Impressions Chest/Abdomen/Pelvis CT 10/09/22 06:36 IMPRESSION: 1. Cardiomegaly with moderate bilateral pleural effusions. There is loculated fissural fluid on the left. 2. Mediastinal and bilateral hilar lymphadenopathy. 3. Coronary artery disease. 4. At least mild centrilobular emphysema. 5. Dependent atelectasis at the lung bases. 6. Diffuse subcutaneous edema may reflect anasarca. IMPRESSION: 1. Subcapsular splenic collection that is the density of blood. This is suspicious for a subcapsular splenic hematoma. There are linear foci in the spleen suspicious for grade 1 splenic lacerations. No definite active extravasation is seen. 2. Colonic diverticulosis is noted. There is marked wall thickening of the distal descending and proximal/mid sigmoid colon. This could reflect marked colitis. Diverticulitis is considered less likely given long segment involvement; however, this is not excluded. Recommend colonoscopy upon resolution of acute symptoms to exclude underlying mass. 3. There is prominence of the wall of multiple small bowel loops which may reflect background enteritis. Correlate clinically. 4. Indeterminate right hepatic lesion. Recommend nonemergent MR abdomen hepatic protocol with and without contrast to better characterize. 5. Globular eccentric atheromatous plaque within the proximal abdominal aorta. No dissection is seen. 6. Probable severe narrowing of the proximal renal arteries. 7. Severe narrowing of the superior mesenteric artery 8. The right femoral artery is occluded. 9. A gastric diverticulum is noted. 10. Mild ascites. 11. Diffuse subcutaneous edema may reflect anasarca. COMMENTS: Consistent with the [employer]'s Incidental Findings Committee white paper (J Am Josiane Radiol 2018): Any incidental renal lesion less than 1 cm or classified as too small to characterize, or any incidental cystic renal lesion characterized as simple-appearing, is likely benign. No follow-up imaging is recommended for these lesions per consensus recommendations based on imaging criteria. ADDENDUM: 10/09/[address] De Santiago at 10/09/2022 8:15 AM [facility]. Chest/Abdomen X-ray 10/10/22 09:52 Impression: 1. Intra-abdominal free air which was not present yesterday which may represent perforated intra-abdominal viscus. 2. Bilateral basilar pulmonary opacity. 3. Cardiomegaly. 4. Large amount of fecal material in the colon. 5. The nurse in the C[facility] was notified at 1040 hours. Abdomen/Pelvis CT 10/10/22 10:48 IMPRESSION: 1. Interval development of a moderate amount of free air throughout the peritoneal cavity since 10/09/2022. 2. Markedly abnormal descending colon and sigmoid. There is marked wall thickening and edema with diverticular disease. Ischemic changes with perforation likely in the sigmoid colon. Underlying mass is not excluded. 3. Diffuse mild ascites and soft tissue anasarca. 4. Small bilateral pleural effusions and compressive atelectasis. 5. Tiny focus of air near the quincy hepatis. May be free air within the quincy hepatis or very small amount of biliary air which can be seen with ischemic bowel disease. 6. Increasing thrombus abdominal aorta. Similar to 10/09/2022. Notified Stephen Retana DO at 10/10/2022 1:59 PM. Chest X-Ray 10/11/22 16:08 IMPRESSION: 1. Moderate to severe interstitial pulmonary edema, increased compared with the previous study. Increasing superimposed atelectasis in the right and left lower lobes. Recommend followup chest imaging to insure resolution of these findings. 2. Moderate bilateral pleural effusions. 3. Interval placement of an enteric tube with the tip in the upper body of the stomach. 4. Incidental/nonacute findings are listed in the report. Laboratory Results WBC 22.6 10^3/uL (4.0-10.0) H 10/11/22 05:34 RBC 4.05 10^6/uL (4.1-5.3) L 10/11/22 05:34 Hgb 9.1 g/dL (11.7-16.6) L 10/11/22 11:31 Hct 31.7 % (42.0-52.0) L 10/11/22 11:31 MCV 84.9 fl (80-94) 10/11/22 05:34 MCH 24.4 pg (28.0-34.0) L 10/11/22 05:34 MCHC 28.8 g/dL (30.0-36.0) L 10/11/22 05:34 RDW 26.6 % (12.1-15.1) H 10/11/22 05:34 Plt Count 210 10^3/cmm (130-400) 10/11/22 05:34 MPV 10.8 fL (7.4-10.4) H 10/11/22 05:34 Neut % (Auto) 93.5 % 10/11/22 05:34 Lymph % (Auto) 3.3 % 10/11/22 05:34 Crosby % (Auto) 2.6 % 10/11/22 05:34 Eos % (Auto) 0.0 % 10/11/22 05:34 Baso % (Auto) 0.1 % 10/11/22 05:34 Neut # (Auto) 21.08 10^3/uL (1.8-7.7) H 10/11/22 05:34 Lymph # (Auto) 0.8 10^3/uL (0.8-4.8) 10/11/22 05:34 Crosby # (Auto) 0.6 10^3/uL (0.2-0.9) 10/11/22 05:34 Eos # (Auto) 0.0 10^3/uL (0.0-0.8) 10/11/22 05:34 Baso # (Auto) 0.0 10^3/uL (0.0-0.1) 10/11/22 05:34 Nucleated RBC % (auto) 0 % 10/11/22 05:34 Nucleated RBCs # 0.0 /100WBC 10/11/22 05:34 PT 18.40 SECONDS (12.1-14.9) H 10/09/22 07:59 INR 1.50 (0.8-1.2) H 10/09/22 07:59 Sodium 136 mmol/L (136-145) 10/11/22 05:34 Potassium 5.4 mmol/L (3.5-5.1) H 10/11/22 05:34 Chloride 104 mmol/L (98-107) 10/11/22 05:34 Carbon Dioxide 20 mmol/L (22-29) L 10/11/22 05:34 Anion Gap 17.4 (5-19) 10/11/22 05:34 BUN 47 mg/dL (8-23) H 10/11/22 05:34 Creatinine 1.1 mg/dL (0.7-1.2) 10/11/22 05:34 GFR Calculation 66.4 mL/min (90-130) L 10/11/22 05:34 Glucose 261 mg/dL (65-115) H 10/11/22 05:34 POC Glucose 137 mg/dL (70-110) H 10/11/22 19:57 Estimat Average Glucose 174 10/09/22 07:59 Hemoglobin A1c 7.7 % (4.0-6.0) H 10/09/22 07:59 Calculated Osmolality 303 mOsm/kg (285-295) H 10/11/22 05:34 Lactic Acid 2.2 mmol/L (0.5-2.2) 10/09/22 07:59 Lactic Acid (Sepsis) 1.5 mmol/L (0.5-2.2) 10/09/22 10:51 Calcium 8.5 mg/dL (8.5-10.5) 10/11/22 05:34 Magnesium 2.5 mg/dL (1.7-2.3) H 10/09/22 04:30 Iron 9 ug/dL (59-158) L 10/09/22 07:59 Iron 9 ug/dL (59-158) L 10/09/22 07:59 TIBC 174 mcg/dl 10/09/22 07:59 % Saturation 5.1 % (20-50) L 10/09/22 07:59 Unsat Iron Binding 166 ug/dL (112-347) 10/09/22 07:59 Ferritin 68 ng/mL (30-400) 10/09/22 07:59 Total Bilirubin 0.8 mg/dL (0.15-1.2) 10/11/22 05:34 AST 176 U/L (0-40) H 10/11/22 05:34 ALT 527 U/L (0-41) H 10/11/22 05:34 Alkaline Phosphatase 132 U/L (40-130) H 10/11/22 05:34 Troponin T Baseline 69 ng/L (0-15) H 10/09/22 07:59 Troponin T 120 Minute 67.52 ng/L (0-15) H 10/09/22 10:51 Delta Troponin T -1.48 ABS# (0-10) L 10/09/22 10:51 Troponin T Hi Sens 6Hr 71.80 ng/L (0-15) H 10/09/22 14:09 Troponin T Hi Sens 6Hr Delta 2.80 ng/L (0-12) 10/09/22 14:09 C-Reactive Protein 53.1 mg/L (0.0-4.9) H 10/09/22 07:59 NT-Pro-B Natriuret Pep 81682 pg/mL (0-125) H 10/09/22 07:59 Total Protein 5.9 g/dL (6.6-8.7) L 10/11/22 05:34 Albumin 2.8 g/dL (3.5-5.2) L 10/11/22 05:34 Globulin 3.1 g/dL (1.3-4.6) 10/11/22 05:34 Triglycerides 160 mg/dL (0-150) H 10/09/22 07:59 Cholesterol 125 mg/dL (0-200) 10/09/22 07:59 LDL Cholesterol, Calc 68 mg/dL (50-129) 10/09/22 07:59 HDL Cholesterol 25 mg/dL (60-100) L 10/09/22 07:59 LDL/HDL Ratio 2.72 RATIO (0.00-3.22) 10/09/22 07:59 Cholesterol/HDL Ratio 5.00 mg/dL (1.0-5.00) 10/09/22 07:59 Lipase 34 U/L (13-60) 10/09/22 04:30 Carcinoembryonic Ag 11.9 ng/mL (0.0-4.7) H 10/10/22 00:53 Vitamin B12 > 2000 pg/mL (232-1245) H 10/09/22 07:59 Folate 10.0 ng/mL (4.5-32.2) 10/09/22 07:59 Procalcitonin 0.23 ng/mL (0-0.5) 10/09/22 07:59 TSH 8.97 uIU/mL (0.27-4.20) H 10/09/22 07:59 Free T4 0.70 ng/dL (0.82-1.77) L 10/11/22 05:34 Urine Color Yellow (Yellow) 10/09/22 05:28 Urine Appearance Hazy (CLEAR) A 10/09/22 05:28 Urine pH 5 (5-7) 10/09/22 05:28 Ur Specific [place] 1.015 (1.005-1.030) 10/09/22 05:28 Urine Protein Neg (Negative) 10/09/22 05:28 Urine Glucose (UA) 4+ (Normal) H 10/09/22 05:28 Urine Ketones Negative (Negative) 10/09/22 05:28 Urine Blood 3+ (Negative) H 10/09/22 05:28 Urine Nitrate Negative (Negative) 10/09/22 05:28 Urine Bilirubin Neg (Negative) 10/09/22 05:28 Urine Urobilinogen Neg mg/dL (Negative) 10/09/22 05:28 Ur Leukocyte Esterase 2+ (Negative) H 10/09/22 05:28 Urine RBC 0-4 /hpf (0-2) H 10/09/22 05:28 Urine WBC Too numerous to cnt /hpf (0-5) H 10/09/22 05:28 Ur Squamous Epith Cells 0-4 /hpf (0-5) H 10/09/22 05:28 Amorphous Sediment Not Reportable 10/09/22 05:28 Urine Bacteria 4+ /hpf (NONE) H 10/09/22 05:28 Salicylates < 0.3 mg/dL (3-10) L 10/09/22 07:59 Acetaminophen < 5.0 ug/mL (10-30) L 10/09/22 07:59 Ethyl Alcohol < 10 mg/dL (0-10) 10/09/22 07:59 Hepatitis A IgM Ab Non-reactive (Nonreactive) 10/09/22 04:30 Hep Bs Antigen Non-reactive (Nonreactive) 10/09/22 04:30 Hep Bs Antibody 3.5 (11.5-1000) L 10/09/22 04:30 Hep B Core Total Ab Non-reactive (Nonreactive) 10/09/22 04:30 Hepatitis C Antibody Non-reactive (Nonreactive) 10/09/22 04:30 Influenza Type A Ag negative (Negative) 10/09/22 05:02 Influenza Type B Ag negative (Negative) 10/09/22 05:02 SARS-CoV-2 Ag (Rapid) negative (Negative) 10/09/22 05:02 Blood Type O Positive 10/10/22 12:04 Rho(D) Type Positive 10/10/22 12:04 Antibody Screen Negative 10/10/22 12:04 Micro: Microbiology 10/09/22 05:28 Urine Culture - Final Urine,Clean Catch 10/09/22 07:59 Blood Culture - Preliminary Blood NEGATIVE TO DATE 10/09/22 08:00 Blood Culture - Preliminary Blood NEGATIVE TO DATE A&P Assessment and plan (1) Bowel perforation: (2) Splenic laceration: (3) CHF exacerbation: (4) Atrial flutter with rapid ventricular response: Plan #Patient with multiple comorbidities-more significant is severe atherosclerotic disease with underlying CAD, bilateral renal artery stenosis, bowel vasculature occlusion-patient prone for ischemic bowel -CT abdomen pelvis showed significant free air under diaphragm suggestive of some perforated viscus -Patient is being taken to the OR emergently -Continue Zosyn #Atrial flutter with RVR -weaned off Cardizem drip -Currently on metoprolol -Unable to anticoagulate due to splenic hematoma #History of prosthetic heart valve #History of colorectal fistula-supposed to follow-up with colorectal surgeon in [facility]-however he missed outpatient appointment ICU CHECKLIST: Problem list updated Verbal orders reviewed and signed Analgesia: Opioids Glycemic Control: Insulin Nutrition: N.p.o. for surgery Restraint Renewal (within 24 hrs): N/A Ulcer Prophylaxis: Yes Chemical Thromboprophylaxis: Prophylaxis: Held due to high risk of bleeding Mechanical Thromboprophylaxis: {Mechanical DVT:[id number]} Need for Central line: N/A Need for Cohn catheter: For in urine output monitoring Critical Care Time (No Overlap): 46 min Consult Attestations Medical Necessity Statement: He is a perforated viscus-patient is going for emergent exploratory laparotomy Time Spent in Patient Care: Greater than 35 minutes Critical Care Time: This patient has a high probability of sudden, clinically significant deterioration, which requires the highest level of physician prepa redness to intervene urgently. I managed/supervised life or organ supporting interventions that required frequent physician assessment. I devoted my full attention in the ICU to the direct care of this patient for the period of time indicated above. Time I spent with family or surrogate(s) is included only if the patient was incapable of providing necessary information or participating in decision making. Time devoted to teaching and to any procedures I billed separately is not included. Services Provided: Telemetry review Mechanical Ventilation Hemodynamic interpretation, assessment and management Review and interpretation of CXR Review and interpretation of lab values Review and interpretation of microbiologic data and culture results Review of medications and administration Review and interpretation of Nutrition requirements and management Discussion of management with other consultants and services Clinical update to family members [x] Patient assessment, examination and intervention [x] Documentation [x] Medication orders and management Critical Care Time (min): 46 Coding Level of Care Code New Pt Acute Code for Chg Fwd Patient Type New History Comprehensive Exam Comprehensive Medical Decision Making High Complexity Diagnoses Bowel perforation K63.1 Splenic laceration S36.039A CHF exacerbation I50.9 Atrial flutter with rapid ventricular response I48.92 Time Spent (min) 46
[2022-10-11 12:21] LABS: Glucose Point of Care 309 mg/dL (70-110)
--- NOTE | 2022-10-11 15:02 | PC.OT ---
SPOKE WITH NURSE; AWAITING NEW ORDERS FOR THERAPY SECONDARY TO SURGERY AND TRANSFER TO ICU.
--- NOTE | 2022-10-11 15:05 | PC.NURSE ---
1320 Reported low urine output and low BP to Dr. Garcia. Maps have maintained above 60. 1400 Reported low urine output and low blood pressure to Dr. Mathias. Maps have maintained above 60. [address] Retana to report that patient has pulled out his NG tube and is refusing to have it replaced. Ok to leave NG tube out. Patient may not have ice chips without NG tube. Patient and educated on plan of care. Verbalized understanding.
--- NOTE | 2022-10-11 15:09 | P.PN_ITS ---
Subjective Subjective: He is feeling slightly better today. Has not passed flatus. No vomiting. Denies chest pain. Vitals/I&O/Wt Last Vital Signs Temp 97.9 F 10/11/22 05:29 Pulse 128 H 10/11/22 10:53 Resp 23 H 10/11/22 10:53 BP 107/68 10/11/22 05:00 Pulse Ox 92 10/11/22 10:53 O2 Del Method 10/11/22 10:53 O2 Flow Rate 3 10/10/22 14:42 10/11/22 10/11/22 10/11/22 06:59 14:59 22:59 Intake Total 50 / 50 Output Total 1055 / 1455 Balance -1055 / -230 50 / 50 Physical Exam Const: COMMON NORMALS: patient oriented x3 and alert GENERAL APPEARANCE: cooperative and frail appearing ORIENTATION/CONSCIOUSNESS: Yes awake HENMT: COMMON NORMALS: oropharynx normal Neck/C-Spine: COMMON NORMALS: no JVD Cardio: COMMON NORMALS: no JVD GI: AUSCULTATION: Yes Absent bowel sounds OTHER: Postop dressing Extremity: OTHER: Trace edema. Neuro: COMMON NORMALS: patient oriented x3 and moves all extremities SENSORIUM/ORIENTATION: Yes alert Skin: COMMON NORMALS: no rashes or lesions noted GENERAL SKIN EXAM: no isaias hes or lesions noted Urinary Catheter Management: Cohn: Cath Placed During This Visit: yes Reason for Continuing Indwelling Catheter: Accurate Measurement of Urinary Output in Critically Ill Patients Urinary Catheter Date of Insertion: 10/09/22 Urinary Catheter Time of Insertion: 06:45 Data 10/11/22 11:31 10/11/22 05:34 Micro: Microbiology 10/09/22 05:28 Urine Culture - Final Urine,Clean Catch A&P Assessment and plan (1) Bowel perforation: No obvious perforation identified during exploratory laparotomy, no air found coming from urinary bladder either. Noted to have several colovesical fistulae. Murky fluid throughout the abdomen. Somewhat consistent with gastric contents. No discrete mass could be palpated. Drains were placed. Last night he was extubated after procedure. So far maintaining blood pressures. Continue Zosyn for possible infectious colitis. Additional possibility of degree of hypoperfusion of bowel/large intestine given multivessel vasculopathy. No discrete mass, although suspicion for possible underlying malignancy not entirely ruled out. Possibly with metastatic liver lesion. (2) Atrial flutter with rapid ventricular response: He remains n.p.o. at this time. Also blood pressures are soft. Start amiodarone drip. Not on anticoagulation due to splenic laceration/hematomas. (3) Transaminitis: Follow-up liver parameters. 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 Continue Zosyn. Follow-up urine culture. With underlying colovesical fistula for which she was referred for follow-up with surgery by urology for planning of repair prior to ending up in the hospital. Transaminitis: Continue to gradually improve. Hepatitis panel unremarkable. Continue SSI for TIIDM. Elevated TSH: Check T4, consider adding levothyroxine. Attestations Medical Necessity Statement*: Continue admission for assessment management of colitis, further assessment after intraperitoneal air, possible perforated viscus but without perforation finding on exploratory laparotomy, complicated UTI, A. fib with RVR. Critical Care Time: The high probability of a clinically significant, sudden or life threatening deterioration of the patient's hemodynamic, cardiac system(s) required my full and direct attention, intervention and personal management. The critical care time is as shown. This time is in addition to time spent performing any reported procedures but includes the following: x Data and vital sign review and interpretation x Patient assessment, examination and intervention x Documentation x Medication orders and management Critical Care Time (min): 35 Coding Level of Care Code Acute Code for Chg Fwd Diagnoses Bowel perforation K63.1 Atrial flutter with rapid ventricular response I48.92 Transaminitis R74.01 Mixed hyperlipidemia E78.2 Presence of prosthetic heart valve Z95.2 Type 2 diabetes mellitus E11.65; Z79.4 Diabetes mellitus senior care insulin use: with senior care use Diabetes mellitus complication status: with hyperglycemia PVD (peripheral vascular disease) I73.9 Diastolic CHF, chronic I50.32 CHF exacerbation I50.9 Diverticulitis K57.92 Recurrent urinary tract infection N39.0 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
--- NOTE | 2022-10-11 16:08 | XRR_ITS ---
PROCEDURE INFORMATION: Exam: XR Chest Exam date and time: 10/11/2022 4:22 PM Age: 67 years old Clinical indication: Device placement; Ng tube; Additional info: Ng tube placement TECHNIQUE: Imaging protocol: Radiologic exam of the chest. Views: 1 view. COMPARISON: CT chest abd pel w con* 10/09/2022 6:59 AM FINDINGS: Tubes, catheters and devices: Interval placement of an enteric tube with the tip in the upper body of the stomach. Lungs: Moderate to severe interstitial pulmonary edema, increased compared with the previous study. Increasing superimposed atelectasis in the right and left lower lobes. Pleural spaces: Moderate bilateral pleural effusions. Heart/Mediastinum: Stable moderate enlargement of the cardiac silhouette. Mediastinal contours are unremarkable. Vasculature: Stable vascular calcifications in the aorta. Bones/joints: Poststernotomy changes in the chest. Degenerative changes in the spine and shoulders. Osseous findings are stable. XR/XR chest 1V portable [id number] IMPRESSION: 1. Moderate to severe interstitial pulmonary edema, increased compared with the previous study. Increasing superimposed atelectasis in the right and left lower lobes. Recommend followup chest imaging to insure resolution of these findings. 2. Moderate bilateral pleural effusions. 3. Interval placement of an enteric tube with the tip in the upper body of the stomach. 4. Incidental/nonacute findings are listed in the report.
[2022-10-11 17:32] LABS: Glucose Point of Care 161 mg/dL (70-110)
--- NOTE | 2022-10-11 18:43 | PM.PN ---
Subjective Subjective: Patient seen and examined. He reports that his abdominal pain is controlled. He pulled out his NG tube today Vitals/I&O/Wt Last Vital Signs Temp 98.0 F 10/11/22 07:00 Pulse 102 H 10/11/22 18:17 Resp 22 H 10/11/22 18:17 BP 83/61 10/11/22 16:30 Pulse Ox 93 10/11/22 18:17 O2 Del Method 10/11/22 18:17 O2 Flow Rate 3 10/10/22 14:42 10/11/22 10/11/22 10/11/22 06:59 14:59 22:59 Intake Total 50 / 50 207.756 / 257.756 Output Total 1055 / 1455 300 / 300 Balance -1055 / -230 -250 / -250 207.756 / -42.244 Physical Exam Narrative: General: No acute distress, awake alert oriented x3 Abdomen soft, nondistended, appropriately tender to palpation Dressings clean dry and intact Drains serosanguineous Urinary Catheter Management: Cohn: Cath Placed During This Visit: yes Reason for Continuing Indwelling Catheter: Accurate Measurement of Urinary Output in Critically Ill Patients Urinary Catheter Date of Insertion: 10/09/22 Urinary Catheter Time of Insertion: 06:45 Data 10/11/22 11:31 10/11/22 05:34 Micro: Microbiology 10/09/22 05:28 Urine Culture - Final Urine,Clean Catch A&P Assessment and plan (1) Bowel perforation: Plan Postop day #1 status post exploratory laparotomy with drain placements N.p.o., replace NG tube to low remittent wall suction if patient will allow IV fluids Medical management per hospitalist Await return of bowel function Attestations Medical Necessity Statement*: Patient requires multiple more nights in the hospital for intensive care and return of bowel function following exploratory laparotomy Coding Level of Care Code Acute Code for g Fwd Diagnoses Bowel perforation K63.1
[2022-10-11 20:07] LABS: Glucose Point of Care 137 mg/dL (70-110)
[2022-10-11] MEDS: sodium chloride 0.9% 500 ML 999 ML IV (21:28)
--- NOTE | 2022-10-11 21:59 | PC.NURSE ---
1999- pt has low spo2 86%, 2l placed, unable to obtain temp orally or axillary, rae hugger turned on, will place rectal probe, pt is hypotensive and per day shift has been throughout the day and dayshift mds aware, no orders, will notify pm hospitalist. 2043- dr mendoza notified of hypotension, 500ml fluid bolus ordered.
--- NOTE | 2022-10-11 23:35 | PM.PN ---
Subjective Subjective: -Patient underwent emergency exploratory laparotomy for significant free air under diaphragm-however there was no evidence of bowel or bladder perforation identified -Resting comfortably-saturating well on room air -Vitals are stable except heart rate is in 130s-started on amiodarone drip and metoprolol as needed -Abdominal pain well controlled -Currently n.p.o.; general surgery to follow-up; NG tube to low intermittent wall suction -Other labs and imaging reviewed Vitals/I&O/Wt Last Vital Signs Temp 97.2 F L 10/11/22 23:26 Pulse 104 H 10/11/22 22:00 Resp 16 10/11/22 18:36 BP 83/61 10/11/22 16:30 Pulse Ox 90 10/11/22 18:36 O2 Del Method 10/11/22 23:26 O2 Flow Rate 3 10/11/22 23:26 10/11/22 10/11/22 10/12/22 14:59 22:59 06:59 Intake Total 50 / 50 257.756 / 307.756 Output Total 300 / 300 Balance -250 / -250 257.756 / 7.756 Physical Exam Narrative: General: alert, following commands, appears comfortable, not in acute respiratory distress HEENT: conj clear, EOMI, PERRL, mmm, Neck: supple, no meningismus Heme: no cervical LAP Respiratory: Bilateral clear to auscultation both anterior and posteriorly, no crackles wheezing or rhonchi Cardiovascular: rrr, nl s1s2, no mrg Abdomen: Exploratory laparotomy surgical incision/dressed, dressing dry, expected post surgery tenderness on palpation Extremities: Right below-knee amputation, pulses +, no edema, no c/c : no CVA tenderness Skin: intact, no rash MSK: no back or neck pain Neurologic: grossly intact Urinary Catheter Management: Cohn: Cath Placed During This Visit: yes Reason for Continuing Indwelling Catheter: Accurate Measurement of Urinary Output in Critically Ill Patients Urinary Catheter Date of Insertion: 10/09/22 Urinary Catheter Time of Insertion: 06:45 Data 10/11/22 11:31 10/11/22 05:34 Other Labs: Radiology Impressions Chest/Abdomen/Pelvis CT 10/09/22 06:36 IMPRESSION: 1. Cardiomegaly with moderate bilateral pleural effusions. There is loculated fissural fluid on the left. 2. Mediastinal and bilateral hilar lymphadenopathy. 3. Coronary artery disease. 4. At least mild centrilobular emphysema. 5. Dependent atelectasis at the lung bases. 6. Diffuse subcutaneous edema may reflect anasarca. IMPRESSION: 1. Subcapsular splenic collection that is the density of blood. This is suspicious for a subcapsular splenic hematoma. There are linear foci in the spleen suspicious for grade 1 splenic lacerations. No definite active extravasation is seen. 2. Colonic diverticulosis is noted. There is marked wall thickening of the distal descending and proximal/mid sigmoid colon. This could reflect marked colitis. Diverticulitis is considered less likely given long segment involvement; however, this is not excluded. Recommend colonoscopy upon resolution of acute symptoms to exclude underlying mass. 3. There is prominence of the wall of multiple small bowel loops which may reflect background enteritis. Correlate clinically. 4. Indeterminate right hepatic lesion. Recommend nonemergent MR abdomen hepatic protocol with and without contrast to better characterize. 5. Globular eccentric atheromatous plaque within the proximal abdominal aorta. No dissection is seen. 6. Probable severe narrowing of the proximal renal arteries. 7. Severe narrowing of the superior mesenteric artery 8. The right femoral artery is occluded. 9. A gastric diverticulum is noted. 10. Mild ascites. 11. Diffuse subcutaneous edema may reflect anasarca. COMMENTS: Consistent with the [employer]'s Incidental Findings Committee white paper (J Am Josiane Radiol 2018): Any incidental renal lesion less than 1 cm or classified as too small to characterize, or any incidental cystic renal lesion characterized as simple-appearing, is likely benign. No follow-up imaging is recommended for these lesions per consensus recommendations based on imaging criteria. ADDENDUM: 10/09/[address] 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 Chest/Abdomen X-ray 10/10/22 09:52 Impression: 1. Intra-abdominal free air which was not present yesterday which may represent perforated intra-abdominal viscus. 2. Bilateral basilar pulmonary opacity. 3. Cardiomegaly. 4. Large amount of fecal material in the colon. 5. The nurse in the [facility] was notified at 1040 hours. Abdomen/Pelvis CT 10/10/22 10:48 IMPRESSION: 1. Interval development of a moderate amount of free air throughout the peritoneal cavity since 10/09/2022. 2. Markedly abnormal descending colon and sigmoid. There is marked wall thickening and edema with diverticular disease. Ischemic changes with perforation likely in the sigmoid colon. Underlying mass is not excluded. 3. Diffuse mild ascites and soft tissue anasarca. 4. Small bilateral pleural effusions and compressive atelectasis. 5. Tiny focus of air near the quincy hepatis. May be free air within the quincy hepatis or very small amount of biliary air which can be seen with ischemic bowel disease. 6. Increasing thrombus abdominal aorta. Similar to 10/09/2022. Notified Stephen Retana DO at 10/10/2022 1:59 PM. Chest X-Ray 10/11/22 16:08 IMPRESSION: 1. Moderate to severe interstitial pulmonary edema, increased compared with the previous study. Increasing superimposed atelectasis in the right and left lower lobes. Recommend followup chest imaging to insure resolution of these findings. 2. Moderate bilateral pleural effusions. 3. Interval placement of an enteric tube with the tip in the upper body of the stomach. 4. Incidental/nonacute findings are listed in the report. Laboratory Results WBC 22.6 10^3/uL (4.0-10.0) H 10/11/22 05:34 RBC 4.05 10^6/uL (4.1-5.3) L 10/11/22 05:34 Hgb 9.1 g/dL (11.7-16.6) L 10/11/22 11:31 Hct 31.7 % (42.0-52.0) L 10/11/22 11:31 MCV 84.9 fl (80-94) 10/11/22 05:34 MCH 24.4 pg (28.0-34.0) L 10/11/22 05:34 MCHC 28.8 g/dL (30.0-36.0) L 10/11/22 05:34 RDW 26.6 % (12.1-15.1) H 10/11/22 05:34 Plt Count 210 10^3/cmm (130-400) 10/11/22 05:34 MPV 10.8 fL (7.4-10.4) H 10/11/22 05:34 Neut % (Auto) 93.5 % 10/11/22 05:34 Lymph % (Auto) 3.3 % 10/11/22 05:34 [place] % (Auto) 2.6 % 10/11/22 05:34 Eos % (Auto) 0.0 % 10/11/22 05:34 Baso % (Auto) 0.1 % 10/11/22 05:34 Neut # (Auto) 21.08 10^3/uL (1.8-7.7) H 10/11/22 05:34 Lymph # (Auto) 0.8 10^3/uL (0.8-4.8) 10/11/22 05:34 Douglas # (Auto) 0.6 10^3/uL (0.2-0.9) 10/11/22 05:34 Eos # (Auto) 0.0 10^3/uL (0.0-0.8) 10/11/22 05:34 Baso # (Auto) 0.0 10^3/uL (0.0-0.1) 10/11/22 05:34 Nucleated RBC % (auto) 0 % 10/11/22 05:34 Nucleated RBCs # 0.0 /100WBC 10/11/22 05:34 PT 18.40 SECONDS (12.1-14.9) H 10/09/22 07:59 INR 1.50 (0.8-1.2) H 10/09/22 07:59 Sodium 136 mmol/L (136-145) 10/11/22 05:34 Potassium 5.4 mmol/L (3.5-5.1) H 10/11/22 05:34 Chloride 104 mmol/L (98-107) 10/11/22 05:34 Carbon Dioxide 20 mmol/L (22-29) L 10/11/22 05:34 Anion Gap 17.4 (5-19) 10/11/22 05:34 BUN 47 mg/dL (8-23) H 10/11/22 05:34 Creatinine 1.1 mg/dL (0.7-1.2) 10/11/22 05:34 GFR Calculation 66.4 mL/min (90-130) L 10/11/22 05:34 Glucose 261 mg/dL (65-115) H 10/11/22 05:34 POC Glucose 137 mg/dL (70-110) H 10/11/22 19:57 Estimat Average Glucose 174 10/09/22 07:59 Hemoglobin A1c 7.7 % (4.0-6.0) H 10/09/22 07:59 Calculated Osmolality 303 mOsm/kg (285-295) H 10/11/22 05:34 Lactic Acid 2.2 mmol/L (0.5-2.2) 10/09/22 07:59 Lactic Acid (Sepsis) 1.5 mmol/L (0.5-2.2) 10/09/22 10:51 Calcium 8.5 mg/dL (8.5-10.5) 10/11/22 05:34 Magnesium 2.5 mg/dL (1.7-2.3) H 10/09/22 04:30 Iron 9 ug/dL (59-158) L 10/09/22 07:59 Iron 9 ug/dL (59-158) L 10/09/22 07:59 TIBC 174 mcg/dl 10/09/22 07:59 % Saturation 5.1 % (20-50) L 10/09/22 07:59 Unsat Iron Binding 166 ug/dL (112-347) 10/09/22 07:59 Ferritin 68 ng/mL (30-400) 10/09/22 07:59 Total Bilirubin 0.8 mg/dL (0.15-1.2) 10/11/22 05:34 AST 176 U/L (0-40) H 10/11/22 05:34 ALT 527 U/L (0-41) H 10/11/22 05:34 Alkaline Phosphatase 132 U/L (40-130) H 10/11/22 05:34 Troponin T Baseline 69 ng/L (0-15) H 10/09/22 07:59 Troponin T 120 Minute 67.52 ng/L (0-15) H 10/09/22 10:51 Delta Troponin T -1.48 ABS# (0-10) L 10/09/22 10:51 Troponin T Hi Sens 6Hr 71.80 ng/L (0-15) H 10/09/22 14:09 Troponin T Hi Sens 6Hr Delta 2.80 ng/L (0-12) 10/09/22 14:09 C-Reactive Protein 53.1 mg/L (0.0-4.9) H 10/09/22 07:59 NT-Pro-B Natriuret Pep 86525 pg/mL (0-125) H 10/09/22 07:59 Total Protein 5.9 g/dL (6.6-8.7) L 10/11/22 05:34 Albumin 2.8 g/dL (3.5-5.2) L 10/11/22 05:34 Globulin 3.1 g/dL (1.3-4.6) 10/11/22 05:34 Triglycerides 160 mg/dL (0-150) H 10/09/22 07:59 Cholesterol 125 mg/dL (0-200) 10/09/22 07:59 LDL Cholesterol, Calc 68 mg/dL (50-129) 10/09/22 07:59 HDL Cholesterol 25 mg/dL (60-100) L 10/09/22 07:59 LDL/HDL Ratio 2.72 RATIO (0.00-3.22) 10/09/22 07:59 Cholesterol/HDL Ratio 5.00 mg/dL (1.0-5.00) 10/09/22 07:59 Lipase 34 U/L (13-60) 10/09/22 04:30 Carcinoembryonic Ag 11.9 ng/mL (0.0-4.7) H 10/10/22 00:53 Vitamin B12 > 2000 pg/mL (232-1245) H 10/09/22 07:59 Folate 10.0 ng/mL (4.5-32.2) 10/09/22 07:59 Procalcitonin 0.23 ng/mL (0-0.5) 10/09/22 07:59 TSH 8.97 uIU/mL (0.27-4.20) H 10/09/22 07:59 Free T4 0.70 ng/dL (0.82-1.77) L 10/11/22 05:34 Urine Color Yellow (Yellow) 10/09/22 05:28 Urine Appearance Hazy (CLEAR) A 10/09/22 05:28 Urine pH 5 (5-7) 10/09/22 05:28 Ur Specific [place] 1.015 (1.005-1.030) 10/09/22 05:28 Urine Protein Neg (Negative) 10/09/22 05:28 Urine Glucose (UA) 4+ (Normal) H 10/09/22 05:28 Urine Ketones Negative (Negative) 10/09/22 05:28 Urine Blood 3+ (Negative) H 10/09/22 05:28 Urine Nitrate Negative (Negative) 10/09/22 05:28 Urine Bilirubin Neg (Negative) 10/09/22 05:28 Urine Urobilinogen Neg mg/dL (Negative) 10/09/22 05:28 Ur Leukocyte Esterase 2+ (Negative) H 10/09/22 05:28 Urine RBC 0-4 /hpf (0-2) H 10/09/22 05:28 Urine WBC Too numerous to cnt /hpf (0-5) H 10/09/22 05:28 Ur Squamous Epith Cells 0-4 /hpf (0-5) H 10/09/22 05:28 Amorphous Sediment Not Reportable 10/09/22 05:28 Urine Bacteria 4+ /hpf (NONE) H 10/09/22 05:28 Salicylates < 0.3 mg/dL (3-10) L 10/09/22 07:59 Acetaminophen < 5.0 ug/mL (10-30) L 10/09/22 07:59 Ethyl Alcohol < 10 mg/dL (0-10) 10/09/22 07:59 Hepatitis A IgM Ab Non-reactive (Nonreactive) 10/09/22 04:30 Hep Bs Antigen Non-reactive (Nonreactive) 10/09/22 04:30 Hep Bs Antibody 3.5 (11.5-1000) L 10/09/22 04:30 Hep B Core Total Ab Non-reactive (Nonreactive) 10/09/22 04:30 Hepatitis C Antibody Non-reactive (Nonreactive) 10/09/22 04:30 Influenza Type A Ag negative (Negative) 10/09/22 05:02 Influenza Type B Ag negative (Negative) 10/09/22 05:02 SARS-CoV-2 Ag (Rapid) negative (Negative) 10/09/22 05:02 Blood Type O Positive 10/10/22 12:04 Rho(D) Type Positive 10/10/22 12:04 Antibody Screen Negative 10/10/22 12:04 Micro: Microbiology 10/09/22 05:28 Urine Culture - Final Urine,Clean Catch A&P Assessment and plan (1) Bowel perforation: (2) Splenic laceration: (3) CHF exacerbation: (4) Atrial flutter with rapid ventricular response: Plan #Patient with multiple comorbidities-more significant is severe atherosclerotic disease with underlying CAD, bilateral renal artery stenosis, bowel vasculature occlusion-patient prone for ischemic bowel -CT abdomen pelvis showed significant free air under diaphragm suggestive of some perforated viscus -Patient is being taken to the OR emergently 10/10/2022-did not show any bowel/bladder perforation -Recovering well post surgery-was able to extubate postsurgery-currently saturating well on room air -Continue Zosyn -Still attempting to transfer out for surgical critical care ICU as well as management of colovesicular fistula #Atrial flutter with RVR with soft blood pressures -weaned off Cardizem drip -Currently started on amiodarone drip and metoprolol if needed depending on blood pressure -Hold lisinopril 20 Mg p.o. daily, and we will initiate Levophed if MAP is > 65 -Unable to anticoagulate due to splenic hematoma -Echo last month-ejection fraction 40 to 45% #History of prosthetic heart valve #History of colorectal fistula-supposed to follow-up with colorectal surgeon in [facility]-however he missed outpatient appointment #Feeding-as per general surgery #Anemia -S/p emergent expiratory laparotomy 10/10/2021-patient was receiving Plavix -Monitor H&H and transfuse PRBC to keep H&H > 7/21 ICU CHECKLIST: Problem list updated Verbal orders reviewed and signed Analgesia: Opioids Glycemic Control: Insulin Nutrition: N.p.o. for surgery Restraint Renewal (within 24 hrs): N/A Ulcer Prophylaxis: Yes Chemical Thromboprophylaxis: Prophylaxis: Held due to high risk of bleeding Mechanical Thromboprophylaxis: {Mechanical DVT:[id number]} Need for Central line: N/A Need for Cohn catheter: For in urine output monitoring Critical Care Time (No Overlap): 46 min Attestations Medical Necessity Statement*: Continue to monitor in ICU postop day 1 Time Spent in Patient Care: Greater than 35 minutes (>than 50% of time spent in counselling and/or direct pt care on unit). Critical Care Time: This patient has a high probability of sudden, clinically significant deterioration, which requires the highest level of physician preparedness to intervene urgently.? I managed/supervised life or organ supporting interventions that required frequent physician assessment.? I devoted my full attention in the ICU to the direct care of this patient for the period of time indicated above.? Time I spent with family or surrogate(s) is included only if the patient was incapable of providing necessary information or participating in decision making.? Time devoted to teaching and to any procedures I billed separately is not included. Services Provided: Telemetry review Mechanical Ventilation Hemodynamic interpretation, assessment and management Review and interpretation of CXR Review and interpretation of lab values Review and interpretation of microbiologic data and culture results Review of medications and administration Review and interpretation of Nutrition requirements and management Discussion of management with other consultants and services Clinical update to family members [x] Patient assessment, examination and intervention [x] Documentation [x] Medication orders and management ? Critical Care Time (min): 46 Critical Care Time (min): 48 Coding Level of Care Code Established Pt Acute Code for Chg Fwd Patient Type Established History Comprehensive Exam Comprehensive Medical Decision Making High Complexity Diagnoses Bowel perforation K63.1 Splenic laceration S36.039A CHF exacerbation I50.9 Atrial flutter with rapid ventricular response I48.92 Time Spent (min) 48
--- NOTE | 2022-10-11 23:38 | PC.NURSE ---
2203- pt remains hypotensive after fluid bolus, dr mendoza notified, levophed drip ordered 2336- after multiple attempts unable to draw ordered h&h, dr mendoza notified
[2022-10-12] VITALS (48 sets, daily range): BP systolic 84–119; BP diastolic 49–86; PULSE 102–112; RESP 8–21; TEMP 34.8–36.3; O2SAT 76–100
[2022-10-12 00:45] LABS: Hematocrit 35.5 % (42.0-52.0); Hemoglobin 10.5 g/dL (11.7-16.6)
[2022-10-12] MEDS: morphine 4 mg/mL SDV 1 mL 1 MG IVP ×2 (04:05→15:35)
[2022-10-12 05:35] LABS: Basophils % 0.1 %; Hematocrit 33.3 % (42.0-52.0); Hemoglobin 9.8 g/dL (11.7-16.6); Lymphocytes # 1.3 10^3/uL (0.8-4.8); Lymphocytes % 4.6 %; Mean Corpuscular HGB Conc 29.4 g/dL (30.0-36.0); Mean Corpuscular Hemoglobin 24.1 pg (28.0-34.0); Mean Platelet Volume 10.1 fL (7.4-10.4); Monocytes % 7.5 %; Neutrophils # 23.59 10^3/uL (1.8-7.7); Neutrophils % 86.6 %; Nucleated Red Blood Cells % 0.1 %; Platelet Count 210 10^3/cmm (130-400); Red Blood Count 4.06 10^6/uL (4.1-5.3); Red Cell Distribution Width 26.5 % (12.1-15.1); White Blood Count 27.3 10^3/uL (4.0-10.0)
[2022-10-12 06:00] LABS: Albumin Level 2.9 g/dL (3.5-5.2); Alkaline Phosphatase 128 U/L (40-130); Blood Urea Nitrogen 57 mg/dL (8-23); Calcium 7.7 mg/dL (8.5-10.5); Carbon Dioxide 18 mmol/L (22-29); Chloride 104 mmol/L (98-107); Creatinine Clr Calc Pharmacy 33.4152; Globulin 2.6 g/dL (1.3-4.6); Glomerular Filtration Rate 40.2 mL/min (90-130); Glucose 55 mg/dL (65-115); Osmolality Calculated 295 mOsm/kg (285-295); Sodium 136 mmol/L (136-145); Total Bilirubin 1.1 mg/dL (0.15-1.2); Total Protein 5.5 g/dL (6.6-8.7)
[2022-10-12 06:12] LABS: Alanine Aminotransferase 2399 U/L (0-41)
[2022-10-12 06:28] LABS: Aspartate Amino Transferase 4023 U/L (0-40)
[2022-10-12] MEDS: HYDROmorphone 1 mg/mL INJ 1 mL IVP ×2 (08:02→16:37)
[2022-10-12 08:24] LABS: Glucose Point of Care 46 mg/dL (70-110)
[2022-10-12] MEDS: dextrose 5 % 500 ML 100 ML IV (08:34)
[2022-10-12] MEDS: piperacillin-tazobactam 3.375 GM in sodium chloride 0.9% (plus) 50 ML IV ×2 (08:39→15:42)
[2022-10-12] MEDS: pantoprazole 40 mg SDV IVP ×2 (08:55→20:06)
[2022-10-12 09:26] LABS: Glucose Point of Care 195 mg/dL (70-110)
[2022-10-12] MEDS: aspirin 300 mg Supp PR (09:55)
[2022-10-12 10:14] LABS: Lactic Sepsis W/Reflex 1.9 mmol/L (0.5-2.2)
[2022-10-12 10:16] LABS: Blood Urea Nitrogen 56 mg/dL (8-23); Calcium 6.6 mg/dL (8.5-10.5); Carbon Dioxide 14 mmol/L (22-29); Chloride 106 mmol/L (98-107); Creatinine Clr Calc Pharmacy 33.4152; Glomerular Filtration Rate 40.2 mL/min (90-130); Glucose 69 mg/dL (65-115); Osmolality Calculated 316 mOsm/kg (285-295); Sodium 146 mmol/L (136-145)
[2022-10-12 10:20] LABS: Anion Gap 31.2 (5-19); Potassium 5.2 mmol/L (3.5-5.1)
--- NOTE | 2022-10-12 10:22 | US_ITS ---
WS: [id number] RIGHT UPPER QUADRANT ULTRASOUND HISTORY: Elevated liver enzymes COMPARISON: Prior CTs 10/10/2022. Liver: 13.1 cm in length. Entire liver is difficult to image. Patient had recent surgery. No mass or bile duct dilatation. Portal Vein: Mild pulsatile flow. No obstruction. Gallbladder: Mildly distended gallbladder with a small amount of sludge. No pericholecystic fluid. Mi nimally prominent gallbladder wall. No stones. CBD: 0.3 cm Pancreas: Obscured by bowel gas and surgical sutures. Right kidney: 8.6 cm in length. Normal size and echogenicity. No hydronephrosis or mass. Aorta and IVC: Limited visualization of aorta and IVC. Moderate-sized RIGHT pleural effusion. No ascites. US/US liver [id number] IMPRESSION: 1. Moderate RIGHT pleural effusion. 2. Minimally distended gallbladder with sludge. No stones or significant peric holecystic fluid. Mild gallbladder hydrops may be due to prolonged fasting stat e. 3. No bile duct dilatation.
[2022-10-12 12:24] LABS: Hematocrit 29.1 % (42.0-52.0); Hemoglobin 8.1 g/dL (11.7-16.6)
[2022-10-12] MEDS: albuterol 2.5 mg/3 mL Neb INHALATION (13:12)
[2022-10-12 13:22] LABS: Glucose Point of Care 147 mg/dL (70-110)
--- NOTE | 2022-10-12 14:26 | PC.NURSE ---
MOrning blood sugar checks showed BG in the 40's. Patient is lethargic. NUrse followed hypoglycemic protocol. Administered D50 and started d5w. Alerted Dr Mathias.
--- NOTE | 2022-10-12 14:48 | PC.SOCIAL ---
IMM Update pg 2 of IMM updated and reviewed w/ patients . Copy provided and Copy dated, initialed and placed in chart.
--- NOTE | 2022-10-12 17:30 | PM.PN ---
Subjective Subjective: Patient seen and examined. He reports that his abdominal pain is controlled. NG tube was replaced Vitals/I&O/Wt Last Vital Signs Temp 97 F L 10/12/22 13:00 Pulse 104 H 10/12/22 14:00 Resp 14 10/12/22 16:37 BP 110/79 10/12/22 13:30 Pulse Ox 98 10/12/22 15:35 O2 Del Method 10/12/22 13:15 O2 Flow Rate 3 10/12/22 13:15 10/12/22 10/12/22 10/12/22 06:59 14:59 22:59 Intake Total 50 / 357.756 472.410 / 787.449 6736 / 1522.410 Output Total 300 / 600 0 / 0 Balance -250 / -242.244 472.410 / 720.573 0596 / 1522.410 Physical Exam Narrative: General: No acute distress, awake alert oriented x3 Abdomen soft, nondistended, appropriately tender to palpation Incisions intact without erythema or exudate Drains serosanguineous Urinary Catheter Management: Cohn: Cath Placed During This Visit: yes Reason for Continuing Indwelling Catheter: Accurate Measurement of Urinary Output in Critically Ill Patients Urinary Catheter Date of Insertion: 10/09/22 Urinary Catheter Time of Insertion: 06:45 Data 10/12/22 12:15 10/12/22 08:49 Micro: Microbiology 10/09/22 05:28 Urine Culture - Final Urine,Clean Catch A&P Assessment and plan (1) Bowel perforation: Plan Postop day #1 status post exploratory laparotomy with drain placements N.p.o., replace NG tube to low remittent wall suction if patient will allow IV fluids Medical management per hospitalist Await return of bowel function Attestations Medical Necessity Statement*: Patient requires multiple more nights in the hospital for intensive care and return of bowel function following exploratory laparotomy Coding Level of Care Code Acute Code for Chg Fwd Diagnoses Bowel perforation K63.1
[2022-10-12 17:35] LABS: Glucose Point of Care 139 mg/dL (70-110)
--- NOTE | 2022-10-12 17:44 | P.PN_ITS ---
Subjective Subjective: Earlier this morning was lethargic, during my visit he is more awake, states does not feel better. Today slightly worse. No chest pain. Denies difficulty breathing. Has not passed flatus. This morning hypoglycemic requiring D50. MIAH drains NG with some noted air in them although not entirely clear whether from abdomen or lack of seal. Discussed with additional organ injury with transaminitis, COLE. Vitals/I&O/Wt Last Vital Signs Temp 97 F L 10/12/22 13:00 Pulse 104 H 10/12/22 14:00 Resp 14 10/12/22 16:37 BP 110/79 10/12/22 13:30 Pulse Ox 98 10/12/22 15:35 O2 Del Method 10/12/22 13:15 O2 Flow Rate 3 10/12/22 13:15 10/12/22 10/12/22 10/12/22 06:59 14:59 22:59 Intake Total 50 / 357.756 472.410 / 395.319 5085 / 1522.410 Output Total 300 / 600 0 / 0 Balance -250 / -242.244 472.410 / 998.994 3440 / 1522.410 Physical Exam Narrative: Accompanied by his . Const: COMMON NORMALS: patient oriented x3 and alert GENERAL APPEARANCE: cooperative and frail appearing ORIENTATION/CONSCIOUSNESS: Yes awake OTHER: Generally weak. HENMT: COMMON NORMALS: oropharynx normal Neck/C-Spine: COMMON NORMALS: no JVD Resp: AUSCULTATION: rhonchi Cardio: COMMON NORMALS: no JVD GI: AUSCULTATION: Yes Absent bowel sounds OTHER: Postop dressing Extremity: OTHER: Trace edema. Neuro: COMMON NORMALS: patient oriented x3 and moves all extremities SENSORIUM/ORIENTATION: Yes alert Skin: COMMON NORMALS: no rashes or lesions noted GENERAL SKIN EXAM: no rashes or lesions noted Urinary Catheter Management: Cohn: Cath Placed During This Visit: yes Reason for Continuing Indwelling Catheter: Accurate Measurement of Urinary Output in Critically Ill Patients Urinary Catheter Date of Insertion: 10/09/22 Urinary Catheter Time of Insertion: 06:45 Data 10/12/22 12:15 10/12/22 08:49 Micro: Microbiology 10/09/22 05:28 Urine Culture - Final Urine,Clean Catch A&P Assessment and plan (1) Bowel perforation: Collect cultures, cytology from drains. He has not had any bowel movement. Leukocytosis is rising. We will also request for sampling collected from drains for C. difficile. Repeat blood culture. Continue empiric broad-spectrum coverage with Zosyn. Reviewed also multiple prior urine cultures with prior growth of E. coli, Pseudomonas, Klebsiella, although will be sensitive as well. Septic shock with multiorgan injury with transaminitis, shock liver. COLE. Blood pressure is not particularly low, but with underlying diffuse vasculopathy likely hypoperfusion of organs. Requiring low rate Levophed 2 mcg/min. Lactic acid 1.9. No obvious perforation identified during exploratory laparotomy, no air found coming from urinary bladder either. Noted to have several colovesical fistulae. Murky fluid throughout the abdomen. Somewhat consistent with gastric contents. No discrete mass could be palpated. Drains in place. Output 200 mL. Some air noted in drainage but unclear whether intra-abdominal or due to poor seal. Continue Zosyn for possible infectious colitis. Additional possibility of degree of hypoperfusion of bowel/large intestine given multivessel vasculopathy. No discrete mass, although suspicion for possible underlying malignancy not entirely ruled out. Possibly with metastatic liver lesion. Tiny focus of air near the [place] hepatis on CT. Arrangements for transfer underway to higher level facility given lack of improvement, still unclear cause of colitis, intraperitoneal air of unknown source, possible malignancy, colovesical fistula, splenic hematomas and laceration as well as diffuse vasculopathy including stenosis of mesenteric galileo ovidio. (2) COLE (acute kidney injury): Oliguric COLE, likely prerenal with bilateral renal artery stenosis and soft blood pressures. Continue hemodynamic support, maintain blood pressures. Potassium with improvement down to 5.2. Creatinine without further worsening on repeat BMP this morning at 1.7. Minimal if any urine output through the day. Repeat CMP. Will request consultation with nephrology. (3) Transaminitis: Severely worsening transaminitis, AST 4023, ALT 2399. Suspected shock liver, blood pressures have not been profoundly hypotensive but he is diffusely vasculopathic. Also underlying cardiomyopathy with reduced ejection fraction. Lactic acid is 1.9. Check CK. Hepatitis panel was negative. (4) Atrial flutter with rapid ventricular response: He remains n.p.o. at this time. Blood pressures are soft. Heart rate with improvement with amnio drip. Not on anticoagulation due to splenic laceration/hematomas. (5) Mixed hyperlipidemia: (6) Presence of prosthetic heart valve: (7) Type 2 diabetes mellitus: Qualifiers: Diabetes mellitus complication status: with hyperglycemia Diabetes mellitus jail insulin use: with adjunct faculty for medical terminology use Qualified Code(s): E11.65 - Type 2 diabetes mellitus with hyperglycemia; Z79.4 - halfway (current) use of insulin (8) PVD (peripheral vascular disease): (9) Diastolic CHF, chronic: (10) CHF exacerbation: (11) Diverticulitis: (12) Recurrent urinary tract infection: (13) Colovesical fistula: (14) Weakness: (15) Elevated liver enzymes: (16) Hyperglycemia: Plan Complicated UTI: With colovesical fistula. Continue Zosyn. Only superficial stanton on urine culture. With underlying colovesical fistula for which she was referred for follow-up with surgery by urology for planning of repair prior to ending up in the hospital. Globular eccentric atheromatous plaque within the proximal abdominal aorta. No dissection is seen. 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 No collapse. Continue SSI for TIIDM. Hypothyroidism consider adding levothyroxine. Check cortisol given hypotension Attestations Medical Necessity Statement*: Continue admission for cyst management of septic shock, colitis, multi organ injury including oliguric acute renal failure, and gentleman with diffuse vasculopathy, decreased ejection fraction, A. fib with RVR, and number of above comorbidities. Critical Care Time: The high probability of a clinically significant, sudden or life threatening deterioration of the patient's hemodynamic, infectious disease, renal, GI system(s) required my full and direct attention, intervention and personal management. The critical care time is as shown. This time is in addition to time spent performing any reported procedures but includes the following: x Data and vital sign review and interpretation x Patient assessment, examination and intervention x Documentation x Medication orders and management Critical Care Time (min): 55 Coding Level of Care Code Acute Code for Chg Fwd Exam Comprehensive Diagnoses Bowel perforation K63.1 COLE (acute kidney injury) N17.9 Transaminitis R74.01 Atrial flutter with rapid ventricular response I48.92 Mixed hyperlipidemia E78.2 Presence of prosthetic heart valve Z95.2 Type 2 diabetes mellitus E11.65; Z79.4 Diabetes mellitus complication status: with hyperglycemia Diabetes mellitus jail insulin use: with adjunct faculty for medical terminology use PVD (peripheral vascular disease) I73.9 Diastolic CHF, chronic I50.32 CHF exacerbation I50.9 Diverticulitis K57.92 Recurrent urinary tract infection N39.0 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
[2022-10-12 18:17] LABS: Hematocrit 32.5 % (42.0-52.0); Hemoglobin 9.3 g/dL (11.7-16.6)
--- NOTE | 2022-10-12 18:29 | P.CONIM_ITS ---
Providers/Reason For Consult Consulting Physician/Specialty*: jeevan fraser md /telenephrology Reason for Consult*: COLE Requesting Physician: DR Hunter Attending Physician: Lenny Mathias History of Present Illness History of Present Illness Moises Galvez is a 67 year old male w/ PVD s/p RT BKA, DM, CABG, Type 2 DM, AVR, hyperlipidemia, anemia. He was admitted on 10-09-22w/ weakness, a flutter. He had a CT w/ contrast on 10-09-22 ?Subcapsular splenic hematoma with grade 1 sple delmi lacerations, colonic diverticulosis and colovesicular fistula. He went to the OR for an ex-lap on 10/10/22 for bowel perf. He was treaed w/ zosyn. Pt post-op was hypotensive and developed oliguric COLE. renal is called to consult. Review of Systems Narrative: sob, abd pain, + alba, hungry, weak,+ palps Medications/Allergies Home Medications Medication Instructions Recorded Confirmed Last Taken Type lisinopril 20 mg tablet 20 mg PO DAILY #90 tabs 08/30/21 10/09/22 12/23/21 05:00 Rx aspirin 81 mg tablet,delayed 81 mg PO DAILY 11/30/21 10/09/22 12/23/21 05:00 History release vit I-[id number]-vwg palmetto 160 1 cap PO DAILY 12/08/21 10/09/22 12/23/21 05:00 History mg-pygeum africanum 12.5 mg capsule (Urinozinc Prostate Complex Classic) clopidogrel 75 mg tablet 75 mg PO DAILY #90 tabs 02/04/22 10/09/22 Unknown Rx atorvastatin 80 mg tablet 80 mg PO DAILY #100 tabs 04/18/22 10/09/22 Unknown Rx gabapentin 300 mg capsule 300 mg PO BID #60 caps 05/16/22 10/09/22 Unknown Rx sitagliptin phosphate 100 mg 100 mg PO DAILY #30 tabs 05/16/22 10/09/22 Unknown Rx tablet (Januvia) metformin 1,000 mg tablet 1,000 mg PO BID #180 tabs 06/27/22 10/09/22 Unknown Rx ferrous sulfate 325 mg (65 mg 325 mg PO DAILY #30 tabs 09/02/22 10/09/22 Unknown Rx iron) tablet (Feosol) omeprazole 40 mg capsule,delayed 40 mg PO BIDWM 30 days #60 caps 09/02/22 10/09/22 Unknown Rx release ondansetron 4 mg disintegrating 4 mg PO Q8H PRN nausea and 09/27/22 10/09/22 Unknown Rx tablet vomiting #15 tabs pantoprazole 40 mg tablet,delayed 40 mg PO BID 14 days #28 tabs 10/05/22 0 10/09/22 Unknown Rx release (Protonix) cefdinir 300 mg capsule See Rx Instructions .Route 10/06/22 10/09/22 Unknown Rx .COMPLEX #30 caps Allergies Allergy/AdvReac Type Severity Reaction Status Date / Time codeine AdvReac Unknown ADR-Nausea Verified 09/21/22 07:41 Current Medications Generic Name Dose Route Start Last Admin Trade Name Freq PRN Reason Stop Dose Admin Acetaminophen 650 mg 10/09/22 07:26 10/09/22 16:37 Acetaminophen 325 Mg Tablet PO 650 mg Q6H PRN Administration Mild/Mod Pain Or Temp >/= 101 Albuterol Sulfate 2.5 mg 10/09/22 10:37 10/12/22 13:12 Albuterol 2.5 Mg/3 Ml Neb INHALATION 2.5 mg Q6H.RESP PRN Administration SHORTNESS OF BREATH Aspirin 300 mg 10/11/22 09:45 10/12/22 09:55 Aspirin 300 Mg Supp [place] 300 mg DAILY PORTIA Administration Atorvastatin Calcium 80 mg 10/09/22 09:00 10/09/22 08:41 Atorvastatin 40 Mg Tablet PO 80 mg DAILY PORTIA Administration Clopidogrel Bisulfate 75 mg 10/09/22 09:00 10/12/22 10:17 Clopidogrel 75 Mg Tablet PO Not Given DAILY PORTIA Gabapentin 300 mg 10/09/22 09:00 10/12/22 17:26 Gabapentin 300 Mg Capsule PO Not Given BID PORTIA Diltiazem HCl 100 mg/ Sodium 100 mls @ 0 mls/hr 10/09/22 05:45 10/09/22 14:30 Chloride IV 7.5 mg/hr .Q0M PORTIA 7.5 mls/hr Titration Protocol Per Protocol Dextrose 500 mls @ 100 mls/hr 10/09/22 07:26 10/12/22 15:38 D5w IV Infused ONCE PRN Infusion Adult Acute Hypoglycemia Prot Protocol Piperacillin Sod/Tazobactam 50 mls @ 12.5 mls/hr 10/10/22 00:00 10/12/22 15:42 Sod 3.375 gm/ Sodium Chloride IV 12.5 mls/hr Q8H PORTIA Administration Protocol Amiodarone HCl 900 mg/ 518 mls @ 0 mls/hr 10/11/22 09:15 10/12/22 08:30 Dextrose/ IV Miscellaneous IV 0 mg/min Supplies .Q0M PORTIA 0 mls/hr Titration Protocol Per Protocol Norepinephrine Bitartrate 4 mg 254 mls @ 0 mls/hr 10/11/22 22:15 10/12/22 14:25 / Dextrose IV 0 mcg/min .Q0M PORTIA 0 mls/hr Titration Protocol Per Protocol Insulin Human Lispro 0 unit 10/09/22 08:00 10/12/22 17:34 Insulin Lispro 100 Unit/1 Ml SUBCUT Not Given TIDWM [facility] Protocol Lisinopril 20 mg 10/09/22 09:00 10/09/22 11:02 Lisinopril 20 Mg Tablet PO Not Given DAILY [facility] Metoprolol Tartrate 25 mg 10/09/22 16:22 10/11/22 09:31 Metoprolol Tartrate 25 Mg Tablet PO Not Given BID@0900,2100 [facility] Metoprolol Tartrate 5 mg 10/11/22 09:54 10/11/22 10:14 Metoprolol Tartrate 1 Mg/1 Ml Sdv 5 Ml IVP 5 mg Q6H PRN Administration HEART RATE-HIGH Morphine Sulfate 1 mg 10/09/22 07:26 10/12/22 15:35 Morphine 4 Mg/Ml Sdv 1 Ml IVP 1 mg Q4H PRN Administration SEVERE PAIN Pantoprazole Sodium 40 mg 10/09/22 20:00 10/12/22 08:55 Pantoprazole 40 Mg Sdv IVP 40 mg Q12H PORTIA Administration PFSH Acute PFSH: Medical History 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 Diastolic CHF, chronic Essential (primary) hypertension Hereditary and idiopathic neuropathy, unspecified Mixed hyperlipidemia Non-ST elevated myocardial infarction (non-STEMI) Non-ST elevation (NSTEMI) myocardial infarction Occlusion and stenosis of left carotid artery Presence of prosthetic heart valve Profound anemia Smoking Surgical History History [facility] 12/2019- [facility] History of aortic valve replacement History of coronary artery bypass graft Hx of right BKA Family History Father CAD (coronary artery disease), Onset Age: 60 Mother , at age 54 Cancer breast Denies family history of Diabetes Clotting disorder Dementia Chronic kidney disease (CKD) Suicide Anesthesia complication Bleeding disorder Lung disease Stroke Social History Smoking and tobacco status: current every day smoker cigarettes Packs smoked per day: 1 Years cigarettes smoked: 54 Alcohol intake: never Marital status: Current occupational status: retired History of recent travel: No Vitals/I&O/Wt Last Vital Signs Temp 97 F L 10/12/22 13:00 Pulse 104 H 10/12/22 17:57 Resp 14 10/12/22 17:57 BP 103/74 10/12/22 17:30 Pulse Ox 94 10/12/22 17:57 O2 Del Method 10/12/22 17:57 O2 Flow Rate 2 10/12/22 17:57 10/12/22 10/12/22 10/12/22 06:59 14:59 22:59 Intake Total 50 / 357.756 472.410 / 725.424 5263 / 1522.410 Output Total 300 / 600 0 / 0 Balance -250 / -242.244 472.410 / 264.361 7583 / 1522.410 Physical Exam Narrative: ill appearing in bed w/ NG tube -on low dose levophed and NC 02 heent- nc/at lungs crackles b/l heart irreg irreg abd soft, poor BS, tender, + drains legs edenma w/ RT BKA neuro- a,a, o x 2+ Urinary Catheter Management: Alba: Cath Placed During This Visit: yes Reason for Continuing Indwelling Catheter: Accurate Measurement of Urinary O utput in Critically Ill Patients Urinary Catheter Date of Insertion: 10/09/22 Urinary Catheter Time of Insertion: 06:45 Data 10/12/22 18:03 10/12/22 08:49 A&P Assessment and plan (1) COLE (acute kidney injury): 67 yr old man dm, a flutter, htn, AV replacement PVD. Pt here w/ colo-vesicular fistula and bowel perf and + CEA of 12, and UTI 1. COLE- likely CI- COLE and / or ATN from hypotension and multiple contrast studies on 10/09 and 10/10 -no hydronephrosis on Abdominal CT scans -can check urine electrolytes -can check ck -use lasix for SOB 2. sepsis -WBC remains 27 3. Hyperkalemia from COLE in a DM 4. inc AGMA from COLE, - lactate remains 2 -glucose okay- unlikely DKA -will check abg 5. hypernatremia- likely effective intravascular volume depletion 6. inc LFT's- likely shocked liver 7. UTI/ bowel perf- renal dose abx 8. moderate right pleural effusion 9. hypocalcemia- monitor and check vit d levels 10 . anemia- iron sat 5%, ferritin 68- likely CLARK. Q to give iron w/ sepsis seen and examined w/ RN- telehealth exam informed cnsent for telehealth obtained from pt and Plan see above Consult Attestations Medical Necessity Statement: bowel perf, uti, septic shock, PVD, COLE, a flutter w/ RVR Time Spent in Patient Care: Greater than 35 minutes (>than 50% of time spent in counselling and/or direct pt care on unit) . Coding Level of Care Code Acute Code for [facility] Fwd Diagnoses COLE (acute kidney injury) N17.9
--- NOTE | 2022-10-12 18:45 | PC.NURSE ---
SHift SUmmary: Patient got up to the chair for about 6 hours. 2 person assist up to the chair. NUrse was unable to titrate off of levophed. Cultures taken from each drain. TOtal drainage form MIAH drains is 350mL, all drains were serosanguinous. Drain marked as Drain #3 was having i accumulation early in the day, but stopped after he was moved to a chair.
[2022-10-12 19:25] LABS: Body Fluid Polynuclear #Cells 4.097; Body Fluid WBC 4846 /uL; Monocytes # Body Fluid 0.749
[2022-10-12 19:26] LABS: Body Fluid Polynuclear #Cells 4.222; Body Fluid WBC 4889 /uL; Monocytes # Body Fluid 0.667
[2022-10-12 19:42] LABS: Body Fluid Polynuclear #Cells 1.777; Body Fluid WBC 1971 /uL; Monocytes # Body Fluid 0.194
[2022-10-12 19:43] LABS: Apprearance, Body Fluid CLOUDY; Color, Body Fluid AMBER; Cyto Order Verification Order Verified
[2022-10-12 20:01] LABS: Apprearance, Body Fluid CLOUDY; Color, Body Fluid AMBER; Cyto Order Verification Order Verified
[2022-10-12 20:18] LABS: Apprearance, Body Fluid CLOUDY; Color, Body Fluid AMBER; Cyto Order Verification Order Verified
[2022-10-12 20:58] LABS: Glucose Point of Care 180 mg/dL (70-110)
[2022-10-12 21:46] LABS: Albumin Level 2.6 g/dL (3.5-5.2); Alkaline Phosphatase 125 U/L (40-130); Anion Gap 24.4 (5-19); Blood Urea Nitrogen 68 mg/dL (8-23); Calcium 7.5 mg/dL (8.5-10.5); Carbon Dioxide 13 mmol/L (22-29); Chloride 101 mmol/L (98-107); Creatine Phosphokinase 50 U/L (39-308); Globulin 3.1 g/dL (1.3-4.6); Glomerular Filtration Rate 28.3 mL/min (90-130); Glucose 169 mg/dL (65-115); Osmolality Calculated 298 mOsm/kg (285-295); Potassium 6.4 mmol/L (3.5-5.1); Sodium 132 mmol/L (136-145); Total Bilirubin 1.1 mg/dL (0.15-1.2); Total Protein 5.7 g/dL (6.6-8.7)
[2022-10-12 21:51] LABS: ABG PCO2 35.2 mmHg (35-45); ABG PH Result 7.25 (7.35-7.45); Alveolar-Arterial Oxygen Gradi 3.8 mmHg (5-10); Arterial Blood Gas Hematocrit 27.2 % (42-52); Base Excess ABG -11.2 mmol/L (-2.0-2.0); Blood Gas Operator Identificat JB; Blood Gas Sample Site Brachial, right; Blood Gas Sample Type Arterial; Carboxyhemoglobin 1.1 %THgb (0.4-20.1); HCO3 ABG 15.2 mmol/L (22-26); HGB O2 Sat 91.6 % (95-100); Ionized Calcium Level - ABG 1.1 mmol/L (1.1-1.4); Methemoglobin 0.6 % (0.4-1.5); Oxygen Device NC; Oxygen Saturation ABG 93.1; PO2 ABG 74.6 mmHg (80.0-100.0); Potassium Level - ABG 5.9 mmol/L (3.5-5.0); Total Hemoglobin 8.9 g/dL (14-18)
[2022-10-12 21:55] LABS: Uric Acid 10.3 mg/dL (3.4-7.0)
[2022-10-12 21:59] LABS: Alanine Aminotransferase 2546 U/L (0-41)
[2022-10-12 22:05] LABS: Aspartate Amino Transferase 3496 U/L (0-40)
[2022-10-13] VITALS (40 sets, daily range): BP systolic 85–139; BP diastolic 61–88; PULSE 98–124; RESP 6–22; TEMP 35.6–37.1; O2SAT 86–100
[2022-10-13] MEDS: piperacillin-tazobactam 3.375 GM in sodium chloride 0.9% (plus) 50 ML IV ×4 (00:41→23:44)
[2022-10-13] MEDS: calcium gluconate 0.9% NaCL 1 GM/50 ML PREMIX IV (01:34)
[2022-10-13] MEDS: insulin regular-human 10 UNIT in SYRINGE 1 EACH IVP (01:35)
[2022-10-13 02:55] LABS: Potassium, Radom Urine 54 mmol/L; Urine Creatinine 67 mg/dL (39-259); Urine Random Chloride 24 mmol/L; Urine Random Sodium 33 mmol/L
[2022-10-13] MEDS: morphine 4 mg/mL SDV 1 mL 1 MG IVP (03:35)
[2022-10-13 03:38] LABS: Urine Color Dark Yellow (Yellow)
[2022-10-13 03:39] LABS: Bilirubin Urine Neg (Negative); Blood Urine 3+ (Negative); Glucose Urine UA Norm (Normal); Ketones Urine 1+ (Negative); Leukocyte Esterase Urine 2+ (Negative); Nitrate Urine Negative (Negative); Protein Urine 2+ (Negative); Specific Gravity, Urine 1.015 (1.005-1.030); Urine Appearance SL Hazy (CLEAR); Urobilinogen Urine Norm (Negative); pH Urine 5 (5-7)
[2022-10-13 03:40] LABS: Add Urine Culture? Yes; Bacteria Urine 2+ /hpf; Fine Granular Casts Urine 0-1 /lpf; RBC Urine 80-100 /hpf (0-2); Renal Epithelial Cells Urine 0-2 /hpf; Transitional Epi Cells Urine 0-4 /hpf; WBC Urine TOO NUMEROUS TO CNT /hpf (0-5)
[2022-10-13 03:56] LABS: Basophils % 0.2 %; Hematocrit 31.5 % (42.0-52.0); Hemoglobin 8.9 g/dL (11.7-16.6); Lymphocytes # 1.4 10^3/uL (0.8-4.8); Lymphocytes % 7.6 %; Mean Corpuscular HGB Conc 28.3 g/dL (30.0-36.0); Mean Corpuscular Hemoglobin 23.9 pg (28.0-34.0); Mean Corpuscular Volume 84.7 fl (80-94); Mean Platelet Volume 10.6 fL (7.4-10.4); Monocytes # 1.1 10^3/uL (0.2-0.9); Neutrophils # 15.68 10^3/uL (1.8-7.7); Neutrophils % 85.3 %; Nucleated Red Blood Cells % 0.2 %; Platelet Count 168 10^3/cmm (130-400); Red Blood Count 3.72 10^6/uL (4.1-5.3); Red Cell Distribution Width 26.7 % (12.1-15.1); White Blood Count 18.4 10^3/uL (4.0-10.0)
[2022-10-13 04:29] LABS: Cortisol Random 16.01 ug/dL (2.47-19.5)
[2022-10-13 04:48] LABS: 25 Hydroxy Vitamin D 11 ng/mL (30-100); Albumin Level 2.5 g/dL (3.5-5.2); Alkaline Phosphatase 139 U/L (40-130); Anion Gap 25.1 (5-19); Blood Urea Nitrogen 74 mg/dL (8-23); Calcium 8.3 mg/dL (8.5-10.5); Carbon Dioxide 15 mmol/L (22-29); Chloride 101 mmol/L (98-107); Globulin 3.3 g/dL (1.3-4.6); Glomerular Filtration Rate 25.7 mL/min (90-130); Glucose 240 mg/dL (65-115); Osmolality Calculated 310 mOsm/kg (285-295); Phosphorus 7.1 mg/dL (2.5-4.5); Potassium 6.1 mmol/L (3.5-5.1); Sodium 135 mmol/L (136-145); Thyroid Stimulating Hormone 10.42 uIU/mL (0.27-4.20); Total Bilirubin 1.1 mg/dL (0.15-1.2); Total Protein 5.8 g/dL (6.6-8.7)
[2022-10-13 05:01] LABS: Alanine Aminotransferase 2427 U/L (0-41)
[2022-10-13 05:02] LABS: Aspartate Amino Transferase 2943 U/L (0-40)
[2022-10-13 07:07] LABS: Glucose Point of Care 260 mg/dL (70-110)
[2022-10-13] MEDS: pantoprazole 40 mg SDV IVP ×2 (07:43→22:16)
[2022-10-13] MEDS: insulin lispro 100 unit/1 mL SUBCUT ×2 (07:43→12:02)
--- NOTE | 2022-10-13 07:54 | P.PN_ITS ---
Subjective Subjective: weak, poor UOP. very thirsty. dec abd pain. remains on levo Medications: Reviewed: Yes Medication Review Details: Current Medications Acetaminophen (Acetaminophen 325 Mg Tablet) 650 mg PO Q6H PRN PRN Reason: Mild/Mod Pain Or Temp >/= 101 Last Admin: 10/09/22 16:37 Dose: 650 mg Albuterol Sulfate (Albuterol 2.5 Mg/3 Ml Neb) 2.5 mg INHALATION Q6H.RESP PRN PRN Reason: SHORTNESS OF BREATH Last Admin: 10/12/22 13:12 Dose: 2.5 mg Aspirin (Aspirin 300 Mg Supp) 300 mg NC DAILY [facility] Last Admin: 10/12/22 09:55 Dose: 300 mg Atorvastatin Calcium (Atorvastatin 40 Mg Tablet) 80 mg PO DAILY [facility] Last Admin: 10/09/22 08:41 Dose: 80 mg Clopidogrel Bisulfate (Clopidogrel 75 Mg Tablet) 75 mg PO DAILY [facility] Last Admin: 10/12/22 10:17 Dose: Not Given Dextrose (Dextrose 50% Syringe 50 Ml) 25 ml IVP ONCE PRN; Protocol PRN Reason: hypoglycemia protocol Dextrose (Dextrose 50% Syringe 50 Ml) 50 ml IVP PRN PRN; Protocol PRN Reason: hypoglycemia protocol Gabapentin (Gabapentin 300 Mg Capsule) 300 mg PO BID [facility] Last Admin: 10/12/22 17:26 Dose: Not Given Glucagon (Glucagon 1 Mg/Ml Inj 1 Ml) 1 mg IM ONCE PRN; Protocol PRN Reason: Adult Acute Hypoglycemia Prot. Hydromorphone HCl (Hydromorphone 1 Mg/Ml Inj 1 Ml) 0.5 mg IVP Q4H PRN PRN Reason: PAIN Diltiazem HCl 100 mg/ Sodium (Chloride) 100 mls @ 0 mls/hr IV .Q0M [facility]; Protocol Last Titration: 10/09/22 14:30 Dose: 7.5 mg/hr, 7.5 mls/hr Dextrose (D5w) 500 mls @ 100 mls/hr IV ONCE PRN; Protocol PRN Reason: Adult Acute Hypoglycemia Prot Last Infusion: 10/12/22 15:38 Dose: Infused Piperacillin Sod/Tazobactam (Sod 3.375 gm/ Sodium Chloride) 50 mls @ 12.5 mls/hr IV Q8H [facility]; Protocol Last Admin: 10/13/22 07:43 Dose: 12.5 mls/hr Amiodarone HCl 900 mg/Dextrose/ IV Miscellaneous Supplies 518 mls @ 0 mls/hr IV .Q0M [facility]; Protocol Last Titration: 10/12/22 08:30 Dose: 0 mg/min, 0 mls/hr Norepinephrine Bitartrate 4 mg (/ Dextrose) 254 mls @ 0 mls/hr IV .Q0M [facility]; Protocol Last Admin: 10/12/22 22:23 Dose: 2 mcg/min, 7.62 mls/hr Insulin Human Lispro (Insulin Lispro 100 Unit/1 Ml) 0 unit SUBCUT TIDWM [facility]; Protocol Last Admin: 10/13/22 07:43 Dose: 6 unit Metoprolol Tartrate (Metoprolol Tartrate 25 Mg Tablet) 25 mg PO BID@0900,2100 [facility] Last Admin: 10/11/22 09:31 Dose: Not Given Metoprolol Tartrate (Metoprolol Tartrate 1 Mg/1 Ml Sdv 5 Ml) 5 mg IVP Q6H PRN PRN Reason: HEART RATE-HIGH Last Admin: 10/11/22 10:14 Dose: 5 mg Ondansetron HCl (Ondansetron 2 Mg/Ml Sdv 2 Ml) 4 mg IVP Q8H PRN PRN Reason: vomiting, or N/V if npo Ondansetron HCl (Ondansetron 2 Mg/Ml Sdv 2 Ml) 4 mg IVP Q6H PRN PRN Reason: NAUSEA AND VOMITING Pantoprazole Sodium (Pantoprazole 40 Mg Sdv) 40 mg IVP Q12H [facility] Last Admin: 10/13/22 07:43 Dose: 40 mg Vitals/I&O/Wt Last Vital Signs Temp 97.1 F L 10/13/22 04:00 Pulse 101 H 10/13/22 06:00 Resp 15 10/13/22 03:35 BP 103/74 10/12/22 17:30 Pulse Ox 94 10/12/22 17:57 O2 Del Method 10/13/22 04:00 O2 Flow Rate 2 10/13/22 04:00 10/12/22 10/13/22 10/13/22 22:59 06:59 14:59 Intake Total 1350 / 1822.410 350 / 2172.410 50 / 50 Output Total 350 / 350 1180 / 1530 Balance 1000 / 1472.410 -830 / 642.410 50 / 50 Physical Exam Narrative: ill appearing in bed w/ NG tube -on low dose levophed and NC 02 heent- nc/at lungs clear b/l heart irreg irreg abd soft, hyperactive BS, tender, + drains legs edema w/ RT BKA neuro- a,a, o x 2+ Urinary Catheter Management: Cohn: Cath Placed During This Visit: yes Reason for Continuing Indwelling Catheter: Accurate Measurement of Urinary Output in Critically Ill Patients Urinary Catheter Date of Insertion: 10/09/22 Urinary Catheter Time of Insertion: 06:45 Data 10/13/22 02:40 10/13/22 02:40 Micro: Microbiology 10/12/22 20:46 Blood Culture - Preliminary Blood SPECIMEN COLLECTED 10/12/22 20:44 Blood Culture - Preliminary Blood SPECIMEN COLLECTED A&P Assessment and plan (1) COLE (acute kidney injury): 67 yr old man dm, a flutter, htn, AV replacement PVD. Pt here w/ colo-vesicular fistula and bowel perf and + CEA of 12, and UTI 1. COLE- likely CI- COLE and / or ATN from hypotension and multiple contrast studies on 10/09 and 10/10 -no hydronephrosis on Abdominal CT scans -u/a 2+ protein,1+ ketones, 3+ blood 2+ LE, 80-100 rbc, too numerous to count wbc, 2+ ur bacteria -ur na 33, ur cl 24 -can check ck -remains oliguric and hyperkalemic- if k does not improve, may need dialysis so on -hyperphosphatemia from cole -ivf, monitor chemisrteis and uop 2. sepsis -WBC improved from 27 to 18 -random cortisol this am is 16 3. Hyperkalemia from COLE in a DM 4. inc AGMA from COLE, - lactate remains 2 -glucose okay- unlikely DKA -will check abg 5. hypernatremia- likely an error, other na around 135 6. inc LFT's- likely shocked liver -improving 7. UTI/ bowel perf- renal dose abx, ua noted- e coli, pseudomonas 8. moderate right pleural effusion 9. hypocalcemia- replace vit d 10 . anemia- iron sat 5%, ferritin 68- likely CLARK. Q to give iron w/ sepsis 11. TSH 10.4 seen and examined w/ RN- telehealth exam informed consent for telehealth and dialysis if needed was obtained from pt and Plan see above Attestations Medical Necessity Statement*: cole, sepsis Time Spent in Patient Care: 16 - 35 minutes (>than 50% of time spent in counselling and/or direct pt care on unit) . Coding Level of Care Code Acute Code for [facility] Fwd Diagnoses COLE (acute kidney injury) N17.9
[2022-10-13] MEDS: HYDROmorphone 1 mg/mL INJ 1 mL 0.5 MG IVP ×2 (08:01→11:59)
[2022-10-13 08:05] LABS: Blood Urea Nitrogen 73 mg/dL (8-23); Calcium 7.8 mg/dL (8.5-10.5); Carbon Dioxide 11 mmol/L (22-29); Chloride 101 mmol/L (98-107); Glomerular Filtration Rate 29.8 mL/min (90-130); Glucose 206 mg/dL (65-115); Osmolality Calculated 302 mOsm/kg (285-295); Sodium 132 mmol/L (136-145)
[2022-10-13 08:10] LABS: Anion Gap 26.2 (5-19); Potassium 6.2 mmol/L (3.5-5.1)
[2022-10-13] MEDS: albuterol 2.5 mg/3 mL Neb INHALATION ×2 (08:28→13:57)
[2022-10-13] MEDS: clopidogrel 75 mg Tablet PO (09:00)
[2022-10-13] MEDS: gabapentin 300 mg Capsule PO ×2 (09:00→17:46)
[2022-10-13] MEDS: ergocalciferol (vitamin D2) 50,000 Unit Capsule 50000 UNIT PO (09:00)
[2022-10-13] MEDS: aspirin 300 mg Supp PR (09:00)
[2022-10-13] MEDS: lactated ringers 1,000 ML 75 ML IV ×2 (09:01→22:19)
--- NOTE | 2022-10-13 10:03 | USCV_ITS ---
Moises Galvez Age: 67 Gender: M : 1955 Exam Date: 10/13/2022 11:10 Ordering Phys: Lenny Mathias MD Technologist: Rigoberto [place] Exam Location: [facility] [place] Indication: ? EF BP: 109 / 79 HR: Rhythm: Sinus Technical Quality: Adequate MEASUREMENTS (Male / Female) Normal Values 2D ECHO LV Diastolic Diameter PLAX 5.5 cm 4.2 - 5.9 / 3.9 - 5.3 cm LV Systolic Diameter PLAX 4.3 cm IVS Diastolic Thickness 1.1 cm 0.6 - 1.0 / 0.6 - 0.9 cm IVS Systolic Thickness 1.6 cm LVPW Diastolic Thickness 1.3 cm 0.6 - 1.0 / 0.6 - 0.9 cm LVPW Systolic Thickness 1.1 cm LVOT Diameter 1.7 cm LV Ejection Fraction 2D Teich 37.3 % LV Ejection Fraction MOD 2C 20.2 % LV Ejection Fraction 2C AL 17.8 % LA Diameter 4.2 cm FINDINGS Left Ventricle Left ventricle is mildly dilated. LV systolic function is severely reduced with EF of 25-30%. Severe global hypokinesis Right Ventricle RV is dilated and hypokinetic Right Atrium Not well visualized Left Atrium Dilated Mitral Valve Gorssly normal Aortic Valve Moderate aortic valve calcification. Possible bioprosthetic aortic valve. Tricuspid Valve Not well visualized Pulmonic Valve Not well-visualized Pericardium Small sized pericardial effusion. Pleural effusion is seen Aorta Normal in size IVC Not well visualized CONCLUSIONS Technically limited quality echocardiogram because of poor ultrasonic windows. Left ventricle is mildly dilated. LV systolic function is severely reduced with EF of 25 to 30% Left atrial dilation Small sized pericardial effusion. Pleural effusion is seen. Compared to prior echocardiogram from 08/31/2022, LV systolic function has decreased and is 25-30% Patrice Bojorquez MD (Electronically Signed) Final Date: 13 October 2022 16:42 S
--- NOTE | 2022-10-13 10:06 | ECG_ITS ---
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 Measurements Intervals [place] Rate: 104 P: 0 CA: 0 QRS: -20 QRSD: 130 T: 164 QT: 369 QTc: 486 Interpretive Statements SINUS RHYTHM ANTEROSEPTAL MYOCARDIAL INFARCTION AGE INDETERMINATE Compared to ECG 10/09/2022 12:56:06 T-wave abnormality no longer present Possible ischemia no longer present Myocardial infarct finding still present Electronically Signed On 10-13-2022 14:47:37 KETTLE FRY COOK OPERATOR by Patrice Bojorquez M.D. [id number]
[2022-10-13 10:18] LABS: ABG PCO2 33.8 mmHg (35-45); ABG PH Result 7.26 (7.35-7.45); Alveolar-Arterial Oxygen Gradi 8.7 mmHg (5-10); Arterial Blood Gas Hematocrit 25.5 % (42-52); Blood Gas Allen Test Pos; Carboxyhemoglobin 1.3 %THgb (0.4-20.1); HCO3 ABG 15.1 mmol/L (22-26); HGB O2 Sat 65.8 % (95-100); Ionized Calcium Level - ABG 1.1 mmol/L (1.1-1.4); Methemoglobin < 0.0 % (0.4-1.5); Oxygen Saturation ABG 66.4; PO2 ABG 39.9 mmHg (80.0-100.0); Potassium Level - ABG 7.1 mmol/L (3.5-5.0); Total Hemoglobin 8.3 g/dL (14-18)
[2022-10-13 10:19] LABS: Blood Gas Operator Identificat MONRO; Blood Gas Sample Site Radial, left; Blood Gas Sample Type Venous; Oxygen Device NC
--- NOTE | 2022-10-13 10:46 | P.PCN_ITS ---
Procedure Note: Procedure: Preoperative diagnosis: Acute renal failure requiring emergent dialysis Postoperative diagnosis: Same Procedure: Placement of Mahurkar catheter in the left internal jugular vein Surgeon: Stephen Retana DO Anesthesia: Local Description of procedure: The patient's left neck was prepped and draped in a sterile manner. 5 mL of 1% lidocaine was infiltrated at the site of planned entry, an introducer needle was used to access the left internal jugular vein under ultrasound guidance. Guidewire was passed through the introducer needle and the introducer needle was removed. Serial dilators were passed over the guidewire after the skin incision was extended using 11 [address] was then passed over the guidewire and the guidewire was removed. The catheter was sutured to the skin using 2-0 Ethilon suture. Sterile dressings were applied. Postop procedure chest x-ray showed no evidence of pneumothorax and good positioning of the catheter. Coding Level of Care Code Acute Code for Chg Fwd
--- NOTE | 2022-10-13 10:49 | P.PCN_ITS ---
Acute Procedures Central Line Placement: Right SC: Central line lumen inserted: triple Additional comments: The patient was placed in a Trendelenburg position after consent was obtained. Bilateral chest and neck was prepped and draped in a sterile manner. I injecte d 5 mL of 1% lidocaine under the clavicle on the right side. Using introducer needle the right subclavian vein was accessed, a guidewire introduced and the needle removed. A dilator was passed over the guidewire after the skin incision was extended using 11 blade. A triple-lumen catheter was then advanced over the guidewire up to 15 cm and sutured down using a 2-0 silk suture after the guidewire was removed. Sterile dressings were applied. A postprocedure x-ray confirmed good position and no pneumothorax
--- NOTE | 2022-10-13 10:52 | PM.CONSULT ---
Providers/Reason For Consult Consulting Physician/Specialty*: Patrice Bojorquez MD/ Cardiology Reason for Consult*: Concern for ischemia Requesting Physician: Dr Mathias Attending Physician: Lenny Mathias History of Present Illness History of Present Illness Moises Galvez is a 67 year old male with past medical history of CAD, CABG, diabetes, hypertension, hyperlipidemia, anemia, plans for outpatient stress test, who presented to the hospital with abdominal symptoms and was found to be in A. fib with RVR. He was recently discharged from hospital with diverticulitis. CT scan that showed splenic laceration and subcapsular hematoma. Echo showed severely reduced LV systolic function with EF of 25 to 30%. Patient has bowel perforation and septic shock. Review of Systems General: Reports: 10 or more systems reviewed and unremarkable except in HPI and below Medications/Allergies Home Medications Medication Instructions Recorded Confirmed Last Taken Type lisinopril 20 mg tablet 20 mg PO DAILY #90 tabs 08/30/21 10/09/22 12/23/21 05:00 Rx aspirin 81 mg tablet,delayed 81 mg PO DAILY 11/30/21 10/09/22 12/23/21 05:00 History release vit L-whiemsik-rhx palmetto 160 1 cap PO DAILY 12/08/21 10/09/22 12/23/21 05:00 History mg-pygeum africanum 12.5 mg capsule (Urinozinc Prostate Complex Classic) clopidogrel 75 mg tablet 75 mg PO DAILY #90 tabs 02/04/22 10/09/22 Unknown Rx atorvastatin 80 mg tablet 80 mg PO DAILY #100 tabs 04/18/22 10/09/22 Unknown Rx gabapentin 300 mg capsule 300 mg PO BID #60 caps 05/16/22 10/09/22 Unknown Rx sitagliptin phosphate 100 mg 100 mg PO DAILY #30 tabs 05/16/22 10/09/22 Unknown Rx tablet (Januvia) metformin 1,000 mg tablet 1,000 mg PO BID #180 tabs 06/27/22 10/09/22 Unknown Rx ferrous sulfate 325 mg (65 mg 325 mg PO DAILY #30 tabs 09/02/22 10/09/22 Unknown Rx iron) tablet (Feosol) omeprazole 40 mg capsule,delayed 40 mg PO BIDWM 30 days #60 caps 09/02/22 10/09/22 Unknown Rx release ondansetron 4 mg disintegrating 4 mg PO Q8H PRN nausea and 09/27/22 10/09/22 Unknown Rx tablet vomiting #15 tabs cefdinir 300 mg capsule See Rx Instructions .Route 10/06/22 10/09/22 Unknown Rx .COMPLEX #30 caps Allergies Allergy/AdvReac Type Severity Reaction Status Date / Time codeine AdvReac Unknown ADR-Nausea Verified 09/21/22 07:41 Current Medications Generic Name Dose Route Start Last Admin Trade Name Freq PRN Reason Stop Dose Admin Acetaminophen 650 mg 10/09/22 07:26 10/09/22 16:37 Acetaminophen 325 Mg Tablet PO 650 mg Q6H PRN Administration Mild/Mod Pain Or Temp >/= 101 Albuterol Sulfate 2.5 mg 10/09/22 10:37 10/13/22 08:28 Albuterol 2.5 Mg/3 Ml Neb INHALATION 2.5 mg Q6H.RESP PRN Administration SHORTNESS OF BREATH Aspirin 300 mg 10/11/22 09:45 10/13/22 09:00 Aspirin 300 Mg Supp MT 300 mg DAILY PORTIA Administration Atorvastatin Calcium 80 mg 10/09/22 09:00 10/09/22 08:41 Atorvastatin 40 Mg Tablet PO 80 mg DAILY [facility] Administration Clopidogrel Bisulfate 75 mg 10/09/22 09:00 10/13/22 09:00 Clopidogrel 75 Mg Tablet PO 75 mg DAILY [facility] Administration Ergocalciferol 50,000 unit 10/13/22 08:15 10/13/22 09:00 Ergocalciferol (Vitamin D2) 50,000 Unit Capsule PO 50,000 unit Q7D [facility] Administration Gabapentin 300 mg 10/09/22 09:00 10/13/22 09:00 Gabapentin 300 Mg Capsule PO 300 mg BID [facility] Administration Hydromorphone HCl 0.5 mg 10/12/22 17:04 10/13/22 08:01 Hydromorphone 1 Mg/Ml Inj 1 Ml IVP 0.5 mg Q4H PRN Administration PAIN Diltiazem HCl 100 mg/ Sodium 100 mls @ 0 mls/hr 10/09/22 05:45 10/09/22 14:30 Chloride IV 7.5 mg/hr .Q0M PORTIA 7.5 mls/hr Titration Protocol Per Protocol Dextrose 500 mls @ 100 mls/hr 10/09/22 07:26 10/12/22 15:38 D5w IV Infused ONCE PRN Infusion Adult Acute Hypoglycemia Prot Protocol Piperacillin Sod/Tazobactam 50 mls @ 12.5 mls/hr 10/10/22 00:00 10/13/22 07:43 Sod 3.375 gm/ Sodium Chloride IV 12.5 mls/hr Q8H [facility] Administration Protocol Amiodarone HCl 900 mg/ 518 mls @ 0 mls/hr 10/11/22 09:15 10/12/22 08:30 Dextrose/ IV Miscellaneous IV 0 mg/min Supplies .Q0M PORTIA 0 mls/hr Titration Protocol Per Protocol Norepinephrine Bitartrate 4 mg 254 mls @ 0 mls/hr 10/11/22 22:15 10/12/22 22:23 / Dextrose IV 2 mcg/min .Q0M PORTIA 7.62 mls/hr Administration Protocol Per Protocol Lactated Ringer's 1,000 mls @ 75 mls/hr 10/13/22 08:15 10/13/22 09:01 Lactated Ringers IV 75 mls/hr .[id number] PORT[facility] Administration Insulin Human Lispro 0 unit 10/09/22 08:00 10/13/22 07:43 Insulin Lispro 100 Unit/1 Ml SUBCUT 6 unit TIDWM [facility] Administration Protocol Metoprolol Tartrate 25 mg 10/09/22 16:22 10/11/22 09:31 Metoprolol Tartrate 25 Mg Tablet PO Not Given BID@0900,2100 [facility] Metoprolol Tartrate 5 mg 10/11/22 09:54 10/11/22 10:14 Metoprolol Tartrate 1 Mg/1 Ml Sdv 5 Ml IVP 5 mg Q6H PRN Administration HEART RATE-HIGH Pantoprazole Sodium 40 mg 10/09/22 20:00 10/13/22 07:43 Pantoprazole 40 Mg Sdv IVP 40 mg Q12H PORTIA Administration PFSH Acute PFSH: Medical History Atherosclerotic heart disease of [place] coronary artery without angina pectoris Colovesical fistula Diastolic CHF, chronic Essential (primary) hypertension Hereditary and idiopathic neuropathy, unspecified Mixed hyperlipidemia Non-ST elevated myocardial infarction (non-STEMI) Non-ST elevation (NSTEMI) myocardial infarction Occlusion and stenosis of left carotid artery Presence of prosthetic heart valve Profound anemia Smoking Surgical History History [facility] 12[facility] History of aortic valve replacement History of coronary artery bypass graft Hx of right BKA Family History Father CAD (coronary artery disease), Onset Age: 60 Mother , at age 54 Cancer breast Denies family history of Diabetes Clotting disorder Dementia Chronic kidney disease (CKD) Suicide Anesthesia complication Bleeding disorder Lung disease Stroke Social History Smoking and tobacco status: current every day smoker cigarettes Packs smoked per day: 1 Years cigarettes smoked: 54 Alcohol intake: never Marital status: Current occupational status: retired History of recent travel: No Vitals/I&O/Wt Last Vital Signs Temp 97.1 F L 10/13/22 04:00 Pulse 102 H 10/13/22 08:38 Resp 18 10/13/22 08:28 BP 103/74 10/12/22 17:30 Pulse Ox 95 10/13/22 08:28 O2 Del Method 10/13/22 08:28 O2 Flow Rate 1.5 10/13/22 08:28 10/12/22 10/13/22 10/13/22 22:59 06:59 14:59 Intake Total 1350 / 1822.410 350 / 2172.410 50 / 50 Output Total 350 / 350 1180 / 1530 Balance 1000 / 1472.410 -830 / 642.410 50 / 50 Physical Exam Narrative: GENERAL: Patient is weak NECK: No jugular vein distension. [] HEENT: No cyanosis. No icterus. No pallor. [] HEART: Regular S1 and S2. LUNGS: Diminished breath sounds ABDOMEN: Soft EXTREMITIES: 1+ edema Urinary Catheter Management: Cohn: Cath Placed During This Visit: yes Reason for Continuing Indwelling Catheter: Accurate Measurement of Urinary Output in Critically Ill Patients Urinary Catheter Date of Insertion: 10/09/22 Urinary Catheter Time of Insertion: 06:45 Data 10/13/22 02:40 10/13/22 07:28 Micro: Microbiology 10/12/22 20:46 Blood Culture - Preliminary Blood SPECIMEN COLLECTED 10/12/22 20:44 Blood Culture - Preliminary Blood SPECIMEN COLLECTED A&P Assessment and plan (1) Septic shock: (2) Bowel perforation: (3) Subcapsular hemorrhage of spleen: (4) CHF exacerbation: (5) Transaminitis: (6) Atrial flutter with rapid ventricular response: (7) Mixed hyperlipidemia: (8) Essential (primary) hypertension: Plan Patient has bowel perforation and septic shock. Patient has drop in LV systolic function. It can be secondary to underlying systemic illness. He will need outpatient stress test once stable. Medical therapy for now. Heart rate is elevated. This is secondary to underlying illness and septic shock. Thank you for involving us with care of this patient. Please call with questions. Consult Attestations Medical Necessity Statement: Care expected to cross 2 midnights. Coding Level of Care Code Acute Code for [facility] Diagnoses Septic shock A41.9; R65.21 Bowel perforation K63.1 Subcapsular hemorrhage of spleen D73.5 CHF exacerbation I50.9 Transaminitis R74.01 Atrial flutter with rapid ventricular response I48.92 Mixed hyperlipidemia E78.2 Essential (primary) hypertension I10
[2022-10-13 11:43] LABS: Glucose Point of Care 230 mg/dL (70-110)
[2022-10-13] MEDS: HYDROmorphone 1 mg/mL INJ 1 mL IVP (11:57)
--- NOTE | 2022-10-13 14:03 | PC.NURSE ---
Dr. Mathias notified of inability to obtain blood sample by lab and myself. Unable to obtain sample to administer cosyntropin. At this time, hemodialysis catheter is pending.
--- NOTE | 2022-10-13 15:46 | XRR_ITS ---
PROCEDURE INFORMATION: Exam: XR Chest Exam date and time: 10/13/2022 3:52 PM Age: 67 years old Clinical indication: Device placement; Other: History--dialysis catheter placement; Prior surgery; Surgery type: Cabg; Additional info: Line placement TECHNIQUE: Imaging protocol: Radiologic exam of the chest. Views: 1 view. COMPARISON: CR XR chest 1V portable [id number] 10/11/2022 4:22 PM FINDINGS: Tubes, catheters and devices: Interval placement of a right subclavian central line with the tip in the lower superior vena cava. Interval placement of a left internal jugular sheath with the tip in the mid superior vena cava. The enteric tube has been pulled back with the tip now in the distal esophagus. Recommend advancing the tube 7-8 cm. Lungs: Stable moderate to severe interstitial pulmonary edema with superimposed alveolar edema versus atelectasis versus pneumonia in the right and left lower lobes. Pleural spaces: Stable moderate bilateral pleural effusions. No pneumothorax. Heart/Mediastinum: Stable moderate enlargement of the cardiac silhouette. Mediastinal contours are unremarkable. Vasculature: Stable vascular calcifications in the aorta. Bones/joints: Poststernotomy changes in the chest. Degenerative changes in the spine and shoulders. Bones are diffusely osteopenic. Osseous findings are stable. XR/XR chest 1V portable [id number] IMPRESSION: 1. Stable moderate to severe interstitial pulmonary edema with superimposed alveolar edema versus atelectasis versus pneumonia in the right and left lower lobes. Recommend followup chest imaging to insure resolution of these findings. 2. Stable moderate bilateral pleural effusions. 3. The enteric tube has been pulled back with the tip now in the distal esophagus. Recommend advancing the tube 7-8 cm. 4. Interval placement of a right subclavian central line with the tip in the lower superior vena cava. 5. Interval placement of a left internal jugular sheath with the tip in the mid superior vena cava. 6. Incidental/nonacute findings are listed in the report.
--- NOTE | 2022-10-13 16:08 | PM.PN ---
Subjective Subjective: Patient denies any nausea, emesis, flatus or bowel movement. Abdominal pain controlled with Dilaudid Vitals/I&O/Wt Last Vital Signs Temp 97.5 F L 10/13/22 11:00 Pulse 100 10/13/22 15:26 Resp 18 10/13/22 13:57 BP 103/61 10/13/22 13:00 Pulse Ox 94 10/13/22 13:57 O2 Del Method 10/13/22 13:57 O2 Flow Rate 2 10/13/22 13:57 10/13/22 10/13/22 10/13/22 06:59 14:59 22:59 Intake Total 350 / 2172.410 100 / 100 Output Total 1180 / 1530 Balance -830 / 642.410 100 / 100 Physical Exam Narrative: General: No acute distress, awake alert oriented x3 Abdomen soft, nondistended, appropriately tender to palpation Incisions intact without erythema or exudate Drains serosanguineous Urinary Catheter Management: Cohn: Cath Placed During This Visit: yes Reason for Continuing Indwelling Catheter: Accurate Measurement of Urinary Output in Critically Ill Patients Urinary Catheter Date of Insertion: 10/09/22 Urinary Catheter Time of Insertion: 06:45 Data 10/13/22 02:40 10/13/22 07:28 Micro: Microbiology 10/12/22 20:46 Blood Culture - Preliminary Blood SPECIMEN COLLECTED 10/12/22 20:44 Blood Culture - Preliminary Blood SPECIMEN COLLECTED A&P Assessment and plan (1) Bowel perforation: Plan Postop day #2 status post exploratory laparotomy with drain placements N.p.o., replace NG tube to low remittent wall suction if patient will allow IV fluids Medical management per hospitalist Await return of bowel function Left internal hemodialysis catheter placed and right subclavian central venous line placed today Attestations Medical Necessity Statement*: Patient requires multiple more nights in the hospital for intensive care and return of bowel function following exploratory laparotomy Coding Level of Care Code Acute Code for Chg Fwd Diagnoses Bowel perforation K63.1
[2022-10-13] MEDS: cosyntropin 0.25 mg SDV IVP (16:34)
[2022-10-13 17:26] LABS: Glucose Point of Care 113 mg/dL (70-110)
[2022-10-13 18:02] LABS: Creatine Phosphokinase 25 U/L (39-308)
[2022-10-13] MEDS: heparin, porcine 1,000 unit/mL INJ 10 mL 10000 UNIT HE (18:27)
--- NOTE | 2022-10-13 18:28 | PC.NURSE ---
10,000 units heparin given by Shila Dialysis nurse.
[2022-10-13 19:08] LABS: Lactate (Lactic Acid level) 1.4 mmol/L (0.5-2.2)
--- NOTE | 2022-10-13 19:12 | XRR_ITS ---
PROCEDURE INFORMATION: Exam: XR Chest Exam date and time: 10/13/2022 7:26 PM Age: 67 years old Clinical indication: Device placement; Ng tube; Additional info: Ng tube placement TECHNIQUE: Imaging protocol: Radiologic exam of the chest. Views: 1 view. COMPARISON: CR XR chest 1V portable [id number] 10/13/2022 3:52 PM FINDINGS: Tubes, catheters and devices: Right subclavian central line is stable in position with the tip in the lower superior vena cava. Left internal jugular sheath is stable in position with the tip in the mid superior vena cava. The enteric tube has been advanced, the tip is now in the fundus of the stomach. The proximal port is in the distal esophagus however. Recommend advancing an additional 4-5 cm. Lungs: Stable moderate to severe interstitial pulmonary edema with superimposed alveolar edema versus atelectasis versus pneumonia in the right and left lower lobes. Pleural spaces: Stable moderate bilateral pleural effusions. No pneumothorax. Heart/Mediastinum: Stable moderate enlargement of the cardiac silhouette. Mediastinal contours are unremarkable. Vasculature: Stable vascular calcifications in the aorta. Bones/joints: Unremarkable for age. Intraperitoneal space: There is a drain in the right upper quadrant of the abdomen. There is free air in the upper abdomen that may be due to recent surgery. XR/XR chest 1V portable [id number] IMPRESSION: 1. There is free air in the upper abdomen that may be due to recent surgery. Recommend clinical correlation. 2. Stable moderate to severe interstitial pulmonary edema with superimposed alveolar edema versus atelectasis versus pneumonia in the right and left lower lobes. Recommend followup chest imaging to insure resolution of these findings. 3. The enteric tube has been advanced, the tip is now in the fundus of the stomach. The proximal port is in the distal esophagus however. Recommend advancing an additional 4-5 cm. 4. There is a drain in the right upper quadrant of the abdomen. 5. Incidental/nonacute findings are listed in the report. 6. Urgent results regarding the enteric tube and free air were discussed with May Manzanares RN on 10/13/2022 at 8:49 PM EST. COMMENTS: Per report, the patient is status post surgery on 10/10/2022. This likely accounts for the free air noted in the upper abdomen.
--- NOTE | 2022-10-13 19:36 | P.PN_ITS ---
Subjective Subjective: He is not feeling well. Overall feels weak. He also feeling some he describes declining and extremities. A little later in the morning reports feeling of impending doom to RN. This morning having abdominal pain but responds to pain medication. So far no flatus or BM. No vomiting. Mouth feels dry with sore throat. Feels thirsty. Medications: Reviewed: Yes Medication Review Details: Current Medications Acetaminophen (Acetaminophen 325 Mg Tablet) 650 mg PO Q6H PRN PRN Reason: Mild/Mod Pain Or Temp >/= 101 Last Admin: 10/09/22 16:37 Dose: 650 mg Albuterol Sulfate (Albuterol 2.5 Mg/3 Ml Neb) 2.5 mg INHALATION Q6H.RESP PRN PRN Reason: SHORTNESS OF BREATH Last Admin: 10/12/22 13:12 Dose: 2.5 mg Aspirin (Aspirin 300 Mg Supp) 300 mg [place] DAILY [facility] Last Admin: 10/12/22 09:55 Dose: 300 mg Atorvastatin Calcium (Atorvastatin 40 Mg Tablet) 80 mg PO DAILY [facility] Last Admin: 10/09/22 08:41 Dose: 80 mg Clopidogrel Bisulfate (Clopidogrel 75 Mg Tablet) 75 mg PO DAILY [facility] Last Admin: 10/12/22 10:17 Dose: Not Given Dextrose (Dextrose 50% Syringe 50 Ml) 25 ml IVP ONCE PRN; Protocol PRN Reason: hypoglycemia protocol Dextrose (Dextrose 50% Syringe 50 Ml) 50 ml IVP PRN PRN; Protocol PRN Reason: hypoglycemia protocol Gabapentin (Gabapentin 300 Mg Capsule) 300 mg PO BID [facility] Last Admin: 10/12/22 17:26 Dose: Not Given Glucagon (Glucagon 1 Mg/Ml Inj 1 Ml) 1 mg IM ONCE PRN; Protocol PRN Reason: Adult Acute Hypoglycemia Prot. Hydromorphone HCl (Hydromorphone 1 Mg/Ml Inj 1 Ml) 0.5 mg IVP Q4H PRN PRN Reason: PAIN Diltiazem HCl 100 mg/ Sodium (Chloride) 100 mls @ 0 mls/hr IV .Q0M [facility]; Protocol Last Titration: 10/09/22 14:30 Dose: 7.5 mg/hr, 7.5 mls/hr Dextrose (D5w) 500 mls @ 100 mls/hr IV ONCE PRN; Protocol PRN Reason: Adult Acute Hypoglycemia Prot Last Infusion: 10/12/22 15:38 Dose: Infused Piperacillin Sod/Tazobactam (Sod 3.375 gm/ Sodium Chloride) 50 mls @ 12.5 mls/hr IV Q8H [facility]; Protocol Last Admin: 10/13/22 07:43 Dose: 12.5 mls/hr Amiodarone HCl 900 mg/Dextrose/ IV Miscellaneous Supplies 518 mls @ 0 mls/hr IV .Q0M [facility]; Protocol Last Titration: 10/12/22 08:30 Dose: 0 mg/min, 0 mls/hr Norepinephrine Bitartrate 4 mg (/ Dextrose) 254 mls @ 0 mls/hr IV .Q0M [facility]; Protocol Last Admin: 10/12/22 22:23 Dose: 2 mcg/min, 7.62 mls/hr Insulin Human Lispro (Insulin Lispro 100 Unit/1 Ml) 0 unit SUBCUT TIDWM [facility]; Protocol Last Admin: 10/13/22 07:43 Dose: 6 unit Metoprolol Tartrate (Metoprolol Tartrate 25 Mg Tablet) 25 mg PO BID@0900,2100 [facility] Last Admin: 10/11/22 09:31 Dose: Not Given Metoprolol Tartrate (Metoprolol Tartrate 1 Mg/1 Ml Sdv 5 Ml) 5 mg IVP Q6H PRN PRN Reason: HEART RATE-HIGH Last Admin: 10/11/22 10:14 Dose: 5 mg Ondansetron HCl (Ondansetron 2 Mg/Ml Sdv 2 Ml) 4 mg IVP Q8H PRN PRN Reason: vomiting, or N/V if npo Ondansetron HCl (Ondansetron 2 Mg/Ml Sdv 2 Ml) 4 mg IVP Q6H PRN PRN Reason: NAUSEA AND VOMITING Pantoprazole Sodium (Pantoprazole 40 Mg Sdv) 40 mg IVP Q12H [facility] Last Admin: 10/13/22 07:43 Dose: 40 mg Vitals/I&O/Wt Last Vital Signs Temp 97.9 F 10/13/22 18:36 Pulse 121 H 10/13/22 18:00 Resp 11 L 10/13/22 18:00 BP 102/80 10/13/22 18:00 Pulse Ox 90 10/13/22 18:00 O2 Del Method 10/13/22 16:30 O2 Flow Rate 2 10/13/22 16:30 10/13/22 10/13/22 10/13/22 06:59 14:59 22:59 Intake Total 350 / 2172.410 100 / 100 140.081 / 240.081 Output Total 1180 / 1530 100 / 100 Balance -830 / 642.410 100 / 100 40.081 / 140.081 Physical Exam Narrative: Accompanied by his . Const: COMMON NORMALS: patient oriented x3 and alert GENERAL APPEARANCE: cooperative and frail appearing ORIENTATION/CONSCIOUSNESS: Yes awake OTHER: Generally weak. HENMT: COMMON NORMALS: oropharynx normal OTHER: Dry mucous membranes. No pharyngeal erythema or tonsillar enlargement or exudates. Neck/C-Spine: COMMON NORMALS: no JVD Resp: AUSCULTATION: rhonchi Cardio: COMMON NORMALS: no JVD GI: AUSCULTATION: Yes Absent bowel sounds OTHER: Drains with Mostly serous content. Extremity: COMMON NORMALS: no pedal edema Neuro: COMMON NORMALS: patient oriented x3 and moves all extremities SENSORIUM/ORIENTATION: Yes alert Skin: COMMON NORMALS: no rashes or lesions noted GENERAL SKIN EXAM: no rashes or lesions noted Urinary Catheter Management: Cohn: Cath Placed During This Visit: yes Reason for Continuing Indwelling Catheter: Accurate Measurement of Urinary Output in Critically Ill Patients Urinary Catheter Date of Insertion: 10/09/22 Urinary Catheter Time of Insertion: 06:45 Data 10/13/22 02:40 10/13/22 07:28 Micro: Microbiology 10/12/22 18:05 Gram Stain - Final Peritoneal Fluid Body Fluid Culture - Preliminary 10/12/22 18:05 Gram Stain - Final Peritoneal Fluid Body Fluid Culture - Preliminary 10/12/22 18:05 Gram Stain - Final Peritoneal Fluid Body Fluid Culture - Preliminary 10/12/22 20:46 Blood Culture - Preliminary Blood SPECIMEN COLLECTED 10/12/22 20:44 Blood Culture - Preliminary Blood SPECIMEN COLLECTED A&P Assessment and plan (1) Septic shock: Continue hemodynamic support. Wean Levophed if tolerating. Additionally concern for underlying component of ischemic heart disease. Today feeling of impending doom. EKG requested as well as limited TTE. Appreciate also cardiology consultation. Unfortunately also no possibility for intervention given risk of bleeding with splenic hematomas, laceration. Unfortunately noted further worsening ejection fraction down to 25 - 30%. Also Seen pleural effusion. Worsening oxygenation. Persistent septic shock, [place] ptosis. Broaden antibiotics with vancomycin. Continue Zosyn. Additionally still abnormal UA with colovesical fistula and suggestion of ongoing UTI. Cohn in place. Continue Zosyn. Follow-up repeat blood culture. Follow-up peritoneal drain cultures. C. difficile. Overall prognosis unfortunately is not good. In case he were not able to make decisions for himself he had named his or if she is unable to (she does have dementia) his friend/neighbor as surrogate decision-maker. Arrangements for transfer underway to higher level facility given lack of improvement, still unclear cause of colitis, intraperitoneal air of unknown so urce, possible malignancy, colovesical fistula, splenic hematomas and laceration as well as diffuse vasculopathy including stenosis of mesenteric arteries. CVC requested and placed by surgery due to lack of access, difficulties with blood draws. (2) Bowel perforation: Discussed with surgery. Appreciate recommendations. He appears to be doing well in terms of drain output. Mostly serous. Small amount of air suspected residual following original surgery. No obvious place of perforation identified during exploratory laparotomy, no air found coming from urinary bladder either. Noted to have several colovesical fistulae. Murky fluid throughout the abdomen. Somewhat consistent with gastric contents. No discrete mass could be palpated. Continue Zosyn for possible infectious colitis. Additional possibility of degree of hypoperfusion of bowel/large intestine given multivessel vasculopathy. No discrete mass, although suspicion for possible underlying malignancy not entirely ruled out. Possibly with metastatic liver lesion. Tiny focus of air near the quincy hepatis on CT. (3) COLE (acute kidney injury): Appreciate nephrology consultation and recommendations discussed this morning. Worsening renal function, acidosis, persistent hyperkalemia, hemodialysis catheter placed, started on dialysis. Minimal if any urine output through the day. Repeat CMP. Will request consultation with nephrology. (4) Transaminitis: Showing improvement with hemodynamic support. Suspected shock liver, blood pressures have not been profoundly hypotensive but he is diffusely vasculopathic. Also underlying cardiomyopathy with reduced ejection fraction. Lactic acid is 1.9. CK not elevated. Hepatitis panel was negative. (5) Atrial flutter with rapid ventricular response: Atrial flutter with RVR. Continue amiodarone drip. He remains n.p.o. at this time. Blood pressures are soft. Heart rate with improvement with amnio drip. Not on anticoagulation due to splenic laceration/hematomas. (6) Mixed hyperlipidemia: (7) Presence of prosthetic heart valve: (8) Type 2 diabetes mellitus: Qualifiers: Diabetes mellitus care home insulin use: with care home use Diabetes mellitus complication status: with hyperglycemia Qualified Code(s): E11.65 - Type 2 diabetes mellitus with hyperglycemia; Z79.4 - halfway (current) use of insulin (9) PVD (peripheral vascular disease): (10) Diastolic CHF, chronic: (11) CHF exacerbation: (12) Diverticulitis: (13) Recurrent urinary tract infection: (14) Colovesical fistula: (15) Weakness: (16) Elevated liver enzymes: (17) Hyperglycemia: Plan Complicated UTI: With colovesical fistula. Continue Zosyn. Only superficial stanton on urine culture. With underlying colovesical fistula for which she was referred for follow-up with surgery by urology for planning of repair prior to ending up in the hospital. Globular eccentric atheromatous plaque within the proximal abdominal aorta. No dissection is seen. 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 No collapse. Continue SSI for TIIDM. Hypothyroidism consider adding levothyroxine. Check cortisol given hypotension Attestations Medical Necessity Statement*: Continue admission for assessment and management of septic shock, with multiorgan injury, and gentleman with underlying severe cardiomyopathy, possible ischemic heart disease, as well as chronic metabolic ulceration, worsening renal failure with oliguria, fluid CHF, hypoxia, A. fib with RVR. Critical Care Time: The high probability of a clinically significant, sudden or life threatening deterioration of the patient's Hemodynamic, renal, GI, infectious disease, cardiac system(s) required my full and direct attention, intervention and personal management. The critical care time is as shown. This time is in addition to time spent performing any reported procedures but includes the following: x Data and vital sign review and interpretation x Patient assessment, examination and intervention x Documentation x Medication orders and management Critical Care Time (min): 75 Coding Level of Care Code Acute Code for Chg Fwd Diagnoses Septic shock A41.9; R65.21 Bowel perforation K63.1 COLE (acute kidney injury) N17.9 Transaminitis R74.01 Atrial flutter with rapid ventricular response I48.92 Mixed hyperlipidemia E78.2 Presence of prosthetic heart valve Z95.2 Type 2 diabetes mellitus E11.65; Z79.4 Diabetes mellitus 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
--- NOTE | 2022-10-13 21:56 | XRR_ITS ---
PROCEDURE INFORMATION: Exam: XR Chest Exam date and time: 10/13/2022 9:33 PM Age: 67 years old Clinical indication: Device placement; Ng tube; Additional info: Ngt adjustment TECHNIQUE: Imaging protocol: Radiologic exam of the chest. Views: 1 view. COMPARISON: CR (CHEST, ) 13/10/2022 19:26 FINDINGS: Tubes, catheters and devices: Lines and tubes unchanged. NGT in place, loops in gastric body. Lungs: Hazy lung base opacities and effusions are mildly improved. Pleural spaces: No pneumothorax. Heart/Mediastinum: The heart remains enlarged with CABG. Diffuse vascular calcification. Bones/joints: Unremarkable. Gastrointestinal tract: Partially assessed small and large bowel dilation. Abdominal drain. RUQ soft tissue air. XR/XR chest 1V portable [id number] IMPRESSION: 1. Mildly improving lung aeration. 2. NGT in place. Full details above. 3. Postop patient.
[2022-10-13] MEDS: vancomycin 1,250 MG/250 ML PIGGYBACK 250 MG IV (22:17)
[2022-10-13 23:04] LABS: Cosyntropin 30 Minute 26.39 mcg/dL
[2022-10-13 23:05] LABS: Cosyntropin Baseline 16.95 mcg/dL
[2022-10-14 00:16] VITALS: RESP 20
[2022-10-14] MEDS: HYDROmorphone 1 mg/mL INJ 1 mL 0.5 MG IVP (00:16)
[2022-10-14 00:38] LABS: Cosyntropin 1 Hour 28.64 mcg/dL
[2022-10-14 03:33] LABS: Albumin Level 2.4 g/dL (3.5-5.2); Alkaline Phosphatase 127 U/L (40-130); Anion Gap 17.8 (5-19); Blood Urea Nitrogen 46 mg/dL (8-23); Calcium 7.2 mg/dL (8.5-10.5); Carbon Dioxide 20 mmol/L (22-29); Chloride 101 mmol/L (98-107); Creatinine Clr Calc Pharmacy 33.4152; Globulin 2.8 g/dL (1.3-4.6); Glomerular Filtration Rate 40.2 mL/min (90-130); Glucose 111 mg/dL (65-115); Osmolality Calculated 291 mOsm/kg (285-295); Phosphorus 4.6 mg/dL (2.5-4.5); Potassium 4.8 mmol/L (3.5-5.1); Sodium 134 mmol/L (136-145); Total Bilirubin 1.1 mg/dL (0.15-1.2); Total Protein 5.2 g/dL (6.6-8.7)
[2022-10-14 03:34] LABS: Basophils % 0.1 %; Hematocrit 26.6 % (42.0-52.0); Hemoglobin 8.1 g/dL (11.7-16.6); Lymphocytes % 5.8 %; Mean Corpuscular HGB Conc 30.5 g/dL (30.0-36.0); Mean Corpuscular Volume 78.9 fl (80-94); Monocytes # 0.9 10^3/uL (0.2-0.9); Monocytes % 5.2 %; Neutrophils # 15.37 10^3/uL (1.8-7.7); Neutrophils % 88.3 %; Nucleated Red Blood Cells % 0 %; Platelet Count 161 10^3/cmm (130-400); Red Blood Count 3.37 10^6/uL (4.1-5.3); Red Cell Distribution Width 25.7 % (12.1-15.1); White Blood Count 17.4 10^3/uL (4.0-10.0)
[2022-10-14 03:44] VITALS: TEMP 36.3
[2022-10-14 03:46] LABS: Alanine Aminotransferase 1855 U/L (0-41)
[2022-10-14 04:00] LABS: Aspartate Amino Transferase 1043 U/L (0-40)
[2022-10-14 05:06] VITALS: RESP 21
[2022-10-14] MEDS: HYDROmorphone 1 mg/mL INJ 1 mL IVP (05:06)
--- NOTE | 2022-10-14 05:51 | P.PNCC_ITS ---
Critical Care Event Note The high probability of a clinically significant, sudden or life threatening deterioration of the patient's [] system(s) required my full and direct attention, intervention and personal management. The critical care time is as shown. This time is in addition to time spent performing any reported procedures but includes the following: [x] Data and vital sign review and interpretation [x] Patient assessment, examination and intervention [x] Documentation [x] Medication orders and management Critical Care Time Code activated: No Critical Care Time (min): 35 Additional information about critical care time: - I was called by nursing staff at roughly 3 AM, that patient has been accepted at [facility], I was not made aware about patient being marquis sferred -I looked over patient's notes, this was documented Arrangements for transfer underway to higher level facility given lack of improvement, still unclear cause of colitis, intraperitoneal air of unknown source, possible malignancy, colovesical fistula, splenic hematomas and laceration as well as diffuse vasculopathy including stenosis of mesenteric arteries. -I spoke to nursing staff and the plan was for patient to be transferred for above reasons, this was communicated to nursing staff by patient's day physician in the edition patient's transfer form was filled out by day physician -I was asked to provide a signout to Dr. Griffin, at [facility], I went over the case with physician, gave patient's appropriate lab work, went over recent developments including his dialysis catheter placement -Physician wanted the patient's potassium to be checked as last potassium was 6, repeat potassium was 4.8 -Patient was observed in intensive care unit, he is on 4 L, he is on 4 mics of Levophed receiving antibiotics, MAP in 65, he looks in sinus tachycardia, nursing staff at bedside, -Currently patient was observed in ICU, he is alert to person, to place, not to time, although he says he wants to go home, but he has been encephalopathic, so I cannot get a reliable confirmation about the status of transfer for inpatient -Nursing staff communicated with patient's next of kin, healthcare power of counterintelligence agent, patient's neighbor, who is listed as DPOA and got confirmation for transfer -I called [facility] again, to get confirmation about patient's potassium as they want to make sure the potassium improved before transfer, it was 4.5 physician accepted transfer -Transfer was initiated Coding Level of Care Code Acute Code for g Fwd
[2022-10-14 06:00] VITALS: PULSE 118
--- NOTE | 2022-10-14 06:00 | XRR_ITS ---
PROCEDURE INFORMATION: Exam: XR Chest Exam date and time: 10/14/2022 5:08 AM Age: 67 years old Clinical indication: Shortness of breath; Prior surgery; Surgery type: Cabg, dialysis cath; Patient HX: History--f/u for SOB. Central line and ng tube in place. ; Additional info: Hypoxia TECHNIQUE: Imaging protocol: Radiologic exam of the chest. Views: 1 view. COMPARISON: CR XR chest 1V portable [id number] 10/13/2022 9:33 PM FINDINGS: Tubes, catheters and devices: Feeding tube is in satisfactory position. Right subclavian approach central line is in satisfactory position, with distal tip in the SVC, approximately 2 cm above the SVC/RA junction. Left IJ approach central line is in satisfactory position, with distal tip in the SVC, approximately 5 cm above the SVC/RA junction. Lungs: There is redistribution and indistinctness of the pulmonary vasculature, in association with haziness of the lungs and small bilateral pleural effusions, which in the setting of cardiomegaly is consistent with pulmonary edema. Pneumonia should be excluded clinically. No pneumothorax. Pleural spaces: See Lungs finding. Heart/Mediastinum: Stable cardiomediastinal silhouette. Bones/joints: Median sternotomy changes seen. XR/XR chest 1V portable [id number] IMPRESSION: Imaging findings of pulmonary edema with small bilateral pleural effusions. Pneumonia should be excluded clinically.
[2022-10-14 07:27] LABS: Glucose Point of Care 110 mg/dL (70-110)
--- NOTE | 2022-10-14 07:28 | PC.NURSE ---
Patient left with EMS crew to [facility].
--- NOTE | 2022-10-14 19:17 | PC.HD ---
Pt borderline hypotensive prior to tx and EQUIPMENT MAINTENANCE TECH increased Levophed gtt from 2mcg/min to 4mcg/min and machine temp set to 35.0. During tx pt's skin got cooler, and pulse ox which was reading 88-90% at start of treatment dropped into 70's. Pt's respirations did not appear more labored and although pt was sleeping he was arousable and oriented, denied c/o. RT unable to get a better reading and increased O2 from 2LPM to 6LPM with O2 sat increasing to 90%. Machine temp increased to 36.0. Near end of treatment, attempted to get pt's temperature but unable to get a reading in spite of trying multiple routes and locations. Pt's skin felt very cool by this time, pt still denies feeling cold or any other symptoms, and warming blanket placed by EQUIPMENT MAINTENANCE TECH. By tx end, able to obtain temp reading of 96.1 and pulse ox reading 99%. Pt c/o being hot, no other symptoms. BP low through most of treatment but pt remained asymptomatic, and BP actually improved at end of treatment. Aside from vasoconstriction with decreased peripheral perfusion and resultant oximetry decline pt tolerated treatment well. Dr Schrader ntfd of treatent course and VS with increased oxygen given (likely r/t vasoconstriction rather than hypoxia), no additional orders.
--- NOTE | 2022-10-14 20:20 | PM.TDS ---
Transfer Summary Providers Date of Admission: 10/09/22 07:26 Date of Discharge/Transfer: 10/14/22 Attending Provider at Admission: Kemal Langford MD Attending Provider at Transfer: Lenny Mathias Transfer Plans: Anticipated date of transfer: 10/14/22. Diagnoses at Discharge Discharge Diagnosis (1) Septic shock: Status: Acute (2) Bowel perforation: Status: Acute (3) COLE (acute kidney injury): Status: Acute (4) Transaminitis: Status: Acute (5) Atrial flutter with rapid ventricular response: Status: Acute (6) Mixed hyperlipidemia: Status: Acute (7) Presence of prosthetic heart valve: Status: Acute Permanent problem details: (8) Type 2 diabetes mellitus: Status: Acute Qualifiers: Diabetes mellitus lobsterman insulin use: with residential use Diabetes mellitus complication status: with hyperglycemia Qualified Code(s): E11.65 - Type 2 diabetes mellitus with hyperglycemia; Z79.4 - long-term (current) use of insulin (9) PVD (peripheral vascular disease): Status: Acute (10) Diastolic CHF, chronic: Status: Acute (11) CHF exacerbation: Status: Acute (12) Diverticulitis: Status: Acute (13) Recurrent urinary tract infection: Status: Acute (14) Colovesical fistula: Status: Acute (15) Weakness: Status: Acute (16) Elevated liver enzymes: Status: Acute (17) Hyperglycemia: Status: Acute Reason for Visit Reason for Visit hyperglycemia Hospital Course Hospital Course Pleasant 67-year-old gentleman with history of CAD, CABG, PVD, DM 2, right BKA, bioprosthetic aortic valve, HTN, HLD, recently admitted to the hospital discharged on 09/02 after presenting with shortness of breath, acute on chronic anemia with negative FOBT, received RBC transfusion, referred to surgery for endoscopy, additionally assessed by cardiology for NSTEMI, with plans for additional assessment by stress testing on outpatient basis to further assess for possible underlying ischemic heart disease due to noted mild decrease in ejection fraction, additionally treated for urinary tract infection. After discharge following up with urology was referred for assessment by surgery also due to identification of colovesical fistula which was thought started possibly after an episode of diverticulitis. He did not manage to follow-up with surgery or cardiology, and upcoming to the hospital 10/09 due to generalized weakness, fatigue, malaise, no bowel movement in 3 days and difficulty in urinating. Also shortness of breath, poor appetite. Was diagnosed with diverticulitis in ER on initial visit and return home with oral antibiotics, however, did not improve and returned to the hospital for current admission. On presentation with atrial flutter with RVR, difficult to manage, initially started on Cardizem drip, but with episodes of hypotension, Cardizem, Toprol had to be discontinued. Subsequently started on amiodarone drip. With noted UTI, was also assessed by CT abdomen pelvis. Initially received Lasix due to fluid overload/acute CHF. Also with transaminitis, hepatitis panel was negative. Nondrinker. CT abdomen pelvis with multiple critical findings, including grade 1 splenic lacerations and subcapsular hematoma, as well as widespread inflammation throughout especially sigmoid colon, descending colon also ascending colon also some prominence of small bowel suggestive of enteritis. Additionally an irregular lesion in the liver. Additional vascular findings with suggested severe stenosis of bilateral proximal renal arteries, SMA stenosis, occlusion of right femoral artery with prior aortoiliac endograft. As well as globular eccentric atheromatous plaque within the proximal abdominal aorta. No dissection. Gastric diverticulum. Mild ascites and diffuse subcutaneous edema/anasarca. Cardiomegaly with moderate bilateral pleural effusions. Loculated fissural fluid on the left. Mediastinal and bilateral hilar lymphadenopathy. Centrilobular emphysema. Dependent atelectasis at lung bases. Concern expressed by radiologist also for possibility of underlying malignancy possibly not visualized due to extent of inflammation. Surgical consultation was requested. He continues empirically on Zosyn for colitis, UTI with underlying colovesical fistula. Blood cultures remain negative. Switch to amiodarone for rate control, not on anticoagulation due to splenic hematoma/lacerations. On surgical assessment found to have rebound tenderness with noted free intraperitoneal air on abdominal x-ray. Transfer initially due to surgeon having to take another critically ill patient to surgery at the same time, however, unable to obtain transfer due to lack of beds in surrounding area hospitals. Repeat CT scan with interval development of moderate amount of free air throughout peritoneal cavity. Marked abnormal descending colon and sigmoid. Marked wall thickening and edema with diverticular disease. Ischemic changes with perforation likely in the sigmoid colon. Underlying mass not excluded. Diffuse mild ascites and soft tissue anasarca. Tiny focus of air near the quincy hepatis. May be free air within quincy hepatis or a very small amount of biliary air which can be seen with ischemic bowel disease. Increasing thrombus abdominal aorta similar to 10/09/2022. Small bilateral pleural effusions and compressive atelectasis. 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 No collapse. Underwent exploratory laparotomy on 10/10. No obvious source of perforation on examination of bowel, including with air injected into stomach, small bowel, rectum, urinary bladder. Murky fluid found in the abdominal cavity similar to gastric contents, evacuated. No discretely palpable mass. 3 drains placed. Septic shock with multiorgan injury, including transaminitis, COLE. Requiring low rate pressor support. Lactic acid 1.9. CK not elevated. Drain output with some gradual decrease, mostly serous appearing. Some air in the drain, considered possibly residual from the surgery. Progressively worsening renal function, assessed by nephrology, initiated on hemodialysis. With some worsening hypoxia, productive cough. Antibiotic broadened with vancomycin. Cultures collected from all 3 drains. No bowel movement, also requested C. difficile but not collected. Cultures from drainage growing current bacterium. Blood cultures remaining negative. Persistent hypotension, also with feeling of impending doom. Assessed by cardiology as well due to recent concern for ischemic heart disease, on repeat echo ejection fraction also decreased further to 25-30%. Not a candidate for intervention at the current time due to condition including splenic hematomas and laceration, managed conservatively until can undergo further evaluation. Wanted to remain full code. 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 Arrangements for transfer to tertiary care center given lack of improvement, very complicated clinical picture, still unclear cause of colitis, intraperitoneal air of unknown source, possible malignancy, possible ischemic bowel, here near quincy hepatis, colovesical fistulae, splenic hematomas and laceration, newly worsened cardiomyopathy ejection fraction decreased to 25-30% on repeat echo, as well as diffuse vasculopathy including stenosis of mesenteric arteries increased aortic atheromatous plaque, also present bioprosthetic aortic valve and aortobiiliac endografts, desire for further aggressive care, was kindly accepted and transferred to [facility]. Physical Exam Narrative: I did not see patient at time of transfer. Please refer to note by overnight physician. Urinary Catheter Management: Cohn: Cath Placed During This Visit: yes Reason for Continuing Indwelling Catheter: Accurate Measurement of Urinary Output in Critically Ill Patients Urinary Catheter Date of Insertion: 10/09/22 Urinary Catheter Time of Insertion: 06:45 TS Data Studies Completed and Pending Pending at discharge Category Date Time Status Blood Culture Stat Lab 10/12/22 20:46 Results Body Fluid Culture & GS Routine Lab 10/12/22 18:05 Results Body Fluid Culture & GS Routine Lab 10/12/22 18:05 Results Body Fluid Culture & GS Routine Lab 10/12/22 18:05 Results Urine Culture Stat Lab 10/13/22 00:50 Results Vitamin D 1,25 Dihydroxy Routine Lab 10/12/22 20:44 Received Cytology [PTH] Routine Pth 10/12/22 17:51 Received Labs from last 24 hours 10/14/22 10/14/22 10/14/22 07:09 02:47 02:47 WBC 17.4 H RBC 3.37 L Hgb 8.1 L Hct 26.6 L MCV 78.9 L D MCH 24.0 L MCHC 30.5 D RDW 25.7 H Plt Count 161 MPV Not Reportable Neut % (Auto) 88.3 Lymph % (Auto) 5.8 [place] % (Auto) 5.2 Eos % (Auto) 0.0 Baso % (Auto) 0.1 Neut # (Auto) 15.37 H Lymph # (Auto) 1.0 [place] # (Auto) 0.9 Eos # (Auto) 0.0 Baso # (Auto) 0.0 Nucleated RBC % (auto) 0 Nucleated RBCs # 0.0 Sodium 134 L Potassium 4.8 Chloride 101 Carbon Dioxide 20 L Anion Gap 17.8 BUN 46 H Creatinine 1.7 H GFR Calculation 40.2 L Glucose 111 POC Glucose 110 Calculated Osmolality 291 Calcium 7.2 L Phosphorus 4.6 H Total Bilirubin 1.1 AST 1043 H ALT 1855 H Alkaline Phosphatase 127 Total Protein 5.2 L Albumin 2.4 L Globulin 2.8 Cortisol Response Hep Bs Antigen Hep Bs Antibody Hepatitis C Antibody 10/13/22 10/13/22 18:27 16:08 WBC RBC Hgb Hct MCV MCH MCHC RDW Plt Count MPV Neut % (Auto) Lymph % (Auto) [place] % (Auto) Eos % (Auto) Baso % (Auto) Neut # (Auto) Lymph # (Auto) [place] # (Auto) Eos # (Auto) Baso # (Auto) Nucleated RBC % (auto) Nucleated RBCs # Sodium Potassium Chloride Carbon Dioxide Anion Gap BUN Creatinine GFR Calculation Glucose POC Glucose Calculated Osmolality Calcium Phosphorus Total Bilirubin AST ALT Alkaline Phosphatase Total Protein Albumin Globulin Cortisol Response Hep Bs Antigen Cancelled Hep Bs Antibody Cancelled Hepatitis C Antibody Cancelled Completed Studies During Hospitalization Category Date Time Status CT abdomen pelvis w con* [id number] Stat Cat Scan 10/10/22 10:[address] chest abd pel w con* Routine Cat Scan 10/09/22 06:36 Completed XR acute abdomen series [id number] Stat Exams 10/10/22 09:52 Completed XR chest 1V portable [id number] Routine Exams 10/11/22 16:08 Completed XR chest 1V portable [id number] Routine Exams 10/13/22 19:12 Completed XR chest 1V portable [id number] Routine Exams 10/13/22 21:56 Completed XR chest 1V portable [id number] Routine Exams 10/14/22 06:00 Completed XR chest 1V portable [id number] Stat Exams 10/09/22 04:23 Completed XR chest 1V portable [id number] Stat Exams 10/13/22 15:46 Completed CV. echo limited [id number] Routine Ultrasound 10/13/22 10:03 Completed [place] liver [id number] Routine Ultrasound 10/12/22 10:22 Completed Laboratory Last Values WBC 17.4 10^3/uL (4.0-10.0) H 10/14/22 02:47 RBC 3.37 10^6/uL (4.1-5.3) L 10/14/22 02:47 Hgb 8.1 g/dL (11.7-16.6) L 10/14/22 02:47 Hct 26.6 % (42.0-52.0) L 10/14/22 02:47 MCV 78.9 fl (80-94) L D 10/14/22 02:47 MCH 24.0 pg (28.0-34.0) L 10/14/22 02:47 MCHC 30.5 g/dL (30.0-36.0) D 10/14/22 02:47 RDW 25.7 % (12.1-15.1) H 10/14/22 02:47 Plt Count 161 10^3/cmm (130-400) 10/14/22 02:47 MPV Not Reportable 10/14/22 02:47 Neut % (Auto) 88.3 % 10/14/22 02:47 Lymph % (Auto) 5.8 % 10/14/22 02:47 [place] % (Auto) 5.2 % 10/14/22 02:47 Eos % (Auto) 0.0 % 10/14/22 02:47 Baso % (Auto) 0.1 % 10/14/22 02:47 Neut # (Auto) 15.37 10^3/uL (1.8-7.7) H 10/14/22 02:47 Lymph # (Auto) 1.0 10^3/uL (0.8-4.8) 10/14/22 02:47 [place] # (Auto) 0.9 10^3/uL (0.2-0.9) 10/14/22 02:47 Eos # (Auto) 0.0 10^3/uL (0.0-0.8) 10/14/22 02:47 Baso # (Auto) 0.0 10^3/uL (0.0-0.1) 10/14/22 02:47 Nucleated RBC % (auto) 0 % 10/14/22 02:47 Nucleated RBCs # 0.0 /100WBC 10/14/22 02:47 PT 18.40 SECONDS (12.1-14.9) H 10/09/22 07:59 INR 1.50 (0.8-1.2) H 10/09/22 07:59 Specimen Type Venous 10/13/22 10:07 Sample Site Radial, left 10/13/22 10:07 ABG pH 7.26 (7.35-7.45) L 10/13/22 10:07 ABG pCO2 33.8 mmHg (35-45) L 10/13/22 10:07 ABG pO2 39.9 mmHg (80.0-100.0) L 10/13/22 10:07 ABG HCO3 15.1 mmol/L (22-26) L 10/13/22 10:07 ABG O2 Saturation 66.4 10/13/22 10:07 ABG Base Excess -11.0 mmol/L (-2.0-2.0) L 10/13/22 10:07 Ivan Test Pos 10/13/22 10:07 A-a O2 Gradient 8.7 mmHg (5-10) 10/13/22 10:07 Hematocrit 25.5 % (42-52) L 10/13/22 10:07 Hgb O2 Saturation 65.8 % (95-100) L 10/13/22 10:07 Carboxyhemoglobin 1.3 %THgb (0.4-20.1) 10/13/22 10:07 Methemoglobin < 0.0 % (0.4-1.5) L 10/13/22 10:07 Total Hemoglobin 8.3 g/dL (14-18) L 10/13/22 10:07 Sodium 132.0 mmol/L (131-143) 10/13/22 10:07 Potassium 7.1 mmol/L (3.5-5.0) H 10/13/22 10:07 Glucose 206.0 mg/dL (70-115) H 10/13/22 10:07 Ionized Calcium 1.1 mmol/L (1.1-1.4) 10/13/22 10:07 O2 Delivery Device Nc 10/13/22 10:07 O2 Liters/Min 2.0 % 10/13/22 10:07 FiO2 28.0 % 10/13/22 10:07 Washer Machine ID [place] 10/13/22 10:07 Sodium 134 mmol/L (136-145) L 10/14/22 02:47 Potassium 4.8 mmol/L (3.5-5.1) 10/14/22 02:47 Chloride 101 mmol/L (98-107) 10/14/22 02:47 Carbon Dioxide 20 mmol/L (22-29) L 10/14/22 02:47 Anion Gap 17.8 (5-19) 10/14/22 02:47 BUN 46 mg/dL (8-23) H 10/14/22 02:47 Creatinine 1.7 mg/dL (0.7-1.2) H 10/14/22 02:47 GFR Calculation 40.2 mL/min (90-130) L 10/14/22 02:47 Glucose 111 mg/dL (65-115) 10/14/22 02:47 POC Glucose 110 mg/dL (70-110) 10/14/22 07:09 Estimat Average Glucose 174 10/09/22 07:59 Hemoglobin A1c 7.7 % (4.0-6.0) H 10/09/22 07:59 Calculated Osmolality 291 mOsm/kg (285-295) 10/14/22 02:47 Lactic Acid 1.9 mmol/L (0.5-2.2) 10/12/22 08:49 Lactic Acid (Sepsis) 1.5 mmol/L (0.5-2.2) 10/09/22 10:51 Lactate 1.4 mmol/L (0.5-2.2) 10/13/22 18:27 Uric Acid 10.3 mg/dL (3.4-7.0) H 10/12/22 05:25 Calcium 7.2 mg/dL (8.5-10.5) L 10/14/22 02:47 Phosphorus 4.6 mg/dL (2.5-4.5) H 10/14/22 02:47 Magnesium 2.5 mg/dL (1.7-2.3) H 10/09/22 04:30 Iron 9 ug/dL (59-158) L 10/09/22 07:59 Iron 9 ug/dL (59-158) L 10/09/22 07:59 TIBC 174 mcg/dl 10/09/22 07:59 % Saturation 5.1 % (20-50) L 10/09/22 07:59 Unsat Iron Binding 166 ug/dL (112-347) 10/09/22 07:59 Ferritin 68 ng/mL (30-400) 10/09/22 07:59 Total Bilirubin 1.1 mg/dL (0.15-1.2) 10/14/22 02:47 AST 1043 U/L (0-40) H 10/14/22 02:47 ALT 1855 U/L (0-41) H 10/14/22 02:47 Alkaline Phosphatase 127 U/L (40-130) 10/14/22 02:47 Creatine Kinase 25 U/L (39-308) L 10/13/22 16:08 Troponin T Baseline 69 ng/L (0-15) H 10/09/22 07:59 Troponin T 120 Minute 67.52 ng/L (0-15) H 10/09/22 10:51 Delta Troponin T -1.48 ABS# (0-10) L 10/09/22 10:51 Troponin T Hi Sens 6Hr 71.80 ng/L (0-15) H 10/09/22 14:09 Troponin T Hi Sens 6Hr Delta 2.80 ng/L (0-12) 10/09/22 14:09 C-Reactive Protein 53.1 mg/L (0.0-4.9) H 10/09/22 07:59 NT-Pro-B Natriuret Pep 59871 pg/mL (0-125) H 10/09/22 07:59 Total Protein 5.2 g/dL (6.6-8.7) L 10/14/22 02:47 Albumin 2.4 g/dL (3.5-5.2) L 10/14/22 02:47 Globulin 2.8 g/dL (1.3-4.6) 10/14/22 02:47 Triglycerides 160 mg/dL (0-150) H 10/09/22 07:59 Cholesterol 125 mg/dL (0-200) 10/09/22 07:59 LDL Cholesterol, Calc 68 mg/dL (50-129) 10/09/22 07:59 HDL Cholesterol 25 mg/dL (60-100) L 10/09/22 07:59 LDL/HDL Ratio 2.72 RATIO (0.00-3.22) 10/09/22 07:59 Cholesterol/HDL Ratio 5.00 mg/dL (1.0-5.00) 10/09/22 07:59 Lipase 34 U/L (13-60) 10/09/22 04:30 Carcinoembryonic Ag 11.9 ng/mL (0.0-4.7) H 10/10/22 00:53 Vitamin B12 > 2000 pg/mL (232-1245) H 10/09/22 07:59 25-OH Vitamin D Total 11 ng/mL (30-100) L 10/13/22 02:40 Folate 10.0 ng/mL (4.5-32.2) 10/09/22 07:59 Procalcitonin 0.23 ng/mL (0-0.5) 10/09/22 07:59 TSH 10.42 uIU/mL (0.27-4.20) H 10/13/22 02:40 Free T4 0.70 ng/dL (0.82-1.77) L 10/11/22 05:34 Random Cortisol 16.01 ug/dL (2.47-19.5) 10/13/22 02:40 Cortisol Response 10/13/22 16:08 Urine Color Dark yellow (Yellow) 10/13/22 00:50 Urine Appearance Sl hazy (CLEAR) A 10/13/22 00:50 Urine pH 5 (5-7) 10/13/22 00:50 Ur Specific [place] 1.015 (1.005-1.030) 10/13/22 00:50 Urine Protein 2+ (Negative) H 10/13/22 00:50 Urine Glucose (UA) Norm (Normal) 10/13/22 00:50 Urine Ketones 1+ (Negative) H 10/13/22 00:50 Urine Blood 3+ (Negative) H 10/13/22 00:50 Urine Nitrate Negative (Negative) 10/13/22 00:50 Urine Bilirubin Neg (Negative) 10/13/22 00:50 Urine Urobilinogen Norm mg/dL (Negative) 10/13/22 00:50 Ur Leukocyte Esterase 2+ (Negative) H 10/13/22 00:50 Urine RBC 80-100 /hpf (0-2) H 10/13/22 00:50 Urine WBC Too numerous to cnt /hpf (0-5) H 10/13/22 00:50 Ur Squamous Epith Cells None /hpf (0-5) 10/13/22 00:50 Ur Transition Epith Cell 0-4 /hpf 10/13/22 00:50 Ur Renal Epithelial Cell 0-2 /hpf 10/13/22 00:50 Amorphous Sediment Not Reportable 10/13/22 00:50 Urine Bacteria 2+ /hpf (NONE) H 10/13/22 00:50 Fine Granular Casts 0-1 /lpf 10/13/22 00:50 Ur Random Sodium 33 mmol/L 10/13/22 00:50 Ur Random Potassium 54 mmol/L 10/13/22 00:50 Ur Random Chloride 24 mmol/L 10/13/22 00:50 Urine Creatinine 67 mg/dL (39-259) 10/13/22 00:50 Fluid Color Jossy 10/12/22 18:05 Fluid Color Jossy 10/12/22 18:05 Fluid Color Jossy 10/12/22 18:05 Fluid Appearance Cloudy 10/12/22 18:05 Fluid Appearance Cloudy 10/12/22 18:05 Fluid Appearance Cloudy 10/12/22 18:05 Fluid WBC 1971 /uL 10/12/22 18:05 Fluid WBC 4846 /uL 10/12/22 18:05 Fluid WBC 4889 /uL 10/12/22 18:05 Fluid RBC 5.000 10^3/uL 10/12/22 18:05 Fluid RBC 6.000 10^3/uL 10/12/22 18:05 Fluid RBC 9.000 10^3/uL 10/12/22 18:05 Fld Polynuclear WBCs # 1.777 10/12/22 18:05 Fld Polynuclear WBCs # 4.097 10/12/22 18:05 Fld Polynuclear WBCs # 4.222 10/12/22 18:05 Fld Polynuclear WBCs % 84.500 % 10/12/22 18:05 Fld Polynuclear WBCs % 86.300 % 10/12/22 18:05 Fld Polynuclear WBCs % 90.100 % 10/12/22 18:05 Fl Mononucl WBCs #(Auto) 0.194 10/12/22 18:05 Fl Mononucl WBCs #(Auto) 0.667 10/12/22 18:05 Fl Mononucl WBCs #(Auto) 0.749 10/12/22 18:05 Fl Mononuclear % Auto 9.900 % 10/12/22 18:05 Fl Mononuclear % Auto 13.700 % 10/12/22 18:05 Fl Mononuclear % Auto 15.500 % 10/12/22 18:05 Salicylates < 0.3 mg/dL (3-10) L 10/09/22 07:59 Acetaminophen < 5.0 ug/mL (10-30) L 10/09/22 07:59 Ethyl Alcohol < 10 mg/dL (0-10) 10/09/22 07:59 Hepatitis A IgM Ab Non-reactive (Nonreactive) 10/09/22 04:30 Hep Bs Antigen Cancelled 10/13/22 18:27 Hep Bs Antibody Cancelled 10/13/22 18:27 Hep B Core Total Ab Non-reactive (Nonreactive) 10/09/22 04:30 Hepatitis C Antibody Cancelled 10/13/22 18:27 Influenza Type A Ag negative (Negative) 10/09/22 05:02 Influenza Type B Ag negative (Negative) 10/09/22 05:02 SARS-CoV-2 Ag (Rapid) negative (Negative) 10/09/22 05:02 Blood Type O Positive 10/10/22 12:04 Rho(D) Type Positive 10/10/22 12:04 Antibody Screen Negative 10/10/22 12:04 Radiology Impressions Chest/Abdomen/Pelvis CT 10/09/22 06:36 IMPRESSION: 1. Cardiomegaly with moderate bilateral pleural effusions. There is loculated fissural fluid on the left. 2. Mediastinal and bilateral hilar lymphadenopathy. 3. Coronary artery disease. 4. At least mild centrilobular emphysema. 5. Dependent atelectasis at the lung bases. 6. Diffuse subcutaneous edema may reflect anasarca. IMPRESSION: 1. Subcapsular splenic collection that is the density of blood. This is suspicious for a subcapsular splenic hematoma. There are linear foci in the spleen suspicious for grade 1 splenic lacerations. No definite active extravasation is seen. 2. Colonic diverticulosis is noted. There is marked wall thickening of the distal descending and proximal/mid sigmoid colon. This could reflect marked colitis. Diverticulitis is considered less likely given long segment involvement; however, this is not excluded. Recommend colonoscopy upon resolution of acute symptoms to exclude underlying mass. 3. There is prominence of the wall of multiple small bowel loops which may reflect background enteritis. Correlate clinically. 4. Indeterminate right hepatic lesion. Recommend nonemergent MR abdomen hepatic protocol with and without contrast to better characterize. 5. Globular eccentric atheromatous plaque within the proximal abdominal aorta. No dissection is seen. 6. Probable severe narrowing of the proximal renal arteries. 7. Severe narrowing of the superior mesenteric artery 8. The right femoral artery is occluded. 9. A gastric diverticulum is noted. 10. Mild ascites. 11. Diffuse subcutaneous edema may reflect anasarca. COMMENTS: Consistent with the [employer]'s Incidental Findings Committee white paper (J Am Josiane Radiol 2018): Any incidental renal lesion less than 1 cm or classified as too small to characterize, or any incidental cystic renal lesion characterized as simple-appearing, is likely benign. No follow-up imaging is recommended for these lesions per consensus recommendations based on imaging criteria. ADDENDUM: 10/09/[address] De Santiago at 10/09/2022 8:15 AM RECREATION FACILITY ATTENDANT. Chest/Abdomen X-ray 10/10/22 09:52 Impression: 1. Intra-abdominal free air which was not present yesterday which may represent perforated intra-abdominal viscus. 2. Bilateral basilar pulmonary opacity. 3. Cardiomegaly. 4. Large amount of fecal material in the colon. 5. The nurse in the [facility] was notified at 1040 hours. Abdomen/Pelvis CT 10/10/22 10:48 IMPRESSION: 1. Interval development of a moderate amount of free air throughout the peritoneal cavity since 10/09/2022. 2. Markedly abnormal descending colon and sigmoid. There is marked wall thickening and edema with diverticular disease. Ischemic changes with perforation likely in the sigmoid colon. Underlying mass is not excluded. 3. Diffuse mild ascites and soft tissue anasarca. 4. Small bilateral pleural effusions and compressive atelectasis. 5. Tiny focus of air near the quincy hepatis. May be free air within the quincy hepatis or very small amount of biliary air which can be seen with ischemic bowel disease. 6. Increasing thrombus abdominal aorta. Similar to 10/09/2022. Notified Stephen Retana DO at 10/10/2022 1:59 PM. Liver Ultrasound 10/12/22 10:22 IMPRESSION: 1. Moderate RIGHT pleural effusion. 2. Minimally distended gallbladder with sludge. No stones or significant pericholecystic fluid. Mild gallbladder hydrops may be due to prolonged fasting state. 3. No bile duct dilatation. Chest X-Ray 10/14/22 06:00 IMPRESSION: Imaging findings of pulmonary edema with small bilateral pleural effusions. Pneumonia should be excluded clinically. Recent Clincial Data Last Vital Signs Temp 97.3 F L 10/14/22 03:44 Pulse 118 H 10/14/22 06:00 Resp 21 H 10/14/22 05:06 BP 125/88 10/13/22 20:20 Pulse Ox 96 10/13/22 20:48 O2 Del Method 10/14/22 03:44 O2 Flow Rate 4 10/14/22 03:44 Intake & Output/Weight 10/12/22 10/13/22 10/14/22 10/15/22 06:59 06:59 06:59 06:59 Intake Total 357.756 / 167.963 9815.410 / 2172.410 1837.581 / 1837.581 Output Total 600 / 600 1530 / 1530 1001 / 1001 Balance -242.244 / -242.244 642.410 / 642.410 836.581 / 836.581 Weight 59.1 kg Vitals Last Vital Signs Temp 97.3 F L 10/14/22 03:44 Pulse 118 H 10/14/22 06:00 Resp 21 H 10/14/22 05:06 BP 125/88 10/13/22 20:20 Pulse Ox 96 10/13/22 20:48 O2 Del Method 10/14/22 03:44 O2 Flow Rate 4 10/14/22 03:44 TS Medications Medications Discontinued Medications Acetaminophen (Acetaminophen 325 Mg Tablet) 650 mg PO Q6H PRN PRN Reason: Mild/Mod Pain Or Temp >/= 101 Last Admin: 10/09/22 16:37 Dose: 650 mg Albuterol Sulfate (Albuterol 2.5 Mg/3 Ml Neb) 2.5 mg INHALATION Q6H.RESP PRN PRN Reason: SHORTNESS OF BREATH Last Admin: 10/13/22 13:57 Dose: 2.5 mg Alprazolam (Alprazolam 0.5 Mg Tablet) 0.5 mg PO TID PRN PRN Reason: ANXIETY Artificial Tears (Artificial Tears Op Oint 3.5 Gm) Confirm Administered Dose 21 applic .ROUTE .STK-MED ONE Stop: 10/10/22 17:01 Aspirin (Aspirin 81 Mg Ec Tablet) 81 mg PO DAILY [facility] Last Admin: 10/11/22 09:31 Dose: Not Given Aspirin (Aspirin 300 Mg Supp) 300 mg LA DAILY [facility] Last Admin: 10/13/22 09:00 Dose: 300 mg Atorvastatin Calcium (Atorvastatin 40 Mg Tablet) 80 mg PO DAILY [facility] Last Admin: 10/09/22 08:41 Dose: 80 mg Calcium Chloride (Calcium Chloride 10% Syr 10 Ml) Confirm Administered Dose 1 gm .ROUTE .STK-MED ONE Stop: 10/10/22 17:03 Calcium Chloride (Calcium Chloride 10% Syr 10 Ml) Confirm Administered Dose 1 gm .ROUTE .STK-MED ONE Stop: 10/10/22 19:16 Clopidogrel Bisulfate (Clopidogrel 75 Mg Tablet) 75 mg PO DAILY [facility] Last Admin: 10/13/22 09:00 Dose: 75 mg Cosyntropin (Cosyntropin 0.25 Mg Sdv) 0.25 mg IVP ONCE ONE Stop: 10/13/22 08:34 Last Admin: 10/13/22 16:34 Dose: 0.25 mg Dexamethasone (Dexamethasone 4 Mg/Ml Inj) Confirm Administered Dose 4 mg .ROUTE .STK-MED ONE Stop: 10/10/22 17:01 Dextrose (Dextrose 50% Syringe 50 Ml) 25 ml IVP ONCE PRN; Protocol PRN Reason: hypoglycemia protocol Dextrose (Dextrose 50% Syringe 50 Ml) 50 ml IVP PRN PRN; Protocol PRN Reason: hypoglycemia protocol Dextrose (Dextrose 50% Syringe 50 Ml) 50 ml IVP ONCE ONE Stop: 10/13/22 01:11 Diltiazem HCl (Diltiazem 5 Mg/Ml Sdv 5 Ml) 10 mg IVP ONCE ONE Stop: 10/09/22 05:39 Last Admin: 10/09/22 05:45 Dose: 10 mg Diphenhydramine HCl (Diphenhydramine 50 Mg/Ml Sdv 1ml) 12.5 mg IVP ONCE PRN PRN Reason: PONV Diphenhydramine HCl (Diphenhydramine 50 Mg/Ml Sdv 1ml) 12.5 mg IVP ONCE PRN PRN Reason: Postop N/V Epinephrine HCl (Epinephrine 1 Mg/Ml Inj) Confirm Administered Dose 1 mg .ROUTE .STK-MED ONE Stop: 10/10/22 17:02 Ergocalciferol (Ergocalciferol (Vitamin D2) 50,000 Unit Capsule) 50,000 unit PO Q7D [facility] Last Admin: 10/13/22 09:00 Dose: 50,000 unit Fentanyl (Fentanyl 50 Mcg/Ml Inj 2ml) Confirm Administered Dose 100 mcg .ROUTE .STK-MED ONE Stop: 10/10/22 17:07 Furosemide (Furosemide 10 Mg/Ml Sdv 4ml) 40 mg IVP ONCE ONE Stop: 10/09/22 07:27 Last Admin: 10/09/22 08:35 Dose: 40 mg Gabapentin (Gabapentin 300 Mg Capsule) 300 mg PO BID [facility] Last Admin: 10/13/22 17:46 Dose: 300 mg Glucagon (Glucagon 1 Mg/Ml Inj 1 Ml) 1 mg IM ONCE PRN; Protocol PRN Reason: Adult Acute Hypoglycemia Prot. Heparin Sodium (Porcine) (Heparin, Porcine 1,000 Unit/Ml Inj 10 Ml) 10,000 unit HE ONCE ONE Stop: 10/13/22 17:51 Last Admin: 10/13/22 18:27 Dose: 10,000 unit Hydromorphone HCl (Hydromorphone 1 Mg/Ml Inj 1 Ml) Confirm Administered Dose 1 mg .ROUTE .STK-MED ONE Stop: 10/10/22 18:43 Hydromorphone HCl (Hydromorphone 1 Mg/Ml Inj 1 Ml) 1 mg IVP Q4H PRN PRN Reason: PAIN Last Admin: 10/12/22 16:37 Dose: 1 mg Hydromorphone HCl (Hydromorphone 1 Mg/Ml Inj 1 Ml) 0.5 mg IVP Q4H PRN PRN Reason: PAIN Last Admin: 10/14/22 00:16 Dose: 0.5 mg Hydromorphone HCl (Hydromorphone 1 Mg/Ml Inj 1 Ml) 0.5 mg IVP ONCE ONE Stop: 10/13/22 08:55 Last Admin: 10/13/22 11:59 Dose: 0.5 mg Hydromorphone HCl (Hydromorphone 1 Mg/Ml Inj 1 Ml) 1 mg IVP Q3H PRN PRN Reason: PAIN Last Admin: 10/14/22 05:06 Dose: 1 mg Hydroxyzine Pamoate (Hydroxyzine 25 Mg Capsule) 25 mg PO ONCE ONE Stop: 10/09/22 19:44 Last Admin: 10/09/22 20:40 Dose: 25 mg Sodium Chloride (Sodium Chloride 0.9%) 1,000 mls @ 999 mls/hr IV .Q1H1M ONE Stop: 10/09/22 05:23 Last Infusion: 10/09/22 05:48 Dose: Infused Diltiazem HCl 100 mg/ Sodium (Chloride) 100 mls @ 0 mls/hr IV .Q0M [facility]; Protocol Last Titration: 10/09/22 14:30 Dose: 7.5 mg/hr, 7.5 mls/hr Dextrose (D5w) 500 mls @ 100 mls/hr IV ONCE PRN; Protocol PRN Reason: Adult Acute Hypoglycemia Prot Last Infusion: 10/12/22 15:38 Dose: Infused Sodium Chloride (Sodium Chloride 0.9%) 500 mls @ 999 mls/hr IV .Q31M ONE Stop: 10/09/22 15:54 Last Infusion: 10/09/22 16:19 Dose: Infused Piperacillin Sod/Tazobactam (Sod 3.375 gm/ Sodium Chloride) 50 mls @ 12.5 mls/hr IV Q12H [facility]; Protocol Last Infusion: 10/09/22 19:18 Dose: Infused Piperacillin Sod/Tazobactam (Sod 3.375 gm/ Sodium Chloride) 50 mls @ 12.5 mls/hr IV Q8H [facility]; Protocol Last Infusion: 10/14/22 03:46 Dose: Infused Sodium Chloride (Sodium Chloride 0.9%) 1,000 mls @ 30 mls/hr IV .Q24H [facility] Stop: 10/11/22 17:14 Last Admin: 10/10/22 17:11 Dose: 30 mls/hr Sodium Chloride (Sodium Chloride 0.9% (100 Ml)) Confirm Administered Dose 100 mls @ as directed .ROUTE .[facility] ONE Stop: 10/10/22 17:03 Sodium Chloride (Sodium Chloride 0.9% (100 Ml)) Confirm Administered Dose 100 mls @ as directed .ROUTE .ST-MED ONE Stop: 10/10/22 17:05 Sodium Chloride (Sodium Chloride 0.9%) Confirm Administered Dose 1,000 [facility]ls @ [facility] Stop: 10/10/22 17:12 Last Admin: 10/10/22 20:26 Dose: Not Given Sodium Chloride (Sodium Chloride 0.9% (100 Ml)) Confirm Administered Dose 100 mls @ as directed .[facility] Stop: 10/10/22 18:46 Amiodarone HCl 150 mg/Dextrose/ IV Miscellaneous Supplies 103 mls @ 412 mls/hr IV ONCE ONE Stop: 10/11/22 08:30 Last Admin: 10/11/22 08:56 Dose: 412 mls/hr Amiodarone HCl 900 mg/Dextrose/ IV Miscellaneous Supplies 518 mls @ 0 mls/hr IV .Q0M [facility]; Protocol Amiodarone HCl 900 mg/Dextrose/ IV Miscellaneous Supplies 518 mls @ 0 mls/hr IV .Q0M [facility]; Protocol Last Titration: 10/12/22 08:30 Dose: 0 mg/min, 0 mls/hr Sodium Chloride (Sodium Chloride 0.9%) 500 mls @ 999 mls/hr IV .Q31M [facility] Sodium Chloride (Sodium Chloride 0.9%) 500 mls @ 999 mls/hr IV .Q31M [facility] Stop: 10/11/22 21:45 Last Infusion: 10/12/22 15:27 Dose: Infused Norepinephrine Bitartrate 4 mg (/ Dextrose) 254 mls @ 0 mls/hr IV .Q0M [facility]; Protocol Last Titration: 10/13/22 16:46 Dose: 4 mcg/min, 15.24 mls/hr Dextrose 35.5 ml/ Sterile (Water 14.5 ml/ N/A) 50 mls @ 600 mls/hr IVP ONCE ONE Stop: 10/12/22 08:34 Last Infusion: 10/12/22 15:27 Dose: Infused Insulin Human Regular 10 unit/ (N/A) 0.1 mls @ 0 mls/hr IVP ONCE ONE Stop: 10/13/22 01:11 Last Admin: 10/13/22 01:35 Dose: 1 mls/hr Calcium Gluconate/Sodium Chloride (Calcium Gluconate 0.9% Nacl) 1 gm in 50 mls @ 50 mls/hr IV ONCE ONE Stop: 10/13/22 02:11 Last Admin: 10/13/22 01:34 Dose: 50 mls/hr Dextrose 35.5 ml/ Sterile (Water 14.5 ml/ N/A) 50 mls @ 600 mls/hr IVP ONCE ONE Stop: 10/13/22 01:19 Last Infusion: 10/13/22 02:27 Dose: Infused Lactated Ringer's (Lactated Ringers) 1,000 mls @ 75 mls/hr IV .[id number] [facility] Last Admin: 10/13/22 22:19 Dose: 75 mls/hr Albumin Human (Albumin) Confirm Administered Dose 12.5 gm in 250 mls @ as directed .ROUTE .STK-MED ONE Stop: 10/10/22 18:44 Vancomycin HCl / Sodium (Chloride) 250 mls @ 0 mls/hr [id number] PROTOCOL [facility]; Protocol Vancomycin/PEG/NADA/Lysine/Water (Vancocin) 1,250 mg in 250 mls @ 250 mls/hr IV Q36H [facility] Last Admin: 10/13/22 22:17 Dose: 250 mls/hr Insulin Human Lispro (Insulin Lispro 100 Unit/1 Ml) 0 unit SUBCUT TIDWM [facility]; Protocol Last Admin: 10/13/22 17:46 Dose: Not Given Insulin Human Regular (Insulin Regular-Human 100 Units/1 Ml) 10 unit IVP ONCE ONE Stop: 10/09/22 04:24 Last Admin: 10/09/22 05:07 Dose: Not Given Iohexol (Iohexol 350 Mg/Ml 500 Ml Btl (Per Ml)) 0 ml IV ONCE ONE Stop: 10/09/22 05:41 Iohexol (Iohexol 350 Mg/Ml 500 Ml Btl (Per Ml)) 0 ml IV ONCE ONE Stop: 10/09/22 07:11 Last Admin: 10/09/22 07:11 Dose: 100 ml Iohexol (Iohexol 350 Mg/Ml 500 Ml Btl (Per Ml)) 0 ml PO ONCE ONE Stop: 10/10/22 11:57 Last Admin: 10/10/22 11:57 Dose: 50 ml Iohexol (Iohexol 350 Mg/Ml 500 Ml Btl (Per Ml)) 0 ml IV ONCE ONE Stop: 10/10/22 13:23 Last Admin: 10/10/22 13:22 Dose: 100 ml Ipratropium Jennings (Ipratropium 0.5 Mg/2.5 Ml Neb) 0.5 mg INHALATION ONCE PRN PRN Reason: WHEEZING Lisinopril (Lisinopril 20 Mg Tablet) 20 mg PO DAILY [facility] Last Admin: 10/09/22 11:02 Dose: Not Given Metoprolol Tartrate (Metoprolol Tartrate 25 Mg Tablet) 25 mg PO BID@0900,2100 [facility] Metoprolol Tartrate (Metoprolol Tartrate 25 Mg Tablet) 25 mg PO BID@0900,2100 [facility] Last Admin: 10/11/22 09:31 Dose: Not Given Metoprolol Tartrate (Metoprolol Tartrate 1 Mg/1 Ml Sdv 5 Ml) 5 mg IVP Q6H PRN PRN Reason: HEART RATE-HIGH Last Admin: 10/11/22 10:14 Dose: 5 mg Midazolam HCl (Midazolam 1 Mg/Ml Inj 2 Ml) 2 mg IVP ONCE PRN PRN Reason: Preop Anxiety Morphine Sulfate (Morphine 4 Mg/Ml Sdv 1 Ml) 1 mg IVP Q4H PRN PRN Reason: SEVERE PAIN Last Admin: 10/13/22 03:35 Dose: 1 mg Morphine Sulfate (Morphine 4 Mg/Ml Sdv 1 Ml) 4 mg IVP Q4H PRN PRN Reason: SEVERE PAIN Last Admin: 10/10/22 21:40 Dose: 4 mg Ondansetron HCl (Ondansetron 2 Mg/Ml Sdv 2 Ml) 4 mg IVP Q8H PRN PRN Reason: vomiting, or N/V if npo Ondansetron HCl (Ondansetron 2 Mg/Ml Sdv 2 Ml) Confirm Administered Dose 4 mg .ROUTE .STK-MED ONE Stop: 10/10/22 17:01 Ondansetron HCl (Ondansetron 2 Mg/Ml Sdv 2 Ml) 4 mg IVP Q6H PRN PRN Reason: NAUSEA AND VOMITING Pantoprazole Sodium (Pantoprazole 40 Mg Sdv) 40 mg IVP Q12H [facility] Last Admin: 10/09/22 08:35 Dose: 40 mg Pantoprazole Sodium (Pantoprazole 40 Mg Sdv) 40 mg IVP Q12H [facility] Last Admin: 10/13/22 22:16 Dose: 40 mg Phenylephrine HCl (Phenylephrine 10 Mg/Ml Sdv 1 Ml) Confirm Administered Dose 10 mg .ROUTE .STK-MED ONE Stop: 10/10/22 17:01 Phenylephrine HCl (Phenylephrine 10 Mg/Ml Sdv 1 Ml) Confirm Administered Dose 10 mg .ROUTE .STK-MED ONE Stop: 10/10/22 18:46 Piperacillin Sod/Tazobactam Sod (Piperacillin-Tazobactam 3.375 Gm Sdv) Confirm Administered Dose 3.375 gm .ROUTE .STK-MED ONE Stop: 10/10/22 16:58 Last Admin: 10/10/22 20:26 Dose: Not Given Propofol (Propofol 10 Mg/Ml Sdv 20 Ml) Confirm Administered Dose 200 mg .ROUTE .STK-MED ONE Stop: 10/10/22 17:02 Rocuronium Jennings (Rocuronium 10 Mg/Ml Inj 5ml) Confirm Administered Dose 50 mg .ROUTE .STK-MED ONE Stop: 10/10/22 17:01 Sugammadex Sodium (Sugammadex 200 Mg/2 Ml Sdv) Confirm Administered Dose 200 mg .ROUTE .STK-MED ONE Stop: 10/10/22 19:26 Allergies codeine Adverse Reaction (Unknown, Verified 09/21/22 07:41) ADR-Nausea N/V Home Medications lisinopril 20 mg tablet 20 mg PO DAILY #90 tabs 08/30/21 [Rx Confirmed 10/09/22] aspirin 81 mg tablet,delayed release 81 mg PO DAILY 11/30/21 [History Confirmed 10/09/22] vit G-[id number]-wik palmetto 160 mg-pygeum africanum 12.5 mg capsule (Urinozinc Prostate Complex Classic) 1 cap PO DAILY 12/08/21 [History Confirmed 10/09/22] clopidogrel 75 mg tablet 75 mg PO DAILY #90 tabs 02/04/22 [Rx Confirmed 10/09/22] atorvastatin 80 mg tablet 80 mg PO DAILY #100 tabs 04/18/22 [Rx Confirmed 10/09/22] gabapentin 300 mg capsule 300 mg PO BID #60 caps 05/16/22 [Rx Confirmed 10/09/22] sitagliptin phosphate 100 mg tablet (Januvia) 100 mg PO DAILY #30 tabs 05/16/22 [Rx Confirmed 10/09/22] metformin 1,000 mg tablet 1,000 mg PO BID #180 tabs 06/27/22 [Rx Confirmed 10/09/22] ferrous sulfate 325 mg (65 mg iron) tablet (Feosol) 325 mg PO DAILY #30 tabs 09/02/22 [Rx Confirmed 10/09/22] omeprazole 40 mg capsule,delayed release 40 mg PO BIDWM 30 days #60 caps 09/02/22 [Rx Confirmed 10/09/22] ondansetron 4 mg disintegrating tablet 4 mg PO Q8H PRN nausea and vomiting #15 tabs 09/27/22 [Rx Confirmed 10/09/22] pantoprazole 40 mg tablet,delayed release (Protonix) 40 mg PO BID 14 days #28 tabs 10/05/22 [Rx Confirmed 10/09/22] cefdinir 300 mg capsule See Rx Instructions .Route .COMPLEX #30 caps 10/06/22 [Rx Confirmed 10/09/22] Discharge Plan Discharge Patient Disposition: Home Health Service Condition: Stable Prescriptions: No Action Urinozinc Prostate Complx Clsc 160-12.5 mg capsule 1 cap PO DAILY aspirin 81 mg tablet,delayed release (DR/EC) 81 mg PO DAILY lisinopril 20 mg tablet 20 mg PO DAILY Qty: 90 3RF pantoprazole [Protonix] 40 mg tablet,delayed release (DR/EC) 40 mg PO BID 14 Days Qty: 28 0RF clopidogrel 75 mg tablet 75 mg PO DAILY Qty: 90 3RF atorvastatin 80 mg tablet 80 mg PO DAILY Qty: 100 3RF gabapentin 300 mg capsule 300 mg PO BID Qty: 60 5RF Januvia 100 mg tablet 100 mg PO DAILY Qty: 30 5RF Rx Instructions: 340B metformin 1,000 mg tablet 1,000 mg PO BID Qty: 180 1RF Hold Instructions: Resume on 12/26/21. cefdinir 300 mg capsule See Rx Instructions .ROUTE .COMPLEX Qty: 30 0RF Dose Instruction: take 1 capsule BY MOUTH TWICE DAILY Rx Instructions: take 1 capsule BY MOUTH TWICE DAILY ferrous sulfate [Feosol] 325 mg (65 mg iron) tablet 325 mg PO DAILY Qty: 30 0RF omeprazole 40 mg capsule,delayed release(DR/EC) 40 mg PO BIDWM 30 Days Qty: 60 3RF ondansetron 4 mg tablet,disintegrating 4 mg PO Q8H PRN (Reason: nausea and vomiting) Qty: 15 0RF Discharge Orders: Transfer Out of Facility (Order); Ordered 10/14/22 Ordered By: Kemal Langford Referrals: [facility] [place], [place] Home Care ([facility]) [Outside] Dany De Santiago DO [Physician] - 10/17/22 10:00 am (Please follow up with Dr. De Santiago on Oct 17 at 10:00 am. Please arrive 15 min early to complete paperwork. ) Patient Instructions: Opioid Safety Transfer Attestations Time Spent in Transfer Care: greater than 30 min Status at Transfer: Cognitive status at transfer: cognitively intact; Behavioral status at transfer: cooperative; Quality Metrics Clinical Quality Measures [ No reported AMI, CVA or VTE this stay] Coding Level of Care Code Acute Code for Chg Fwd Diagnoses Septic shock A41.9; R65.21 Bowel perforation K63.1 COLE (acute kidney injury) N17.9 Transaminitis R74.01 Atrial flutter with rapid ventricular response I48.92 Mixed hyperlipidemia E78.2 Presence of prosthetic heart valve Z95.2 Type 2 diabetes mellitus E11.65; Z79.4 Diabetes mellitus residential insulin use: with residential use Diabetes mellitus complication status: with hyperglycemia PVD (peripheral vascular disease) I73.9 Diastolic CHF, chronic I50.32 CHF exacerbation I50.9 Diverticulitis K57.92 Recurrent urinary tract infection N39.0 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
[2022-10-20 10:09] LABS: Vit D 1,25 (Oh)2, Total 10 pg/mL (18-72); Vit D2 1,25 (Oh)2 <8 pg/mL; Vit D3 1,25 (Oh)2 10 pg/mL
== END 2022-10-14 07:39 | disposition short-term general hospital (02) | DRG 264 ==
LOC: ER 05:43 → CSU 10:50 → ICU 10-10 16:59
PROVIDERS: Family Medicine; Internal Medicine Nephrology; Internal Medicine Pulmonary Disease; Surgery; Admitting Provider Family Medicine; Emergency Provider Emergency Medicine; Visit Provider Internal Medicine
PROC: 0WJG0ZZ Inspection of Peritoneal Cavity, Open Approach (ICD-10-PCS; CPT 49000; principal; 2022-10-10 16:30)
DX: I48.92 Unspecified atrial flutter (principal); I50.21 Acute systolic (congestive) heart failure; S36.032A Major laceration of spleen, initial encounter; K57.32 Diverticulitis of large intestine without perforation or abscess without bleeding; N17.9 Acute kidney failure, unspecified; N39.0 Urinary tract infection, site not specified; N32.1 Vesicointestinal fistula; K55.1 Chronic vascular disorders of intestine; D62 Acute posthemorrhagic anemia; I48.91 Unspecified atrial fibrillation; E78.2 Mixed hyperlipidemia; Z95.3 Presence of xenogenic heart valve; E11.65 Type 2 diabetes mellitus with hyperglycemia; E11.51 Type 2 diabetes mellitus with diabetic peripheral angiopathy without gangrene; I11.0 Hypertensive heart disease with heart failure; I25.10 Atherosclerotic heart disease of native coronary artery without angina pectoris; Z95.1 Presence of aortocoronary bypass graft; Z89.511 Acquired absence of right leg below knee; I70.1 Atherosclerosis of renal artery; J43.2 Centrilobular emphysema; K52.9 Noninfective gastroenteritis and colitis, unspecified; K76.9 Liver disease, unspecified; X58.XXXA Exposure to other specified factors, initial encounter; F17.210 Nicotine dependence, cigarettes, uncomplicated; I25.2 Old myocardial infarction; Z79.84 Long term (current) use of oral hypoglycemic drugs; Z79.02 Long term (current) use of antithrombotics/antiplatelets; Z79.82 Long term (current) use of aspirin; I95.9 Hypotension, unspecified
CPT/HCPCS: 36415; 36416; 36600; 51702; 71045; 71260; 74018; 74022; 74177; 76705; 80048; 80051; 80053; 80061; 80307; 80503; 81001; 82306; 82330; 82378; 82436; 82533; 82550; 82570; 82607; 82652; 82728; 82746; 82805; 82962; 83036; 83540; 83550; 83605; 83690; 83735; 83880; 84100; 84133; 84145; 84300; 84439; 84443; 84484; 84550; 85014; 85018; 85025; 85610; 86140; 86705; 86706; 86709; 86803; 86850; 86900; 87040; 87070; 87075; 87086; 87205; 87340; 87426; 87804; 88108; 88305; 89050; 90935; 93005; 93308; 94640; 94664; 96361; 96372; 96374; 96376; 97161; 97530; 99285; C9113; J0171; J0282; J0610; J0834; J1100; J1170; J1644; J1815; J1940; J2270; J2370; J2405; J2543; J2704; J3010; J3370; J3490; J7030; J7040; J7060; J7120; J7613; P9045; Q3014; Q9967